=== PATIENT | male | born 1960 | race Caucasian/White ===

== ENCOUNTER 2020-12-06 20:53 | Emergency (ER) | payer MEDICAID, SELFPAY ==
[2020-12-06 21:02] VITALS: BP 116/85; PULSE 112; RESP 18; TEMP 37.4; O2SAT 96; BMI 31.4
--- NOTE | 2020-12-06 21:54 | W.ED.ABDPA2 ---
HPI - Abdominal Pain General: Chief Complaint: Abdominal Pain Stated Complaint: constantly cold, stomach pain, cp Time Seen by Provider: 12/06/20 21:02 Source: patient Mode of arrival: ambulatory Limitations: no limitations History of Present Illness: HPI narrative: 60-year-old male states of last 2 days been having epigastric abdominal pain that radiates to his chest. States the pain is been much worse after eating and then subsides. He states the pain is in his chest when he lays flat after eating. He states he has a history of reflux in the past and used to be on a PPI but does not take anymore. He denies any pain currently. Denies any worsening improving factors. Denies any vomiting or diarrhea. MD elicited complaint: abdominal pain Associated Symptoms: Denies chills, dysuria and fever(s) Review of Systems Const: Denies: fever(s), chills, body aches or change in appetite Eyes: Denies: blurry vision or eye discomfort ENMT: Denies: throat pain or dental pain Card: Reports: chest pain Resp: Denies: dyspnea GI: Reports: abdominal pain : Denies: dysuria Musc: Denies: neck pain or back pain Skin/Breast: Denies: rash Neuro: Denies: headache(s) Psych: Denies: depression Jose/Lymph: Denies: easy bruising All/Imm: Denies: urticaria Physical Exam Const: COMMON NORMALS: no acute distress, patient oriented x3 and healthy appearing HENMT: COMMON NORMALS: normocephalic and atraumatic HEAD & SCALP: normocephalic and atraumatic Eye: COMMON NORMALS: Equal, round and reactive pupils present and EOMs intact bilaterally PUPIL: Yes Equal, round and reactive pupils present Neck/C-Spine: COMMON NORMALS: full ROM and supple Chest: COMMONS NORMALS: normal inspection of the chest and normal palpation of entire chest wall Resp: COMMON NORMALS: normal respiratory effort, No retractions, No use of accessory muscles and clear to auscultation bilaterally AUSCULTATION: clear to auscultation bilaterally Cardio: COMMON NORMALS: regular rate, regular rhythm and No murmurs present (Cardio) RATE: regular rate RHYTHM: regular rhythm GI: COMMON NORMALS: Normal to inspection, nondistended, normoactive bowel sounds present, Soft to palpation, non-tender and no masses PALPATION: Yes Soft to palpation Extremity: COMMON NORMALS: normal to inspection and full ROM Neuro: COMMON NORMALS: patient oriented x3, moves all extremities and no focal motor deficits Psych: COMMON NORMALS: mental status grossly normal, Normal thought process present and cooperative THOUGHT PROCESS: Normal thought process present Skin: COMMON NORMALS: no rashes or lesions noted and no wounds GENERAL SKIN EXAM: no rashes or lesions noted Course Vital Signs: Vital signs: Vital Signs Temperature 98.5 F 12/06/20 23:59 Pulse Rate 112 H 12/06/20 21:02 Respiratory Rate 18 12/07/20 00:04 Blood Pressure 116/85 12/06/20 21:02 Pulse Oximetry 96 12/06/20 21:02 MDM - Abdominal Pain MDM Narrative: Medical decision making narrative: Ace presents with epigastric pain is likely gastritis. His initial repeat troponin and blood work here are all normal. He has no tenderness over his gallbladder no signs of acute surgical abdomen. He has no signs of cardiac cause for his pain. We will place him on Protonix and he is stable for discharge. Lab Data: Labs: Lab Results 12/06/20 12/06/20 12/06/20 Range/Units 22:30 22:30 22:30 WBC 6.8 (4.0-10.0) 10^3/ uL RBC 5.51 H (4.1-5.3) 10^6/u L Hgb 15.9 (11.7-16.6) g/dL Hct 47.4 (42.0-52.0) % MCV 86.0 (80-94) fL MCH 28.9 (28.0-34.0) pg MCHC 33.5 (30.0-36.0) g/dL RDW 12.7 (12.1-15.1) % Plt Count 165 (130-400) 10^3/c mm MPV 11.2 H (7.4-10.4) fL Neut % (Auto) 79.8 % Lymph % (Auto) 11.0 % [place] % (Auto) 7.8 % Eos % (Auto) 0.1 % Baso % (Auto) 0.7 % Neut # (Auto) 5.45 (1.8-7.7) 10^3/u L Lymph # (Auto) 0.8 (0.8-4.8) 10^3/u L [place] # (Auto) 0.5 (0.2-0.9) 10^3/u L Eos # (Auto) 0.0 (0.0-0.8) 10^3/u L Baso # (Auto) 0.1 (0.0-0.1) 10^3/u L Nucleated RBC % (a uto) 0 % Nucleated RBCs # 0.0 /100WBC Sodium 137 (136-145) mmol/L Potassium 3.5 (3.5-5.1) mmol/L Chloride 101 (98-107) mmol/L Carbon Dioxide 23 (22-29) mmol/L Anion Gap 16.5 (5-19) BUN 12 (6-20) mg/dL Creatinine 0.7 (0.7-1.2) mg/dL GFR Calculation 115.8 (90-130) mL/min Glucose 138 H (65-115) mg/dL Calculated Osmolal ity 286 (285-295) mOsm/k g Calcium 9.0 (8.5-10.5) mg/dL Total Bilirubin 0.7 (0.15-1.2) mg/dL AST 33 (0-40) U/L ALT 51 H (0-41) U/L Alkaline Phosphata se 73 (40-130) IU/L Troponin T Baselin e 9 (0-15) ng/L Troponin T 120 Min [place] (0-15) ng/L Total Protein 7.3 (6.6-8.7) g/dL Albumin 4.4 (3.5-5.2) g/dL Globulin 2.9 (1.3-4.6) g/dL Lipase 43 (13-60) U/L 12/07/20 Range/Units 00:23 WBC (4.0-10.0) 10^3/ uL RBC (4.1-5.3) 10^6/u L Hgb (11.7-16.6) g/dL Hct (42.0-52.0) % MCV (80-94) fL MCH (28.0-34.0) pg MCHC (30.0-36.0) g/dL RDW (12.1-15.1) % Plt Count (130-400) 10^3/c mm MPV (7.4-10.4) fL Neut % (Auto) % Lymph % (Auto) % [place] % (Auto) % Eos % (Auto) % Baso % (Auto) % Neut # (Auto) (1.8-7.7) 10^3/u L Lymph # (Auto) (0.8-4.8) 10^3/u L [place] # (Auto) (0.2-0.9) 10^3/u L Eos # (Auto) (0.0-0.8) 10^3/u L Baso # (Auto) (0.0-0.1) 10^3/u L Nucleated RBC % (a uto) % Nucleated RBCs # /100WBC Sodium (136-145) mmol/L Potassium (3.5-5.1) mmol/L Chloride (98-107) mmol/L Carbon Dioxide (22-29) mmol/L Anion Gap (5-19) BUN (6-20) mg/dL Creatinine (0.7-1.2) mg/dL GFR Calculation (90-130) mL/min Glucose (65-115) mg/dL Calculated Osmolal ity (285-295) mOsm/k g Calcium (8.5-10.5) mg/dL Total Bilirubin (0.15-1.2) mg/dL AST (0-40) U/L ALT (0-41) U/L Alkaline Phosphata se (40-130) IU/L Troponin T Baselin e (0-15) ng/L Troponin T 120 Min [place] 7.77 (0-15) ng/L Total Protein (6.6-8.7) g/dL Albumin (3.5-5.2) g/dL Globulin (1.3-4.6) g/dL Lipase (13-60) U/L Imaging Data ^: CXR: Attestation: I personally reviewed and interpreted this imaging study as follows: My impression: no acute abnormality EKG Data ^: EKG 1: Attestation: I personally reviewed and interpreted this EKG as follows: EKG interpretation date: 12/06/20 EKG interpretation time: 21:11 Interpretation: sinus tach hr [address] or t wave abnormalitie qrs 97 qtc 380 EKG 2: Attestation: I personally reviewed and interpreted this EKG as follows: EKG interpretation date: 12/06/20 EKG interpretation time: 23:19 Interpretation: nsr hr [address] or t wave abnormalities qrs 95 qtc 378 Discharge Plan Discharge Patient Disposition: Home Clinical Impression: Abdominal pain Qualifiers: Abdominal location: generalized Qualified Code(s): R10.84 - Generalized abdominal pain Condition: Stable Prescriptions: New Protonix 40 mg tablet,delayed release (DR/EC) 40 mg PO DAILY Qty: 60 RF: 0 Discharge Orders: Discharge ED (Routine); Ordered 12/07/20 Ordered By: Nolvia Vivas Referrals: Ford García MD [Primary Care Provider] - 1-3 days Discharge Diet: Advance as tolerated Discharge Activity: Resume usual activity Patient Instructions: Abdominal Pain (ED) Coding Level of Care Code ED Civil Engineer'S Aide for Chg Fwd Exam Comprehensive
--- NOTE | 2020-12-06 22:34 | XR_ITS ---
WS: [id number] XR chest 1V portable [id number] REASON FOR EXAM: cp FINDINGS: The chest is unchanged compared to 11/16/2016. Mild tortuosity of the thoracic aorta. Normal heart size. Calcified granulomatous changes in both hemithoraces. No active pulmonary parenchymal or pleural disease. No significant abnormality of the bony thorax. XR/XR chest 1V portable [id number] IMPRESSION: No acute chest abnormality
[2020-12-06 22:39] LABS: Basophils # 0.1 10^3/uL (0.0-0.1); Basophils % 0.7 %; Eosinophils % 0.1 %; Hematocrit 47.4 % (42.0-52.0); Hemoglobin 15.9 g/dL (11.7-16.6); Lymphocytes # 0.8 10^3/uL (0.8-4.8); Mean Corpuscular HGB Conc 33.5 g/dL (30.0-36.0); Mean Corpuscular Hemoglobin 28.9 pg (28.0-34.0); Mean Platelet Volume 11.2 fL (7.4-10.4); Monocytes # 0.5 10^3/uL (0.2-0.9); Monocytes % 7.8 %; Neutrophils # 5.45 10^3/uL (1.8-7.7); Neutrophils % 79.8 %; Nucleated Red Blood Cells % 0 %; Platelet Count 165 10^3/cmm (130-400); Red Blood Count 5.51 10^6/uL (4.1-5.3); Red Cell Distribution Width 12.7 % (12.1-15.1); White Blood Count 6.8 10^3/uL (4.0-10.0)
[2020-12-06 22:57] LABS: Alanine Aminotransferase 51 U/L (0-41); Albumin Level 4.4 g/dL (3.5-5.2); Alkaline Phosphatase 73 IU/L (40-130); Anion Gap 16.5 (5-19); Aspartate Amino Transferase 33 U/L (0-40); Blood Urea Nitrogen 12 mg/dL (6-20); Carbon Dioxide 23 mmol/L (22-29); Chloride 101 mmol/L (98-107); Globulin 2.9 g/dL (1.3-4.6); Glomerular Filtration Rate 115.8 mL/min (90-130); Glucose 138 mg/dL (65-115); Lipase 43 U/L (13-60); Osmolality Calculated 286 mOsm/kg (285-295); Potassium 3.5 mmol/L (3.5-5.1); Sodium 137 mmol/L (136-145); Total Bilirubin 0.7 mg/dL (0.15-1.2); Total Protein 7.3 g/dL (6.6-8.7)
[2020-12-06 23:00] LABS: Troponin(5th) Baseline 9 ng/L (0-15)
--- NOTE | 2020-12-06 23:03 | ECG_ITS ---
[facility] Test Date: 2020-12-06 Pat Name: Ace Barney Department: Room: Gender: Male Manager Law: : 1960 Requested By: Nolvia Vivas Order Number: [id number] Daniel MD: Aziza Vicente M.D. Measurements Intervals [place] Rate: 96 P: 32 [place]: 155 QRS: -20 QRSD: 95 T: 58 QT: 324 QTc: 411 Interpretive Statements SINUS RHYTHM VOLTAGE CRITERIA FOR LVH [MEETS CRITERIA IN ONE OF: R(aVL), S(V1), R(V5), R(V5/V6)+S(V1)] NONSPECIFIC T-WAVE ABNORMALITY Compared to ECG 01/15/2016 13:19:03 T-wave abnormality now present Electronically Signed On 12-07-2020 23:24:09 CDT by Aziza Vicente M.D. [email or web address]/[id number]
[2020-12-06 23:59] VITALS: TEMP 36.9
[2020-12-07] MEDS: ondansetron 2 mg/ML SDV 2 mL 4 MG IVP (00:02)
[2020-12-07 00:04] VITALS: RESP 18
[2020-12-07] MEDS: morphine 4 mg/mL SDV 1 mL IVP (00:04)
[2020-12-07] MEDS: sodium chloride 0.9% 1,000 ML 999 ML IV (00:05)
[2020-12-07 00:43] LABS: Troponin 5 2HR 7.77 ng/L (0-15)
[2020-12-07 01:02] VITALS: BP 148/90; PULSE 96; RESP 18; O2SAT 97
[2020-12-07 01:03] LABS: Troponin 5 2HR Delta -1.23 ABS# (0-10)
== END 2020-12-07 01:04 | disposition home or self-care (01) ==
PROVIDERS: Emergency Provider Emergency Medicine; PCP Family Medicine
DX: R10.84 Generalized abdominal pain (principal)
CPT/HCPCS: 36415; 71045; 80053; 83690; 84484; 85025; 93005; 96361; 96374; 96375; 99284; J2270; J2405; J7030

== ENCOUNTER 2020-12-09 15:16 | Inpatient (IN) | payer MEDICAID, SELFPAY ==
[2020-12-09] VITALS (12 sets, daily range): BP systolic 76–148; BP diastolic 50–112; PULSE 108–120; RESP 21–37; TEMP 37.6–38; O2SAT 92–96; BMI 26.4
--- NOTE | 2020-12-09 16:10 | XRR_ITS ---
PROCEDURE INFORMATION: Exam: XR Chest Exam date and time: 12/09/2020 4:15 PM Age: 60 years old Clinical indication: Fever; Additional info: Tachycardia/fever TECHNIQUE: Imaging protocol: XR of the chest Views: 1 view. Total images: 1 COMPARISON: CR XR chest 1V portable [id number] 12/06/2020 10:33 PM FINDINGS: Lungs: Small volume bibasilar subsegmental alveolar airspace disease which could reflect atelectasis and/or pneumonitis/pneumonia. Diminished inspiratory effort. Pleural spaces: Unremarkable. No pleural effusion. No pneumothorax. Heart/Mediastinum: Cardiac size upper limits of normal. Bones/joints: Unremarkable. Other findings: Obesity. XR/XR chest 1V portable [id number] IMPRESSION: Small volume bibasilar subsegmental alveolar airspace disease which could reflect atelectasis and/or pneumonitis/pneumonia.
--- NOTE | 2020-12-09 16:11 | PC.NURSE ---
Blood and first blood culture drawn and in lab
--- NOTE | 2020-12-09 16:16 | ECG_ITS ---
[facility] Test Date: 2020-12-09 Pat Name: Ace Barney Department: Room: Gender: Male Chairman & Ceo: : 1960 Requested By: Fam Camarillo Order Number: [id number] Daniel MD: Miriam Ramsey M.D. Measurements Intervals [place] Rate: 109 P: 13 [place]: 128 QRS: -17 QRSD: 100 T: 81 QT: 311 QTc: 420 Interpretive Statements SINUS TACHYCARDIA INCOMPLETE RIGHT BUNDLE BRANCH BLOCK [90+ ms QRS DURATION, TERMINAL R IN V1/V2, 40+ ms S IN I/aVL/V4/V5/V6] LEFT VENTRICULAR HYPERTROPHY AND ST-T CHANGE [VOLTAGE CRITERIA PLUS ST/T ABNORMALITY] Compared to ECG 12/06/2020 23:19:17 Incomplete right bundle-branch block now present ST (T wave) deviation now present Sinus rhythm no longer present T-wave abnormality no longer present Electronically Signed On 12-09-2020 20:12:51 CDT by Miriam Ramsey M.D. [email or web address]/store/OM/[id number]
--- NOTE | 2020-12-09 16:30 | PC.NURSE ---
second blood culture drawn and in lab
[2020-12-09 16:34] LABS: Basophils % 0.4 %; Hematocrit 41.8 % (42.0-52.0); Hemoglobin 14.4 g/dL (11.7-16.6); Lymphocytes # 0.5 10^3/uL (0.8-4.8); Lymphocytes % 9.1 %; Mean Corpuscular HGB Conc 34.4 g/dL (30.0-36.0); Mean Corpuscular Hemoglobin 28.5 pg (28.0-34.0); Mean Corpuscular Volume 82.8 fL (80-94); Mean Platelet Volume 12.7 fL (7.4-10.4); Monocytes # 0.4 10^3/uL (0.2-0.9); Monocytes % 8.3 %; Neutrophils # 4.02 10^3/uL (1.8-7.7); Neutrophils % 81.8 %; Nucleated Red Blood Cells % 0 %; Platelet Count 97 10^3/cmm (130-400); Red Blood Count 5.05 10^6/uL (4.1-5.3); Red Cell Distribution Width 13.2 % (12.1-15.1); White Blood Count 4.9 10^3/uL (4.0-10.0)
[2020-12-09] MEDS: acetaminophen 325 mg Tablet 1000 MG PO (16:34)
--- NOTE | 2020-12-09 16:34 | W.ED.COVID ---
HPI - COVID General: Chief Complaint: COVID symptoms Stated Complaint: SOB,FEVER,SORE THROAT,COUGH Time Seen by Provider: 12/09/20 16:02 Triage information: Has fever, cough or shortness of breath. No known COVID + exposure last 14 days History of Present Illness: HPI Narrative: The patient is a 60-year-old male who complains of a couple days of sore throat, dry mouth, fever, chills, weakness, and diarrhea. He was seen in the ER 2 days ago for similar symptoms and was given Protonix and discharge. He says the pills made him feel better for 1 day but today his symptoms returned and he feels worse. Temperature 100.4, pulse 120. MD complaint: has COVID symptoms COVID 19 common symptoms: positive fever(s), chills, cough, dyspnea, fatigue, body aches, headache(s), throat pain and diarrhea COVID 19 other sytmptoms: negative chest pain COVID Results: SARS-CoV-2 Antigen (Rapid) Negative (Negative) 12/09/20 16:11 12/09/20 Nasal/Oral Coronavirus 2019 PCR Pending 12/09/20 17:59 12/09/20 Review of Systems General: Reports: 10 or more systems reviewed and unremarkable except in HPI and below Const: Reports: fever(s), chills, body aches and fatigue Eyes: Denies: change in vision, blurry vision or eye redness ENMT: Reports: throat pain Card: Denies: chest pain, palpitations, irregular heart rhythm, edema, dyspnea on exertion or orthopnea Resp: Reports: dyspnea GI: Reports: diarrhea : Denies: flank pain, urinary frequency or urinary urgency Musc: Denies: neck pain, back pain, extremity pain, joint pain, joint redness, limited range of motion or muscle weakness Skin/Breast: Denies: rash, pruritus, erythema, skin pain or skin tenderness Neuro: Reports: headache(s) Psych: Denies: anxiety or depression Endo: Denies: polyuria All/Imm: Denies: urticaria, throat swelling or tongue swelling Physical Exam Narrative: EXAM NARRATIVE: He is febrile, pale, and in sinus tachycardia. Const: COMMON NORMALS: patient oriented x3 and alert GENERAL APPEARANCE: well kempt ORIENTATION/CONSCIOUSNESS: Yes oriented to person, Yes oriented to place and Yes oriented to time HENMT: COMMON NORMALS: normocephalic, external ears normal and Normal external nose present HEAD & SCALP: normal to inspection and normocephalic NOSE: Normal external nose present EXTERNAL EAR: Yes external ears normal MOUTH: Normal oral and palatal mucosa present THROAT: posterior oropharynx normal Eye: COMMON NORMALS: Equal, round and reactive pupils present and EOMs intact bilaterally GENERAL EYE: appearance normal, both eyes and all related structures PUPIL: Yes Equal, round and reactive pupils present Neck/C-Spine: COMMON NORMALS: full ROM, no lymphadenopathy, no meningeal signs and no JVD GENERAL: Yes normal visual inspection Lymph: LYMPHATIC: no lymphadenopathy noted Chest: COMMONS NORMALS: normal inspection of the chest and normal palpation of entire chest wall Resp: COMMON NORMALS: normal respiratory effort, No retractions, No use of accessory muscles, clear to auscultation bilaterally and percussion normal EFFORT & INSPECTION: Yes able to speak in complete sentences AUSCULTATION: clear to auscultation bilaterally PERCUSSION: percussion normal Cardio: COMMON NORMALS: no JVD, regular rhythm, S1 normal heart sound present, S2 normal heart sound present and Peripheral pulses 2+ throughout RATE: tachycardic (110-120 sinus tachycardia) RHYTHM: regular rhythm HEART SOUNDS: S1 normal heart sound present and S2 normal heart sound present PERIPHERAL PULSES: Peripheral pulses 2+ throughout GI: COMMON NORMALS: Normal to inspection, nondistended, normoactive bowel sounds present, Soft to palpation, non-tender and no masses INSPECTION: Yes normal to inspection PALPATION: Yes Soft to palpation : COMMON NORMALS: Yes no CVA tenderness BLADDER/KIDNEY EXAM: Yes no CVA tenderness Back/Pelvis: COMMON NORMALS: no CVA tenderness, thoracic and lumbar spine normal to inspection, no thoracic nor lumbar tenderness and thoraco-lumbar ROM normal Extremity: COMMON NORMALS: normal to inspection, full ROM, capillary refill normal, no joint enlargement and no pedal edema GENERAL: Yes normal exam except as noted Neuro: COMMON NORMALS: patient oriented x3, CN's II-XII intact bilaterally, moves all extremities, no focal motor deficits, no sensory deficits noted and gait normal SENSORIUM/ORIENTATION: Yes alert, Yes oriented to person, Yes oriented to place and Yes oriented to time MENINGEAL SIGNS: Yes no meningeal signs Psych: COMMON NORMALS: mental status grossly normal, Normal thought process present, cooperative, normal affect and speech normal APPEARANCE: Yes well kempt ATTITUDE: Yes calm SPEECH: Yes normal speech THOUGHT PROCESS: Normal thought process present Skin: COMMON NORMALS: no rashes or lesions noted GENERAL SKIN EXAM: no rashes or lesions noted Course Vital Signs: Vital signs: Vital Signs Temperature 99.7 F H 12/09/20 20:31 Pulse Rate 120 H 12/09/20 21:00 Respiratory Rate 32 H 12/09/20 20:55 Blood Pressure 132/72 12/09/20 20:31 Pulse Oximetry 96 12/09/20 20:31 MDM - COVID MDM Narrative: Medical decision making narrative: This patient came in in sinus tachycardia with flulike symptoms. Creatinine came back at 7.8 and BUN 48 this is a significant change even from 3 days ago where he had a normal labs after being seen here. Also sodium 126. This is likely from sepsis and acute dehydration. He was started on IV fluid boluses x2 L and started on an antibiotic IV. Abdominal CT shows no acute pathologies. Discussed with Dr. Dubois who accepts for admission to the ICU. Lab Data: Labs: Lab Results 12/09/20 12/09/20 12/09/20 Range/Units 16:11 16:11 16:11 WBC 4.9 (4.0-10.0) 10^3/ uL RBC 5.05 (4.1-5.3) 10^6/u L Hgb 14.4 (11.7-16.6) g/dL Hct 41.8 L (42.0-52.0) % MCV 82.8 (80-94) fL MCH 28.5 (28.0-34.0) pg MCHC 34.4 (30.0-36.0) g/dL RDW 13.2 (12.1-15.1) % Plt Count 97 L (130-400) 10^3/c mm MPV 12.7 H (7.4-10.4) fL Neut % (Auto) 81.8 % Lymph % (Auto) 9.1 % [place] % (Auto) 8.3 % Eos % (Auto) 0.0 % Baso % (Auto) 0.4 % Neut # (Auto) 4.02 (1.8-7.7) 10^3/u L Lymph # (Auto) 0.5 L (0.8-4.8) 10^3/u L [place] # (Auto) 0.4 (0.2-0.9) 10^3/u L Eos # (Auto) 0.0 (0.0-0.8) 10^3/u L Baso # (Auto) 0.0 (0.0-0.1) 10^3/u L Nucleated RBC % (a uto) 0 % Nucleated RBCs # 0.0 /100WBC Sodium 126 L (136-145) mmol/L Potassium 3.4 L (3.5-5.1) mmol/L Chloride 88 L (98-107) mmol/L Carbon Dioxide 17 L (22-29) mmol/L Anion Gap 24.4 H (5-19) BUN 48 H (6-20) mg/dL Creatinine 7.8 H* (0.7-1.2) mg/dL GFR Calculation 7.2 L (90-130) mL/min Glucose 246 H (65-115) mg/dL Calculated Osmolal ity 283 L (285-295) mOsm/k g Lactate 2.0 (0.5-2.2) mmol/L Calcium 8.1 L (8.5-10.5) mg/dL Total Bilirubin 1.7 H (0.15-1.2) mg/dL AST 292 H (0-40) U/L ALT 188 H (0-41) U/L Alkaline Phosphata se 71 (40-130) IU/L Troponin T Baselin e (0-15) ng/L Troponin T 120 Min [place] (0-15) ng/L Delta Troponin T (0-10) ABS# NT-Pro-B Natriuret Pep (0-125) pg/mL Total Protein 7.0 (6.6-8.7) g/dL Albumin 3.4 L (3.5-5.2) g/dL Globulin 3.6 (1.3-4.6) g/dL Influenza Type A A g (Negative) Influenza Type B A g (Negative) SARS-CoV-2 Ag (Rap id) (Negative) Group A Strep Rapi d (Negative) 12/09/20 12/09/20 12/09/20 Range/Units 16:11 16:11 16:11 WBC (4.0-10.0) 10^3/ uL RBC (4.1-5.3) 10^6/u L Hgb (11.7-16.6) g/dL Hct (42.0-52.0) % MCV (80-94) fL MCH (28.0-34.0) pg MCHC (30.0-36.0) g/dL RDW (12.1-15.1) % Plt Count (130-400) 10^3/c mm MPV (7.4-10.4) fL Neut % (Auto) % Lymph % (Auto) % [place] % (Auto) % Eos % (Auto) % Baso % (Auto) % Neut # (Auto) (1.8-7.7) 10^3/u L Lymph # (Auto) (0.8-4.8) 10^3/u L [place] # (Auto) (0.2-0.9) 10^3/u L Eos # (Auto) (0.0-0.8) 10^3/u L Baso # (Auto) (0.0-0.1) 10^3/u L Nucleated RBC % (a uto) % Nucleated RBCs # /100WBC Sodium (136-145) mmol/L Potassium (3.5-5.1) mmol/L Chloride (98-107) mmol/L Carbon Dioxide (22-29) mmol/L Anion Gap (5-19) BUN (6-20) mg/dL Creatinine (0.7-1.2) mg/dL GFR Calculation (90-130) mL/min Glucose (65-115) mg/dL Calculated Osmolal ity (285-295) mOsm/k g Lactate (0.5-2.2) mmol/L Calcium (8.5-10.5) mg/dL Total Bilirubin (0.15-1.2) mg/dL AST (0-40) U/L ALT (0-41) U/L Alkaline Phosphata se (40-130) IU/L Troponin T Baselin e 40 H (0-15) ng/L Troponin T 120 Min [place] (0-15) ng/L Delta Troponin T (0-10) ABS# NT-Pro-B Natriuret Pep 364 H (0-125) pg/mL Total Protein (6.6-8.7) g/dL Albumin (3.5-5.2) g/dL Globulin (1.3-4.6) g/dL Influenza Type A A g (Negative) Influenza Type B A g (Negative) SARS-CoV-2 Ag (Rap id) Negative (Negative) Group A Strep Rapi d (Negative) 12/09/20 12/09/20 12/09/20 Range/Units 16:30 16:30 18:30 WBC (4.0-10.0) 10^3/ uL RBC (4.1-5.3) 10^6/u L Hgb (11.7-16.6) g/dL Hct (42.0-52.0) % MCV (80-94) fL MCH (28.0-34.0) pg MCHC (30.0-36.0) g/dL RDW (12.1-15.1) % Plt Count (130-400) 10^3/c mm MPV (7.4-10.4) fL Neut % (Auto) % Lymph % (Auto) % [place] % (Auto) % Eos % (Auto) % Baso % (Auto) % Neut # (Auto) (1.8-7.7) 10^3/u L Lymph # (Auto) (0.8-4.8) 10^3/u L [place] # (Auto) (0.2-0.9) 10^3/u L Eos # (Auto) (0.0-0.8) 10^3/u L Baso # (Auto) (0.0-0.1) 10^3/u L Nucleated RBC % (a uto) % Nucleated RBCs # /100WBC Sodium (136-145) mmol/L Potassium (3.5-5.1) mmol/L Chloride (98-107) mmol/L Carbon Dioxide (22-29) mmol/L Anion Gap (5-19) BUN (6-20) mg/dL Creatinine (0.7-1.2) mg/dL GFR Calculation (90-130) mL/min Glucose (65-115) mg/dL Calculated Osmolal ity (285-295) mOsm/k g Lactate (0.5-2.2) mmol/L Calcium (8.5-10.5) mg/dL Total Bilirubin (0.15-1.2) mg/dL AST (0-40) U/L ALT (0-41) U/L Alkaline Phosphata se (40-130) IU/L Troponin T Baselin e (0-15) ng/L Troponin T 120 Min [place] 40.16 H (0-15) ng/L Delta Troponin T 0.16 (0-10) ABS# NT-Pro-B Natriuret Pep (0-125) pg/mL Total Protein (6.6-8.7) g/dL Albumin (3.5-5.2) g/dL Globulin (1.3-4.6) g/dL Influenza Type A A g Negative (Negative) Influenza Type B A g Negative (Negative) SARS-CoV-2 Ag (Rap id) (Negative) Group A Strep Rapi d Negative (Negative) COVID Results: SARS-CoV-2 Antigen (Rapid) Negative (Negative) 12/09/20 16:11 12/09/20 Nasal/Oral Coronavirus 2019 PCR Pending 12/09/20 17:59 12/09/20 Critical Care Time Critical Care Time: Critical Care Time: Yes Total Critical Care Time: 60 Attestation: Sepsis management and new onset acute renal failure as well as admission to the ICU. 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
[2020-12-09] MEDS: cefTRIAXone 1,000 MG in sodium chloride 0.9% (plus) 50 ML 100 MG IV (16:35)
[2020-12-09] MEDS: sodium chloride 0.9% 1,000 ML 999 ML IV ×2 (16:35→22:55)
[2020-12-09 16:53] LABS: SARS Covid-2 Antigen Negative (Negative)
[2020-12-09 17:03] LABS: Troponin(5th) Baseline 40 ng/L (0-15)
[2020-12-09 17:06] LABS: Rapid Strep A Test Negative (Negative)
[2020-12-09 17:19] LABS: Influenza A by IFA Negative (Negative); Influenza B by IFA Negative (Negative)
[2020-12-09 17:36] LABS: Alanine Aminotransferase 188 U/L (0-41); Albumin Level 3.4 g/dL (3.5-5.2); Alkaline Phosphatase 71 IU/L (40-130); Anion Gap 24.4 (5-19); Aspartate Amino Transferase 292 U/L (0-40); Blood Urea Nitrogen 48 mg/dL (6-20); Calcium 8.1 mg/dL (8.5-10.5); Carbon Dioxide 17 mmol/L (22-29); Chloride 88 mmol/L (98-107); Globulin 3.6 g/dL (1.3-4.6); Glomerular Filtration Rate 7.2 mL/min (90-130); Glucose 246 mg/dL (65-115); Osmolality Calculated 283 mOsm/kg (285-295); Potassium 3.4 mmol/L (3.5-5.1); Sodium 126 mmol/L (136-145); Total Bilirubin 1.7 mg/dL (0.15-1.2)
--- NOTE | 2020-12-09 17:49 | CTR_ITS ---
PROCEDURE INFORMATION: Exam: CT Abdomen And Pelvis Without Contrast Exam date and time: 12/09/2020 8:07 PM Age: 60 years old Clinical indication: Patient HX: C/O abd cramping, diarrhea w trell; Additional info: Abd pain, cramping, creat 7.8 new renal failure. Covid SX TECHNIQUE: Imaging protocol: Computed tomography of the abdomen and pelvis without contrast. Total images: 261 Radiation optimization: All CT scans at this facility use at least one of these dose optimization techniques: automated exposure control; mA and/or kV adjustment per patient size (includes targeted exams where dose is matched to clinical indication); or iterative reconstruction. COMPARISON: No relevant prior studies available. RADIATION DOSE METRICS: Total DLP (mGy-cm): 1875.21 FINDINGS: Lungs: Limited assessment of the lung bases fails to reveal evidence for active cardiopulmonary process. Calcified granulomas of antecedent disease. Liver: Advanced diffuse fatty infiltration of the liver with hepatomegaly. Gallbladder and bile ducts: Partial hepatization of the gallbladder. No visible formed cholelithiasis. Pancreas: Pancreas unremarkable. No visible pancreatic ductal ectasia. Spleen: Mild splenomegaly. Adrenal glands: Adrenal glands unremarkable. Kidneys and ureters: No hydronephrosis or perinephric fluid bilaterally. No visible nephrolithiasis or ureterolithiasis. Perinephric stranding which is a nonspecific finding. Stomach and bowel: Assessment of the hollow viscus fails to reveal evidence of active or acute pathology. Nonobstructed bowel pattern. No visible acute diverticulitis. No visible adynamic or reactive ileus. Appendix: The appendix is visualized and appears noninflamed. Intraperitoneal space: No visible pneumoperitoneum or intraperitoneal ascites. Vasculature: The abdominal aorta is nonaneurysmal. Minimal arterial sclerotic disease. Lymph nodes: No current visible evidence of active mesenteric or retroperitoneal lymphadenopathy. Urinary bladder: Khan catheter within the decompressed urinary bladder. Reproductive: Prostate hypertrophy. Bones/joints: No visible active or acute osseous pathology. Soft tissues: Bilateral small inguinal hernias containing fat only. Other findings: Obesity. CT/CT abdomen pelvis wo con [id number] IMPRESSION: Currently no visible evidence of acute abdominal or pelvic pathologic process. Radiation Dose CTDIVOL = (mGy): DLP = 1875.21 (mGy-cm)
[2020-12-09 17:51] LABS: NT Pro B Type Natriuretic Pept 364 pg/mL (0-125)
[2020-12-09 19:14] LABS: Troponin 5 2HR 40.16 ng/L (0-15); Troponin 5 2HR Delta 0.16 ABS# (0-10)
--- NOTE | 2020-12-09 22:16 | ECG_ITS ---
[facility] Test Date: 2020-12-09 Pat Name: Ace Barney Department: Room: ICU08 Gender: Male Vaccinator: : 1960 Requested By: Fam Camarillo Order Number: [id number] Daniel MD: Miriam Ramsey M.D. Measurements Intervals [place] Rate: 108 P: 42 [place]: 128 QRS: -12 QRSD: 109 T: 39 QT: 334 QTc: 449 Interpretive Statements SINUS TACHYCARDIA MODERATE VOLTAGE CRITERIA FOR LVH, CONSIDER NORMAL VARIANT [MEETS CRITERIA IN ONE OF: R(aVL), S(V1), R(V5), R(V5/V6)+S(V1)] NONSPECIFIC ST & T-WAVE ABNORMALITY Compared to ECG 12/09/2020 16:43:00 T-wave abnormality now present Incomplete right bundle-branch block no longer present ST (T wave) deviation no longer present Electronically Signed On 12-10-2020 13:02:49 CDT by Miriam Ramsey M.D. [id number] [email or web address]
[2020-12-09 22:28] LABS: Add Urine Culture? No; Add Urine Microscopic? YES; Bacteria Urine 2+ /hpf; Bilirubin Urine Neg (Negative); Blood Urine 3+ (Negative); Glucose Urine UA 4+ (Normal); Ketones Urine Negative (Negative); Leukocyte Esterase Urine Negative (Negative); Nitrate Urine Negative (Negative); Protein Urine 3+ (Negative); RBC Urine >100 /hpf (0-2); Specific Gravity, Urine 1.015 (1.005-1.030); Squamous Epithelial Cell Urine 15-25 /hpf (0-5); Urine Appearance SL Hazy (CLEAR); Urine Color Dark Yellow (Yellow); Urobilinogen Urine Norm (Negative); WBC Urine 0-4 /hpf (0-5); pH Urine 5 (5-7)
[2020-12-09 23:16] LABS: Troponin 5 6HR 44.25 ng/L (0-15); Troponin 5 6HR Delta 4.25 ng/L (0-12)
--- NOTE | 2020-12-09 23:19 | P.HP_ITS ---
Providers/Chief Complaint Admitting Physician: Brittni Dubois MD Primary Care Provider: Ford García MD Chief Complaint: SOB,FEVER,SORE THROAT,COUGH History of Present Illness Ace Barney is a 60 year old male who presents to the emergency room with chief complaint of fever, cough and shortness of breath. He had been in the emergency room a few days prior to admission and complained of general abdominal pain, chest pain. Cardiac enzymes were negative. He was put on a PPI and felt stable for discharge home. Laboratory studies at that point in time were okay. He is currently quite ill and it is difficult to get specific information from him. Sounds like he has had some general malaise, upper respiratory symptoms and sore throat along with some diarrhea. He is unable to quantify how much diarrhea. Reports no urine output the last couple of days or at least that he cannot remember when he last made urine. Does not report any blood in his urine. Does not know anyone he has been around that has been sick. Denies any ingestions. He does not use any drugs or alcohol. He takes his medications as prescribed. Work-up in the emergency room revealed multiple abnormal labs when compared to the ones from just a few days ago were really unrevealing. Other th an the stomach medication which he said helped him for a day or so he denies any other new medications. He was tachycardic but not hypotensive in the emergency room. He did receive a couple of liters of fluid due to the acute renal failure. Lactic acid was actually normal. Rapid Covid antigen was negative but Covid PCR was sent. Troponin delta was unremarkable. EKG showed tachycardia without acute ST segment changes. Urine was not able to be collected to date. Not too long after arrival to the ICU, despite receiving more than 2 L of fluids and continued IV fluids, patient started to have drop in blood pressures. Additional fluids were administered. Decision was made for central line placement which is documented elsewhere given the critical nature. He was started on pressors, placed in Trendelenburg. ABG remarkably showed that he was compensating well. He had been quite tachypneic and I was concerned that we would need to intubate him but his respirations have improved. He has extremely dry on examination. We still have very little urine output. UA was able to be done and looks suspicious for urine infection. He has received some Rocephin. Blood cultures were collected. Review of Systems General: Reports: ROS unobtainable due to medical condition and ROS yokasta btainable due to mental status Medications/Allergies Home Medications Medication Instructions Recorded Confirmed Last Taken Type aspirin 81 mg PO DAILY@0830 12/09/20 12/09/20 12/09/20 History empagliflozin [Jardiance] 25 mg PO DAILY@0812/09/20 12/09/20 12/09/20 History gabapentin 600 mg PO TID@0830,12/09/20 12/09/20 12/09/20 History glipizide 5 mg PO DAILY@82912/09/20 12/09/20 12/09/20 History insulin detemir U-100 [Levemir 80 unit SUBCUT BID@829,202912/09/20 12/09/20 12/09/20 History FlexTouch U-100 Insuln] lisinopril 5 mg PO DAILY@82912/09/20 12/09/20 12/09/20 History metformin 500 mg PO DAILY@82912/09/20 12/09/20 12/09/20 History pantoprazole [Protonix] 40 mg PO DAILY@82912/09/20 12/09/20 12/09/20 History pioglitazone 15 mg PO DAILY@82912/09/20 12/09/20 12/09/20 History rosuvastatin 40 mg PO DAILY@82912/09/20 12/09/20 12/09/20 History sitagliptin [Januvia] 100 mg PO DAILY@82912/09/20 12/09/20 12/09/20 History zolpidem 10 mg PO BEDTIME@202912/09/20 12/09/20 12/09/20 History Allergies Allergy/AdvReac Type Severity Reaction Status Date / Time ibuprofen Allergy Unknown Verified 12/09/20 17:14 PFSH Acute PFSH: Medical History (Updated 12/10/20 @ 03:32 by Brittni Dubois MD) Diabetes mellitus, type II Hyperlipidemia Hypertension Mild cognitive impairment Grade school education Surgical History (Updated 12/10/20 @ 01:46 by Brittin Dubois MD) History of cardiac catheterization (~2013) Procedure Summary 1-LM is normal 2-LAD is normal 3-LCx is normal 4-RCA is normal 5-Normal LVEDP Family History (Updated 12/10/20 @ 01:48 by Brittni Dubois MD) Other Diabetes Social History (Updated 12/10/20 @ 01:49 by Brittni Dubois MD) Smoking and tobacco status: never smoked Alcohol intake: never Substance/Drug Use: never Education level details: Grade school education, was in special education per old records Vitals/I&O/Wt Last Vital Signs Temp 99.7 F H 12/09/20 20:31 Pulse 110 H 12/09/20 22:00 Resp 37 H 12/09/20 22:00 BP 83/53 12/09/20 22:00 Pulse Ox 94 12/09/20 22:00 12/09/20 12/09/20 12/10/20 14:59 22:59 06:59 Intake Total 1050 / 1050 Balance 1050 / 1050 Weight last 48 hrs Weight 86.183 kg Physical Exam Const: OTHER: Awake, will answer simple questions but also repeatedly states that his mouth is dry. Very ill-appearing. HENMT: OTHER: Normocephalic, a traumatic, profoundly dry oropharynx Eye: OTHER: Injected sclera, pupils are equally reactive bilaterally, no nystagmus is noted, anicteric Neck/C-Spine: OTHER: Supple Lymph: OTHER: Lymphadenopathy noted in the right groin Resp: OTHER: Tachypneic, mouth breathing, shallow respirations no wheezes. No rales or rhonchi noted. Mild retractions. Cardio: OTHER: Tachycardic, regular rhythm, distant heart sounds, weak peripheral pulses, no JVD GI: OTHER: Abdomen soft, rotund, nontender with positive bowel sounds though they are decreased : OTHER: Uncircumcised phallus with the foreskin being dry and a bit cracked. Khan catheter is in place. Extremity: OTHER: No pitting edema, no mottling although feet and hands are cool, capillary refill around 3 seconds, shoulders, hands and wrists, knees and ankles do not appear grossly edematous or erythematous Neuro: OTHER: Handgrip equal, moves all extremities, speech is clear, face is symmetric Skin: OTHER: Skin is very dry, hands are dirty. No large bruises. A few ecchymoses at sites of prior lab draws. No petechiae noted. Urinary Catheter Management^: Khan: Cath Placed During This Visit: yes Urinary Catheter Date of Insertion: 12/09/20 Urinary Catheter Time of Insertion: 20:26 Data : 12/09/20 16:11 12/09/20 16:11 Other Labs: Laboratory Results WBC 4.9 10^3/uL (4.0-10.0) 12/09/20 16:11 RBC 5.05 10^6/uL (4.1-5.3) 12/09/20 16:11 Hgb 14.4 g/dL (11.7-16.6) 12/09/20 16:11 Hct 41.8 % (42.0-52.0) L 12/09/20 16:11 MCV 82.8 fL (80-94) 12/09/20 16:11 MCH 28.5 pg (28.0-34.0) 12/09/20 16:11 MCHC 34.4 g/dL (30.0-36.0) 12/09/20 16:11 RDW 13.2 % (12.1-15.1) 12/09/20 16:11 Plt Count 97 10^3/cmm (130-400) L 12/09/20 16:11 MPV 12.7 fL (7.4-10.4) H 12/09/20 16:11 Neut % (Auto) 81.8 % 12/09/20 16:11 Lymph % (Auto) 9.1 % 12/09/20 16:11 [place] % (Auto) 8.3 % 12/09/20 16:11 Eos % (Auto) 0.0 % 12/09/20 16:11 Baso % (Auto) 0.4 % 12/09/20 16:11 Neut # (Auto) 4.02 10^3/uL (1.8-7.7) 12/09/20 16:11 Lymph # (Auto) 0.5 10^3/uL (0.8-4.8) L 12/09/20 16:11 [place] # (Auto) 0.4 10^3/uL (0.2-0.9) 12/09/20 16:11 Eos # (Auto) 0.0 10^3/uL (0.0-0.8) 12/09/20 16:11 Baso # (Auto) 0.0 10^3/uL (0.0-0.1) 12/09/20 16:11 Nucleated RBC % (auto) 0 % 12/09/20 16:11 Nucleated RBCs # 0.0 /100WBC 12/09/20 16:11 Sodium 126 mmol/L (136-145) L 12/09/20 16:11 Potassium 3.4 mmol/L (3.5-5.1) L 12/09/20 16:11 Chloride 88 mmol/L (98-107) L 12/09/20 16:11 Carbon Dioxide 17 mmol/L (22-29) L 12/09/20 16:11 Anion Gap 24.4 (5-19) H 12/09/20 16:11 BUN 48 mg/dL (6-20) H 12/09/20 16:11 Creatinine 7.8 mg/dL (0.7-1.2) H* 12/09/20 16:11 GFR Calculation 7.2 mL/min (90-130) L 12/09/20 16:11 Glucose 246 mg/dL (65-115) H 12/09/20 16:11 Calculated Osmolality 283 mOsm/kg (285-295) L 12/09/20 16:11 Lactate 2.0 mmol/L (0.5-2.2) 12/09/20 16:11 Calcium 8.1 mg/dL (8.5-10.5) L 12/09/20 16:11 Total Bilirubin 1.7 mg/dL (0.15-1.2) H 12/09/20 16:11 AST 292 U/L (0-40) H 12/09/20 16:11 ALT 188 U/L (0-41) H 12/09/20 16:11 Alkaline Phosphatase 71 IU/L (40-130) 12/09/20 16:11 Troponin T Baseline 40 ng/L (0-15) H 12/09/20 16:11 Troponin T 120 Minute 40.16 ng/L (0-15) H 12/09/20 18:30 Delta Troponin T 0.16 ABS# (0-10) 12/09/20 18:30 Troponin T Hi Sens 6Hr 44.25 ng/L (0-15) H 12/09/20 22:12 Troponin T Hi Sens 6Hr Delta 4.25 ng/L (0-12) 12/09/20 22:12 NT-Pro-B Natriuret Pep 364 pg/mL (0-125) H 12/09/20 16:11 Total Protein 7.0 g/dL (6.6-8.7) 12/09/20 16:11 Albumin 3.4 g/dL (3.5-5.2) L 12/09/20 16:11 Globulin 3.6 g/dL (1.3-4.6) 12/09/20 16:11 Urine Color Dark yellow (Yellow) 12/09/20 20:22 Urine Appearance Sl hazy (CLEAR) 12/09/20 20:22 Urine pH 5 (5-7) 12/09/20 20:22 Ur Specific [place] 1.015 (1.005-1.030) 12/09/20 20:22 Urine Protein 3+ (Negative) H 12/09/20 20:22 Urine Glucose (UA) 4+ (Normal) H 12/09/20 20:22 Urine Ketones Negative (Negative) 12/09/20 20:22 Urine Blood 3+ (Negative) H 12/09/20 20:22 Urine Nitrate Negative (Negative) 12/09/20 20: Urine Bilirubin Neg (Negative) 12/09/20 20:22 Urine Urobilinogen Norm mg/dL (Negative) 12/09/20 20:22 Ur Leukocyte Esterase Negative (Negative) 12/09/20 20:22 Urine RBC >100 /hpf (0-2) H 12/09/20 20:22 Urine WBC 0-4 /hpf (0-5) H 12/09/20 20:22 Ur Squamous Epith Cells 15-25 /hpf (0-5) H 12/09/20 20:22 Amorphous Sediment Not Reportable 12/09/20 20:22 Urine Bacteria 2+ /hpf (NONE) H 12/09/20 20:22 Influenza Type A Ag Negative (Negative) 12/09/20 16:30 Influenza Type B Ag Negative (Negative) 12/09/20 16:30 SARS-CoV-2 Ag (Rapid) Negative (Negative) 12/09/20 16:11 Group A Strep Rapid Negative (Negative) 12/09/20 16:30 Impressions Chest X-Ray 12/09/20 16:10 IMPRESSION: Small volume bibasilar subsegmental alveolar airspace disease which could reflect atelectasis and/or pneumonitis/pneumonia. Abdomen/Pelvis CT 12/09/20 17:49 IMPRESSION: Currently no visible evidence of acute abdominal or pelvic pathologic process. Radiation Dose CTDIVOL = (mGy): DLP = 1875.21 (mGy-cm) Micro: Microbiology 12/09/20 16:11 Blood Culture - Preliminary Blood SPECIMEN COLLECTED 12/09/20 16:30 Blood Culture - Preliminary Blood SPECIMEN COLLECTED Other data: Laboratory Tests 12/06/20 12/06/20 12/06/20 22:30 22:30 22:30 WBC 6.8 Hgb 15.9 Hct 47.4 Plt Count 165 Sodium 137 Potassium 3.5 Chloride 101 Carbon Dioxide 23 Anion Gap 16.5 BUN 12 Creatinine 0.7 GFR Calculation 115.8 Glucose 138 H Calculated Osmolality 286 Calcium 9.0 Total Bilirubin 0.7 AST 33 ALT 51 H Alkaline Phosphatase 73 Troponin T Baseline 9 Albumin 4.4 A&P Assessment and plan (1) Septic shock: Unclear foci of infection currently though chest x-ray with some haziness in the bases making pneumonia possibility, urine abnormal. White count is currently normal as is lactic acid however patient has tachycardia, tachypnea, acute renal failure, thrombocytopenia, elevated liver enzymes and an anion gap acidosis. It is not out of the realm of possibility that the shock is for another reason. Nevertheless, patient is critically ill presently. He did not feel well a couple of days ago but at that point in time all of his labs were normal. Something acute has definitively happened in the interim. Differential includes embolic/thrombotic phenomenon, toxic ingestion, acute inflammat ory/autoimmune process, infections whether they be bacterial or viral, among others. Status: Acute (2) Acute renal failure: Status: Acute Qualifiers: Acute renal failure type: with acute tubular necrosis Qualified Code(s): N17.0 - Acute kidney failure with tubular necrosis (3) High anion gap metabolic acidosis: Status: Acute (4) Elevated liver enzymes: Status: Acute (5) Thrombocytopenia: Status: Acute (6) Diabetes mellitus, type II: Status: Acute Qualifiers: Diabetes mellitus fci insulin use: with fci use Diabetes mellitus complication status: with neurologic complications Diabetes mellitus complication detail: with unspecified neuropathy Qualified Code(s): E11.40 - Type 2 diabetes mellitus with diabetic neuropathy, unspecified; Z79.4 - snf (current) use of insulin Additional A&P Information Abnormal urinalysis although with significant number of epithelial cells Chronically with hyperlipidemia, hypertension, had negative cath in 2014 Mild cognitive impairment with grade school education Patient is critically ill presently. He did not feel well a couple of days ago but at that point in time all of his labs were normal. Something acute has definitively happened in the interim. Differential includes embolic/thrombotic phenomenon, toxic ingestion, acute inflammatory/autoimmune process, infections whether they be bacterial or viral, among others. Inpatient admission ICU care IV fluids, has already received at the time of this dictation approximately 4 L saline bolus Monitor electrolytes need to replace keeping in mind oliguria presently Continue Levophed weaning as able Hold nephrotoxic medications, renally dose others Nephrology consultation this evening, I have spoken with Dr. Newman Khan catheter due to acute renal failure and critical need for monitoring Continue Rocephin, was started for possibility of urinary tract infection in the emergency room, add vancomycin x1 dose Covid PCR has been sent Check ferritin, fibrinogen and D-dimer Blood cultures are pending Isolation precautions Check procalcitonin, CRP Check coagulation studies including LDH, reticulocyte count, haptoglobin, peripheral smear Monitor for signs of bleeding ABG Check salicylate and Tylenol levels, urine drug screen Urine eosinophils and electrolytes Check CK level Serial cardiac enzymes have already been checked but patient reported some chest pain during central line placement. Repeat stat EKG did not show any ST segment changes. Review of records shows that he has complained of pain in the chest previously. Had a negative cath in 2014 though does have risk factors. Limited echocardiogram in the morning to evaluate ejection fraction right ventricular pressures Gallbladder ultrasound Check hepatitis panel Check lipase Sliding scale insulin for diabetes currently SCDs for DVT prophylaxis, currently no pharmacological DVT prophylaxis secondary to thrombocytopenia combined with the very potential possibility that he may very soon need dialysis catheter placement for dialysis Monitor closely for need to provide respiratory support up to and including the possibility of intubation or BiPAP Supportive care otherwise Basic plans were reviewed with patient. Reviewed with nursing staff as well as discussed with nephrology. Patient's primary concerns this evening are getting something for his mouth. Full code Attestations Medical Necessity Statement*: Anticipated stay greater than 2 midnights in a critically ill patient requiring ICU monitoring, aggressive hydration, and other care as noted above. He is at high risk of progressive clinical decline up to and including the possibility of Critical Care Time: The high probability of a clinically significant, sudden or life threatening deterioration of the patient's renal, pulmonary, vascular system(s) required my full and direct attention, intervention and personal management. The critical care time is as shown. This time is in addition to time spent performing any reported procedures but includes the following: [x] Data and vital sign review and interpretation [x] Patient assessment, examination and intervention [x] Documentation [x] Medication orders and management Time noted below does not include procedure documented elsewhere Critical Care Time (min): 120 Coding Level of Care Code Acute Senior Developer for [facility] Fwd Diagnoses Septic shock A41.9; R65.21 Acute renal failure N17.0 Acute renal failure type: with acute tubular necrosis High anion gap metabolic acidosis E87.2 Elevated liver enzymes R74.8 Thrombocytopenia D69.6 Diabetes mellitus, type II E11.40; Z79.4 Diabetes mellitus fci insulin use: with fci use Diabetes mellitus complication status: with neurologic complications Diabetes mellitus complication detail: with unspecified neuropathy
[2020-12-10] VITALS (73 sets, daily range): BP systolic 82–136; BP diastolic 52–89; PULSE 73–119; RESP 14–44; TEMP 36.6–36.7; O2SAT 85–98; BMI 38.0
[2020-12-10] MEDS: sodium chloride 0.9% 1,000 ML 999 ML IV (00:03)
[2020-12-10 00:31] LABS: ABG PCO2 26.6 mmHg (35-45); ABG PH Result 7.37 (7.35-7.45); Alveolar-Arterial Oxygen Gradi 5.5 mmHg (5-10); Arterial Blood Gas Hematocrit 39.5 % (42-52); Base Excess ABG -8.2 mmol/L (-2.0-2.0); Blood Gas Operator Identificat JB; Blood Gas Sample Type Arterial; Carboxyhemoglobin 0.7 %THgb (0.4-20.1); HCO3 ABG 15.5 mmol/L (22-26); HGB O2 Sat 93.4 % (95-100); Methemoglobin 0.6 % (0.4-1.5); Oxygen Device NC; Oxygen Saturation ABG 94.7; PO2 ABG 73.9 mmHg (80.0-100.0); Potassium Level - ABG 3.1 mmol/L (3.5-5.0); Total Hemoglobin 12.9 g/dL (14-18)
[2020-12-10 00:43] LABS: Amphetamines Screen Urine Negative (Negative); Barbiturates Screen Urine Negative (Negative); Benzodiazepines Screen Urine Negative (Negative); Cocaine Screen Urine Negative (Negative); Opiate Screen Urine Negative (Negative); PCP Screen Urine Negative (Negative); THC Screen Urine Negative (Negative)
[2020-12-10] MEDS: sodium chloride 0.9% 1,000 ML 150 ML IV (00:58)
[2020-12-10 01:05] LABS: Lactate Dehydrogenase 577 U/L (135-225); Uric Acid 8.4 mg/dL (3.4-7.0)
[2020-12-10 01:07] LABS: Acetaminophen < 5.0 ug/mL (10-30); Alcohol Level < 10 mg/dL (0-10); Salicylate < 0.3 mg/dL (3-10)
[2020-12-10 01:08] LABS: Creatine Phosphokinase 647 U/L (39-308)
[2020-12-10 01:11] LABS: Creatinine Urine, Random 136 mg/dL (39-259); Urine Random Sodium 33 mmol/L
--- NOTE | 2020-12-10 01:12 | PM.ACPR ---
Acute Procedures Central Line Placement^: Left Femoral: Time out performed: Yes Patient placed on monitor/pulse ox: Yes MD prep: mask, gown and gloves Central line prep: Povidone-Iodine 1% and Chlorhexidine scrub Local anesthesia used: lidocaine 1% Amount of anesthesia used (ml): 3 Ultrasound used for placement: Yes Central line lumen inserted: triple Post procedure: sutured in place, good blood return, all ports aspirated, flushed, capped and sterile dressing applied Patient tolerated procedure: well Additional comments: Despite receiving fluids, patient had continued drop in blood pressure. We were also having significant difficulty obtaining any blood for further blood draws. Decision made to proceed with central line placement to allow adequate administration of medications and monitoring via blood draws. Consent was obtained from patient's sister over the phone as he himself was really not in a clinical condition that I felt he could adequately consent. He himself did consent as well. Right groin was initially prepped but attempts to access were unsuccessful. Using ultrasound the vein on the right side is almost completely below the artery. Additionally there is some lymphadenopathy in the right groin. Decision was made to proceed to left groin. With ultrasound guidance vein was identified. Area was prepped and draped in sterile fashion as noted above. Using Seldinger technique, along with the ultrasound vein was entered on first attempt without any complications. Patient tolerated the procedure well. He had approximately 5 mL of blood loss. All ports flushed well and line will be used. I was assisted by Cesar Wright, ICU nurse. Katie Amaya, ICU nurse also helped.
[2020-12-10 01:13] LABS: INR 1.06 (0.8-1.2)
[2020-12-10 01:15] LABS: Reticulocyte % 1 % (42.0-52.0)
[2020-12-10 01:16] LABS: Hepatitis A Antibody IgM Non-Reactive (Nonreactive); Hepatitis B Core IgM Non-Reactive (Nonreactive)
[2020-12-10 01:58] LABS: Hepatitis B Surface Antigen Non-Reactive (Nonreactive); Hepatitis C Virus Antibody Non-Reactive (Nonreactive)
[2020-12-10 02:01] LABS: Eosinophil Urine No Eosinophils Seen; Urine Eosinophil Count 0 (0-0)
--- NOTE | 2020-12-10 02:18 | P.CONIM_ITS ---
Providers/Reason For Consult Consulting Physican/Specialty*: kwabena flood md/ telenephrology Reason for Consult*: MAGNUS, inc AGMA Attending Physician: Brittni Dubois MD Primary Care Provider: Ford García MD History of Present Illness History of Present Illness Ace Barney is a 60 year old male admitted last night w/ chief complaint of fever, cough, shortness of breath, RUQ pain, diarrhea, weakness, leg pains, and no uop in 36 hrs. He denies any ingestions. He does not use any drugs or alcohol. He is a DM, uncntrolled. He was admitted in septic shock, MAGNUS, inc AGMA, new thrombocytopenia, hyponatremia, hypokalemia, inc lft's, mild inc LDH, ck 647, elevated trop, proteinuria, glucosuria, hematuria, bacturia, and sq epi in urine, low ur na. Pt was treated w/ abx and ivf. requires pressers and renal was called to consult. Review of Systems General: Reports: 10 or more systems reviewed and unremarkable except in HPI and below Narrative: weak, fevers, burry vision, no kaba, mild sob, no cough, + abd pain, dec uop, leg pains and weakness. Meds/Allergies Home Medications and Allergies Home Medications Medication Instructions Recorded Confirmed Last Taken Type aspirin 81 mg PO DAILY@82912/09/20 12/09/20 12/09/20 History empagliflozin [Jardiance] 25 mg PO DAILY@82912/09/20 12/09/20 12/09/20 History gabapentin 600 mg PO TID@0830,123,202912/09/20 12/09/20 12/09/20 History glipizide 5 mg PO DAILY@82912/09/20 12/09/20 12/09/20 History insulin detemir U-100 [Levemir 80 unit SUBCUT BID@12/09/20 12/09/20 12/09/20 History FlexTouch U-100 Insuln] lisinopril 5 mg PO DAILY@82912/09/20 12/09/20 12/09/20 History metformin 500 mg PO DAILY@82912/09/20 12/09/20 12/09/20 History pantoprazole [Protonix] 40 mg PO DAILY@82912/09/20 12/09/20 12/09/20 History pioglitazone 15 mg PO DAILY@82912/09/20 12/09/20 12/09/20 History rosuvastatin 40 mg PO DAILY@82912/09/20 12/09/20 12/09/20 History sitagliptin [Januvia] 100 mg PO DAILY@82912/09/20 12/09/20 12/09/20 History zolpidem 10 mg PO BEDTIME@202912/09/20 12/09/20 12/09/20 History Allergies Allergy/AdvReac Type Severity Reaction Status Date / Time ibuprofen Allergy Unknown Verified 12/09/20 17:14 Current Medications Current Medications Generic Name Dose Route Start Last Admin Trade Name Freq PRN Reason Stop Dose Admin Sodium Chloride 1,000 mls @ 150 mls/hr 12/09/20 23:30 12/10/20 00:58 Sodium Chloride 0.9% IV 150 mls/hr .Q6H40M DEBORAH Administration Norepinephrine Bitartrate 4 mg 254 mls @ 0 mls/hr 12/09/20 23:45 12/10/20 01:24 / Dextrose IV 15 mcg/min .Q0M DEBORAH 57.2 mls/hr Titration Protocol Per Protocol PFSH Acute PFSH: Medical History (Updated 12/10/20 @ 02:34 by Brittni Dubois MD) Diabetes mellitus, type II Hyperlipidemia Hypertension Mild cognitive impairment Grade school education Surgical History (Updated 12/10/20 @ 01:46 by Brittni Dubois MD) History of cardiac catheterization (~2013) Procedure Summary 1-LM is normal 2-LAD is normal 3-LCx is normal 4-RCA is normal 5-Normal LVEDP Family History (Updated 12/10/20 @ 01:48 by Brittni Dubois MD) Other Diabetes Social History (Updated 12/10/20 @ 01:49 by Brittni Dubois MD) Smoking and tobacco status: never smoked Alcohol intake: never Substance/Drug Use: never Education level details: Grade school education, was in special education per old records Vitals/I&O/Wt Last Vital Signs Temp 99.7 F H 12/09/20 20:31 Pulse 113 H 12/10/20 00:30 Resp 26 H 12/10/20 00:30 BP 95/64 12/10/20 00:30 Pulse Ox 93 12/10/20 00:30 12/09/20 12/09/20 12/10/20 14:59 22:59 06:59 Intake Total 1050 / 1050 2025.483 / 3076.483 Balance 1050 / 1050 2025.483 / 3076.483 Weight last 48 hrs Weight 86.183 kg Physical Exam Narrative: EXAM NARRATIVE: obese, uncomfortable in bed BP low, tachycardic heent: nc/at, eomi, anicteric neck supple lungs clear heart tachy abd RUQ tender ext no edema neuro- a,a, o x 3 pulses + b/l Urinary Catheter Management^: Khan: Cath Placed During This Visit: yes Urinary Catheter Date of Insertion: 12/09/20 Urinary Catheter Time of Insertion: 20:26 Data Micro: Micro: Microbiology 12/09/20 16:11 Blood Culture - Pr eliminary Blood SPECIMEN COLLE KEN 12/09/20 16:30 Blood Culture - Pr eliminary Blood SPECIMEN [facility] KEN A&P Additional A&P Information 60 yr old man htn, dm, here w/ septic shock 1. septic shock- cindy spectrum abx. will check RUQ US -add vancomycin 1 gm 2. MAGNUS -likely ATN -though quick rise -ck 647- not rhabdo -ldh elevated- likely from liver. doubt TTP. low retic count. repeat ldh, retoc count, haptoglobin in am -no hydronephrosis on imaging -u/a- likely a uti- however will send serologies 3. inc AGMA -normal lactate -MAGNUS contribuiting -send ethylene glycol level- unlikely -check osms -neg salicylates 4. hyponatremia - low ur na of 33- check cortisol and tsh 5. thrombocytopenia- likely from sepsis. monitor 6. inc lft's likely shock- check RUQ sono pt will likely need dialysis soon- discussed w/ pt, RN, and Dr Dubois time spent 60 minutes Consult Attestations Medical Necessity Statement: septic shick, multi-organ failure, metabolic acidosis Time Spent in Patient Care: Greater than 35 minutes (>than 50% of time spent in counselling and/or direct pt care on unit) . Coding Level of Care Code Acute Planned Giving Officer for [employer]
[2020-12-10 02:32] LABS: Glucose Point of Care 262 mg/dL (70-110)
--- NOTE | 2020-12-10 02:35 | US_ITS ---
WS: [id number] RIGHT UPPER QUADRANT ULTRASOUND HISTORY: inc lfts, ruq pain. eval for cholecystitis ACUTE HEPATITIS COMPARISON: None available. Liver: 21.9 cm in length. Normal size liver. No bile duct dilatation or mass. Gallbladder: Normally distended. Mild gallbladder wall thickening and a small amount of adjacent free fluid. Gallbladder wall measures just over 3 mm. No stones or bile duct dilatation. CBD: 0.6 cm Pancreas: Head and tail are poorly visualized. The body is normal. Right kidney: 15.0 cm in length. Normal size and echogenicity. No hydronephrosis or mass. Aorta and IVC: Unremarkable abdominal aorta and IVC. No ascites. US/US abdomen limited [id number] IMPRESSION: 1. Markedly enlarged liver changes of hepatic steatosis. 2. No cholelithiasis. 3. Gallbladder wall thickening is diffuse with a small amount of adjacent flui d. Probably on the basis of hepatocellular dysfunction.
--- NOTE | 2020-12-10 02:49 | USCV_ITS ---
Ace Barney Age: 60 Gender: M : 1960 Exam Date: 12/10/2020 06:39 Ordering Phys: Brittni Dubois MD Technologist: Exam Location: [facility] – [place], [place] Indication: SPESIS, HYPOTENSION, LOOKING FOR EF AND RVP BP: 109 / 73 HR: 98 Rhythm: Sinus Technical Quality: Adequate MEASUREMENTS (Male / Female) Normal Values 2D ECHO LV Diastolic Diameter PLAX 6.1 cm 4.2 - 5.9 / 3.9 - 5.3 cm LV Systolic Diameter PLAX 4.8 cm IVS Diastolic Thickness 1.1 cm 0.6 - 1.0 / 0.6 - 0.9 cm IVS Systolic Thickness 0.9 cm LVPW Diastolic Thickness 0.8 cm 0.6 - 1.0 / 0.6 - 0.9 cm LVPW Systolic Thickness 1.1 cm LVOT Diameter 2.0 cm LV Ejection Fraction 2D Teich 42.6 % LV Ejection Fraction MOD 2C 54.5 % LV Ejection Fraction 2C AL 54.8 % LA Diameter 3.6 cm LA Width 3.5 cm LA Height 4.8 cm RA Width 4.0 cm RA Height 4.0 cm Aorta at Sinotubular Diameter 3.6 cm M-MODE LV Diastolic Diameter MM 6.9 cm 4.2 - 5.9 / 3.9 - 5.3 cm LV Systolic Diameter MM 5.5 cm LV Ejection Fraction MM Teich 40.9 % IVS Diastolic Thickness MM 0.8 cm 0.6 - 1.0 / 0.6 - 0.9 cm IVS Systolic Thickness MM 1.6 cm LVPW Diastolic Thickness MM 1.1 cm 0.6 - 1.0 / 0.6 - 0.9 cm LVPW Systolic Thickness MM 1.6 cm RV Diastolic Diameter MM 1.2 cm DOPPLER AV Peak Velocity 150.0 cm/s LVOT Peak Velocity 105.0 cm/s AV Area Cont Eq vti 2.8 cm squared AV Area Cont Eq pk 2.2 cm squared MV Area PHT 5.0 cm squared Mitral E to A Ratio 1.3 MV E' Velocity 50.5 cm/s Mitral E to MV E' Ratio 9.2 Mitral E to LV E' Lateral Ratio 8.8 Mitral E to LV E' Septal Ratio 9.8 TR Peak Velocity 241.0 cm/s TR Peak Gradient 23.2 mmHg TV Peak E Velocity 141.0 cm/s Right Atrial Pressure 3.0 mmHg Pulmonary Artery Systolic Pressu 26.2 mmHg PV Peak Velocity 113.0 cm/s FINDINGS Left Ventricle Normal left ventricular size and systolic function, EF 58 %. No regional wall motion abnormalities. Right Ventricle The right ventricle is normal in size and function. Right Atrium The right atrium is normal in size. Left Atrium The left atrium is normal in size. Mitral Valve No gross abnormalities noted Aortic Valve No gross abnormalities noted Tricuspid Valve No gross abnormalities noted Pulmonic Valve Structurally normal pulmonic valve without significant stenosis. There is no pulmonic regurgitation. Pericardium Normal pericardium without effusion. Aorta Normal ascending aorta dimension. CONCLUSIONS Normal left ventricular size and systolic function, EF 58 %. No regional wall motion abnormalities. No significant stenotic or regurgitant lesions. There is no pericardial effusion. There are no intracardiac masses. Patient was found to be tachycardic during the study Technically difficult study because of the poor ultrasonic window. Dr Aziza Vicente MD FACC (Electronically Signed) Final Date: 10 December 2020 18:11 S
[2020-12-10 02:50] LABS: HIV 1 & 2 Antibody Non-Reactive (Non-Reactiv); HIV 1 & 2 Antigen Non-Reactive (Non-Reactiv)
[2020-12-10 03:10] LABS: Hepatitis B Surface AB 3.5 (0-8.5)
--- NOTE | 2020-12-10 04:00 | XR_ITS ---
WS: [id number] PORTABLE CHEST HISTORY: hypoxemia, shock, arf COMPARISON: 12/09/2020 Lung volumes are slightly decreased. There are mild patchy opacifications throughout both lungs. No i mprovement or progression. No focal consolidations. No pleural effusion or pneumothorax. Cardiac size: Normal. Mediastinum/Aorta: Mild atherosclerosis aorta. No osseous abnormality seen. XR/XR chest 1V portable [id number] IMPRESSION: Mild diffuse patchy opacifications probably due to pneumonitis or atelectasis. No improvement.
[2020-12-10 05:32] LABS: Basophils # 0.1 10^3/uL (0.0-0.1); Basophils % 0.5 %; Eosinophils # 0.1 10^3/uL (0.0-0.8); Eosinophils % 0.6 %; Hematocrit 38.9 % (42.0-52.0); Hemoglobin 12.2 g/dL (11.7-16.6); Lymphocytes # 0.5 10^3/uL (0.8-4.8); Lymphocytes % 4.5 %; Mean Corpuscular HGB Conc 31.4 g/dL (30.0-36.0); Mean Corpuscular Hemoglobin 28.8 pg (28.0-34.0); Mean Corpuscular Volume 91.7 fL (80-94); Mean Platelet Volume 13.1 fL (7.4-10.4); Monocytes # 0.7 10^3/uL (0.2-0.9); Monocytes % 6.6 %; Neutrophils # 9.53 10^3/uL (1.8-7.7); Nucleated Red Blood Cells % 0 %; Platelet Count 62 10^3/cmm (130-400); Red Blood Count 4.24 10^6/uL (4.1-5.3); Red Cell Distribution Width 13.7 % (12.1-15.1); Reticulocyte % 1 % (42.0-52.0)
[2020-12-10 05:32] LABS: ABG PCO2 27.8 mmHg (35-45); ABG PH Result 7.23 (7.35-7.45); Alveolar-Arterial Oxygen Gradi 4.6 mmHg (5-10); Arterial Blood Gas Hematocrit 39.7 % (42-52); Base Excess ABG -14.6 mmol/L (-2.0-2.0); Blood Gas Operator Identificat JB; Blood Gas Sample Site Brachial, right; Blood Gas Sample Type Arterial; Carboxyhemoglobin 0.9 %THgb (0.4-20.1); HCO3 ABG 11.5 mmol/L (22-26); HGB O2 Sat 92.3 % (95-100); Methemoglobin 1.2 % (0.4-1.5); Oxygen Device ROOM AIR; Oxygen Saturation ABG 94.3; PO2 ABG 78.6 mmHg (80.0-100.0); Potassium Level - ABG 3.6 mmol/L (3.5-5.0); Total Hemoglobin 12.9 g/dL (14-18)
[2020-12-10 05:34] LABS: LAB Peripheral Smear Sent for Review
[2020-12-10] MEDS: vancomycin 1,250 MG/250 ML PIGGYBACK 250 MG IV (05:48)
[2020-12-10] MEDS: piperacillin-tazobactam 3.375 GM in sodium chloride 0.9% (plus) 50 ML IV (05:48)
[2020-12-10] MEDS: morphine 4 mg/mL SDV 1 mL 2 MG IVP (05:48)
[2020-12-10 06:04] LABS: Lactic Sepsis W/Reflex 1.3 mmol/L (0.5-2.2)
[2020-12-10 06:12] LABS: 25 Hydroxy Vitamin D 7 ng/mL (30-100); NT Pro B Type Natriuretic Pept 421 pg/mL (0-125); Procalcitonin 29.71 ng/mL (0-0.5); Thyroid Stimulating Hormone 1.15 uIU/mL (0.27-4.20)
[2020-12-10 06:18] LABS: Cortisol Random 38.42 ug/dL (2.47-19.5)
[2020-12-10 06:24] LABS: Alanine Aminotransferase 146 U/L (0-41); Albumin Level 2.7 g/dL (3.5-5.2); Alkaline Phosphatase 62 IU/L (40-130); Blood Urea Nitrogen 53 mg/dL (6-20); C Reactive Protein 283.4 mg/L (0.0-4.9); Calcium 6.9 mg/dL (8.5-10.5); Carbon Dioxide 11 mmol/L (22-29); Chloride 93 mmol/L (98-107); Glucose 247 mg/dL (65-115); Lipase 163 U/L (13-60); Magnesium 1.7 mg/dL (1.7-2.3); Osmolality Calculated 293 mOsm/kg (285-295); Sodium 130 mmol/L (136-145); Total Bilirubin 2.8 mg/dL (0.15-1.2); Total Protein 5.7 g/dL (6.6-8.7)
[2020-12-10 06:32] LABS: Anion Gap 29.7 (5-19); Creatine Phosphokinase 544 U/L (39-308); Potassium 3.7 mmol/L (3.5-5.1)
[2020-12-10 06:33] LABS: Aspartate Amino Transferase 220 U/L (0-40); Lactate Dehydrogenase 666 U/L (135-225)
[2020-12-10 06:51] LABS: Complement C3 122 mg/dL (90-180)
[2020-12-10 06:56] LABS: Ferritin 1911 ng/mL (30-400)
[2020-12-10 07:25] LABS: Fibrinogen 573 mg/dL (174-498)
[2020-12-10 07:35] LABS: D Dimer 8.68 ug/mIFEU (0-0.59)
--- NOTE | 2020-12-10 08:04 | XR_ITS ---
WS: [id number] Exam: XR chest 1V portable [id number] Date/Time of Exam: 12/10/2020 8:08 AM Reason For Exam: check Dialysis port placement. Comparison with the previous exam performed on the same day at 0539 hours. Previously noted mild infiltrates show significant improvement. The lungs are fully expanded. Cardiom ediastinal structures unremarkable for technique. A right IJ double lumen catheter is in place and ap pears to extend into the right atrium. XR/XR chest 1V portable [id number] IMPRESSION: 1. Previously noted infiltrates and/or vascular congestion almost completely re solved. 2. Right-sided IJ central line appearing to end in the right atrium. No pneumot horax.
[2020-12-10] MEDS: ergocalciferol (vitamin D2) 50,000 Unit Capsule 50000 UNIT PO (08:33)
[2020-12-10 08:56] LABS: Hepatitis B Surface AB 3.5 (0-8.5); Hepatitis B Surface Antigen Non-Reactive (Nonreactive); Hepatitis C Virus Antibody Non-Reactive (Nonreactive)
[2020-12-10 09:03] LABS: Glucose Point of Care 248 mg/dL (70-110)
[2020-12-10 09:57] LABS: Ketone (Acetest) Serum Positive (Negative)
--- NOTE | 2020-12-10 10:03 | PC.CHAP ---
Pastoral Care Encounter/Spiritual Assessment Type of Contact [] Declined lead c developer visit [] Patient/Family/Request visit [] Outpatient visit [] Follow-up visit [] Physician referral [] Code/Alert [x] Routine visit [] Staff referral [] Actively dying [] Patient sleeping [] Family support [] [] Out of room [] Palliative care [] [] Receiving care in room [] Pre-surgical visit [] Trauma [] Long length of stay [x] ICU visit [x] Other: locked to machines.. working with issues of blood Relational/Emotional Strength [] Patient feels connected with others/family/visitors/staff [] Distress [] Loneliness/isolation [] Abandonment Spirituality of Patient [] Person of Sintia [] Attends Denominational of their Sintia [] Believes in Prayer [] Reads Bible or Samaritan materials [] There are Spiritual issues to be addressed Blood Tester Fowl Interventions [x] Prayer [] Active listening [] Non-anxious presence [] Spiritual/emotional support [] Crisis/trauma care [] Spiritual counseling [] Bereavement support [] Provided bereavement packet [] Provided Bible/devotional materials [] Provided toy/stuffed animal, coloring book to patient or family member [] Provided Communion [] Anointing/Holland [] Salvation [x] Completed spiritual assessment [] Other: Impact on Illness or Injury [] Angry [] Fearful [] Anxious [] Often cries [] Exhaustion [] Unable to work [] Unable to attend confucianist [] Unable to walk/stand [] Unable to read [] Unable to drive [] Unable to eat/drink [] Unable to sleep [] Unable to be with family [] Patient intubated [] Other: Summary Time spent with patient
[2020-12-10 10:04] LABS: Procalcitonin 42.78 ng/mL (0-0.5)
[2020-12-10 10:15] LABS: C Reactive Protein 327.2 mg/L (0.0-4.9)
[2020-12-10 10:25] LABS: Erythrocyte Sedimentation Rate 58 mm/hr (0-10)
--- NOTE | 2020-12-10 11:28 | US_ITS ---
WS: [id number] RENAL ULTRASOUND HISTORY: b/l pyelonephritis COMPARISON: None available. TECHNIQUE: 2-D and color Doppler imaging of the kidney submitted. Right kidney: 13.7 cm x 8.4 cm x 7.0 cm. Normal echogenicity with no hydronephrosis or mass. Left kidney: 14.2 cm x 7.9 cm x 8.0 cm. Normal echogenicity with no hydronephrosis or mass. Aorta: Not visualized. Urinary Bladder: Normal distention. US/US renal BI* [id number] IMPRESSION: No renal obstruction or mass.
[2020-12-10 12:18] LABS: Glucose Point of Care 166 mg/dL (70-110)
[2020-12-10 12:34] LABS: Basophils % 0.4 %; Eosinophils # 0.3 10^3/uL (0.0-0.8); Eosinophils % 2.8 %; Hematocrit 35.6 % (42.0-52.0); Hemoglobin 12.1 g/dL (11.7-16.6); Lymphocytes # 0.5 10^3/uL (0.8-4.8); Lymphocytes % 5.8 %; Mean Corpuscular Hemoglobin 28.6 pg (28.0-34.0); Mean Corpuscular Volume 84.2 fL (80-94); Mean Platelet Volume 13.1 fL (7.4-10.4); Monocytes # 1.2 10^3/uL (0.2-0.9); Monocytes % 13.1 %; Neutrophils # 7.08 10^3/uL (1.8-7.7); Nucleated Red Blood Cells % 0 %; Platelet Count 66 10^3/cmm (130-400); Red Blood Count 4.23 10^6/uL (4.1-5.3); Red Cell Distribution Width 13.6 % (12.1-15.1); White Blood Count 9.2 10^3/uL (4.0-10.0)
--- NOTE | 2020-12-10 12:53 | PM.CONSULT ---
Providers/Reason For Consult Consulting Physican/Specialty*: Pulmonary critical care medicine Reason for Consult*: Septic shock with multiorgan dysfunction Attending Physician: Mau Fernandes MD Primary Care Provider: Ford García MD History of Present Illness History of Present Illness Ace Barney is a 60 year old male who presented to the hospital yesterday with fever, cough and shortness of breath. The patient was seen in the emergency room couple of days ago with abdominal pain and was started on pantoprazole and discharged home. Upon admission to the hospital the patient was hypotensive and required Levophed after he did not respond to 2 L of IV fluids. I was asked to see the patient with a diagnosis of septic shock secondary to bilateral pyelonephritis, acute renal failure requiring dialysis, metabolic acidosis, questionable diabetic ketoacidosis, elevations of liver enzymes and thrombocytopenia. The patient was seen and examined in the ICU after he received his dialysis. The patient was awake alert and able to answer questions. He denied any significant pain. The patient stated that he was hungry. Radiologic data: Chest x-ray on admission revealed possible atelectasis at bilateral lung bases. Chest x-ray today looks the same way. There is no evidence of fluid overload or definitive pneumonia. 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 There is no abnormalities in the lower lung zones that was included in the abdomen pelvis CT scan. Laboratory data: The patient has significant thrombocytopenia which has progressed compared to 2 days ago when he was in the emergency department. Hyponatremia and anion gap metabolic acidosis. Significantly elevated inflammatory markers such as haptoglobin, LDH, ferritin and CRP. The lipase level is also elevated. The pro Jan is elevated at 42.7 Blood culture has been negative so far. Sputum Gram stain is likely contaminated specimen. Review of Systems Narrative: Unable to obtain because of the overall clinical status. Meds/Allergies Home Medications and Allergies Home Medications Medication Instructions Recorded Confirmed Last Taken Type aspirin 81 mg PO DAILY@0830 12/09/20 12/09/20 12/09/20 History empagliflozin [Jardiance] 25 mg PO DAILY@0830 12/09/20 12/09/20 12/09/20 History gabapentin 600 mg PO TID@0830,1230,202912/09/20 12/09/20 12/09/20 History glipizide 5 mg PO DAILY@0821/21 03/21/21 03/21/21 History insulin detemir U-100 [Levemir 80 unit SUBCUT BID@12/09/20 12/09/20 12/09/20 History FlexTouch U-100 Insuln] lisinopril 5 mg PO DAILY@82912/09/20 12/09/20 12/09/20 History metformin 500 mg PO DAILY@82912/09/20 12/09/20 12/09/20 History pantoprazole [Protonix] 40 mg PO DAILY@82912/09/20 12/09/20 12/09/20 History pioglitazone 15 mg PO DAILY@82912/09/20 12/09/20 12/09/20 History rosuvastatin 40 mg PO DAILY@82912/09/20 12/09/20 12/09/20 History sitagliptin [Januvia] 100 mg PO DAILY@82912/09/20 12/09/20 12/09/20 History zolpidem 10 mg PO BEDTIME@202912/09/20 12/09/20 12/09/20 History Allergies Allergy/AdvReac Type Severity Reaction Status Date / Time ibuprofen Allergy Unknown Verified 12/09/20 17:14 Current Medications Current Medications Generic Name Dose Route Start Last Admin Trade Name Freq PRN Reason Stop Dose Admin Ergocalciferol 50,000 unit 12/10/20 07:30 12/10/20 08:33 Ergocalciferol (Vitamin D2) 50,000 Unit Capsule PO 50,000 unit Q7D DEBORAH Administration Norepinephrine Bitartrate 4 mg 254 mls @ 0 mls/hr 12/09/20 23:45 12/10/20 12:28 / Dextrose IV Infused .Q0M DEBORAH Titration Protocol Per Protocol Sodium Bicarbonate 50 meq/ 1,000 mls @ 125 mls/hr 12/10/20 02:45 12/10/20 11:19 Sodium Chloride IV 125 mls/hr .Q8H DEBORAH Administration Imipenem/Cilastatin Sodium 250 100 mls @ 200 mls/hr 12/10/20 12:30 12/10/20 12:27 mg/ Sodium Chloride IV 200 mls/hr Q12H DEBORAH Administration Protocol Insulin Aspart 0 unit 12/10/20 08:00 12/10/20 08:53 Insulin Aspart 100 Unit/1 Ml SUBCUT 8 unit TIDWM DEBORAH Administration Protocol Morphine Sulfate 2 mg 12/10/20 05:40 12/10/20 05:48 Morphine 4 Mg/Ml Sdv 1 Ml IVP 2 mg Q4H PRN Administration SEVERE PAIN PFSH Acute PFSH: Medical History Diabetes mellitus, type II Hyperlipidemia Hypertension Mild cognitive impairment Grade school education Surgical History History of cardiac catheterization (~2013) Procedure Summary 1-LM is normal 2-LAD is normal 3-LCx is normal 4-RCA is normal 5-Normal LVEDP Family History Other Diabetes Social History Smoking and tobacco status: never smoked Alcohol intake: never Substance/Drug Use: never Education level details: Grade school education, was in special education 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 Neck: No JVD Respiratory: Auscultation: Fine crackles at bilateral lung bases, no wheezing or rhonchi Cardiovascular: Regular rate and rhythm, S1-S2 present, no murmur, no peripheral edema. Abdomen: Soft, nontender, distended from obesity, positive bowel sound, no tenderness in the costovertebral angle Musculoskeletal: No obvious joint deformity Skin: No rash, no evidence of erythema nodosum or multiforme. Neuro: Patient is able to answer questions, moving all extremities Urinary Catheter Management^: Khan: Cath Placed During This Visit: yes Reason for Continuing Indwelling Catheter: Accurate Measurement of Urinary Output in Critically Ill Patients Urinary Catheter Date of Insertion: 12/09/20 Urinary Catheter Time of Insertion: 20:26 Data Micro: Micro: Microbiology 12/09/20 16:40 Gram Stain - Final Sputum - Expector ated Sputum 12/09/20 16:11 Blood Culture - Pr eliminary Blood SPECIMEN [facility] [place] KEN 12/09/20 16:30 Blood Culture - Pr eliminary Blood SPECIMEN [facility] A&P Assessment and plan (1) Septic shock: The patient is most likely suffering from septic shock in the setting of pyelonephritis. The patient is currently on a minimal vasopressor support. I believe will be able to titrate this off fairly quickly. If necessary, the patient can be given midodrine. The patient is broadly covered with antibiotics. Status: Acute (2) High anion gap metabolic acidosis: High anion gap metabolic acidosis likely secondary to acute kidney injury. Acute tubular necrosis. The etiology of this is probably multifactorial. There is also concerns whether the patient has diabetic ketoacidosis. The patient has mildly elevated blood sugar and ketones in the urine. Status: Acute (3) Acute renal failure: The patient suffered from acute tubular necrosis and currently on dialysis. The patient has oliguric renal failure. This is likely in the setting of hypotension, volume depletion as well as sepsis. Hopefully his urine output will get better in the next few days. Will be careful about his overall volume status. As too much volume may easily put him in pulmonary edema. Nephrology team is following the patient. Status: Acute Qualifiers: Acute renal failure type: with acute tubular necrosis Qualified Code(s): N17.0 - Acute kidney failure with tubular necrosis (4) Thrombocytopenia: Thrombocytopenia, kidney injury does raise concern for thrombotic microangiopathy. However, the patient does not have any evidence of schistocytes, he does not have anemia or elevated reticulocyte count. In addition, the haptoglobin level is actually elevated. I am hoping once the sepsis gets better all of this is can get better. Status: Acute (5) Elevated liver enzymes: Likely secondary to sepsis as well. Status: Acute Coding Level of Care Code Acute Conservator Artifacts for [facility] Diagnoses Septic shock A41.9; R65.21 High anion gap metabolic acidosis E87.2 Acute renal failure N17.0 Acute renal failure type: with acute tubular necrosis Thrombocytopenia D69.6 Elevated liver enzymes R74.8
[2020-12-10 13:04] LABS: Fibrinogen 700 mg/dL (174-498); INR 1.14 (0.8-1.2)
[2020-12-10 13:05] LABS: Partial Thromboplastin Time 65.6 SECONDS (23.9-36.7)
[2020-12-10 13:13] LABS: Anion Gap 29.5 (5-19); Blood Urea Nitrogen 48 mg/dL (6-20); Carbon Dioxide 14 mmol/L (22-29); Chloride 90 mmol/L (98-107); Glomerular Filtration Rate 7.3 mL/min (90-130); Glucose 239 mg/dL (65-115); Osmolality Calculated 290 mOsm/kg (285-295); Potassium 3.5 mmol/L (3.5-5.1); Sodium 130 mmol/L (136-145); Triglycerides 184 mg/dL (0-150)
[2020-12-10 13:15] LABS: D Dimer 10.48 ug/mIFEU (0-0.59)
[2020-12-10 13:27] LABS: Slide Review Slide Review Perform
[2020-12-10 13:41] LABS: Ferritin 2001 ng/mL (30-400)
[2020-12-10] MEDS: insulin regular-human 250 UNIT in sodium chloride 0.9% 250 ML IV (14:00)
[2020-12-10] MEDS: dextrose 5%-sod chloride 0.9% 1,000 ML 50 ML IV (14:01)
[2020-12-10] MEDS: vancomycin 1,000 MG in sodium chloride 0.9% 250 ML 250 MG IV (14:25)
[2020-12-10 15:04] LABS: Coronavirus Test Green County Not Detected
--- NOTE | 2020-12-10 15:22 | PM.PN ---
Subjective Subjective: Interval history: This morning patient was examined, after his dialysis catheter placement at bedside by Dr. Ramos At times it is difficult to understand patient, he has some degree of intellectual disability, however he does tell me that he is here in the hospital because he just did not feel well, he felt weak in his knees, he felt short of breath, and he felt lightheaded, -He denies any headache, no blurry vision, no neck pain, no nausea, no vomiting -He denies any belly pain, no diarrhea, no constipation -He does tell me that he has a history of kidney stones in the remote past, has some back pain, no dysuria, no hematuria, denies passing a kidney stone -Does complain of shortness of breath, no cough, he is not very clear if he had a fever or not, no known exposure to COVID-19 -Review of his previous records show that he did have a history of drug overdose in the past, he absolutely declines any drug overdose at this point, denies any ethylene glycol or methanol poisoning, denies any accidental ingestion -His only complaint right now is that he just has joint pains, and feels unwell, feels a bit nauseous -Denies any falls, no new recent injuries Vitals/I&O/Wt Last Vital Signs Temp 98.0 F 12/10/20 07:45 Pulse 81 12/10/20 11:45 Resp 33 H 12/10/20 11:45 BP 131/89 12/10/20 11:45 Pulse Ox 96 12/10/20 11:45 12/10/20 12/10/20 12/10/20 06:59 14:59 22:59 Intake Total 2504.000 / 3554.000 1372.75 / 1372.75 3.4 / 1376.15 Balance 2504.000 / 3554.000 1372.75 / 1372.75 3.4 / 1376.15 Weight last 48 hrs Weight 123.831 kg Weight 86.183 kg Physical Exam Const: GENERAL APPEARANCE: cooperative and ill appearing ORIENTATION/CONSCIOUSNESS: Yes awake, Yes oriented to person, Yes oriented to place and Yes oriented to time HENMT: COMMON NORMALS: normocephalic HEAD & SCALP: normocephalic Eye: COMMON NORMALS: Equal, round and reactive pupils present and EOMs intact bilaterally PUPIL: Yes Equal, round and reactive pupils present Neck/C-Spine: COMMON NORMALS: no JVD Chest: COMMONS NORMALS: normal inspection of the chest OTHER: Right dialysis chest catheter in place Resp: COMMON NORMALS: normal respiratory effort, No retractions and No use of accessory muscles AUSCULTATION: wheezes Cardio: COMMON NORMALS: no JVD, regular rate, regular rhythm, S1 normal heart sound present and S2 normal heart sound present RATE: regular rate RHYTHM: regular rhythm HEART SOUNDS: S1 normal heart sound present and S2 normal heart sound present GI: COMMON NORMALS: Normal to inspection, nondistended, normoactive bowel sounds present, Soft to palpation, non-tender and No hepatosplenomegaly present PALPATION: Yes Soft to palpation and Yes No hepatosplenomegaly present Extremity: COMMON NORMALS: capillary refill normal, no clubbing, cyanosis or edema and no pedal edema Neuro: SENSORIUM/ORIENTATION: Yes oriented to person, Yes oriented to place and Yes oriented to time Skin: COMMON NORMALS: no rashes or lesions noted GENERAL SKIN EXAM: no rashes or lesions noted Urinary Catheter Management^: Khan: Cath Placed During This Visit: yes Reason for Continuing Indwelling Catheter: Accurate Measurement of Urinary Output in Critically Ill Patients Urinary Catheter Date of Insertion: 12/09/20 Urinary Catheter Time of Insertion: 20:26 Sepsis: Is patient septic: Yes Focused sepsis exam performed: Yes Date exam was performed: 12/10/20 Time exam was performed: 08:00 Data : 12/10/20 11:35 12/10/20 11:35 Micro: Microbiology 12/09/20 16:40 Gram Stain - Final Sputum - Expectorated Sputum 12/09/20 16:11 Blood Culture - Preliminary Blood SPECIMEN COLLECTED 12/09/20 16:30 Blood Culture - Preliminary Blood SPECIMEN COLLECTED A&P Assessment and plan (1) Septic shock: -Septic shock secondary to bilateral pyelonephritis, left greater than right, with multiorgan failure -Review of CT scan with in-house radiology department, Dr. Carpenter, shows significant perinephric stranding on the left indicated of pyelonephritis on the left, and perinephric stranding on the right indicated of pyelonephritis on the right, no significant evidence of obstructive uropathy, no renal pelvis dilatation -Renal ultrasound does not show any evidence of obstructive uropathy or renal pelvis dilatation -Chest x-ray did show bibasilar subsegmental alveolar airspace disease which could represent pneumonia, is on 2 L -White blood cell count 9.2, platelet count 66, reticulocyte percent 1% D-dimer is elevated, FDP positive, pH 7.23, creatinine 7.7, lactic acid 1.3, 6-hour troponin 44.2 5, pro-Jan 42.78 Plan: -Requires ICU admission -Right dialysis catheter in place, received dialysis this afternoon, plan on dialysis tomorrow with fluid removal as he is 5 L positive -Respiratory cullen on 2 L, no crackles on exam no shortness of breath complaints, but there is a risk of respiratory failure given how positive he is -BNP 421, echo pending -Femoral line in place, currently on Levophed of 10 -Broad-spectrum antibiotics vancomycin, Primaxin -Sputum cultures, blood cultures, urine cultures -No significant urine output, monitor for now monitor hemodynamics -CT and renal ultrasound did not show any obstructive uropathy, will hold off on discussing with urology for now based on clinical progress -Currently n.p.o. -DVT prophylaxis on hold SCDs, given thrombocytopenia -Full code Status: Acute (2) High anion gap metabolic acidosis: Component of renal failure, diabetic ketoacidosis Status: Acute (3) Acute renal failure: Secondary to pyelonephritis -Denies any ethylene glycol or methanol poisoning -No significant obstructive uropathy seen on renal ultrasound or CT -We will review urine studies -Patient did have traumatic Khan catheter placement, could have some component of large prostate postobstructive uropathy Status: Acute Qualifiers: Acute renal failure type: with acute tubular necrosis Qualified Code(s): N17.0 - Acute kidney failure with tubular necrosis (4) Thrombocytopenia: Secondary to sepsis, hemolytic labs within normal limits Status: Acute (5) Elevated liver enzymes: Secondary to sepsis Status: Acute (6) Pyelonephritis: Status: Acute (7) Transaminitis: Secondary to sepsis Status: Acute (8) Diabetic ketoacidosis: -After dialysis anion gap remains greater than 29, ketones positive, blood sugars are reasonable -DKA protocol, however we have to be mindful of hypoglycemia given normal blood sugars -For now we will start patient on a insulin drip, with D5 normal saline at 50 cc -Monitor closely for fluid overload -Monitor blood sugars closely, BMPs every 4 hours, monitor anion gap to see if it improves -Potassium supplementation as required Status: Acute (9) DIC (disseminated intravascular coagulation): Secondary to sepsis Status: Acute (10) Pneumonia: Status: Acute (11) Bone marrow suppression: Status: Acute (12) Multiorgan failure: Status: Acute (13) NSTEMI (non-ST elevated myocardial infarction): -Troponin 44.2 5, delta within normal limits -EKG shows sinus tachycardia, nonspecific ST-T wave changes, no chest pain complaints -Likely type II NSTEMI, from supply demand ischemia from septic shock Status: Acute Attestations Medical Necessity Statement*: Patient requires hospitalization, inpatient, greater than 2 midnights for septic shock secondary to bilateral pyelonephritis, pneumonia, acute renal failure, multiorgan failure, DKA Coding Level of Care Code 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 [facility] Diagnoses Septic shock A41.9; R65.21 High anion gap metabolic acidosis E87.2 Acute renal failure N17.0 Acute renal failure type: with acute tubular necrosis Thrombocytopenia D69.6 Elevated liver enzymes R74.8 Pyelonephritis N12 Transaminitis R74.01 Diabetic ketoacidosis E11.10 DIC (disseminated intravascular coagulation) D65 Pneumonia J18.9 Bone marrow suppression D75.89 Multiorgan failure NSTEMI (non-ST elevated myocardial infarction) I21.4 Sepsis Event Note Evaluation Current stage of sepsis: severe sepsis Possible source: genitourinary Focused Exam Vital Signs Temp Pulse Resp BP Pulse Ox 12/10/20 15:15 84 19 H 108/74 95 12/10/20 15:00 79 24 H 108/74 96 12/10/20 14:45 78 14 110/74 97 12/10/20 14:30 79 24 H 107/73 95 12/10/20 14:15 82 22 H 103/72 95 12/10/20 14:00 85 28 H 109/73 95 12/10/20 13:45 82 26 H 105/70 95 12/10/20 13:30 84 26 H 114/76 95 12/10/20 13:15 84 28 H 134/79 95 12/10/20 13:00 85 28 H 115/78 94 12/10/20 12:45 86 20 H 126/87 96 12/10/20 12:30 80 28 H 130/73 95 12/10/20 12:15 85 21 H 135/85 95 12/10/20 12:00 81 28 H 131/89 96 12/10/20 11:45 81 33 H 131/89 96 12/10/20 11:30 73 21 H 134/84 97 12/10/20 11:15 78 22 H 121/84 96 12/10/20 11:00 75 24 H 132/82 96 12/10/20 10:45 75 25 H 130/85 95 12/10/20 10:30 80 28 H 118/81 94 12/10/20 10:15 77 23 H 128/82 94 12/10/20 10:00 76 21 H 136/79 94 12/10/20 09:45 83 34 H 119/82 93 12/10/20 09:30 81 20 H 121/89 93 12/10/20 09:15 82 21 H 121/82 94 12/10/20 09:00 84 19 H 124/78 93 12/10/20 08:45 86 27 H 124/78 93 12/10/20 08:30 85 24 H 114/69 94 12/10/20 08:15 96 32 H 109/75 94 12/10/20 08:00 90 32 H 110/74 96 12/10/20 07:45 98.0 F 89 23 H 121/72 93 12/10/20 07:30 89 28 H 126/74 93 12/10/20 07:15 93 18 112/75 94 12/10/20 07:00 91 26 H 116/70 92 12/10/20 06:45 97 24 H 116/70 93 12/10/20 06:34 94 12/10/20 06:30 98 27 H 132/77 93 12/10/20 06:15 98 26 H 132/77 89 L 12/10/20 06:00 98 25 H 112/72 90 12/10/20 05:30 100 26 H 116/67 92 12/10/20 05:00 104 H 25 H 111/69 91 12/10/20 04:30 110 H 27 H 107/70 90 12/10/20 04:00 113 H 35 H 113/65 89 L 12/10/20 03:30 110 H 30 H 108/62 90 Respiratory exam: Absent accessory muscle use and patient mechanically ventilated Cardiovascular exam: Present RRR, S1 and S2 Capillary refill: < 3 Seconds Peripheral pulse strength: 2+ Slightly Diminished Peripheral pulse location: Pedal Skin exam: pale Date exam was performed: 12/10/20 Time exam was performed: : Bedside Monitoring Bedside ultrasound performed: Yes Fluid responsiveness: Not Fluid Responsive Date bedside monitoring was performed: 12/10/20 Time bedside monitoring was performed: : Problem List (1) Septic shock: Status: Acute (2) High anion gap metabolic acidosis: Status: Acute (3) Acute renal failure: Status: Acute (4) Thrombocytopenia: Status: Acute (5) Elevated liver enzymes: Status: Acute (6) Pyelonephritis: Status: Acute (7) Transaminitis: Status: Acute (8) Diabetic ketoacidosis: Status: Acute (9) DIC (disseminated intravascular coagulation): Status: Acute (10) Pneumonia: Status: Acute (11) Bone marrow suppression: Status: Acute (12) Multiorgan failure: Status: Acute (13) NSTEMI (non-ST elevated myocardial infarction): Status: Acute
[2020-12-10 16:42] LABS: Anion Gap 18.3 (5-19); Blood Urea Nitrogen 42 mg/dL (6-20); Carbon Dioxide 21 mmol/L (22-29); Chloride 98 mmol/L (98-107); Glomerular Filtration Rate 7.2 mL/min (90-130); Glucose 119 mg/dL (65-115); Osmolality Calculated 290 mOsm/kg (285-295); Potassium 3.3 mmol/L (3.5-5.1); Sodium 134 mmol/L (136-145)
[2020-12-10] MEDS: FUROsemide 10 mg/mL SDV 4mL 40 MG IVP (16:51)
[2020-12-10] MEDS: potassium chloride premix 100 ML 25 MEQ IV (17:09)
[2020-12-10] MEDS: sodium bicarbonate 8.4% 1 mEq/mL 50mL Syr 50 MEQ IVP (17:10)
[2020-12-10 17:18] LABS: Glucose Point of Care 126 mg/dL (70-110)
[2020-12-10 17:18] LABS: Glucose Point of Care 140 mg/dL (70-110)
[2020-12-10 17:18] LABS: Glucose Point of Care 161 mg/dL (70-110)
[2020-12-10 17:18] LABS: Glucose Point of Care 72 mg/dL (70-110)
[2020-12-10 18:15] LABS: Glucose Point of Care 127 mg/dL (70-110)
--- NOTE | 2020-12-10 18:20 | P.CONIM_ITS ---
Providers/Reason For Consult Consulting Physican/Specialty*: Dr. Dubois Reason for Consult*: Sepsis, acute renal failure Attending Physician: Mau Fernandes MD Primary Care Provider: Ford García MD History of Present Illness History of Present Illness Ace Barney is a 60 year old male who presented to the ER with fever, cough and shortness of breath and had previously been seen in the ER with abdominal pain. Patient states that he did not have any urinary output for the last couple of days and has been having some loose stools. During work-up he was noted to be in acute renal failure with septic shock and was resuscitated with IV fluids and pressors. I was consulted for placement of a dialysis catheter Review of Systems General: Reports: ROS unobtainable due to medical condition Meds/Allergies Home Medications and Allergies Home Medications Medication Instructions Recorded Confirmed Last Taken Type aspirin 81 mg PO DAILY@30 12/09/20 12/09/20 12/09/20 History empagliflozin [Jardiance] 25 mg PO DAILY@82912/09/20 12/09/20 12/09/20 History gabapentin 600 mg PO TID@0830,12/09/20 12/09/20 12/09/20 History glipizide 5 mg PO DAILY@82912/09/20 12/09/20 12/09/20 History insulin detemir U-100 [Levemir 80 unit SUBCUT BID@12/09/20 12/09/20 12/09/20 History FlexTouch U-100 Insuln] lisinopril 5 mg PO DAILY@82912/09/20 12/09/20 12/09/20 History metformin 500 mg PO DAILY@82912/09/20 12/09/20 12/09/20 History pantoprazole [Protonix] 40 mg PO DAILY@82912/09/20 12/09/20 12/09/20 History pioglitazone 15 mg PO DAILY@82912/09/20 12/09/20 12/09/20 History rosuvastatin 40 mg PO DAILY@30 12/09/20 12/09/20 12/09/20 History sitagliptin [Januvia] 100 mg PO DAILY@82912/09/20 12/09/20 12/09/20 History zolpidem 10 mg PO BEDTIME@2030 12/09/20 12/09/20 12/09/20 History Allergies Allergy/AdvReac Type Severity Reaction Status Date / Time ibuprofen Allergy Unknown Verified 12/09/20 17:14 Current Medications Current Medications Generic Name Dose Route Start Last Admin Trade Name Freq PRN Reason Stop Dose Admin Ergocalciferol 50,000 unit 12/10/20 07:30 12/10/20 08:33 Ergocalciferol (Vitamin D2) 50,000 Unit Capsule PO 50,000 unit Q7D DEBORAH Administration Norepinephrine Bitartrate 4 mg 254 mls @ 0 mls/hr 12/09/20 23:45 12/10/20 12:28 / Dextrose IV Infused .Q0M DEBORAH Titration Protocol Per Protocol Vancomycin HCl 1,000 mg/ 250 mls @ 250 mls/hr 12/10/20 14:00 12/10/20 16:00 Sodium Chloride IV Infused Q48H DEBORAH Infusion Protocol Imipenem/Cilastatin Sodium 250 100 mls @ 200 mls/hr 12/10/20 12:30 12/10/20 13:00 mg/ Sodium Chloride IV Infused Q12H DEBORAH Infusion Protocol Insulin Human Regular 250 unit 252.5 mls @ 0 mls/hr 12/10/20 11:45 12/10/20 15:08 / Sodium Chloride IV 2.38 unit/hr .Q0M DEBORAH 2.4 mls/hr Titration Protocol Per Protocol Dextrose/Sodium Chloride 1,000 mls @ 50 mls/hr 12/10/20 13:45 12/10/20 14:01 Dextrose 5%-Sod Chloride 0.9% IV 50 mls/hr .Q20H DEBORAH Administration Potassium Chloride 100 mls @ 25 mls/hr 12/10/20 16:58 12/10/20 17:09 K-Bob IV 12/10/20 20:57 25 mls/hr ONCE ONE Administration Insulin Aspart 0 unit 12/10/20 08:00 12/10/20 13:39 Insulin Aspart 100 Unit/1 Ml SUBCUT Not Given TIDWM DEBORAH Protocol Morphine Sulfate 2 mg 12/10/20 05:40 12/10/20 05:48 Morphine 4 Mg/Ml Sdv 1 Ml IVP 2 mg Q4H PRN Administration SEVERE PAIN PFSH Acute PFSH: Medical History Diabetes mellitus, type II Hyperlipidemia Hypertension Mild cognitive impairment Grade school education Surgical History History of cardiac catheterization (~2013) Procedure Summary 1-LM is normal 2-LAD is normal 3-LCx is normal 4-RCA is normal 5-Normal LVEDP Family History Other Diabetes Social History Smoking and tobacco status: never smoked Alcohol intake: never Substance/Drug Use: never Education level details: Grade school education, was in special education per old records Vitals/I&O/Wt Last Vital Signs Temp 97.9 F 12/10/20 16:00 Pulse 82 12/10/20 18:00 Resp 28 H 12/10/20 18:00 BP 110/74 12/10/20 18:00 Pulse Ox 94 12/10/20 18:00 12/10/20 12/10/20 12/10/20 06:59 14:59 22:59 Intake Total 2504.000 / 3554.000 1482.75 / 1786.15 303.4 / 1786.15 Output Total 125 / 125 Balance 2504.000 / 3554.000 1482.75 / 1661.15 178.4 / 1661.15 Weight last 48 hrs Weight 273 lb Weight 190 lb Physical Exam Narrative: EXAM NARRATIVE: HEENT: Normocephalic Eye: Sclera /conjunctiva normal Cardiovascular: Normal S1 and S2 heart sounds Abdomen: Soft to palpation Neurological: Oriented to place person and time Skin: Intact, no lesions appreciated on gross exam Urinary Catheter Management^: Khan: Cath Placed During This Visit: yes Reason for Continuing Indwelling Catheter: Accurate Measurement of Urinary Output in Critically Ill Patients Urinary Catheter Date of Insertion: 12/09/20 Urinary Catheter Time of Insertion: 20:26 Data Micro: Micro: Microbiology 12/09/20 16:11 Blood Culture - Pr eliminary Blood NEGATIVE TO AMADOU E 12/09/20 16:30 Blood Culture - Pr eliminary Blood NEGATIVE TO AMADOU E 12/09/20 16:40 Gram Stain - Final Sputum - Expector ated Sputum A&P Assessment and plan (1) Acute renal failure: 60-year-old male with acute renal failure secondary to septic shock. 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
--- NOTE | 2020-12-10 18:25 | PM.ACPR ---
Procedure/Consent Time out: Time Out Performed: Yes Consent: Consent for Procedure: Consent obtained from patient Procedure Narrative: Preop diagnosis: Acute renal failure Postop diagnosis: Same Procedure: Placement of temporary hemodialysis catheter right internal jugular vein Ultrasound guidance and interpretation for placement of hemodialysis catheter Surgeon: Dr. Ramos Anesthesia: Local anesthesia Description of the procedure: The patient's right neck and chest was prepped and draped in a sterile manner. An ultrasound of the right internal jugular vein revealed patent veins with no evidence of thrombus. 5 mL of 1% lidocaine was infiltrated at the site of planned entry, an introducer needle was used to access the right internal jugular vein under ultrasound guidance. Guidewire was passed through the introducer needle and the introducer needle was removed. Serial dilators were passed over the guidewire after the skin incision was extended using 11 blade and temporary nontunneled catheter was passed over the guidewire and the guidewire was removed. The catheter was sutured to the skin using 2-0 Ethilon suture. Sterile dressings were applied. Postop procedure chest x-ray showed no evidence of pneumothorax and good positioning of the catheter. Acute Procedures Epistaxis Control: Time out performed: Yes
--- NOTE | 2020-12-10 19:07 | PC.NURSE ---
Patient arrived from ED last night, around [address] Ramos placed a dialysis line, confirmed placement with x ray, then patient received dialysis which was only filtering no fluid removal today, creatnine came down to 7.8 which is still critical but improved and reported to Dr Fernandes at 1700, Patient received calcium gluconate and sodium bicarb. Patient is doing a lot better off of levo by 10 am and awake and alert and oriented. Patient is also being treated for DKA so was on an insulin drip but blood glucose was too low, still doing hourly blood sugars to monitor incase they get high until his next BMP. If blood glucose goes up above 140 then restart insulin drip, if anon gap is still around 17 or 18 then patient is not in DKA but renal failure related to his polynephritis. I also gave 40mg of lasix at [address] Fernandes and a 40KCL one time for his potassium of 3.3. Patient really wanting a diet, if Anion gap closes or if patient is not determined to be in DKA then he can have a diet.
[2020-12-10 19:48] LABS: Glucose Point of Care 139 mg/dL (70-110)
--- NOTE | 2020-12-10 19:57 | PC.NURSE ---
Insulin Infusion was off and disconnected from Pt when assuming care at 1900. MAR updated.
[2020-12-10 20:47] LABS: Anion Gap 20.5 (5-19); Blood Urea Nitrogen 48 mg/dL (6-20); Calcium 6.9 mg/dL (8.5-10.5); Carbon Dioxide 20 mmol/L (22-29); Chloride 97 mmol/L (98-107); Glomerular Filtration Rate 6.5 mL/min (90-130); Glucose 128 mg/dL (65-115); Osmolality Calculated 292 mOsm/kg (285-295); Potassium 3.5 mmol/L (3.5-5.1); Sodium 134 mmol/L (136-145)
[2020-12-10 23:34] LABS: Glucose Point of Care 142 mg/dL (70-110)
[2020-12-11] VITALS (56 sets, daily range): BP systolic 112–144; BP diastolic 44–100; PULSE 70–99; RESP 14–48; TEMP 36.4–37.3; O2SAT 89–100
[2020-12-11 00:41] LABS: Anion Gap 19.3 (5-19); Blood Urea Nitrogen 53 mg/dL (6-20); Calcium 6.8 mg/dL (8.5-10.5); Carbon Dioxide 21 mmol/L (22-29); Chloride 96 mmol/L (98-107); Glomerular Filtration Rate 6.2 mL/min (90-130); Glucose 154 mg/dL (65-115); Osmolality Calculated 293 mOsm/kg (285-295); Potassium 3.3 mmol/L (3.5-5.1); Sodium 133 mmol/L (136-145)
[2020-12-11 04:21] LABS: Basophils % 0.7 %; Eosinophils % 0.5 %; Hematocrit 34.6 % (42.0-52.0); Hemoglobin 11.8 g/dL (11.7-16.6); Lymphocytes # 0.6 10^3/uL (0.8-4.8); Lymphocytes % 10.8 %; Mean Corpuscular HGB Conc 34.1 g/dL (30.0-36.0); Mean Corpuscular Hemoglobin 28.6 pg (28.0-34.0); Mean Platelet Volume 13.1 fL (7.4-10.4); Monocytes # 0.7 10^3/uL (0.2-0.9); Monocytes % 11.5 %; Neutrophils # 4.42 10^3/uL (1.8-7.7); Neutrophils % 75.8 %; Nucleated Red Blood Cells % 0 %; Platelet Count 60 10^3/cmm (130-400); Red Blood Count 4.12 10^6/uL (4.1-5.3); Red Cell Distribution Width 13.5 % (12.1-15.1); White Blood Count 5.8 10^3/uL (4.0-10.0)
[2020-12-11 04:25] LABS: C Reactive Protein 296.2 mg/L (0.0-4.9)
[2020-12-11 04:26] LABS: Lactate (Lactic Acid level) 1.5 mmol/L (0.5-2.2)
[2020-12-11 04:36] LABS: NT Pro B Type Natriuretic Pept 2687 pg/mL (0-125); Procalcitonin 38.58 ng/mL (0-0.5)
[2020-12-11 04:41] LABS: Slide Review Slide Review Perform
[2020-12-11 04:58] LABS: Alanine Aminotransferase 126 U/L (0-41); Albumin Level 2.5 g/dL (3.5-5.2); Alkaline Phosphatase 64 IU/L (40-130); Anion Gap 22.4 (5-19); Aspartate Amino Transferase 187 U/L (0-40); Blood Urea Nitrogen 58 mg/dL (6-20); Calcium 7.1 mg/dL (8.5-10.5); Carbon Dioxide 19 mmol/L (22-29); Chloride 96 mmol/L (98-107); Chol HDL Ratio 6.36 mg/dL (1.0-5.00); Cholesterol 70 mg/dL (0-200); Globulin 3.1 g/dL (1.3-4.6); Glomerular Filtration Rate 6.2 mL/min (90-130); Glucose 163 mg/dL (65-115); HDL Cholesterol 11 mg/dL (60-100); LDL Cholesterol Calculated 9 mg/dL (50-129); LDL HDL Ratio 0.82 RATIO (0.00-3.22); Magnesium 1.9 mg/dL (1.7-2.3); Osmolality Calculated 298 mOsm/kg (285-295); Phosphorus 4.5 mg/dL (2.5-4.5); Potassium 3.4 mmol/L (3.5-5.1); Sodium 134 mmol/L (136-145); Total Bilirubin 1.1 mg/dL (0.15-1.2); Total Protein 5.6 g/dL (6.6-8.7); Triglycerides 251 mg/dL (0-150)
[2020-12-11 04:59] LABS: ABG PCO2 32.7 mmHg (35-45); ABG PH Result 7.39 (7.35-7.45); Arterial Blood Gas Hematocrit 37.8 % (42-52); Base Excess ABG -4.6 mmol/L (-2.0-2.0); Blood Gas Allen Test Pos; Blood Gas Sample Site Radial, right; Blood Gas Sample Type Arterial; HCO3 ABG 19.6 mmol/L (22-26); Oxygen Device ROOM AIR; PO2 ABG 65.3 mmHg (80.0-100.0)
[2020-12-11 05:06] LABS: Creatine Phosphokinase 743 U/L (39-308)
[2020-12-11 05:14] LABS: Ferritin 2525 ng/mL (30-400)
[2020-12-11 05:22] LABS: INR 1.11 (0.8-1.2)
[2020-12-11 05:23] LABS: Partial Thromboplastin Time 38.3 SECONDS (23.9-36.7)
--- NOTE | 2020-12-11 05:54 | PC.NURSE ---
Dr PETERSEN notified for Critical Lab Values. turned off D5 infusion and talking to nephrology about how to proceed for likely rhabdo vs atn. Will continue to monitor.
[2020-12-11 06:03] LABS: Estmated Average Glucose 183
--- NOTE | 2020-12-11 07:00 | XR_ITS ---
WS: [id number] Exam: XR chest 1V portable [id number] Date/Time of Exam: 12/11/2020 7:00 AM Reason For Exam: sob Comparison 12/10/2020. The lungs are fully inflated. No acute infiltrates or pleural effusions. Heart size is top limits nor mal. Right-sided IJ double lumen catheter in place ending in the right atrium. Regional bony structur es are intact. The mediastinum is not widened considering technique. XR/XR chest 1V portable [id number] IMPRESSION: 1. No acute cardiopulmonary finding and no significant change.
--- NOTE | 2020-12-11 08:21 | P.PN_ITS ---
Subjective Subjective: Interval history: hungry, feels better. no sob. off pressers. no n/v/+ diarrhea Medications: Reviewed: Yes Medication Review Details: Current Medications Dextrose (Dextrose 50% Syringe 50 Ml) 25 ml IVP ONCE PRN; Protocol PRN Reason: hypoglycemia protocol Dextrose (Dextrose 50% Syringe 50 Ml) 50 ml IVP PRN PRN; Protocol PRN Reason: hypoglycemia protocol Ergocalciferol (Ergocalciferol (Vitamin D2) 50,000 Unit Capsule) 50,000 unit PO Q7D DEBORAH Last Admin: 12/10/20 08:33 Dose: 50,000 unit Documented by: Glucagon (Glucagon 1 Mg/Ml Inj 1 Ml) 1 mg IM ONCE PRN; Protocol PRN Reason: Adult Acute Hypoglycemia Prot Norepinephrine Bitartrate 4 mg (/ Dextrose) 254 mls @ 0 mls/hr IV .Q0M DEBORAH; Protocol Last Titration: 12/10/20 12:28 Dose: Infused Documented by: Albumin Human (Albumin) 12.5 gm in 50 mls @ 60 mls/hr IV PRN PRN PRN Reason: Hypotension and/or symptomatic Vancomycin HCl 1,000 mg/ (Sodium Chloride) 250 mls @ 250 mls/hr IV Q48H DEBORAH; Protocol Last Infusion: 12/10/20 16:00 Dose: Infused Documented by: Imipenem/Cilastatin Sodium 250 (mg/ Sodium Chloride) 100 mls @ 200 mls/hr IV Q12H DEBORAH; Protocol Last Infusion: 12/11/20 01:22 Dose: Infused Documented by: Dextrose (D5w) 500 mls @ 100 mls/hr IV ONCE PRN; Protocol PRN Reason: Adult Acute Hypoglycemia Prot Insulin Human Regular 250 unit (/ Sodium Chloride) 252.5 mls @ 0 mls/hr IV .Q0M DEBORAH; Protocol Last Titration: 12/10/20 19:00 Dose: 0 unit/hr, 0 mls/hr Documented by: Insulin Aspart (Insulin Aspart 100 Unit/1 Ml) 0 unit SUBCUT BEDTIME DEBORAH; Protocol Last Admin: 12/10/20 21:02 Dose: Not Given Documented by: Insulin Aspart (Insulin Aspart 100 Unit/1 Ml) 0 unit SUBCUT TIDWM DEBORAH; Protocol Last Admin: 12/10/20 19:18 Dose: Not Given Documented by: Ondansetron HCl (Ondansetron 2 Mg/Ml Sdv 2 Ml) 4 mg IVP Q12H PRN PRN Reason: NAUSEA AND VOMITING Vitals/I&O/Wt Last Vital Signs Temp 98.1 F 12/10/20 20:00 Pulse 81 12/11/20 06:00 Resp 21 H 12/11/20 06:00 BP 132/59 12/11/20 06:00 Pulse Ox 92 12/11/20 06:00 12/10/20 12/11/20 12/11/20 22:59 06:59 14:59 Intake Total 2412.68 / 3895.43 927.5 / 4822.93 Output Total 125 / 125 225 / 350 Balance 2287.68 / 3770.43 702.5 / 4472.93 Weight last 48 hrs Weight 123.831 kg Weight 86.183 kg Physical Exam Narrative: EXAM NARRATIVE: obese, NARD in bed VSS heent: nc/at, eomi, anicteric neck supple, rt IJ dialysis catheter lungs clear heart reg, no rub abd- non tender ext no edema neuro- a,a, o x 3 pulses + b/l Urinary Catheter Management^: Khan: Cath Placed During This Visit: yes Reason for Continuing Indwelling Catheter: Accurate Measurement of Urinary Output in Critically Ill Patients Urinary Catheter Date of Insertion: 12/09/20 Urinary Catheter Time of Insertion: 20:26 Data : 12/11/20 03:40 12/11/20 03:40 Micro: Microbiology 12/09/20 16:30 Group A Streptococcus Rapid Screen - Preliminary Throat 12/09/20 16:11 Blood Culture - Preliminary Blood NEGATIVE TO DATE 12/09/20 16:30 Blood Culture - Preliminary Blood NEGATIVE TO DATE 12/09/20 16:40 Gram Stain - Final Sputum - Expectorated Sputum A&P Additional A&P Information 60 yr old man htn, dm, here w/ septic shock 1. septic shock- improving w/ abx -add vancomycin 1 gm 2. MAGNUS -likely ATN - s/p first HD yesterday - hold dialysis today -cr rising, will monitor -ck 647- not rhabdo -ldh elevated- likely from liver. doubt TTP. low retic count. repeat ldh, retoc count, haptoglobin in am -no hydronephrosis on imaging -u/a- likely a uti- however, serologies are pending -normal phos 3. inc AGMA -from sepsis and MAGNUS- improved w/ HD -neg salicylates -pH now 7.39/33/65 4. hyponatremia - low ur na of 33- check cortisol and tsh 5. thrombocytopenia- likely from sepsis. monitor plts- down to 60 6. inc lft's likely shock- slowly improving check RUQ sono 7. replace k gently 8. dm control- hgb a1c of 8 9. anemia- ferrtin over 1999- not iron def 10. elevated bnp- dose lasix 11. start a renal ADA diet 12. normal cxr 13. 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
[2020-12-11 08:46] LABS: Glucose Point of Care 142 mg/dL (70-110)
[2020-12-11 10:17] LABS: Anti-streptolysin O <50 IU/mL (<200)
--- NOTE | 2020-12-11 10:40 | PC.CHAP ---
Pastoral Care Encounter/Spiritual Assessment Type of Contact [] Declined machine sole leveler visit [] Patient/Family/Request visit [] Outpatient visit [] Follow-up visit [] Physician referral [] Code/Alert [x] Routine visit [] Staff referral [] Actively dying [x] Patient sleeping [] Family support [] [] Out of room [] Palliative care [] [] Receiving care in room [] Pre-surgical visit [] Trauma [] Long length of stay [x] ICU visit [] Other: Relational/Emotional Strength [] Patient feels connected with others/family/visitors/staff [] Distress [] Loneliness/isolation [] Abandonment Spirituality of Patient [] Person of Sintia [] Attends Samaritan of their Sintia [] Believes in Prayer [] Reads Bible or Christianity materials [] There are Spiritual issues to be addressed Marine Propulsion Technician Interventions [x] Prayer [] Active listening [] Non-anxious presence [] Spiritual/emotional support [] Crisis/trauma care [] Spiritual counseling [] Bereavement support [] Provided bereavement packet [] Provided Bible/devotional materials [] Provided toy/stuffed animal, coloring book to patient or family member [] Provided Communion [] Anointing/[place] [] Salvation [x] Completed spiritual assessment [] Other: Impact on Illness or Injury [] Angry [] Fearful [] Anxious [] Often cries [] Exhaustion [] Unable to work [] Unable to attend baptism [] Unable to walk/stand [] Unable to read [] Unable to drive [] Unable to eat/drink [] Unable to sleep [] Unable to be with family [] Patient intubated [] Other: Summary Time spent with patient
[2020-12-11 11:22] LABS: EBV IGM TEST <36.00 U/mL
[2020-12-11 12:47] LABS: Alanine Aminotransferase 122 U/L (0-41); Albumin Level 2.6 g/dL (3.5-5.2); Alkaline Phosphatase 73 IU/L (40-130); Anion Gap 19.5 (5-19); Aspartate Amino Transferase 177 U/L (0-40); Blood Urea Nitrogen 66 mg/dL (6-20); Calcium 6.9 mg/dL (8.5-10.5); Carbon Dioxide 19 mmol/L (22-29); Chloride 98 mmol/L (98-107); Globulin 3.1 g/dL (1.3-4.6); Glomerular Filtration Rate 5.6 mL/min (90-130); Glucose 173 mg/dL (65-115); Osmolality Calculated 299 mOsm/kg (285-295); Potassium 3.5 mmol/L (3.5-5.1); Sodium 133 mmol/L (136-145); Total Bilirubin 0.8 mg/dL (0.15-1.2); Total Protein 5.7 g/dL (6.6-8.7)
[2020-12-11 12:49] LABS: Glucose Point of Care 166 mg/dL (70-110)
[2020-12-11 13:28] LABS: Cytomegalovirus Antibody (IGM) <30.00 AU/mL
[2020-12-11 13:58] LABS: Anti-Nuclear Antibody Screen NEGATIVE (NEGATIVE)
[2020-12-11] MEDS: ondansetron 2 mg/ML SDV 2 mL 4 MG IVP ×2 (14:00→20:56)
--- NOTE | 2020-12-11 14:37 | PM.PN ---
Subjective Subjective: Interval history: This morning patient was examined, he sitting up in bed, is alert, awake, answers all questions appropriate, follows all commands, he tells me that the day before he came to the hospital, he could not urinate that entire day, he felt weak, fatigued, tired, so when he came to the emergency room they had a difficult time placing his Khan catheter, and it hurt it took multiple attempts, he tells me that normally he wakes up sometimes 15-20 times a night to urinate, he remains off pressors for the last 48 hours, remains afebrile, normotensive, he received dialysis yesterday, no plans on dialysis today, his urine output 350 cc, did not really respond to Lasix therapy yesterday, he was briefly placed on insulin drip yesterday given his elevated anion gap of 29, which came down to 18 after the drip was started, it subsequently had to be held due to low blood sugars, currently patient is quite hungry would like to try to eat something Medications: Medication Review Details: Current Medications Dextrose (Dextrose 50% Syringe 50 Ml) 25 ml IVP ONCE PRN; Protocol PRN Reason: hypoglycemia protocol Dextrose (Dextrose 50% Syringe 50 Ml) 50 ml IVP PRN PRN; Protocol PRN Reason: hypoglycemia protocol Ergocalciferol (Ergocalciferol (Vitamin D2) 50,000 Unit Capsule) 50,000 unit PO Q7D [facility] Last Admin: 12/10/20 08:33 Dose: 50,000 unit Documented by: Glucagon (Glucagon 1 Mg/Ml Inj 1 Ml) 1 mg IM ONCE PRN; Protocol PRN Reason: Adult Acute Hypoglycemia Prot Norepinephrine Bitartrate 4 mg (/ Dextrose) 254 mls @ 0 mls/hr IV .Q0M DEBORAH; Protocol Last Titration: 12/10/20 12:28 Dose: Infused Documented by: Albumin Human (Albumin) 12.5 gm in 50 mls @ 60 mls/hr IV PRN PRN PRN Reason: Hypotension and/or symptomatic Vancomycin HCl 1,000 mg/ (Sodium Chloride) 250 mls @ 250 mls/hr IV Q48H DEBORAH; Protocol Last Infusion: 12/10/20 16:00 Dose: Infused Documented by: Imipenem/Cilastatin Sodium 250 (mg/ Sodium Chloride) 100 mls @ 200 mls/hr IV Q12H DEBORAH; Protocol Last Infusion: 12/11/20 01:22 Dose: Infused Documented by: Dextrose (D5w) 500 mls @ 100 mls/hr IV ONCE PRN; Protocol PRN Reason: Adult Acute Hypoglycemia Prot Insulin Human Regular 250 unit (/ Sodium Chloride) 252.5 mls @ 0 mls/hr IV .Q0M [facility]; Protocol Last Titration: 12/10/20 19:00 Dose: 0 unit/hr, 0 mls/hr Documented by: Insulin Aspart (Insulin Aspart 100 Unit/1 Ml) 0 unit SUBCUT BEDTIME [facility]; Protocol Last Admin: 12/10/20 21:02 Dose: Not Given Documented by: Insulin Aspart (Insulin Aspart 100 Unit/1 Ml) 0 unit SUBCUT TIDWM [facility]; Protocol Last Admin: 12/10/20 19:18 Dose: Not Given Documented by: Ondansetron HCl (Ondansetron 2 Mg/Ml Sdv 2 Ml) 4 mg IVP Q12H PRN PRN Reason: NAUSEA AND VOMITING Vitals/I&O/Wt Last Vital Signs Temp 97.6 F 12/11/20 12:00 Pulse 87 12/11/20 13:15 Resp 36 H 12/11/20 13:15 BP 123/79 12/11/20 13:15 Pulse Ox 94 12/11/20 13:15 12/10/20 12/11/20 12/11/20 22:59 06:59 14:59 Intake Total 2412.68 / 3895.43 927.5 / 4822.93 600 / 600 Output Total 125 / 125 225 / 350 Balance 2287.68 / 3770.43 702.5 / 4472.93 600 / 600 Weight last 48 hrs Weight 123.831 kg Weight 86.183 kg Physical Exam Const: COMMON NORMALS: no acute distress and patient oriented x3 GENERAL APPEARANCE: cooperative and ill appearing ORIENTATION/CONSCIOUSNESS: Yes awake, Yes oriented to person, Yes oriented to place and Yes oriented to time HENMT: COMMON NORMALS: normocephalic HEAD & SCALP: normocephalic Eye: COMMON NORMALS: Equal, round and reactive pupils present and EOMs intact bilaterally PUPIL: Yes Equal, round and reactive pupils present Neck/C-Spine: COMMON NORMALS: no JVD Chest: COMMONS NORMALS: normal inspection of the chest OTHER: Right dialysis catheter in place Resp: COMMON NORMALS: normal respiratory effort, No retractions, No use of accessory muscles and clear to auscultation bilaterally AUSCULTATION: clear to auscultation bilaterally Cardio: COMMON NORMALS: no JVD, regular rate, regular rhythm, S1 normal heart sound present and S2 normal heart sound present RATE: regular rate RHYTHM: regular rhythm HEART SOUNDS: S1 normal heart sound present and S2 normal heart sound present GI: COMMON NORMALS: Normal to inspection, nondistended, normoactive bowel sounds present, Soft to palpation, non-tender, No hepatosplenomegaly present, no masses and no bruits PALPATION: Yes Soft to palpation and Yes No hepatosplenomegaly present : OTHER: Femoral line in place Extremity: COMMON NORMALS: capillary refill normal, no clubbing, cyanosis or edema, no calf tenderness and no pedal edema Neuro: COMMON NORMALS: patient oriented x3 SENSORIUM/ORIENTATION: Yes oriented to person, Yes oriented to place and Yes oriented to time Psych: COMMON NORMALS: mental status grossly normal Skin: COMMON NORMALS: no rashes or lesions noted GENERAL SKIN EXAM: no rashes or lesions noted Urinary Catheter Management^: Khan: Cath Placed During This Visit: yes Reason for Continuing Indwelling Catheter: Accurate Measurement of Urinary Output in Critically Ill Patients Urinary Catheter Date of Insertion: 12/09/20 Urinary Catheter Time of Insertion: 20:26 Data : 12/11/20 03:40 12/11/20 12:13 Micro: Microbiology 12/09/20 16:40 Gram Stain - Final Sputum - Expectorated Sputum Sputum Culture - Preliminary 12/09/20 16:30 Group A Streptococcus Rapid Screen - Preliminary Throat 12/09/20 16:11 Blood Culture - Preliminary Blood NEGATIVE TO DATE 12/09/20 16:30 Blood Culture - Preliminary Blood NEGATIVE TO DATE A&P Assessment and plan (1) Septic shock: -Septic shock secondary to bilateral pyelonephritis, left greater than right, with multiorgan failure -Review of CT scan with in-house radiology department, Dr. Carpenter, shows significant perinephric stranding on the left indicated of pyelonephritis on the left, and perinephric stranding on the right indicated of pyelonephritis on the right, no significant evidence of obstructive uropathy, no renal pelvis dilatation -Renal ultrasound does not show any evidence of obstructive uropathy or renal pelvis dilatation -I suspect the patient has severe BPH, as an inciting factor, but could have developed underlying prostatitis, no CT evidence of prostatic abscess -Chest x-ray did show bibasilar subsegmental alveolar airspace disease which could represent pneumonia, is on room air -White blood cell count 5.8, platelet count 60, reticulocyte percent 1% D-dimer is elevated, FDP positive, pH 7.39, creatinine 9.6, lactic acid 1.3, 6-hour troponin 44.2 5, pro-Jan 30.58, CRP 296, BNP 2687 Plan: -Requires ICU admission -Right dialysis catheter in place, received dialysis yesterday, no plans on dialysis for now, urine output 350 c -Respiratory cullen on room air , no crackles on exam no shortness of breath complaints, BNP is 2687, he is 5 L positive, echo shows EF of 50%, no regional wall motion abnormalities -Femoral line in place, off pressors for the last 24 hours -Broad-spectrum antibiotics vancomycin, Primaxin -Sputum cultures, blood cultures, urine cultures -350 cc urine output, monitor for now monitor hemodynamics -CT and renal ultrasound did not show any obstructive uropathy, will hold off on discussing with urology for now based on clinical progress -Transition to clear liquid diet advance as tolerated -DVT prophylaxis SCDs, heparin on hold given thrombocytopenia -Full code Status: Acute (2) High anion gap metabolic acidosis: Improving, component of renal failure, diabetic ketoacidosis Status: Acute (3) Acute renal failure: Secondary to pyelonephritis -Denies any ethylene glycol or methanol poisoning -No significant obstructive uropathy seen on renal ultrasound or CT -We will review urine studies -Patient did have traumatic Khan catheter placement, could have some component of large prostate postobstructive uropathy Status: Acute Qualifiers: Acute renal failure type: with acute tubular necrosis Qualified Code(s): N17.0 - Acute kidney failure with tubular necrosis (4) Thrombocytopenia: Secondary to sepsis, hemolytic labs within normal limits Status: Acute (5) Elevated liver enzymes: Secondary to sepsis Status: Acute (6) Pyelonephritis: Status: Acute (7) Transaminitis: Secondary to sepsis Status: Acute (8) Diabetic ketoacidosis: -Resolving, clear good diet, subcu insulin -After dialysis anion gap remains greater than 29, which improved to 18 with a few hours on insulin drip, issues with hypoglycemia ketones positive, blood sugars are reasonable Status: Acute (9) DIC (disseminated intravascular coagulation): Secondary to sepsis Status: Acute (10) Pneumonia: Status: Acute (11) Bone marrow suppression: Status: Acute (12) Multiorgan failure: Status: Acute (13) NSTEMI (non-ST elevated myocardial infarction): -Troponin 44.2 5, delta within normal limits -EKG shows sinus tachycardia, nonspecific ST-T wave changes, no chest pain complaints -Likely type II NSTEMI, from supply demand ischemia from septic shock Status: Acute Additional A&P Information Chronically with hyperlipidemia, hypertension, had negative cath in 2014 Mild cognitive impairment with grade school education SCDs for DVT prophylaxis, currently no pharmacological DVT prophylaxis secondary to thrombocytopenia combined with the very potential possibility that he may very soon need dialysis catheter placement for dialysis Monitor closely for need to provide respiratory support up to and including the possibility of intubation or BiPAP Supportive care otherwise Basic plans were reviewed with patient. Reviewed with nursing staff as well as discussed with nephrology. Patient's primary concerns this evening are getting something for his mouth. Full code Attestations Medical Necessity Statement*: Patient requires hospitalization, inpatient, ICU, for septic shock acute renal failure secondary to bilateral pyelonephritis Time Spent in Patient Care: Greater than 35 minutes (>than 50% of time spent in counselling and/or direct pt care on unit). Coding Level of Care Code Acute Mobile Lounge Driver for g Fwd Diagnoses Septic shock A41.9; R65.21 High anion gap metabolic acidosis E87.2 Acute renal failure N17.0 Acute renal failure type: with acute tubular necrosis Thrombocytopenia D69.6 Elevated liver enzymes R74.8 Pyelonephritis N12 Transaminitis R74.01 Diabetic ketoacidosis E11.10 DIC (disseminated intravascular coagulation) D65 Pneumonia J18.9 Bone marrow suppression D75.89 Multiorgan failure NSTEMI (non-ST elevated myocardial infarction) I21.4
--- NOTE | 2020-12-11 14:40 | P.PN_ITS ---
Subjective Subjective: Interval history: The patient was seen and examined. Doing well today but tachypneic. Alert awake and able to answer questions. Off of pressors. Blood pressure is stable. Normal white count. Thrombocytopenia stable. Had diarrhea earlier today and stool was sent for C. difficile. The patient received a session of dialysis yesterday. Medications: Reviewed: Yes Vitals/I&O/Wt Last Vital Signs Temp 97.6 F 12/11/20 12:00 Pulse 87 12/11/20 13:15 Resp 36 H 12/11/20 13:15 BP 123/79 12/11/20 13:15 Pulse Ox 94 12/11/20 13:15 12/10/20 12/11/20 12/11/20 22:59 06:59 14:59 Intake Total 2412.68 / 3895.43 927.5 / 4822.93 600 / 600 Output Total 125 / 125 225 / 350 Balance 2287.68 / 3770.43 702.5 / 4472.93 600 / 600 Weight last 48 hrs Weight 273 lb Weight 190 lb Physical Exam Narrative: EXAM NARRATIVE: General: Patient is awake alert and oriented, in no distress. Neck: No JVD Respiratory: Auscultation: No crackles at the lung bases today, no wheezing or rhonchi Cardiovascular: Regular rate and rhythm, S1-S2 present, no murmur, no peripheral edema. Abdomen: Soft, nontender, distended from obesity, positive bowel sound, no tenderness in the costovertebral angle Musculoskeletal: No obvious joint deformity Skin: No rash Neuro: Patient is able to answer questions, moving all extremities Urinary Catheter Management^: Khan: Cath Placed During This Visit: yes Reason for Continuing Indwelling Catheter: Accurate Measurement of Urinary Output in Critically Ill Patients Urinary Catheter Date of Insertion: 12/09/20 Urinary Catheter Time of Insertion: 20:26 Data : 12/11/20 03:40 12/11/20 12:13 Micro: Microbiology 12/09/20 16:40 Gram Stain - Final Sputum - Expectorated Sputum Sputum Culture - Preliminary 12/09/20 16:30 Group A Streptococcus Rapid Screen - Preliminary Throat 12/09/20 16:11 Blood Culture - Preliminary Blood NEGATIVE TO DATE 12/09/20 16:30 Blood Culture - Preliminary Blood NEGATIVE TO DATE Attestation for Other Data: I personally reviewed and interpreted the following: Other data: I have reviewed the patient's laboratory, microbiologic and radiologic data. Blood culture is negative. Throat culture is positive for group A streptococcus. A&P Assessment and plan (1) Septic shock: The septic shock has resolved. The patient is not on vasopressors anymore. He is broadly covered with imipenem and vancomycin. The likely source of the septic shock is pyelonephritis. At this point, I would recommend de-escalating on antibiotics. There is no evidence of MRSA infection. Status: Acute (2) High anion gap metabolic acidosis: This is likely secondary to acute tubular necrosis. The patient is likely to receive dialysis again today. Status: Acute (3) Acute renal failure: The patient suffered from acute tubular necrosis and currently on jennifer lysis. The patient has oliguric renal failure. This is likely in the setting of hypotension, volume depletion as well as sepsis. He had about 350 cc of urine output in the past 24 hours. Hoping this will improve eventually. Status: Acute Qualifiers: Acute renal failure type: with acute tubular necrosis Qualified Code(s): N17.0 - Acute kidney failure with tubular necrosis (4) Thrombocytopenia: Stable. Status: Acute (5) Elevated liver enzymes: Coming down nicely. Status: Acute Attestations Medical Necessity Statement*: Defer to the primary team Coding Level of Care Code Acute Binder And Box Builder for Johnny Simmons Diagnoses Septic shock A41.9; R65.21 High anion gap metabolic acidosis E87.2 Acute renal failure N17.0 Acute renal failure type: with acute tubular necrosis Thrombocytopenia D69.6 Elevated liver enzymes R74.8
[2020-12-11 15:34] LABS: Osmolality Serum 300 mOsm/kg (278-305)
[2020-12-11 15:34] LABS: Osmolality Urine 285 mOsm/kg (50-1200)
[2020-12-11 15:34] LABS: Anti-Double Strand DNA AB 1 IU/mL; SS A Ro Sjogrens Antibody <1.0 NEG AI (<1.0 NEG); SS-B/LA IGG <1.0 NEG AI (<1.0 NEG)
[2020-12-11 17:10] LABS: Glucose Point of Care 127 mg/dL (70-110)
[2020-12-11] MEDS: vancomycin 1,000 MG in sodium chloride 0.9% 250 ML 250 MG IV (17:59)
--- NOTE | 2020-12-11 18:29 | PC.NURSE ---
Patient creat steadily increasing so called Dr Chang and let him know patient was having more SOB and his respiratory rate was increasing throughout the day, he decided to go ahead and do dialysis, patient tolerated dialysis okay, dialysis catheter was having some pull issues so Dr Richard zafar came by and retracted Dialysis line by 4cm, sutured it in. Dialysis removed 1500 ml off patient and he tolerated it fine. Patient had a better appetite today and was able to eat some solids, his stools improved throughout the day and his Cdiff was negative. I removed his femoral line today per Dr Suárez to minimize infection risk. Patient will be able to get up and sit in a chair and work with Pt now. patients vitals have all been stable no fevers throughout the day.
[2020-12-11 20:47] LABS: Glucose Point of Care 197 mg/dL (70-110)
[2020-12-12] VITALS (43 sets, daily range): BP systolic 110–156; BP diastolic 65–99; PULSE 68–94; RESP 11–38; TEMP 36.6–36.9; O2SAT 85–97
[2020-12-12] MEDS: HYDROmorphone 1 mg/mL INJ 1 mL 0.4 MG IVP ×2 (03:24→22:23)
[2020-12-12 03:57] LABS: Basophils % 0.5 %; Eosinophils % 0.3 %; Hematocrit 32.4 % (42.0-52.0); Hemoglobin 11.1 g/dL (11.7-16.6); Lymphocytes # 0.9 10^3/uL (0.8-4.8); Lymphocytes % 12.8 %; Mean Corpuscular HGB Conc 34.3 g/dL (30.0-36.0); Mean Corpuscular Hemoglobin 28.4 pg (28.0-34.0); Mean Corpuscular Volume 82.9 fL (80-94); Mean Platelet Volume 12.6 fL (7.4-10.4); Monocytes # 0.7 10^3/uL (0.2-0.9); Monocytes % 10.2 %; Neutrophils # 5.03 10^3/uL (1.8-7.7); Neutrophils % 75.6 %; Nucleated Red Blood Cells % 0 %; Platelet Count 80 10^3/cmm (130-400); Red Blood Count 3.91 10^6/uL (4.1-5.3); Red Cell Distribution Width 13.6 % (12.1-15.1); White Blood Count 6.7 10^3/uL (4.0-10.0)
[2020-12-12 04:07] LABS: C Reactive Protein 197.8 mg/L (0.0-4.9)
[2020-12-12 04:08] LABS: Lactate (Lactic Acid level) 1.1 mmol/L (0.5-2.2)
[2020-12-12 04:30] LABS: Alanine Aminotransferase 108 U/L (0-41); Albumin Level 2.6 g/dL (3.5-5.2); Alkaline Phosphatase 85 IU/L (40-130); Anion Gap 18.5 (5-19); Aspartate Amino Transferase 147 U/L (0-40); Blood Urea Nitrogen 54 mg/dL (6-20); Calcium 7.5 mg/dL (8.5-10.5); Carbon Dioxide 22 mmol/L (22-29); Chloride 101 mmol/L (98-107); Globulin 3.1 g/dL (1.3-4.6); Glomerular Filtration Rate 7.4 mL/min (90-130); Glucose 177 mg/dL (65-115); Magnesium 2.1 mg/dL (1.7-2.3); Osmolality Calculated 305 mOsm/kg (285-295); Phosphorus 4.9 mg/dL (2.5-4.5); Potassium 3.5 mmol/L (3.5-5.1); Sodium 138 mmol/L (136-145); Total Bilirubin 0.6 mg/dL (0.15-1.2); Total Protein 5.7 g/dL (6.6-8.7)
[2020-12-12 04:44] LABS: Creatine Phosphokinase 398 U/L (39-308)
--- NOTE | 2020-12-12 07:42 | P.PN_ITS ---
Subjective Subjective: Interval history: more awake, feels better. less sob. Medications: Reviewed: Yes Medication Review Details: Current Medications Dextrose (Dextrose 50% Syringe 50 Ml) 25 ml IVP ONCE PRN; Protocol PRN Reason: hypoglycemia protocol Dextrose (Dextrose 50% Syringe 50 Ml) 50 ml IVP PRN PRN; Protocol PRN Reason: hypoglycemia protocol Ergocalciferol (Ergocalciferol (Vitamin D2) 50,000 Unit Capsule) 50,000 unit PO Q7D DEBORAH Last Admin: 12/10/20 08:33 Dose: 50,000 unit Documented by: Glucagon (Glucagon 1 Mg/Ml Inj 1 Ml) 1 mg IM ONCE PRN; Protocol PRN Reason: Adult Acute Hypoglycemia Prot Hydromorphone HCl (Hydromorphone 1 Mg/Ml Inj 1 Ml) 0.4 mg IVP Q8H PRN PRN Reason: PAIN Last Admin: 12/12/20 03:24 Dose: 0.4 mg Documented by: Norepinephrine Bitartrate 4 mg (/ Dextrose) 254 mls @ 0 mls/hr IV .Q0M DEBORAH; Protocol Last Titration: 12/10/20 12:28 Dose: Infused Documented by: Imipenem/Cilastatin Sodium 250 (mg/ Sodium Chloride) 100 mls @ 200 mls/hr IV Q12H DEBORAH; Protocol Last Infusion: 12/12/20 00:52 Dose: Infused Documented by: Dextrose (D5w) 500 mls @ 100 mls/hr IV ONCE PRN; Protocol PRN Reason: Adult Acute Hypoglycemia Prot Insulin Human Regular 250 unit (/ Sodium Chloride) 252.5 mls @ 0 mls/hr IV .Q0M DEBORAH; Protocol Last Titration: 12/10/20 19:00 Dose: 0 unit/hr, 0 mls/hr Documented by: Albumin Human (Albumin) 12.5 gm in 50 mls @ 60 mls/hr IV PRN PRN PRN Reason: Hypotension and/or symptomatic Insulin Aspart (Insulin Aspart 100 Unit/1 Ml) 0 unit SUBCUT BEDTIME [facility]BORAH; Protocol Last Admin: 12/11/20 20:55 Dose: 2 unit Documented by: Insulin Aspart (Insulin Aspart 100 Unit/1 Ml) 0 unit SUBCUT TIDWM [facility]BORAH; Protocol Last Admin: 12/11/20 17:15 Dose: Not Given Documented by: Ondansetron HCl (Ondansetron 2 Mg/Ml Sdv 2 Ml) 4 mg IVP Q12H PRN PRN Reason: NAUSEA AND VOMITING Last Admin: 12/11/20 14:00 Dose: 4 mg Documented by: Vitals/I&O/Wt Last Vital Signs Temp 97.9 F 12/12/20 06:00 Pulse 85 12/12/20 06:30 Resp 22 H 12/12/20 06:30 BP 110/79 12/12/20 06:30 Pulse Ox 92 12/12/20 06:30 12/11/20 12/12/20 12/12/20 22:59 06:59 14:59 Intake Total 100 / 800 340 / 1140 Output Total 125 / 125 100 / 225 Balance - 240 / 915 Weight last 48 hrs Weight 123.649 kg Physical Exam Narrative: EXAM NARRATIVE: obese, NARD in bed. however gets dyspneic w/ minimal activity VSS, not using ixygen heent: nc/at, eomi, anicteric neck supple, rt IJ dialysis catheter lungs crackles b/l heart reg, no rub abd- non tender ext no edema neuro- a,a, o x 3 pulses + b/l Urinary Catheter Management^: Khan: Cath Placed During This Visit: yes Reason for Continuing Indwelling Catheter: Accurate Measurement of Urinary Output in Critically Ill Patients Urinary Catheter Date of Insertion: 12/09/20 Urinary Catheter Time of Insertion: 20:26 Data : 12/12/20 03:25 12/12/20 03:25 Micro: Microbiology 12/11/20 09:00 C.difficile Toxin B Gene (PCR) - Final Stool Routine Collection 12/09/20 16:40 Gram Stain - Final Sputum - Expectorated Sputum Sputum Culture - Preliminary 12/09/20 16:30 Group A Streptococcus Rapid Screen - Preliminary Throat A&P Additional A&P Information 60 yr old man htn, dm, here w/ septic shock 1. septic shock- monitor vanco levels 2. MAGNUS -likely ATN - s/p HD x 2 - sttempt to hold dialysis today -give lasix -ck improving- not rhabdo -ldh elevated- likely from liver. doubt TTP. low retic count. repeat ldh, -no hydronephrosis on imaging -u/a- likely a uti- however, serologies are pending -normal phos 3. inc AGMA -from sepsis and MAGNUS- improved w/ HD -neg salicylates -improved 4. thrombocytopenia- likely from sepsis. monitor plts- improved to 80 5. inc lft's likely shock- slowly improving check RUQ sono 6. dm control- hgb a1c of 8 7. anemia- ferrtin over 1999- not iron def 8. elevated bnp- dose lasix 9. relatively normal echo, ef 58% - discussed w/ pt, RN time spent 30 minutes. exam by RN- telehealth visit Attestations Medical Necessity Statement*: improving septic shock, magnus, resp distress Time Spent in Patient Care: 16 - 35 minutes Coding Level of Care Code Acute Relief Driller for Johnny Simmons
[2020-12-12 08:02] LABS: Glucose Point of Care 151 mg/dL (70-110)
[2020-12-12] MEDS: FUROsemide 10 mg/mL SDV 10mL 60 MG IVP ×3 (08:33→21:09)
--- NOTE | 2020-12-12 09:29 | PC.CHAP ---
Pastoral Care Encounter/Spiritual Assessment Type of Contact [] Declined hadoop developer visit [] Patient/Family/Request visit [] Outpatient visit [] Follow-up visit [] Physician referral [] Code/Alert [x] Routine visit [] Staff referral [] Actively dying [] Patient sleeping [] Family support [] [] Out of room [] Palliative care [] [] Receiving care in room [] Pre-surgical visit [] Trauma [] Long length of stay [x] ICU visit [] Other: Relational/Emotional Strength [] Patient feels connected with others/family/visitors/staff [] Distress [] Loneliness/isolation [] Abandonment Spirituality of Patient [] Person of [place] [] Attends Orthodox of their [place] [] Believes in Prayer [] Reads Bible or Alevism materials [] There are Spiritual issues to be addressed Golf Starter And Ranger Interventions [x] Prayer [x] Active listening [x] Non-anxious presence [x] Spiritual/emotional support [] Crisis/trauma care [] Spiritual counseling [] Bereavement support [] Provided bereavement packet [] Provided Bible/devotional materials [] Provided toy/stuffed animal, coloring book to patient or family member [] Provided Communion [] Anointing/[place] [] Salvation [x] Completed spiritual assessment [] Other: Impact on Illness or Injury [] Angry [] Fearful [] Anxious [] Often cries [] Exhaustion [] Unable to work [] Unable to attend buddhism [] Unable to walk/stand [] Unable to read [] Unable to drive [] Unable to eat/drink [] Unable to sleep [] Unable to be with family [] Patient intubated [] Other: Summary patient improving.. still not coherent.. no communicating well Time spent with patient 10 min
--- NOTE | 2020-12-12 11:02 | PM.PN ---
Subjective Subjective: Interval history: Patient was examined this morning, he sitting up in bed, he complains of a poor appetite, but slightly improving, he tells me that he had a large bowel movement this morning, he was able to get up to the side of the bed with physical therapy yesterday, he is feeling better, no fevers, no chills, no cough Medications: Medication Review Details: Current Medications Dextrose (Dextrose 50% Syringe 50 Ml) 25 ml IVP ONCE PRN; Protocol PRN Reason: hypoglycemia protocol Dextrose (Dextrose 50% Syringe 50 Ml) 50 ml IVP PRN PRN; Protocol PRN Reason: hypoglycemia protocol Ergocalciferol (Ergocalciferol (Vitamin D2) 50,000 Unit Capsule) 50,000 unit PO Q7D DEBORAH Last Admin: 12/10/20 08:33 Dose: 50,000 unit Documented by: Glucagon (Glucagon 1 Mg/Ml Inj 1 Ml) 1 mg IM ONCE PRN; Protocol PRN Reason: Adult Acute Hypoglycemia Prot Hydromorphone HCl (Hydromorphone 1 Mg/Ml Inj 1 Ml) 0.4 mg IVP Q8H PRN PRN Reason: PAIN Last Admin: 12/12/20 03:24 Dose: 0.4 mg Documented by: Norepinephrine Bitartrate 4 mg (/ Dextrose) 254 mls @ 0 mls/hr IV .Q0M DEBORAH; Protocol Last Titration: 12/10/20 12:28 Dose: Infused Documented by: Imipenem/Cilastatin Sodium 250 (mg/ Sodium Chloride) 100 mls @ 200 mls/hr IV Q12H DEBORAH; Protocol Last Infusion: 12/12/20 00:52 Dose: Infused Documented by: Dextrose (D5w) 500 mls @ 100 mls/hr IV ONCE PRN; Protocol PRN Reason: Adult Acute Hypoglycemia Prot Insulin Human Regular 250 unit (/ Sodium Chloride) 252.5 mls @ 0 mls/hr IV .Q0M DEBORAH; Protocol Last Titration: 12/10/20 19:00 Dose: 0 unit/hr, 0 mls/hr Documented by: Albumin Human (Albumin) 12.5 gm in 50 mls @ 60 mls/hr IV PRN PRN PRN Reason: Hypotension and/or symptomatic Insulin Aspart (Insulin Aspart 100 Unit/1 Ml) 0 unit SUBCUT BEDTIME DEBORAH; Protocol Last Admin: 12/11/20 20:55 Dose: 2 unit Documented by: Insulin Aspart (Insulin Aspart 100 Unit/1 Ml) 0 unit SUBCUT TIDWM [facility]; Protocol Last Admin: 12/11/20 17:15 Dose: Not Given Documented by: Ondansetron HCl (Ondansetron 2 Mg/Ml Sdv 2 Ml) 4 mg IVP Q12H PRN PRN Reason: NAUSEA AND VOMITING Last Admin: 12/11/20 14:00 Dose: 4 mg Documented by: Vitals/I&O/Wt Last Vital Signs Temp 97.8 F 12/12/20 08:00 Pulse 78 12/12/20 10:33 Resp 24 H 12/12/20 10:00 BP 128/85 12/12/20 10:00 Pulse Ox 95 12/12/20 10:33 12/11/20 12/12/20 12/12/20 22:59 06:59 14:59 Intake Total 100 / 800 340 / 1140 240 / 240 Output Total 125 / 125 100 / 225 100 / 100 Balance -25 / 675 240 / 915 140 / 140 Weight last 48 hrs Weight 123.649 kg Physical Exam Const: COMMON NORMALS: no acute distress and patient oriented x3 GENERAL APPEARANCE: cooperative and ill appearing ORIENTATION/CONSCIOUSNESS: Yes awake, Yes oriented to person, Yes oriented to place and Yes oriented to time HENMT: COMMON NORMALS: normocephalic HEAD & SCALP: normocephalic Eye: COMMON NORMALS: Equal, round and reactive pupils present and EOMs intact bilaterally PUPIL: Yes Equal, round and reactive pupils present Neck/C-Spine: COMMON NORMALS: no JVD Chest: COMMONS NORMALS: normal inspection of the chest OTHER: Right temporary dialysis catheter in place Resp: COMMON NORMALS: normal respiratory effort, No retractions, No use of accessory muscles and clear to auscultation bilaterally AUSCULTATION: clear to auscultation bilaterally Cardio: COMMON NORMALS: no JVD, regular rate, regular rhythm, S1 normal heart sound present and S2 normal heart sound present RATE: regular rate RHYTHM: regular rhythm HEART SOUNDS: S1 normal heart sound present and S2 normal heart sound present GI: COMMON NORMALS: Normal to inspection, nondistended, normoactive bowel sounds present, Soft to palpation, non-tender, No hepatosplenomegaly present, no masses and no bruits PALPATION: Yes Soft to palpation and Yes No hepatosplenomegaly present : OTHER: Femoral line in place Extremity: COMMON NORMALS: capillary refill normal, no clubbing, cyanosis or edema, no calf tenderness and no pedal edema Neuro: COMMON NORMALS: patient oriented x3 SENSORIUM/ORIENTATION: Yes oriented to person, Yes oriented to place and Yes oriented to time Psych: COMMON NORMALS: mental status grossly normal Skin: COMMON NORMALS: no rashes or lesions noted GENERAL SKIN EXAM: no rashes or lesions noted Urinary Catheter Management^: Khan: Cath Placed During This Visit: yes Reason for Continuing Indwelling Catheter: Accurate Measurement of Urinary Output in Critically Ill Patients Urinary Catheter Date of Insertion: 12/09/20 Urinary Catheter Time of Insertion: 20:26 Data : 12/12/20 03:25 12/12/20 03:25 Micro: Microbiology 12/11/20 09:00 C.difficile Toxin B Gene (PCR) - Final Stool Routine Collection 12/09/20 16:40 Gram Stain - Final Sputum - Expectorated Sputum Sputum Culture - Preliminary 12/09/20 16:30 Group A Streptococcus Rapid Screen - Preliminary Throat A&P Assessment and plan (1) Septic shock: -Septic shock secondary to bilateral pyelonephritis, left greater than right, with multiorgan failure -Review of CT scan with in-house radiology department, Dr. Carpenter, shows significant perinephric stranding on the left indicated of pyelonephritis on the left, and perinephric stranding on the right indicated of pyelonephritis on the right, no significant evidence of obstructive uropathy, no renal pelvis dilatation -Renal ultrasound does not show any evidence of obstructive uropathy or renal pelvis dilatation -I suspect the patient has severe BPH, as an inciting factor, but could have developed underlying prostatitis, no CT evidence of prostatic abscess -Chest x-ray did show bibasilar subsegmental alveolar airspace disease which could represent pneumonia, is on room air -Septic shock has resolved, off pressors, patient clinically improving, urine output remains lackluster Plan -We will moved patient to [facility] -Right dialysis catheter in place, received on Thursday, no plans on dialysis for now, urine output 100cc, will receive Lasix 60 mg IV twice daily -Respiratory cullen on room air , no crackles on exam no shortness of breath complaints, BNP is 2687, he is 9 L positive, echo shows EF of 50%, no regional wall motion abnormalities -Femoral line in place removed -Broad-spectrum antibiotics de-escalate to Primaxin -Sputum cultures, blood cultures, urine cultures so far negative -100 cc urine output, monitor for now monitor hemodynamics -CT and renal ultrasound did not show any obstructive uropathy, will hold off on discussing with urology for now based on clinical progress -Renal diet -Khan catheter in place, will likely keep Khan catheter in place on discharge follow-up with urology likely has enlarged prostate related to chronic urinary retention -DVT prophylaxis SCDs, heparin on hold given thrombocytopenia -Full code Plan for today, move out of ICU, do a trial of Lasix, PT OT Status: Acute (2) High anion gap metabolic acidosis: Resolved, component of renal failure, diabetic ketoacidosis Status: Acute (3) Acute renal failure: Secondary to pyelonephritis -Denies any ethylene glycol or methanol poisoning -No significant obstructive uropathy seen on renal ultrasound or CT -We will review urine studies -Patient did have traumatic Khan catheter placement, could have some component of large prostate postobstructive uropathy Status: Acute Qualifiers: Acute renal failure type: with acute tubular necrosis Qualified Code(s): N17.0 - Acute kidney failure with tubular necrosis (4) Thrombocytopenia: Secondary to sepsis, hemolytic labs within normal limits Status: Acute (5) Elevated liver enzymes: Secondary to sepsis Status: Acute (6) Pyelonephritis: Status: Acute (7) Transaminitis: Secondary to sepsis Status: Acute (8) Diabetic ketoacidosis: -Resolving, renal diet, subcu insulin -After dialysis anion gap remains greater than 29, which improved to 18 with a few hours on insulin drip, issues with hypoglycemia ketones positive, blood sugars are reasonable Status: Acute (9) DIC (disseminated intravascular coagulation): Secondary to sepsis Status: Acute (10) Pneumonia: Status: Acute (11) Bone marrow suppression: Status: Acute (12) Multiorgan failure: Status: Acute (13) NSTEMI (non-ST elevated myocardial infarction): -Troponin 44.2 5, delta within normal limits -EKG shows sinus tachycardia, nonspecific ST-T wave changes, no chest pain complaints -Likely type II NSTEMI, from supply demand ischemia from septic shock Status: Acute Additional A&P Information Chronically with hyperlipidemia, hypertension, had negative cath in 2014 Mild cognitive impairment with grade school education SCDs for DVT prophylaxis, currently no pharmacological DVT prophylaxis secondary to thrombocytopenia combined with the very potential possibility that he may very soon need dialysis catheter placement for dialysis Monitor closely for need to provide respiratory support up to and including the possibility of intubation or BiPAP Supportive care otherwise Basic plans were reviewed with patient. Reviewed with nursing staff as well as discussed with nephrology. Patient's primary concerns this evening are getting something for his mouth. Full code Attestations Medical Necessity Statement*: Patient requires hospitalization, for sepsis secondary to pyelonephritis, with acute renal failure multiorgan failure, clinically improving, Time Spent in Patient Care: Greater than 35 minutes (>than 50% of time spent in counselling and/or direct pt care on unit). 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
[2020-12-12 12:07] LABS: Glucose Point of Care 257 mg/dL (70-110)
[2020-12-12 12:11] LABS: NT Pro B Type Natriuretic Pept 1905 pg/mL (0-125)
[2020-12-12 13:21] LABS: Lactate Dehydrogenase 559 U/L (135-225)
[2020-12-12] MEDS: heparin, porcine 1,000 unit/mL INJ 10 mL HE (16:30)
[2020-12-12 17:27] LABS: Glucose Point of Care 121 mg/dL (70-110)
--- NOTE | 2020-12-12 18:32 | PC.NURSE ---
Patient arrived from ICU at this time. Patient was admitted to the ICU on 12/09/20 for Septic Shock. Patient has a Right IJ used for Dialysis. 1850 was pulled off patient today with a goal of 1999. Patient was unable to get all of his blood back because he started clotting. Patient is C-Diff negative. Patient gets up to the bedside commode and is on a 1500 ml fluid restriction. Patient does have a Khan catheter for accurate I&O. Patient is having minimal output. Patient was started on Lasix to help with that. Patient is a full code. Patient is on room air when he is fully awake but when he gets sleepy he drops to around 88% and 2 liters is used at night to sleep.
--- NOTE | 2020-12-12 18:46 | PC.NURSE ---
No Telemetry boxes are available to place patient on telemetry at this time.
--- NOTE | 2020-12-12 19:14 | PC.NURSE ---
Report to Lisa SCHAEFFER at this time.
[2020-12-12 20:36] LABS: Glucose Point of Care 192 mg/dL (70-110)
[2020-12-13] VITALS (9 sets, daily range): BP systolic 115–158; BP diastolic 63–91; PULSE 4–80; RESP 17–20; TEMP 35.9–36.8; O2SAT 92–95
--- NOTE | 2020-12-13 05:42 | PM.PN ---
Subjective Subjective: Interval history: no new complaints. Has been out of bed. Has garrett Medications: Reviewed: Yes Vitals/I&O/Wt Last Vital Signs Temp 97.6 F 12/13/20 04:00 Pulse 74 12/13/20 04:00 Resp 18 12/13/20 04:00 BP 156/83 12/13/20 04:00 Pulse Ox 92 12/13/20 04:00 12/12/20 12/12/20 12/13/20 14:59 22:59 06:59 Intake Total 580 / 580 490 / 1070 100 / 1170 Output Total 300 / 300 50 / 350 200 / 550 Balance 280 / 280 440 / 720 -100 / 620 Weight last 48 hrs Weight 123.649 kg Physical Exam Const: COMMON NORMALS: no acute distress GENERAL APPEARANCE: cooperative Eye: COMMON NORMALS: no scleral icterus Neck/C-Spine: OTHER: right IJ temporary dialysis catheter Extremity: GENERAL: No edema Urinary Catheter Management^: Garrett: Cath Placed During This Visit: yes Reason for Continuing Indwelling Catheter: Acute Urinary Retention or Obstruction Urinary Catheter Date of Insertion: 12/09/20 Urinary Catheter Time of Insertion: 20:26 Data : 12/13/20 05:41 12/13/20 05:41 Other Labs: complements normal, JUAN M neg calcium 7.4, Phos 4.4, Mg 2.2, albumin 2.7, vanco 19.8, LFT improving, CK 137 ANCA pending Micro: Microbiology 12/09/20 16:40 Gram Stain - Final Sputum - Expectorated Sputum Sputum Culture - Final 12/09/20 16:30 Group A Streptococcus Rapid Screen - Final Throat US: Radiologist's impression: Right kidney: 13.7 cm x 8.4 cm x 7.0 cm. Normal echogenicity with no hydronephrosis or mass. Left kidney: 14.2 cm x 7.9 cm x 8.0 cm. Normal echogenicity with no hydronephrosis or mass. CT Abd/Pel: Radiologist's impression: Adrenal glands: Adrenal glands unremarkable. Kidneys and ureters: No hydronephrosis or perinephric fluid bilaterally. No visible nephrolithiasis or ureterolithiasis. Perinephric stranding which is a nonspecific finding. A&P Additional A&P Information Impression: 1. Acute kidney injury, was oligoanuric, requiring HD x 3 consecutive days 2. Sepsis, organism not identified, on broad spectrum antibiotics Recommendation:No indication for dialysis today. Will reassess tomorrow. Attestations Medical Necessity Statement*: see above Time Spent in Patient Care: 16 - 35 minutes Coding Level of Care Code Acute Blow Down Helper for Johnny Simmons
[2020-12-13 05:50] LABS: Basophils # 0.1 10^3/uL (0.0-0.1); Basophils % 0.9 %; Eosinophils # 0.1 10^3/uL (0.0-0.8); Eosinophils % 1.5 %; Hematocrit 33.8 % (42.0-52.0); Hemoglobin 11.4 g/dL (11.7-16.6); Lymphocytes # 0.9 10^3/uL (0.8-4.8); Lymphocytes % 14.7 %; Mean Corpuscular HGB Conc 33.7 g/dL (30.0-36.0); Mean Corpuscular Hemoglobin 28.5 pg (28.0-34.0); Mean Corpuscular Volume 84.5 fL (80-94); Monocytes # 0.6 10^3/uL (0.2-0.9); Monocytes % 10.1 %; Neutrophils # 4.22 10^3/uL (1.8-7.7); Neutrophils % 71.8 %; Nucleated Red Blood Cells % 0 %; Platelet Count 107 10^3/cmm (130-400); Red Cell Distribution Width 13.6 % (12.1-15.1); White Blood Count 5.9 10^3/uL (4.0-10.0)
[2020-12-13 06:06] LABS: Lactate (Lactic Acid level) 0.8 mmol/L (0.5-2.2)
[2020-12-13 06:17] LABS: NT Pro B Type Natriuretic Pept 888 pg/mL (0-125); Procalcitonin 6.07 ng/mL (0-0.5)
[2020-12-13 06:25] LABS: Vancomycin Random 19.8 ug/mL (20.0-40.0)
[2020-12-13 06:28] LABS: Alanine Aminotransferase 92 U/L (0-41); Albumin Level 2.7 g/dL (3.5-5.2); Alkaline Phosphatase 88 IU/L (40-130); Anion Gap 17.6 (5-19); Aspartate Amino Transferase 108 U/L (0-40); Blood Urea Nitrogen 50 mg/dL (6-20); Calcium 7.4 mg/dL (8.5-10.5); Carbon Dioxide 23 mmol/L (22-29); Chloride 102 mmol/L (98-107); Creatine Phosphokinase 137 U/L (39-308); Globulin 3.1 g/dL (1.3-4.6); Glucose 150 mg/dL (65-115); Lactate Dehydrogenase 467 U/L (135-225); Magnesium 2.2 mg/dL (1.7-2.3); Osmolality Calculated 304 mOsm/kg (285-295); Phosphorus 4.4 mg/dL (2.5-4.5); Potassium 3.6 mmol/L (3.5-5.1); Sodium 139 mmol/L (136-145); Total Bilirubin 0.5 mg/dL (0.15-1.2); Total Protein 5.8 g/dL (6.6-8.7)
[2020-12-13 06:43] LABS: Glucose Point of Care 132 mg/dL (70-110)
[2020-12-13 06:51] LABS: C Reactive Protein 109.6 mg/L (0.0-4.9)
[2020-12-13] MEDS: aspirin 81 mg EC Tablet PO (08:29)
[2020-12-13] MEDS: atorvastatin 40 mg Tablet 80 MG PO (08:29)
[2020-12-13] MEDS: FUROsemide 10 mg/mL SDV 10mL 60 MG IVP ×2 (08:29→20:22)
[2020-12-13] MEDS: heparin 5,000 unit/mL INJ 1 mL 5000 UNIT SUBCUT ×2 (10:40→21:20)
[2020-12-13 11:16] LABS: Glucose Point of Care 238 mg/dL (70-110)
--- NOTE | 2020-12-13 13:37 | P.PN_ITS ---
Subjective Subjective: Interval history: Patient was examined this morning, he tells me that he is up and walking, has some generalized abdominal discomfort, but overall he feels he is doing better, no fevers overnight, no cough, no shortness of breath, not requiring any oxygen Vitals/I&O/Wt Last Vital Signs Temp 96.6 F L 12/13/20 10:43 Pulse 61 12/13/20 10:43 Resp 17 12/13/20 10:43 BP 115/63 12/13/20 10:43 Pulse Ox 94 12/13/20 10:43 12/12/20 12/13/20 12/13/20 22:59 06:59 14:59 Intake Total 490 / 1070 100 / 1170 480 / 480 Output Total 50 / 350 200 / 550 Balance 440 / 720 -100 / 620 480 / 480 Weight last 48 hrs Weight 123.377 kg Weight 123.649 kg Physical Exam Const: COMMON NORMALS: no acute distress and patient oriented x3 HENMT: COMMON NORMALS: normocephalic HEAD & SCALP: normocephalic Neck/C-Spine: COMMON NORMALS: no JVD Resp: COMMON NORMALS: normal respiratory effort, No retractions, No use of accessory muscles and clear to auscultation bilaterally AUSCULTATION: clear to auscultation bilaterally Cardio: COMMON NORMALS: no JVD, regular rate, regular rhythm, S1 normal heart sound present and S2 normal heart sound present RATE: regular rate RHYTHM: regular rhythm HEART SOUNDS: S1 normal heart sound present and S2 normal heart sound present GI: COMMON NORMALS: Normal to inspection, nondistended, normoactive bowel sounds present, Soft to palpation, non-tender, No hepatosplenomegaly present, no masses and no bruits PALPATION: Yes Soft to palpation and Yes No hepatosplenomegaly present Extremity: COMMON NORMALS: capillary refill normal, no clubbing, cyanosis or edema, no calf tenderness and no pedal edema Neuro: COMMON NORMALS: patient oriented x3 Psych: COMMON NORMALS: mental status grossly normal Urinary Catheter Management^: Khan: Cath Placed During This Visit: yes Reason for Continuing Indwelling Catheter: Acute Urinary Retention or Obstruction Urinary Catheter Date of Insertion: 12/09/20 Urinary Catheter Time of Insertion: 20:26 Data : 12/13/20 05:41 03/25/21 05:41 Micro: Microbiology 12/09/20 16:40 Gram Stain - Final Sputum - Expectorated Sputum Sputum Culture - Final 12/09/20 16:30 Group A Streptococcus Rapid Screen - Final Throat A&P Assessment and plan (1) Septic shock: -Resolved -Septic shock secondary to bilateral pyelonephritis, left greater than right, with multiorgan failure -Review of CT scan with in-house radiology department, Dr. Carpenter, shows significant perinephric stranding on the left indicated of pyelonephritis on the left, and perinephric stranding on the right indicated of pyelonephritis on the right, no significant evidence of obstructive uropathy, no renal pelvis dilatation -Renal ultrasound does not show any evidence of obstructive uropathy or renal pelvis dilatation -I suspect the patient has severe BPH, as an inciting factor, but could have developed underlying prostatitis, no CT evidence of prostatic abscess -Chest x-ray did show bibasilar subsegmental alveolar airspace disease which could represent pneumonia, is on room air -Septic shock has resolved, off pressors, patient clinically improving, urine output 550 cc Plan -Currently on general medical floors -Right dialysis catheter in place, received on Thursday, no plans on dialysis for now, urine output 550cc, will receive Lasix 60 mg IV twice daily -Respiratory cullen on room air , no crackles on exam no shortness of breath complaints, he is 9 L positive, echo shows EF of 50%, no regional wall motion abnormalities -Femoral line in place removed -Broad-spectrum antibiotics de-escalate to Primaxin -Sputum cultures, blood cultures, urine cultures so far negative - 550 cc urine output, monitor for now monitor hemodynamics -CT and renal ultrasound did not show any obstructive uropathy, will hold off on discussing with urology for now based on clinical progress -Renal diet -Khan catheter in place, will likely keep Khan catheter in place on discharge follow-up with urology likely has enlarged prostate related to chronic urinary retention -DVT prophylaxis SCDs, heparin -Full code Plan for today, continue antibiotics, do trial of Lasix, PT OT, hopefully can be discharged in the next 24 to 48 hours Status: Acute (2) High anion gap metabolic acidosis: Resolved, component of renal failure, diabetic ketoacidosis Status: Acute (3) Acute renal failure: Secondary to pyelonephritis -Denies any ethylene glycol or methanol poisoning -No significant obstructive uropathy seen on renal ultrasound or CT -We will review urine studies -Patient did have traumatic Khan catheter placement, could have some component of large prostate postobstructive uropathy Status: Acute Qualifiers: Acute renal failure type: with acute tubular necrosis Qualified Code(s): N17.0 - Acute kidney failure with tubular necrosis (4) Thrombocytopenia: Secondary to sepsis, hemolytic labs within normal limits Status: Acute (5) Elevated liver enzymes: Secondary to sepsis Status: Acute (6) Pyelonephritis: Status: Acute (7) Transaminitis: Secondary to sepsis Status: Acute (8) Diabetic ketoacidosis: -Resolved, renal diet, subcu insulin -After dialysis anion gap remains greater than 29, which improved to 18 with a few hours on insulin drip, issues with hypoglycemia ketones positive, blood sugars are reasonable Status: Acute (9) DIC (disseminated intravascular coagulation): Secondary to sepsis Status: Acute (10) Pneumonia: Status: Acute (11) Bone marrow suppression: Status: Acute (12) Multiorgan failure: Resolved Status: Acute (13) NSTEMI (non-ST elevated myocardial infarction): -Troponin 44.2 5, delta within normal limits -EKG shows sinus tachycardia, nonspecific ST-T wave changes, no chest pain complaints -Likely type II NSTEMI, from supply demand ischemia from septic shock Status: Acute Additional A&P Information Chronically with hyperlipidemia, hypertension, had negative cath in 2013 Mild cognitive impairment with grade school education SCDs for DVT prophylaxis, currently no pharmacological DVT prophylaxis secondary to thrombocytopenia combined with the very potential possibility that he may very soon need dialysis catheter placement for dialysis Monitor closely for need to provide respiratory support up to and including the possibility of intubation or BiPAP Supportive care otherwise Basic plans were reviewed with patient. Reviewed with nursing staff as well as discussed with nephrology. Patient's primary concerns this evening are getting something for his mouth. 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
[2020-12-13 15:53] LABS: CMV DNA By PCR <200 IU/mL; CMV DNA, QN PCR <2.30 Log IU/mL; SOURCE NOT GIVEN
[2020-12-13 16:04] LABS: Glucose Point of Care 155 mg/dL (70-110)
[2020-12-13] MEDS: ondansetron 2 mg/ML SDV 2 mL 4 MG IVP (18:22)
--- NOTE | 2020-12-13 19:24 | PC.NURSE ---
Report to Karol SCHAEFFER at this time
[2020-12-13 20:09] LABS: Glucose Point of Care 183 mg/dL (70-110)
[2020-12-14 03:37] VITALS: BP 153/85; PULSE 55; RESP 24; TEMP 36.3; O2SAT 93
[2020-12-14 06:14] LABS: Basophils % 0.5 %; Eosinophils # 0.2 10^3/uL (0.0-0.8); Eosinophils % 2.8 %; Hematocrit 33.9 % (42.0-52.0); Hemoglobin 11.4 g/dL (11.7-16.6); Lymphocytes # 1.1 10^3/uL (0.8-4.8); Lymphocytes % 17.2 %; Mean Corpuscular HGB Conc 33.6 g/dL (30.0-36.0); Mean Corpuscular Hemoglobin 28.4 pg (28.0-34.0); Mean Corpuscular Volume 84.5 fL (80-94); Mean Platelet Volume 12.1 fL (7.4-10.4); Monocytes # 0.6 10^3/uL (0.2-0.9); Monocytes % 8.6 %; Neutrophils # 4.54 10^3/uL (1.8-7.7); Neutrophils % 69.7 %; Nucleated Red Blood Cells % 0 %; Platelet Count 165 10^3/cmm (130-400); Red Blood Count 4.01 10^6/uL (4.1-5.3); Red Cell Distribution Width 13.6 % (12.1-15.1); White Blood Count 6.5 10^3/uL (4.0-10.0)
[2020-12-14 06:30] LABS: Alanine Aminotransferase 71 U/L (0-41); Albumin Level 2.6 g/dL (3.5-5.2); Alkaline Phosphatase 97 IU/L (40-130); Anion Gap 19.6 (5-19); Aspartate Amino Transferase 65 U/L (0-40); Blood Urea Nitrogen 68 mg/dL (6-20); Calcium 7.6 mg/dL (8.5-10.5); Carbon Dioxide 21 mmol/L (22-29); Chloride 99 mmol/L (98-107); Globulin 3.1 g/dL (1.3-4.6); Glomerular Filtration Rate 5.9 mL/min (90-130); Glucose 148 mg/dL (65-115); Magnesium 2.5 mg/dL (1.7-2.3); Osmolality Calculated 305 mOsm/kg (285-295); Phosphorus 5.1 mg/dL (2.5-4.5); Potassium 3.6 mmol/L (3.5-5.1); Sodium 136 mmol/L (136-145); Total Bilirubin 0.5 mg/dL (0.15-1.2); Total Protein 5.7 g/dL (6.6-8.7)
[2020-12-14 07:04] LABS: NT Pro B Type Natriuretic Pept 1009 pg/mL (0-125)
[2020-12-14 07:25] LABS: Glucose Point of Care 171 mg/dL (70-110)
[2020-12-14 07:37] VITALS: BP 152/81; PULSE 61; RESP 20; TEMP 36.4; O2SAT 95
--- NOTE | 2020-12-14 08:17 | P.PN_ITS ---
Subjective Subjective: Interval history: no complaints Medications: Reviewed: Yes Vitals/I&O/Wt Last Vital Signs Temp 97.6 F 12/14/20 07:37 Pulse 61 12/14/20 07:37 Resp 20 H 12/14/20 07:37 BP 152/81 12/14/20 07:37 Pulse Ox 95 12/14/20 07:37 12/13/20 12/14/20 12/14/20 22:59 06:59 14:59 Intake Total 120 / 700 100 / 800 Output Total 0 / 200 200 / 400 Balance 120 / 500 -100 / 400 Weight last 48 hrs Weight 122.016 kg Weight 123.377 kg Physical Exam Const: COMMON NORMALS: no acute distress GENERAL APPEARANCE: cooperative Neck/C-Spine: OTHER: right IJ temporary HD catheter Extremity: GENERAL: Yes edema (trace) Urinary Catheter Management^: Khan: Cath Placed During This Visit: yes Reason for Continuing Indwelling Catheter: Acute Urinary Retention or Obstruction Urinary Catheter Date of Insertion: 12/09/20 Urinary Catheter Time of Insertion: 20:26 Data : 12/14/20 05:19 12/14/20 05:19 A&P Additional A&P Information Impression: 1. Acute kidney injury, presumed secondary to septic shock. RPGN workup unremarkable to date. Was oligoanuric, required HD x 3 consecutive days. Urine output not improved with IV lasix, serum Creatinine higher 2. Sepsis, organism not identified, on broad spectrum antibiotics, CT findings suggestive of pyelonephritis Recommendation:Dialysis today. Catheter flow poor during HD. Consult surgery for tunneled HD catheter placement. Consider renal biopsy if no improvement Thursday. Resend urinalysis. Attestations Medical Necessity Statement*: see above Coding Level of Care Code Acute Temporary Staff Accountant for Johnny Simmons
[2020-12-14] MEDS: aspirin 81 mg EC Tablet PO (08:55)
[2020-12-14] MEDS: heparin 5,000 unit/mL INJ 1 mL 5000 UNIT SUBCUT ×2 (08:55→21:21)
[2020-12-14] MEDS: atorvastatin 40 mg Tablet 80 MG PO (08:56)
[2020-12-14] MEDS: FUROsemide 10 mg/mL SDV 10mL 60 MG IVP (10:36)
[2020-12-14 10:52] LABS: Glucose Point of Care 172 mg/dL (70-110)
--- NOTE | 2020-12-14 14:21 | P.PN_ITS ---
Subjective Subjective: Interval history: This morning patient was examined in the dialysis suite, he tells me he is doing okay, eating and drinking okay, having regular bowel movements, no fevers, no chills, no nausea, no vomiting, he denies any history of kidney problems in the past, he does have type 2 diabetes, he is on insulin therapy, his last hemoglobin A1c was 8, his urine output has only been 400 cc, and his creatinine remains elevated, overall he is doing well, no shortness of breath, no chest pain Vitals/I&O/Wt Last Vital Signs Temp 97.6 F 12/14/20 07:37 Pulse 61 12/14/20 07:37 Resp 20 H 12/14/20 07:37 BP 152/81 12/14/20 07:37 Pulse Ox 95 12/14/20 07:37 12/13/20 12/14/20 12/14/20 22:59 06:59 14:59 Intake Total 120 / 700 100 / 800 240 / 240 Output Total 0 / 200 200 / 400 Balance 120 / 500 -100 / 400 240 / 240 Weight last 48 hrs Weight 122.016 kg Weight 123.377 kg Physical Exam Const: COMMON NORMALS: no acute distress and patient oriented x3 HENMT: COMMON NORMALS: normocephalic HEAD & SCALP: normocephalic Neck/C-Spine: COMMON NORMALS: no JVD Chest: OTHER: Right chest dialysis catheter in place Resp: COMMON NORMALS: normal respiratory effort, No retractions, No use of accessory muscles and clear to auscultation bilaterally AUSCULTATION: clear to auscultation bilaterally Cardio: COMMON NORMALS: no JVD, regular rate, regular rhythm, S1 normal heart sound present and S2 normal heart sound present RATE: regular rate RHYTHM: regular rhythm HEART SOUNDS: S1 normal heart sound present and S2 normal heart sound present GI: COMMON NORMALS: Normal to inspection, nondistended, normoactive bowel sounds present, Soft to palpation, non-tender, No hepatosplenomegaly present, no masses and no bruits PALPATION: Yes Soft to palpation and Yes No hepatosplenomegaly present Extremity: COMMON NORMALS: capillary refill normal, no clubbing, cyanosis or edema, no calf tenderness and no pedal edema Neuro: COMMON NORMALS: patient oriented x3 Psych: COMMON NORMALS: mental status grossly normal Urinary Catheter Management^: Khan: Cath Placed During This Visit: yes Reason for Continuing Indwelling Catheter: Acute Urinary Retention or Obstruction Urinary Catheter Date of Insertion: 12/09/20 Urinary Catheter Time of Insertion: 20: Data : 12/14/20 05:19 12/14/20 05:19 A&P Assessment and plan (1) Septic shock: -Resolved -Septic shock secondary to bilateral pyelonephritis, left greater than right, with multiorgan failure -Review of CT scan with in-house radiology department, Dr. Carpenter, shows significant perinephric stranding on the left indicated of pyelonephritis on the left, and perinephric stranding on the right indicated of pyelonephritis on the right, no significant evidence of obstructive uropathy, no renal pelvis dilatation -Renal ultrasound does not show any evidence of obstructive uropathy or renal pelvis dilatation -I suspect the patient has severe BPH, as an inciting factor, but could have developed underlying prostatitis, no CT evidence of prostatic abscess -Chest x-ray did show bibasilar subsegmental alveolar airspace disease which could represent pneumonia, is on room air -Septic shock has resolved, off pressors, patient clinically improving, urine output 550 cc Plan -Currently on general medical floors -Right dialysis catheter in place, received on Thursday, no plans on dialysis for now, urine output 400cc, this evening Lasix 60 mg IV twice daily -Respiratory cullen on room air , no crackles on exam no shortness of breath complaints, he is 10 L positive, echo shows EF of 50%, no regional wall motion abnormalities -We will have dialysis today, 2 L off -Femoral line in place removed -Broad-spectrum antibiotics de-escalate to Primaxin -Sputum cultures, blood cultures, urine cultures so far negative - 400 cc urine output, monitor for now monitor hemodynamics -CT and renal ultrasound did not show any obstructive uropathy, will hold off on discussing with urology for now based on clinical progress -Renal diet -Khan catheter in place, will likely keep Khan catheter in place on discharge follow-up with urology likely has enlarged prostate related to chronic urinary retention -DVT prophylaxis SCDs, heparin -Full code Plan for today, continue antibiotics, do trial of Lasix, will have dialysis, 2 L of, PT OT Status: Acute (2) High anion gap metabolic acidosis: Resolved, component of renal failure, diabetic ketoacidosis Status: Acute (3) Acute renal failure: Secondary to pyelonephritis, possible secondary renal etiology? -However creatinine remains 9.2, urine output lackluster at 400 cc, septic shock has resolved, acidosis has resolved, secondary work-up has been relatively unremarkable, JUAN M pending -Does have a history of type 2 diabetes mellitus, A1c is 8, his GFR in the past has been as low as 70 -Denies any ethylene glycol or methanol poisoning -No significant obstructive uropathy seen on renal ultrasound or CT -Urine studies lackluster, urine eosinophils negative, will repeat -Patient did have traumatic Khan catheter placement, could have some component of large prostate postobstructive uropathy -Hopefully if his kidney function continues to improve, urine output improves, he can be discharged -But if urine output remains lackluster, creatinine is elevated, he might need chronic dialysis -There might be a secondary etiology, and patient would benefit from a kidney biopsy, however cannot be done during episodes of acute pyelonephritis, can consider transfer at a later time or that it can be performed as outpatient Status: Acute Qualifiers: Acute renal failure type: with acute tubular necrosis Qualified Code(s): N17.0 - Acute kidney failure with tubular necrosis (4) Thrombocytopenia: Resolved, secondary to sepsis, hemolytic labs within normal limits Status: Acute (5) Elevated liver enzymes: Secondary to sepsis, persistent minimal transaminitis likely secondary to fatty infiltration of the liver with hepatomegaly Status: Acute (6) Pyelonephritis: Treated with antibiotics Status: Acute (7) Transaminitis: As above Status: Acute (8) Diabetic ketoacidosis: -Resolved, renal diet, subcu insulin -After dialysis anion gap remains greater than 29, which improved to 18 with a few hours on insulin drip, issues with hypoglycemia ketones positive, blood sugars are reasonable Status: Acute (9) DIC (disseminated intravascular coagulation): Resolved secondary to sepsis Status: Acute (10) Pneumonia: On antibiotic therapy Status: Acute (11) Bone marrow suppression: Resolved, Status: Acute (12) Multiorgan failure: Persistent renal failure and transaminitis Status: Acute (13) NSTEMI (non-ST elevated myocardial infarction): -Troponin 44.2 5, delta within normal limits -EKG shows sinus tachycardia, nonspecific ST-T wave changes, no chest pain complaints -Likely type II NSTEMI, from supply demand ischemia from septic shock Status: Acute Additional A&P Information Chronically with hyperlipidemia, hypertension, had negative cath in 2014 Mild cognitive impairment with grade school education Full code Attestations Medical Necessity Statement*: Requires hospitalization for acute renal failure, resolved septic shock, treated with antibiotics for pyelonephritis, pneumonia, Coding Level of Care Code 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
[2020-12-14 15:48] VITALS: BP 170/94; PULSE 52; RESP 16; TEMP 36.6; O2SAT 95
[2020-12-14 16:23] LABS: Bilirubin Urine Neg (Negative); Blood Urine 3+ (Negative); Glucose Urine UA 1+ (Normal); Ketones Urine Negative (Negative); Leukocyte Esterase Urine Negative (Negative); Nitrate Urine Negative (Negative); Protein Urine 2+ (Negative); Specific Gravity, Urine 1.005 (1.005-1.030); Urine Appearance SL Hazy (CLEAR); Urine Color Yellow (Yellow); Urobilinogen Urine Norm (Negative); pH Urine 7 (5-7)
[2020-12-14 16:24] LABS: RBC Urine 25-40 /hpf (0-2); WBC Urine 0-4 /hpf (0-5)
[2020-12-14 16:25] LABS: Add Urine Culture? Yes; Bacteria Urine 2+ /hpf; Squamous Epithelial Cell Urine 0-4 /hpf (0-5)
[2020-12-14 17:20] LABS: Glucose Point of Care 146 mg/dL (70-110)
--- NOTE | 2020-12-14 18:38 | PC.NURSE ---
when patient was taken by bed to dialysis there was visible urine in the garrett drainage bag, patient was returned to room by dialysis nurse, this nurse did not receive report upon his return, but when entering the room this nurse noted no urine to be in the garrett bag. no urine was charted during his time off the med surg unit though.
[2020-12-14 19:25] VITALS: BP 156/85; PULSE 60; RESP 19; TEMP 36.6; O2SAT 96
[2020-12-14 20:34] LABS: Glucose Point of Care 185 mg/dL (70-110)
[2020-12-14 22:00] VITALS: PULSE 56
[2020-12-15] VITALS (14 sets, daily range): BP systolic 160–183; BP diastolic 78–89; PULSE 51–68; RESP 17–20; TEMP 36.4–36.8; O2SAT 93–96; BMI 38.2
[2020-12-15] MEDS: ondansetron 2 mg/ML SDV 2 mL 4 MG IVP ×3 (00:29→23:28)
[2020-12-15 06:25] LABS: Glucose Point of Care 138 mg/dL (70-110)
[2020-12-15 06:41] LABS: Basophils % 0.5 %; Eosinophils # 0.3 10^3/uL (0.0-0.8); Eosinophils % 3.3 %; Hematocrit 35.5 % (42.0-52.0); Hemoglobin 11.6 g/dL (11.7-16.6); Lymphocytes # 1.2 10^3/uL (0.8-4.8); Lymphocytes % 16.3 %; Mean Corpuscular HGB Conc 32.7 g/dL (30.0-36.0); Mean Corpuscular Hemoglobin 27.9 pg (28.0-34.0); Mean Corpuscular Volume 85.3 fL (80-94); Mean Platelet Volume 11.4 fL (7.4-10.4); Monocytes # 0.9 10^3/uL (0.2-0.9); Monocytes % 11.4 %; Neutrophils # 5.04 10^3/uL (1.8-7.7); Neutrophils % 66.1 %; Nucleated Red Blood Cells % 0 %; Platelet Count 230 10^3/cmm (130-400); Red Blood Count 4.16 10^6/uL (4.1-5.3); Red Cell Distribution Width 13.3 % (12.1-15.1); White Blood Count 7.6 10^3/uL (4.0-10.0)
[2020-12-15 07:19] LABS: Alanine Aminotransferase 57 U/L (0-41); Albumin Level 2.8 g/dL (3.5-5.2); Alkaline Phosphatase 90 IU/L (40-130); Anion Gap 17.8 (5-19); Aspartate Amino Transferase 62 U/L (0-40); Blood Urea Nitrogen 51 mg/dL (6-20); Calcium 7.6 mg/dL (8.5-10.5); Carbon Dioxide 24 mmol/L (22-29); Chloride 101 mmol/L (98-107); Glomerular Filtration Rate 7.9 mL/min (90-130); Glucose 153 mg/dL (65-115); Magnesium 2.3 mg/dL (1.7-2.3); Osmolality Calculated 305 mOsm/kg (285-295); Phosphorus 5.6 mg/dL (2.5-4.5); Potassium 3.8 mmol/L (3.5-5.1); Sodium 139 mmol/L (136-145); Total Bilirubin 0.5 mg/dL (0.15-1.2); Total Protein 5.8 g/dL (6.6-8.7)
[2020-12-15 07:36] LABS: NT Pro B Type Natriuretic Pept 540 pg/mL (0-125)
[2020-12-15] MEDS: aspirin 81 mg EC Tablet PO (08:38)
[2020-12-15] MEDS: FUROsemide 40 mg Tablet 80 MG PO (08:38)
[2020-12-15] MEDS: heparin 5,000 unit/mL INJ 1 mL 5000 UNIT SUBCUT ×2 (08:39→20:51)
[2020-12-15] MEDS: atorvastatin 40 mg Tablet 80 MG PO (08:39)
--- NOTE | 2020-12-15 08:53 | USR_ITS ---
PROCEDURE INFORMATION: Exam: US Abdomen Complete Exam date and time: 12/15/2020 1:30 PM Age: 60 years old Clinical indication: Bloating and hematuria. TECHNIQUE: Imaging protocol: Real-time ultrasound of the abdomen with image documentation. COMPARISON: US renal BI* [id number] 12/10/2020 12:44 PM FINDINGS: The liver is enlarged measuring 20.1 cm. The hepatic parenchyma is echogenic. There is foci of fatty sparing adjacent to the gallbladder fossa. The visualized IVC is grossly normal in caliber. No biliary ductal dilatation. The common bile duct measures 0.3 cm. No cholelithiasis. No gallbladder wall thickening or pericholecystic fluid. The right kidney measures 15.5 cm. No suspicious mass or hydronephrosis. The left kidney measures 15.3 cm. No suspicious mass or hydronephrosis. The pancreas and aorta are obscured by overlying bowel gas. The spleen is unremarkable. US/US abdomen complete* [id number] IMPRESSION: Hepatomegaly with diffuse hepatic steatosis.
--- NOTE | 2020-12-15 09:34 | PM.PN ---
Subjective Subjective: Interval history: This morning patient was examined, he tells me he is doing well, has some abdominal discomfort after eating, no flank pain, his urine output remains lackluster at 100 cc, he is getting up and moving around, no calf pain, no calf swelling, no fevers, no chills Medications: Medication Review Details: Current Medications Dextrose (Dextrose 50% Syringe 50 Ml) 25 ml IVP ONCE PRN; Protocol PRN Reason: hypoglycemia protocol Dextrose (Dextrose 50% Syringe 50 Ml) 50 ml IVP PRN PRN; Protocol PRN Reason: hypoglycemia protocol Ergocalciferol (Ergocalciferol (Vitamin D2) 50,000 Unit Capsule) 50,000 unit PO Q7D DEBORAH Last Admin: 12/10/20 08:33 Dose: 50,000 unit Documented by: Glucagon (Glucagon 1 Mg/Ml Inj 1 Ml) 1 mg IM ONCE PRN; Protocol PRN Reason: Adult Acute Hypoglycemia Prot Hydromorphone HCl (Hydromorphone 1 Mg/Ml Inj 1 Ml) 0.4 mg IVP Q8H PRN PRN Reason: PAIN Last Admin: 12/12/20 03:24 Dose: 0.4 mg Documented by: Norepinephrine Bitartrate 4 mg (/ Dextrose) 254 mls @ 0 mls/hr IV .Q0M DEBORAH; Protocol Last Titration: 12/10/20 12:28 Dose: Infused Documented by: Imipenem/Cilastatin Sodium 250 (mg/ Sodium Chloride) 100 mls @ 200 mls/hr IV Q12H DEBORAH; Protocol Last Infusion: 12/12/20 00:52 Dose: Infused Documented by: Dextrose (D5w) 500 mls @ 100 mls/hr IV ONCE PRN; Protocol PRN Reason: Adult Acute Hypoglycemia Prot Insulin Human Regular 250 unit (/ Sodium Chloride) 252.5 mls @ 0 mls/hr IV .Q0M DEBORAH; Protocol Last Titration: 12/10/20 19:00 Dose: 0 unit/hr, 0 mls/hr Documented by: Albumin Human (Albumin) 12.5 gm in 50 mls @ 60 mls/hr IV PRN PRN PRN Reason: Hypotension and/or symptomatic Insulin Aspart (Insulin Aspart 100 Unit/1 Ml) 0 unit SUBCUT BEDTIME DEBORAH; Protocol Last Admin: 12/11/20 20:55 Dose: 2 unit Documented by: Insulin Aspart (Insulin Aspart 100 Unit/1 Ml) 0 unit SUBCUT TIDWM DEBORAH; Protocol Last Admin: 12/11/20 17:15 Dose: Not Given Documented by: Ondansetron HCl (Ondansetron 2 Mg/Ml Sdv 2 Ml) 4 mg IVP Q12H PRN PRN Reason: NAUSEA AND VOMITING Last Admin: 12/11/20 14:00 Dose: 4 mg Documented by: Vitals/I&O/Wt Last Vital Signs Temp 98.2 F 12/15/20 07:17 Pulse 51 L 12/15/20 07:17 Resp 20 H 12/15/20 07:17 BP 174/84 12/15/20 07:17 Pulse Ox 95 12/15/20 07:17 12/14/20 12/15/20 12/15/20 22:59 06:59 14:59 Intake Total 340 / 700 100 / 800 340 / 340 Output Total 150 / 150 25 / 175 Balance 190 / 550 75 / 625 340 / 340 Weight last 48 hrs Weight 124.194 kg Weight 124.194 kg Weight 122.016 kg Physical Exam Const: COMMON NORMALS: no acute distress and patient oriented x3 GENERAL APPEARANCE: cooperative and ill appearing ORIENTATION/CONSCIOUSNESS: Yes awake, Yes oriented to person, Yes oriented to place and Yes oriented to time HENMT: COMMON NORMALS: normocephalic HEAD & SCALP: normocephalic Eye: COMMON NORMALS: Equal, round and reactive pupils present and EOMs intact bilaterally PUPIL: Yes Equal, round and reactive pupils present Neck/C-Spine: COMMON NORMALS: no JVD Chest: COMMONS NORMALS: normal inspection of the chest OTHER: Right temporary dialysis catheter in place Resp: COMMON NORMALS: normal respiratory effort, No retractions, No use of accessory muscles and clear to auscultation bilaterally AUSCULTATION: clear to auscultation bilaterally Cardio: COMMON NORMALS: no JVD, regular rate, regular rhythm, S1 normal heart sound present and S2 normal heart sound present RATE: regular rate RHYTHM: regular rhythm HEART SOUNDS: S1 normal heart sound present and S2 normal heart sound present GI: COMMON NORMALS: Normal to inspection, nondistended, normoactive bowel sounds present, Soft to palpation, non-tender, No hepatosplenomegaly present, no masses and no bruits PALPATION: Yes Soft to palpation and Yes No hepatosplenomegaly present : OTHER: Femoral line in place Extremity: COMMON NORMALS: capillary refill normal, no clubbing, cyanosis or edema, no calf tenderness and no pedal edema Neuro: COMMON NORMALS: patient oriented x3 SENSORIUM/ORIENTATION: Yes oriented to person, Yes oriented to place and Yes oriented to time Psych: COMMON NORMALS: mental status grossly normal Skin: COMMON NORMALS: no rashes or lesions noted GENERAL SKIN EXAM: no rashes or lesions noted Urinary Catheter Management^: Khan: Cath Placed During This Visit: yes Reason for Continuing Indwelling Catheter: Other Urinary Catheter Date of Insertion: 12/09/20 Urinary Catheter Time of Insertion: 20:26 Data : 12/15/20 05:45 12/15/20 05:45 Micro: Microbiology 12/09/20 16:11 Blood Culture - Final Blood NO GROWTH AFTER 5 DAYS 12/09/20 16:30 Blood Culture - Final Blood NO GROWTH AFTER 5 DAYS A&P Assessment and plan (1) Septic shock: -Resolved -Septic shock secondary to bilateral pyelonephritis, left greater than right, with multiorgan failure -Review of CT scan with in-house radiology department, Dr. Carpenter, shows significant perinephric stranding on the left indicated of pyelonephritis on the left, and perinephric stranding on the right indicated of pyelonephritis on the right, no significant evidence of obstructive uropathy, no renal pelvis dilatation -Renal ultrasound does not show any evidence of obstructive uropathy or renal pelvis dilatation -I suspect the patient has severe BPH, as an inciting factor, but could have developed underlying prostatitis, no CT evidence of prostatic abscess -Chest x-ray did show bibasilar subsegmental alveolar airspace disease which could represent pneumonia, is on room air -Septic shock has resolved, off pressors, patient clinically improving, urine output 550 cc Plan -Currently on general medical floors -Right dialysis catheter in place, received on Thursday, no plans on dialysis for now, urine output 100 cc, switch to 80 mg p.o. Lasix -Respiratory cullen on room air , no crackles on exam no shortness of breath complaints, he is 8 L positive, echo shows EF of 50%, no regional wall motion abnormalities -Dialysis yesterday 2 L off, might have dialysis again today -Femoral line in place removed -Broad-spectrum antibiotics deescalated to Rocephin -Sputum cultures, blood cultures, urine cultures so far negative - 100 cc urine output, monitor for now monitor hemodynamics -CT and renal ultrasound did not show any obstructive uropathy, will hold off on discussing with urology for now based on clinical progress -However continues to have blood in his urine, will do a renal ultrasound, complaints of abdominal pain with abdominal ultrasound -The other thought is patient could have a component of dress syndrome, will consider doing a trial of steroids to see if that improves his kidney function -Renal diet -Hkan catheter in place, will likely keep Khan catheter in place on discharge follow-up with urology likely has enlarged prostate related to chronic urinary retention -DVT prophylaxis SCDs, heparin -Full code Plan for today, de-escalate antibiotics to Rocephin, renal ultrasound, abdominal ultrasound, better blood pressure control Status: Acute (2) High anion gap metabolic acidosis: Resolved, component of renal failure, diabetic ketoacidosis Status: Acute (3) Acute renal failure: Secondary to pyelonephritis, possible secondary renal etiology? -However creatinine remains 7, urine output lackluster at 100 cc, septic shock has resolved, acidosis has resolved, secondary work-up has been relatively unremarkable, JUAN M pending -Does have a history of type 2 diabetes mellitus, A1c is 8, his GFR in the past has been as low as 70 -Denies any ethylene glycol or methanol poisoning -No significant obstructive uropathy seen on renal ultrasound or CT -Urine studies lackluster, urine eosinophils negative, repeat UA shows blood, repeat renal ultrasound, might require CT urography at some point -Patient did have traumatic Khan catheter placement, could have some component of large prostate postobstructive uropathy -Hopefully if his kidney function continues to improve, urine output improves, he can be discharged -But if urine output remains lackluster, creatinine is elevated, he might need chronic dialysis -There might be a secondary etiology, and patient would benefit from a kidney biopsy, however cannot be done during episodes of acute pyelonephritis, can consider transfer at a later time or that it can be performed as outpatient Status: Acute Qualifiers: Acute renal failure type: with acute tubular necrosis Qualified Code(s): N17.0 - Acute kidney failure with tubular necrosis (4) Thrombocytopenia: Resolved, secondary to sepsis, hemolytic labs within normal limits Status: Acute (5) Elevated liver enzymes: Secondary to sepsis, persistent minimal transaminitis likely secondary to fatty infiltration of the liver with hepatomegaly Status: Acute (6) Pyelonephritis: Treated with antibiotics Status: Acute (7) Transaminitis: As above Status: Acute (8) Diabetic ketoacidosis: -Resolved, renal diet, subcu insulin -After dialysis anion gap remains greater than 29, which improved to 18 with a few hours on insulin drip, issues with hypoglycemia ketones positive, blood sugars are reasonable Status: Acute (9) DIC (disseminated intravascular coagulation): Resolved secondary to sepsis Status: Acute (10) Pneumonia: On antibiotic therapy Status: Acute (11) Bone marrow suppression: Resolved, Status: Acute (12) Multiorgan failure: Persistent renal failure and transaminitis Status: Acute (13) NSTEMI (non-ST elevated myocardial infarction): -Troponin 44.2 5, delta within normal limits -EKG shows sinus tachycardia, nonspecific ST-T wave changes, no chest pain complaints -Likely type II NSTEMI, from supply demand ischemia from septic shock Status: Acute (14) Hypertension: -Start Norvasc 10 mg daily -Better blood pressure control throughout the day Status: Acute Additional A&P Information Chronically with hyperlipidemia, hypertension, had negative cath in 2014 Mild cognitive impairment with grade school education Full code Attestations Medical Necessity Statement*: Requires hospitalization for acute renal failure secondary to pyelonephritis, continues to have acute renal failure, fluid overload Coding Level of Care Code Acute Machine 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
[2020-12-15 11:03] LABS: Glucose Point of Care 265 mg/dL (70-110)
[2020-12-15] MEDS: amlodipine 10 mg Tablet PO (11:27)
[2020-12-15] MEDS: cefTRIAXone 1,000 MG in sodium chloride 0.9% (plus) 50 ML 100 MG IV (11:27)
[2020-12-15 16:58] LABS: Glucose Point of Care 203 mg/dL (70-110)
[2020-12-15] MEDS: cloNIDine 0.1 mg Tablet PO (17:54)
--- NOTE | 2020-12-15 18:11 | PM.PN ---
Subjective Subjective: Interval history: I am seeing him in follow up for his renal failure. Got dialysis yesterday. No shortness of breath or chest pain Medications: Reviewed: Yes Vitals/I&O/Wt Last Vital Signs Temp 98.2 F 12/15/20 15:40 Pulse 55 L 12/15/20 15:40 Resp 20 H 12/15/20 15:40 BP 171/86 12/15/20 15:40 Pulse Ox 96 12/15/20 15:26 12/15/20 12/15/20 12/15/20 06:59 14:59 22:59 Intake Total 100 / 800 390 / 390 Output Total 25 / 175 Balance 75 / 625 390 / 390 Weight last 48 hrs Weight 124.194 kg Weight 124.194 kg Weight 122.016 kg Physical Exam Const: COMMON NORMALS: no acute distress, patient oriented x3 and alert GENERAL APPEARANCE: cooperative ORIENTATION/CONSCIOUSNESS: Yes awake Resp: AUSCULTATION: rhonchi Cardio: COMMON NORMALS: S1 normal heart sound present and S2 normal heart sound present HEART SOUNDS: S1 normal heart sound present and S2 normal heart sound present GI: AUSCULTATION: Yes normoactive bowel sounds Extremity: GENERAL: Yes edema Neuro: COMMON NORMALS: patient oriented x3 SENSORIUM/ORIENTATION: Yes alert Skin: COMMON NORMALS: no rashes or lesions noted GENERAL SKIN EXAM: no rashes or lesions noted Urinary Catheter Management^: Khan: Cath Placed During This Visit: yes Reason for Continuing Indwelling Catheter: Other Urinary Catheter Date of Insertion: 12/09/20 Urinary Catheter Time of Insertion: 20:26 Data : 12/15/20 05:45 12/15/20 05:45 Micro: Microbiology 12/13/20 16:45 Urine Culture - Preliminary Urine Catheterized 12/09/20 16:11 Blood Culture - Final Blood NO GROWTH AFTER 5 DAYS 12/09/20 16:30 Blood Culture - Final Blood NO GROWTH AFTER 5 DAYS A&P Assessment and plan (1) Acute renal failure: Got dialysis yesterday, no acute indication for dialysis today, will monitor urine output closely Consider kidney biopsy on mon or tue if no improvement Status: Acute Qualifiers: Acute renal failure type: with acute tubular necrosis Qualified Code(s): N17.0 - Acute kidney failure with tubular necrosis (2) Pyelonephritis: Continue antibiotic Status: Acute (3) Hypertension: Monitor BP closely & adjust meds as needed Status: Acute (4) Anemia: follow hb Status: Acute Attestations Medical Necessity Statement*: MAGNUS Coding Level of Care Code 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
--- NOTE | 2020-12-15 19:55 | PC.NURSE ---
Assess Resting in bed, watching TV. Khan drains without difficulty. HD catheter to R neck without redness.
[2020-12-15 20:20] LABS: Glucose Point of Care 217 mg/dL (70-110)
[2020-12-16] VITALS (8 sets, daily range): BP systolic 148–176; BP diastolic 74–91; PULSE 56–67; RESP 17–21; TEMP 36.2–37; O2SAT 94–96
--- NOTE | 2020-12-16 05:30 | PC.NURSE ---
Awake, watching TV. Lab here for blood draw. Khan remains intact. PIID without redness. HD catheter intact without pain or redness.
[2020-12-16 06:42] LABS: Glucose Point of Care 171 mg/dL (70-110)
[2020-12-16 06:48] LABS: Basophils # 0.1 10^3/uL (0.0-0.1); Basophils % 0.9 %; Eosinophils # 0.3 10^3/uL (0.0-0.8); Eosinophils % 3.7 %; Hematocrit 34.9 % (42.0-52.0); Hemoglobin 11.7 g/dL (11.7-16.6); Lymphocytes # 1.5 10^3/uL (0.8-4.8); Lymphocytes % 17.4 %; Mean Corpuscular HGB Conc 33.5 g/dL (30.0-36.0); Mean Corpuscular Hemoglobin 28.3 pg (28.0-34.0); Mean Corpuscular Volume 84.3 fL (80-94); Mean Platelet Volume 11.2 fL (7.4-10.4); Monocytes % 11.4 %; Neutrophils # 5.57 10^3/uL (1.8-7.7); Neutrophils % 64.2 %; Nucleated Red Blood Cells % 0 %; Platelet Count 272 10^3/cmm (130-400); Red Blood Count 4.14 10^6/uL (4.1-5.3); Red Cell Distribution Width 13.2 % (12.1-15.1); White Blood Count 8.7 10^3/uL (4.0-10.0)
[2020-12-16 07:19] LABS: Alanine Aminotransferase 49 U/L (0-41); Albumin Level 2.9 g/dL (3.5-5.2); Alkaline Phosphatase 93 IU/L (40-130); Anion Gap 19.8 (5-19); Aspartate Amino Transferase 50 U/L (0-40); Blood Urea Nitrogen 71 mg/dL (6-20); Calcium 7.6 mg/dL (8.5-10.5); Carbon Dioxide 22 mmol/L (22-29); Chloride 100 mmol/L (98-107); Glomerular Filtration Rate 6.1 mL/min (90-130); Glucose 158 mg/dL (65-115); Magnesium 2.5 mg/dL (1.7-2.3); NT Pro B Type Natriuretic Pept 602 pg/mL (0-125); Osmolality Calculated 310 mOsm/kg (285-295); Potassium 3.8 mmol/L (3.5-5.1); Sodium 138 mmol/L (136-145); Total Bilirubin 0.4 mg/dL (0.15-1.2); Total Protein 5.9 g/dL (6.6-8.7)
[2020-12-16] MEDS: heparin 5,000 unit/mL INJ 1 mL 5000 UNIT SUBCUT ×2 (08:47→21:14)
[2020-12-16] MEDS: atorvastatin 40 mg Tablet 80 MG PO (08:47)
[2020-12-16] MEDS: cloNIDine 0.1 mg Tablet PO ×2 (08:47→17:57)
[2020-12-16] MEDS: amlodipine 10 mg Tablet PO (08:47)
[2020-12-16] MEDS: aspirin 81 mg EC Tablet PO (08:47)
[2020-12-16] MEDS: FUROsemide 40 mg Tablet 80 MG PO (08:48)
[2020-12-16] MEDS: hyDRALAzine 25 mg Tablet PO ×3 (10:08→21:15)
--- NOTE | 2020-12-16 11:45 | P.PN_ITS ---
Subjective Subjective: Interval history: Patient was examined this morning, he tells me he is doing well, he has no particular complaints, no fevers, chills, no flank pain, no abdominal pain Medications: Medication Review Details: Current Medications Dextrose (Dextrose 50% Syringe 50 Ml) 25 ml IVP ONCE PRN; Protocol PRN Reason: hypoglycemia protocol Dextrose (Dextrose 50% Syringe 50 Ml) 50 ml IVP PRN PRN; Protocol PRN Reason: hypoglycemia protocol Ergocalciferol (Ergocalciferol (Vitamin D2) 50,000 Unit Capsule) 50,000 unit PO Q7D DEBORAH Last Admin: 12/10/20 08:33 Dose: 50,000 unit Documented by: Glucagon (Glucagon 1 Mg/Ml Inj 1 Ml) 1 mg IM ONCE PRN; Protocol PRN Reason: Adult Acute Hypoglycemia Prot Hydromorphone HCl (Hydromorphone 1 Mg/Ml Inj 1 Ml) 0.4 mg IVP Q8H PRN PRN Reason: PAIN Last Admin: 12/12/20 03:24 Dose: 0.4 mg Documented by: Norepinephrine Bitartrate 4 mg (/ Dextrose) 254 mls @ 0 mls/hr IV .Q0M DEBORAH; Protocol Last Titration: 12/10/20 12:28 Dose: Infused Documented by: Imipenem/Cilastatin Sodium 250 (mg/ Sodium Chloride) 100 mls @ 200 mls/hr IV Q12H DEBORAH; Protocol Last Infusion: 12/12/20 00:52 Dose: Infused Documented by: Dextrose (D5w) 500 mls @ 100 mls/hr IV ONCE PRN; Protocol PRN Reason: Adult Acute Hypoglycemia Prot Insulin Human Regular 250 unit (/ Sodium Chloride) 252.5 mls @ 0 mls/hr IV .Q0M DEBORAH; Protocol Last Titration: 12/10/20 19:00 Dose: 0 unit/hr, 0 mls/hr Documented by: Albumin Human (Albumin) 12.5 gm in 50 mls @ 60 mls/hr IV PRN PRN PRN Reason: Hypotension and/or symptomatic Insulin Aspart (Insulin Aspart 100 Unit/1 Ml) 0 unit SUBCUT BEDTIME DEBORAH; Protocol Last Admin: 12/11/20 20:55 Dose: 2 unit Documented by: Insulin Aspart (Insulin Aspart 100 Unit/1 Ml) 0 unit SUBCUT TIDWM DEBORAH; Protocol Last Admin: 12/11/20 17:15 Dose: Not Given Documented by: Ondansetron HCl (Ondansetron 2 Mg/Ml Sdv 2 Ml) 4 mg IVP Q12H PRN PRN Reason: NAUSEA AND VOMITING Last Admin: 12/11/20 14:00 Dose: 4 mg Documented by: Vitals/I&O/Wt Last Vital Signs Temp 98.6 F 12/16/20 11:26 Pulse 62 12/16/20 11:26 Resp 18 12/16/20 11:26 BP 175/82 12/16/20 11:26 Pulse Ox 95 12/16/20 11:26 12/15/20 12/16/20 12/16/20 22:59 06:59 14:59 Intake Total 480 / 870 Output Total 250 / 250 Balance 480 / 870 -250 / 620 Weight last 48 hrs Weight 124.103 kg Weight 124.194 kg Weight 124.194 kg Physical Exam Const: COMMON NORMALS: no acute distress and patient oriented x3 HENMT: COMMON NORMALS: normocephalic HEAD & SCALP: normocephalic Neck/C-Spine: COMMON NORMALS: no JVD Chest: OTHER: Right chest dialysis catheter in place Resp: COMMON NORMALS: normal respiratory effort, No retractions, No use of accessory muscles and clear to auscultation bilaterally AUSCULTATION: clear to auscultation bilaterally Cardio: COMMON NORMALS: no JVD, regular rate, regular rhythm, S1 normal heart sound present and S2 normal heart sound present RATE: regular rate RHYTHM: regular rhythm HEART SOUNDS: S1 normal heart sound present and S2 normal hea rt sound present GI: COMMON NORMALS: Normal to inspection, nondistended, normoactive bowel sounds present, Soft to palpation, non-tender, No hepatosplenomegaly present, no masses and no bruits PALPATION: Yes Soft to palpation and Yes No hepatosplenomegaly present Extremity: COMMON NORMALS: capillary refill normal, no clubbing, cyanosis or edema, no calf tenderness and no pedal edema Neuro: COMMON NORMALS: patient oriented x3 Psych: COMMON NORMALS: mental status grossly normal Urinary Catheter Management^: Khan: Cath Placed During This Visit: yes Reason for Continuing Indwelling Catheter: Acute Urinary Retention or Obst ruction Urinary Catheter Date of Insertion: 12/09/20 Urinary Catheter Time of Insertion: 20:26 Data : 12/16/20 05:25 12/16/20 05:25 Micro: Microbiology 12/14/20 15:45 Urine Culture - Preliminary Urine,Clean Catch 12/13/20 16:45 Urine Culture - Final Urine Catheterized A&P Assessment and plan (1) Septic shock: -Resolved -Septic shock secondary to bilateral pyelonephritis, left greater than right, with multiorgan failure -Review of CT scan with in-house radiology department, Dr. Carpenter, shows significant perinephric stranding on the left indicated of pyelonephritis on the left, and perinephric stranding on the right indicated of pyelonephritis on the right, no significant evidence of obstructive uropathy, no renal pelvis dilatation -Renal ultrasound does not show any evidence of obstructive uropathy or renal pelvis dilatation -I suspect the patient has severe BPH, as an inciting factor, but could have developed underlying prostatitis, no CT evidence of prostatic abscess -Chest x-ray did show bibasilar subsegmental alveolar airspace disease which could represent pneumonia, is on room air -Septic shock has resolved, off pressors, patient clinically improving, urine output 250cc Plan -Currently on general medical floors -Right dialysis catheter in place, no plans on dialysis for now, urine output 250 cc, on 80 mg p.o. Lasix, -Respiratory cullen on room air , no crackles on exam no shortness of breath complaints, he is 8 L positive, echo shows EF of 50%, no regional wall motion abnormalities -Femoral line in place removed -Broad-spectrum antibiotics deescalated to Rocephin -Sputum cultures, blood cultures, urine cultures so far negative - 2500 cc urine output, monitor for now monitor hemodynamics -CT and renal ultrasound did not show any obstructive uropathy, will hold off on discussing with urology for now based on clinical progress -However continues to have blood in his urine, renal ultrasound unremarkable -Renal diet -Khan catheter in place, will likely keep Khan catheter in place on discharge follow-up with urology likely has enlarged prostate related to chronic urinary retention -If patient's creatinine remains elevated by Thursday or Thursday, and urine output remains lackluster, will discuss with nephrology about putting a tunneled dialys is catheter, for outpatient dialysis, and referral for kidney biopsy in [place] -Serologies test so far unremarkable -DVT prophylaxis SCDs, heparin -Full code Plan for today, de-escalate antibiotics, better blood pressure controlled, monitor urine output Status: Acute (2) High anion gap metabolic acidosis: Resolved, component of renal failure, diabetic ketoacidosis Status: Acute (3) Acute renal failure: Secondary to pyelonephritis, possible secondary renal etiology? -However creatinine remains 7, urine output lackluster at 100 cc, septic shock has resolved, acidosis has resolved, secondary work-up has been relatively unremarkable, JUAN M pending -Does have a history of type 2 diabetes mellitus, A1c is 8, his GFR in the past has been as low as 70 -Denies any ethylene glycol or methanol poisoning -No significant obstructive uropathy seen on renal ultrasound or CT -Urine studies lackluster, urine eosinophils negative, repeat UA shows blood, repeat renal ultrasound, might require CT urography at some point -Patient did have traumatic Khan catheter placement, could have some component of large prostate postobstructive uropathy -Hopefully if his kidney function continues to improve, urine output improves, he can be discharged -But if urine output remains lackluster, creatinine is elevated, he might need chronic dialysis -There might be a secondary etiology, and patient would benefit from a kidney biopsy, however cannot be done during episodes of acute pyelonephritis, can consider transfer at a later time or that it can be performed as outpatient Status: Acute Qualifiers: Acute renal failure type: with acute tubular necrosis Qualified Code(s): N17.0 - Acute kidney failure with tubular necrosis (4) Thrombocytopenia: Resolved, secondary to sepsis, hemolytic labs within normal limits Status: Acute (5) Elevated liver enzymes: Secondary to sepsis, persistent minimal transaminitis likely secondary to fatty infiltration of the liver with hepatomegaly Status: Acute (6) Pyelonephritis: Treated with antibiotics Status: Acute (7) Transaminitis: As above Status: Acute (8) Diabetic ketoacidosis: -Resolved, renal diet, subcu insulin -After dialysis anion gap remains greater than 29, which improved to 18 with a few hours on insulin drip, issues with hypoglycemia ketones positive, blood sugars are reasonable Status: Acute (9) DIC (disseminated intravascular coagulation): Resolved secondary to sepsis Status: Acute (10) Pneumonia: On antibiotic therapy Status: Acute (11) Bone marrow suppression: Resolved, Status: Acute (12) Multiorgan failure: Persistent renal failure and transaminitis Status: Acute (13) NSTEMI (non-ST elevated myocardial infarction): -Troponin 44.2 5, delta within normal limits -EKG shows sinus tachycardia, nonspecific ST-T wave changes, no chest pain complaints -Likely type II NSTEMI, from supply demand ischemia from septic shock Status: Acute (14) Hypertension: -Start Norvasc 10 mg daily -Clonidine 0.1 twice daily -Hydralazine 25 3 times daily Status: Acute Additional A&P Information Chronically with hyperlipidemia, hypertension, had negative cath in 2013 Mild cognitive impairment with grade school education Full code Attestations Medical Necessity Statement*: Patient requires hospitalization for septic shock secondary pyelonephritis resolved, continued acute renal failure Coding Level of Care Code Acute Full Decator Operator for [facility] Fwd Diagnoses Septic shock A41.9; R65.21 High anion gap metabolic acidosis E87.2 Acute renal failure N17.0 Acute renal failure type: with acute tubular necrosis Thrombocytopenia D69.6 Elevated liver enzymes R74.8 Pyelonephritis N12 Transaminitis R74.01 Diabetic ketoacidosis E11.10 DIC (disseminated intravascular coagulation) D65 Pneumonia J18.9 Bone marrow suppression D75.89 Multiorgan failure NSTEMI (non-ST elevated myocardial infarction) I21.4 Hypertension I10
[2020-12-16] MEDS: cefTRIAXone 1,000 MG in sodium chloride 0.9% (plus) 50 ML 100 MG IV (12:07)
--- NOTE | 2020-12-16 16:04 | P.PN_ITS ---
Subjective Subjective: Interval history: I am seeing him in follow up for his renal failure. No new issues overnight. No chest pain or shortness of breath Medications: Reviewed: Yes Vitals/I&O/Wt Last Vital Signs Temp 98.0 F 12/16/20 15:49 Pulse 67 12/16/20 15:49 Resp 18 12/16/20 15:49 BP 160/90 12/16/20 15:49 Pulse Ox 96 12/16/20 15:49 12/16/20 12/16/20 12/16/20 06:59 14:59 22:59 Intake Total 170 / 170 Output Total 250 / 250 650 / 650 Balance -250 / 620 -480 / -480 Weight last 48 hrs Weight 124.103 kg Weight 124.194 kg Weight 124.194 kg Physical Exam Const: COMMON NORMALS: no acute distress, patient oriented x3 and alert G ENERAL APPEARANCE: cooperative and comfortable ORIENTATION/CONSCIOUSNESS: Yes awake Resp: AUSCULTATION: crackles Cardio: COMMON NORMALS: S1 normal heart sound present and S2 normal heart sound present HEART SOUNDS: S1 normal heart sound present and S2 normal heart sound present GI: AUSCULTATION: Yes normoactive bowel sounds Extremity: GENERAL: Yes edema Neuro: COMMON NORMALS: patient oriented x3 SENSORIUM/ORIENTATION: Yes alert Skin: COMMON NORMALS: no rashes or lesions noted GENERAL SKIN EXAM: no rashes or lesions noted Urinary Catheter Management^: Khan: Cath Placed During This Visit: yes Reason for Continuing Indwelling Catheter: Acute Urinary Retention or Obstructi on Urinary Catheter Date of Insertion: 12/09/20 Urinary Catheter Time of Insertion: 20:26 Data : 12/16/20 05:25 12/16/20 05:25 Micro: Microbiology 12/14/20 15:45 Urine Culture - Preliminary Urine,Clean Catch 12/13/20 16:45 Urine Culture - Final Urine Catheterized A&P Assessment and plan (1) Acute renal failure: No significant improvement in kidney function. Will plan dialysis tommorrow. Also needs kidney biopsy as w/u till now is negative Status: Acute Qualifiers: Acute renal failure type: with acute tubular necrosis Qualified Code(s): N17.0 - Acute kidney failure with tubular necrosis (2) Hypertension: BP under control Status: Acute (3) Pyelonephritis: Responding well to antibiotic Status: Acute (4) Anemia: Follow hb Status: Acute Attestations Medical Necessity Statement*: MAGNUS Coding Level of Care Code Acute Supervisor [employer] for [facility] Fwd Diagnoses Acute renal failure N17.0 Acute renal failure type: with acute tubular necrosis Hypertension I10 Pyelonephritis N12 Anemia D64.9
[2020-12-16 17:29] LABS: Glucose Point of Care 230 mg/dL (70-110)
[2020-12-16 20:38] LABS: Glucose Point of Care 224 mg/dL (70-110)
[2020-12-17] VITALS (8 sets, daily range): BP systolic 153–160; BP diastolic 70–83; PULSE 65–86; RESP 17–19; TEMP 36.4–36.8; O2SAT 93–98
[2020-12-17] MEDS: ondansetron 2 mg/ML SDV 2 mL 4 MG IVP ×2 (03:02→14:32)
[2020-12-17 05:02] LABS: Basophils # 0.1 10^3/uL (0.0-0.1); Basophils % 0.7 %; Eosinophils # 0.3 10^3/uL (0.0-0.8); Eosinophils % 3.8 %; Hematocrit 35.9 % (42.0-52.0); Lymphocytes # 1.4 10^3/uL (0.8-4.8); Lymphocytes % 17.3 %; Mean Corpuscular HGB Conc 33.4 g/dL (30.0-36.0); Mean Corpuscular Hemoglobin 28.4 pg (28.0-34.0); Mean Corpuscular Volume 85.1 fL (80-94); Mean Platelet Volume 10.6 fL (7.4-10.4); Monocytes % 11.4 %; Neutrophils # 5.19 10^3/uL (1.8-7.7); Neutrophils % 62.2 %; Nucleated Red Blood Cells % 0 %; Platelet Count 303 10^3/cmm (130-400); Red Blood Count 4.22 10^6/uL (4.1-5.3); Red Cell Distribution Width 13.2 % (12.1-15.1); White Blood Count 8.3 10^3/uL (4.0-10.0)
[2020-12-17 05:37] LABS: Alanine Aminotransferase 32 U/L (0-41); Albumin Level 2.8 g/dL (3.5-5.2); Alkaline Phosphatase 91 IU/L (40-130); Anion Gap 22.7 (5-19); Aspartate Amino Transferase 31 U/L (0-40); Calcium 7.9 mg/dL (8.5-10.5); Carbon Dioxide 21 mmol/L (22-29); Chloride 98 mmol/L (98-107); Globulin 3.1 g/dL (1.3-4.6); Glomerular Filtration Rate 4.8 mL/min (90-130); Glucose 156 mg/dL (65-115); Magnesium 2.6 mg/dL (1.7-2.3); Osmolality Calculated 315 mOsm/kg (285-295); Potassium 3.7 mmol/L (3.5-5.1); Sodium 138 mmol/L (136-145); Total Bilirubin 0.4 mg/dL (0.15-1.2); Total Protein 5.9 g/dL (6.6-8.7)
[2020-12-17 05:42] LABS: Blood Urea Nitrogen 85 mg/dL (6-20); Phosphorus 8.2 mg/dL (2.5-4.5)
[2020-12-17 06:39] LABS: Glucose Point of Care 137 mg/dL (70-110)
[2020-12-17] MEDS: aspirin 81 mg EC Tablet PO (07:56)
[2020-12-17] MEDS: amlodipine 10 mg Tablet PO (07:56)
[2020-12-17] MEDS: atorvastatin 40 mg Tablet 80 MG PO (07:56)
[2020-12-17] MEDS: FUROsemide 40 mg Tablet 80 MG PO (07:56)
[2020-12-17] MEDS: hyDRALAzine 25 mg Tablet PO ×3 (07:56→21:56)
[2020-12-17] MEDS: cloNIDine 0.1 mg Tablet PO ×2 (07:56→17:24)
[2020-12-17] MEDS: ergocalciferol (vitamin D2) 50,000 Unit Capsule 50000 UNIT PO (07:56)
[2020-12-17] MEDS: heparin 5,000 unit/mL INJ 1 mL 5000 UNIT SUBCUT (07:57)
--- NOTE | 2020-12-17 10:10 | P.PN_ITS ---
Subjective Subjective: Interval history: Feels ok, weak, but no other acute issues at this time. No overt uremic symptoms. No fevers or chills. No edema and no other hypervolemic symptoms Vitals/I&O/Wt Last Vital Signs Temp 97.6 F 12/17/20 07:33 Pulse 86 12/17/20 07:33 Resp 19 H 12/17/20 07:33 BP 153/70 12/17/20 07:56 Pulse Ox 98 12/17/20 07:33 12/16/20 12/17/20 12/17/20 22:59 06:59 14:59 Intake Total 300 / 470 240 / 240 Output Total 475 / 1125 Balance 300 / -180 -475 / -655 240 / 240 Weight last 48 hrs Weight 124.466 kg Weight 124.103 kg Physical Exam Narrative: EXAM NARRATIVE: Constitutional: Awake, comfortable HEENT: Wet mucosa, no jvp, non icteric Lungs: Bilaterally clear without discernible wheeze, rales in all lung zones CVS: S1 S2, no murmurs Abdo: Soft, BS ok Ext 4: Minimal edema, peripheral perfusion with no cyanosis Neurological: Grossly non-focal Urinary Catheter Management^: Khan: Cath Placed During This Visit: yes Reason for Continuing Indwelling Catheter: Accurate Measurement of Urinary Output in Critically Ill Patients Urinary Catheter Date of Insertion: 12/09/20 Urinary Catheter Time of Insertion: 20:26 Data : 12/17/20 04:20 12/17/20 04:20 Micro: Microbiology 12/14/20 15:45 Urine Culture - Final Urine,Clean Catch 12/13/20 16:45 Urine Culture - Final Urine Catheterized A&P Additional A&P Information 1. Acute kidney injury Picture is consistent with both infection and ischemic ATN, unfortunately it appears to have a protracted course and is now recovering. Renal biopsy is a consideration. He did receive aspirin this morning and I have held this. Given the exposure to aspirin, the limited availability of kidney biopsy in this hospital, it is reasonable to organize outpatient care for him where a kidney biopsy could be organized if he fails to recover. Dialysis is planned for today, however, will need a tunneled dialysis catheter as his current line does not work well. Considering this, it is reasonable to wait until tomorrow to do dialysis on him when this line is placed. Continue to monitor for renal recovery. Strict ins and outs. Dose medications for GFR less than 15 on dialysis. 2. Chemistry Well-balanced except hyperphosphatemia; he needs a renal diet, will also start him on PhosLo. 3. Pyelonephritis, on Rocephin. Culture data negative. 4. Disposition. Okay for tunneled catheter and outpatient dialysis. Silvano gN MD Nephrology [phone] Patient seen and examined via telemedicine, with the assistance of the bedside RN > 25 min spent in evaluation and mgmt of patient Attestations Medical Necessity Statement*: Eval for renal failure Coding Level of Care Code Acute Telephone Operator Chief for [employer]
[2020-12-17 10:54] LABS: Glucose Point of Care 231 mg/dL (70-110)
[2020-12-17] MEDS: calcium acetate 667 mg Capsule 1334 MG PO ×2 (11:44→17:24)
[2020-12-17] MEDS: cefTRIAXone 1,000 MG in sodium chloride 0.9% (plus) 50 ML 100 MG IV (13:34)
--- NOTE | 2020-12-17 14:14 | P.PN_ITS ---
Subjective Subjective: Interval history: Reports he is doing all right. Denies chest pain or pressure. Denies shortness of breath. Denies other discomfort. Has not had dialysis yet, states it will likely be delayed until tomorrow after he can get his catheter replaced tomorrow. Vitals/I&O/Wt Last Vital Signs Temp 98.1 F 12/17/20 11:27 Pulse 71 12/17/20 11:27 Resp 18 12/17/20 11:27 BP 160/83 12/17/20 11:27 Pulse Ox 95 12/17/20 11:27 12/16/20 12/17/20 12/17/20 22:59 06:59 14:59 Intake Total 300 / 470 240 / 240 Output Total 475 / 1125 Balance 300 / -180 -475 / -655 240 / 240 Weight last 48 hrs Weight 124.466 kg Weight 124.103 kg Physical Exam Const: COMMON NORMALS: no acute distress, patient oriented x3 and alert GENERAL APPEARANCE: cooperative and comfortable ORIENTATION/CONSCIOUSNESS: Yes awake OTHER: Sitting up in bed, watching TV. HENMT: COMMON NORMALS: oropharynx normal Neck/C-Spine: COMMON NORMALS: no JVD OTHER: R IJ temporary dialysis c atheter Resp: COMMON NORMALS: normal respiratory effort and clear to auscultation bilaterally AUSCULTATION: clear to auscultation bilaterally Cardio: COMMON NORMALS: no JVD, regular rhythm, S1 normal heart sound present, S2 normal heart sound present and No murmurs present (Cardio) RHYTHM: regular rhythm HEART SOUNDS: S1 normal heart sound present and S2 normal heart sound present GI: COMMON NORMALS: Normal to inspection, nondistended, normoactive bowel sounds present, Soft to palpation and non-tender PALPATION: Yes Soft to palpation Extremity: COMMON NORMALS: no joint enlargement and no pedal edema Neuro: COMMON NORMALS: patient oriented x3 and moves all extremities SENSORIUM/ORIENTATION: Yes alert Skin: COMMON NORMALS: no rashes or lesions noted GENERAL SKIN EXAM: no rashes or lesions noted Urinary Catheter Management^: Khan: Cath Placed During This Visit: yes Reason for Continuing Indwelling Catheter: Accurate Measurement of Urinary Output in Critically Ill Patients Urinary Catheter Date of Insertion: 12/09/20 Urinary Catheter Time of Insertion: 20:26 Data : 12/17/20 04:20 12/17/20 04:20 Micro: Microbiology 12/14/20 15:45 Urine Culture - Final Urine,Clean Catch A&P Assessment and plan (1) Acute renal failure: Discussed with patient, nephrology. Unfortunately renal function not improving. He will need hemodialysis for longer duration while renal function recovering. Nephrology recommends outpatient follow-up with nephrology service prior to determination of need for renal biopsy. High suspicion for ATN related to sepsis. At this time we are requesting placement of tunneled dialysis catheter. Discussed with long term care social worker will need to set up outpatient hemodialysis. Keep Khan in place due to obstructive uropathy. Follow-up with urology. Status: Acute Qualifiers: Acute renal failure type: with acute tubular necrosis Qualified Code(s): N17.0 - Acute kidney failure with tubular necrosis (2) Pyelonephritis: Continue Rocephin at this time while in the hospital. Unfortunately urine culture unrevealing. We will transition to oral antibiotic on discharge. Status: Acute (3) Septic shock: Resolved. -Septic shock secondary to bilateral pyelonephritis, left greater than right, with multiorgan failure Status: Acute (4) High anion gap metabolic acidosis: Resolved, component of renal failure, diabetic ketoacidosis Status: Acute (5) Thrombocytopenia: Resolved, secondary to sepsis, hemolytic labs within normal limits Status: Acute (6) Elevated liver enzymes: Secondary to sepsis, persistent minimal transaminitis likely secondary to fatty infiltration of the liver with hepatomegaly Status: Acute (7) Transaminitis: As above Status: Acute (8) Diabetic ketoacidosis: -Resolved, renal diet, subcu insulin Status: Acute (9) DIC (disseminated intravascular coagulation): Resolved secondary to sepsis Status: Acute (10) Pneumonia: On antibiotic therapy Status: Acute (11) Bone marrow suppression: Resolved, Status: Acute (12) Multiorgan failure: Persistent renal failure and transaminitis Status: Acute (13) NSTEMI (non-ST elevated myocardial infarction): -Troponin 44.2 5, delta within normal limits -EKG shows sinus tachycardia, nonspecific ST-T wave changes, no chest pain complaints -Likely type II NSTEMI, from supply demand ischemia from septic shock Status: Acute (14) Hypertension: Better. Continue: -Norvasc 10 mg daily -Clonidine 0.1 twice daily -Hydralazine 25 3 times daily Status: Acute Additional A&P Information Chronically with hyperlipidemia, hypertension, had negative cath in 2014 Mild cognitive impairment with grade school education Full code Attestations Medical Necessity Statement*: Continue admission for assessment of management of acute renal failure requiring additional hemodialysis, requiring placement of tunneled catheter and arrangements for outpatient hemodialysis due to persistent renal failure after resolving sepsis, pyelonephritis, urinary outflow obstruction and additional comorbidities as above. Coding Level of Care Code Acute Fire Apparatus Sprinkler Inspector for [facility] Fwd Diagnoses Acute renal failure N17.0 Acute renal failure type: with acute tubular necrosis Pyelonephritis N12 Septic shock A41.9; R65.21 High anion gap metabolic acidosis E87.2 Thrombocytopenia D69.6 Elevated liver enzymes R74.8 Transaminitis R74.01 Diabetic ketoacidosis E11.10 DIC (disseminated intravascular coagulation) D65 Pneumonia J18.9 Bone marrow suppression D75.89 Multiorgan failure NSTEMI (non-ST elevated myocardial infarction) I21.4 Hypertension I10
[2020-12-17 16:44] LABS: Glucose Point of Care 203 mg/dL (70-110)
[2020-12-17 21:34] LABS: Glucose Point of Care 239 mg/dL (70-110)
[2020-12-17 22:03] LABS: ANCA Interp Negative (Negative)
[2020-12-18] VITALS (14 sets, daily range): BP systolic 137–171; BP diastolic 77–91; PULSE 67–81; RESP 16–19; TEMP 36.2–37.1; O2SAT 90–95
[2020-12-18 06:16] LABS: Basophils # 0.1 10^3/uL (0.0-0.1); Basophils % 0.6 %; Eosinophils # 0.2 10^3/uL (0.0-0.8); Eosinophils % 2.6 %; Hematocrit 34.5 % (42.0-52.0); Hemoglobin 11.6 g/dL (11.7-16.6); Lymphocytes # 1.4 10^3/uL (0.8-4.8); Lymphocytes % 16.3 %; Mean Corpuscular HGB Conc 33.6 g/dL (30.0-36.0); Mean Corpuscular Hemoglobin 28.6 pg (28.0-34.0); Mean Platelet Volume 10.5 fL (7.4-10.4); Monocytes # 0.9 10^3/uL (0.2-0.9); Monocytes % 10.2 %; Neutrophils # 5.74 10^3/uL (1.8-7.7); Neutrophils % 66.6 %; Nucleated Red Blood Cells % 0 %; Platelet Count 342 10^3/cmm (130-400); Red Blood Count 4.06 10^6/uL (4.1-5.3); Red Cell Distribution Width 13.3 % (12.1-15.1); White Blood Count 8.6 10^3/uL (4.0-10.0)
[2020-12-18 06:31] LABS: Glucose Point of Care 145 mg/dL (70-110)
[2020-12-18 06:40] LABS: Alanine Aminotransferase 21 U/L (0-41); Albumin Level 2.9 g/dL (3.5-5.2); Alkaline Phosphatase 93 IU/L (40-130); Anion Gap 25.4 (5-19); Aspartate Amino Transferase 23 U/L (0-40); Calcium 7.9 mg/dL (8.5-10.5); Carbon Dioxide 18 mmol/L (22-29); Chloride 96 mmol/L (98-107); Globulin 3.3 g/dL (1.3-4.6); Glomerular Filtration Rate 4.2 mL/min (90-130); Glucose 151 mg/dL (65-115); Magnesium 2.8 mg/dL (1.7-2.3); Osmolality Calculated 313 mOsm/kg (285-295); Potassium 4.4 mmol/L (3.5-5.1); Sodium 135 mmol/L (136-145); Total Bilirubin 0.4 mg/dL (0.15-1.2); Total Protein 6.2 g/dL (6.6-8.7)
[2020-12-18 07:15] LABS: Blood Urea Nitrogen 96 mg/dL (6-20); Phosphorus 9.6 mg/dL (2.5-4.5)
[2020-12-18] MEDS: FUROsemide 40 mg Tablet 80 MG PO (09:03)
[2020-12-18] MEDS: hyDRALAzine 25 mg Tablet PO ×2 (09:03→20:01)
[2020-12-18] MEDS: atorvastatin 40 mg Tablet 80 MG PO (09:03)
[2020-12-18] MEDS: amlodipine 10 mg Tablet PO (09:03)
[2020-12-18] MEDS: calcium acetate 667 mg Capsule 1334 MG PO ×2 (09:03→18:01)
[2020-12-18] MEDS: cloNIDine 0.1 mg Tablet PO ×2 (09:04→18:02)
--- NOTE | 2020-12-18 11:17 | SC_ITS ---
WS: [id number] C-ARM RADIOGRAPHS CHEST; 2 IMAGES HISTORY: hemodialysis catheter COMPARISON: None available. Intraoperative imaging during dialysis catheter placement. SC/C-arm FL for CVA [id number] IMPRESSION: Intraoperative imaging for hemodialysis catheter placement.
[2020-12-18 11:29] LABS: Glucose Point of Care 155 mg/dL (70-110)
[2020-12-18] MEDS: sodium chloride 0.9% 1,000 ML 30 ML IV (12:00)
--- NOTE | 2020-12-18 12:00 | P.ANESASSM_ITS ---
Pre-Anesthetic Assessment Pre-Anesthetic Assessment: Height/Weight: Height 1.8 m Weight 126.734 kg Temp Pulse Resp BP Pulse Ox 97.8 F 72 18 164/84 95 12/18/20 11:38 12/18/20 11:38 12/18/20 11:38 12/18/20 11:38 12/18/20 11:38 Preop Diagnosis: Chronic renal failure Proposed Procedure: Operation Date: 12/18/20 12:00 Proposed Procedures p Dialysis Catheter Insertion(Not Applicable) - Sterling Ramos MD Familial anesthetic complications: none Was Beta Ignacio taken within 24 hours: N/A Was Clonidine taken within 24 hours: N/A Last intake: Intake Last Liquid Date 12/18/20 Last Liquid Time 00:00 Last Solid Date 12/17/20 Last Solid Time 17:30 Social: Social History: No alcohol and No tobacco Exam: Pre-Anes Outpt Exam: alert, oriented x 3, clear to auscultation bilaterally and regular rate & rhythm Airway: Cervical ROM: WNL MP: 4 Dentition: False CV/HEM: CV/HEM: Anemia and HTN Comments: NSTEMI Metabolic: Metabolic: DM and Hyperlipidemia Comments: dka w/ septic shock Anesthetic Plan: ASA status: 4 Anesthesia: MAC Risk of > 500 ml blood lo ss (7ml/kg in children): No Meds/Allergies Current Medications: Current Medications Generic Name Dose Route Start Last Admin Trade Name Freq PRN Reason Stop Dose Admin Amlodipine Besylat e 10 mg 12/15/20 09:35 12/18/20 09:03 Amlodipine 10 Mg Tablet PO 10 mg DAILY DEBORAH Administration Atorvastatin Calci um 80 mg 12/13/20 08:30 12/18/20 09:03 Atorvastatin 40 Mg Tablet PO 80 mg DAILY@0830 DEBORAH Administration Calcium Acetate 1,334 mg 12/17/20 12:00 12/18/20 09:03 Calcium Acetate 667 Mg Capsule PO 1,334 mg TIDWM DEBORAH Administration Clonidine HCl 0.1 mg 12/15/20 18:00 12/18/20 09:04 Clonidine 0.1 Mg Tablet PO 0.1 mg BID DEBORAH Administration Ergocalciferol 50,000 unit 12/10/20 07:30 12/17/20 07:56 Ergocalciferol ( Vitamin D2) 50,000 Unit Capsule PO 50,000 unit Q7D DEBORAH Administration Furosemide 80 mg 12/15/20 08:00 12/18/20 09:03 Furosemide 40 Mg Tablet PO 80 mg DAILY@0800 [facility] Administration Heparin Sodium (Be ef Lung) 5,000 unit 12/13/20 09:00 12/17/20 07:57 Heparin 5,000 Un it/Ml Inj 1 Ml SUBCUT 5,000 unit Q12H DEBORAH Administration Hydralazine HCl 25 mg 12/16/20 09:10 12/18/20 09:03 Hydralazine 25 M g Tablet PO 25 mg TID DEBORAH Administration Ceftriaxone Sodium 1,000 mg/ 50 mls @ 100 mls/ hr 12/15/20 13:00 12/17/20 14:04 Sodium Chloride IV Infused Q24H [facility] Infusion Protocol Insulin Aspart 0 unit 12/10/20 21:00 12/17/20 21:56 Insulin Aspart 1 00 Unit/1 Ml SUBCUT 3 unit BEDTIME DEBORAH Administration Protocol Insulin Aspart 0 unit 12/10/20 08:00 12/18/20 09:03 Insulin Aspart 1 00 Unit/1 Ml SUBCUT 2 unit TIDWM [facility] Administration Protocol Ondansetron HCl 4 mg 12/10/20 02:25 12/17/20 14:32 Ondansetron 2 Mg /Ml Sdv 2 Ml IVP 4 mg Q12H PRN Administration NAUSEA AND VOMITI NG Additional Medication Information: Current Medications Dextrose (Dextrose 50% Syringe 50 Ml) 25 ml IVP ONCE PRN; Protocol PRN Reason: hypoglycemia protocol Dextrose (Dextrose 50% Syringe 50 Ml) 50 ml IVP PRN PRN; Protocol PRN Reason: hypoglycemia protocol Ergocalciferol (Ergocalciferol (Vitamin D2) 50,000 Unit Capsule) 50,000 unit PO Q7D [facility] Last Admin: 12/10/20 08:33 Dose: 50,000 unit Documented by: Glucagon (Glucagon 1 Mg/Ml Inj 1 Ml) 1 mg IM ONCE PRN; Protocol PRN Reason: Adult Acute Hypoglycemia Prot Hydromorphone HCl (Hydromorphone 1 Mg/Ml Inj 1 Ml) 0.4 mg IVP Q8H PRN PRN Reason: PAIN Last Admin: 12/12/20 03:24 Dose: 0.4 mg Documented by: Norepinephrine Bitartrate 4 mg (/ Dextrose) 254 mls @ 0 mls/hr IV .Q0M [facility]; Protocol Last Titration: 12/10/20 12:28 Dose: Infused Documented by: Imipenem/Cilastatin Sodium 250 (mg/ Sodium Chloride) 100 mls @ 200 mls/hr IV Q12H DEBORAH; Protocol Last Infusion: 12/12/20 00:52 Dose: Infused Documented by: Dextrose (D5w) 500 mls @ 100 mls/hr IV ONCE PRN; Protocol PRN Reason: Adult Acute Hypoglycemia Prot Insulin Human Regular 250 unit (/ Sodium Chloride) 252.5 mls @ 0 mls/hr IV .Q0M DEBORAH; Protocol Last Titration: 12/10/20 19:00 Dose: 0 unit/hr, 0 mls/hr Documented by: Albumin Human (Albumin) 12.5 gm in 50 mls @ 60 mls/hr IV PRN PRN PRN Reason: Hypotension and/or symptomatic Insulin Aspart (Insulin Aspart 100 Unit/1 Ml) 0 unit SUBCUT BEDTIME DEBORAH; Protocol Last Admin: 12/11/20 20:55 Dose: 2 unit Documented by: Insulin Aspart (Insulin Aspart 100 Unit/1 Ml) 0 unit SUBCUT TIDWM DEBORAH; Protocol Last Admin: 12/11/20 17:15 Dose: Not Given Documented by: Ondansetron HCl (Ondansetron 2 Mg/Ml Sdv 2 Ml) 4 mg IVP Q12H PRN PRN Reason: NAUSEA AND VOMITING Last Admin: 12/11/20 14:00 Dose: 4 mg Documented by: PFSH Anesthesia PFS: Medical History (Updated 12/15/20 @ 18:14 by Edis Jerome) Diabetes mellitus, type II Hyperlipidemia Hypertension Mild cognitive impairment Grade school education Surgical History (Updated 12/10/20 @ 18:28 by Sterling Ramos MD) History of cardiac catheterization (~2013) Procedure Summary 1-LM is normal 2-LAD is normal 3-LCx is normal 4-RCA is normal 5-Normal LVEDP S/P dialysis catheter insertion (12/10/20) Right IJ Family History Other Diabetes Social History Smoking and tobacco status: never smoked Alcohol intake: never Substance/Drug Use: never Education level details: Grade school education, was in special education per old records Data Anesthesia CBC & Chem 7: 12/18/20 05:36 12/18/20 05:36 Other Labs: Laboratory Results - last 48 hr 12/10/20 12/16/20 12/16/20 03:52 16:57 20:30 WBC RBC Hgb Hct MCV MCH MCHC RDW Plt Count MPV Neut % (Auto) Lymph % (Auto) Victoria % (Auto) Eos % (Auto) Baso % (Auto) Neut # (Auto) Lymph # (Auto) Victoria # (Auto) Eos # (Auto) Baso # (Auto) Nucleated RBC % (auto) Nucleated RBCs # Sodium Potassium Chloride Carbon Dioxide Anion Gap BUN Creatinine GFR Calculation Glucose POC Glucose 230 H 224 H Calculated Osmolality Calcium Phosphorus Magnesium Total Bilirubin AST ALT Alkaline Phosphatase Total Protein Albumin Globulin Ref Test Comments Negative 12/17/20 12/17/20 12/17/20 04:20 04:20 06:36 WBC 8.3 RBC 4.22 Hgb 12.0 Hct 35.9 L MCV 85.1 MCH 28.4 MCHC 33.4 RDW 13.2 Plt Count 303 MPV 10.6 H Neut % (Auto) 62.2 Lymph % (Auto) 17.3 Victoria % (Auto) 11.4 Eos % (Auto) 3.8 Baso % (Auto) 0.7 Neut # (Auto) 5.19 Lymph # (Auto) 1.4 Victoria # (Auto) 1.0 H Eos # (Auto) 0.3 Baso # (Auto) 0.1 Nucleated RBC % (auto) 0 Nucleated RBCs # 0.0 Sodium 138 Potassium 3.7 Chloride 98 Carbon Dioxide 21 L Anion Gap 22.7 H BUN 85 H* Creatinine 11.0 H* GFR Calculation 4.8 L Glucose 156 H POC Glucose 137 H Calculated Osmolality 315 H Calcium 7.9 L Phosphorus 8.2 H* D Magnesium 2.6 H Total Bilirubin 0.4 AST 31 ALT 32 Alkaline Phosphatase 91 Total Protein 5.9 L Albumin 2.8 L Globulin 3.1 Ref Test Comments 12/17/20 12/17/20 12/17/20 10:41 16:25 21:23 WBC RBC Hgb Hct MCV MCH MCHC RDW Plt Count MPV Neut % (Auto) Lymph % (Auto) Victoria % (Auto) Eos % (Auto) Baso % (Auto) Neut # (Auto) Lymph # (Auto) Victoria # (Auto) Eos # (Auto) Baso # (Auto) Nucleated RBC % (auto) Nucleated RBCs # Sodium Potassium Chloride Carbon Dioxide Anion Gap BUN Creatinine GFR Calculation Glucose POC Glucose 231 H 203 H 239 H Calculated Osmolality Calcium Phosphorus Magnesium Total Bilirubin AST ALT Alkaline Phosphatase Total Protein Albumin Globulin Ref Test Comments 12/18/20 12/18/20 12/18/20 05:36 05:36 06:19 WBC 8.6 RBC 4.06 L Hgb 11.6 L Hct 34.5 L MCV 85.0 MCH 28.6 MCHC 33.6 RDW 13.3 Plt Count 342 MPV 10.5 H Neut % (Auto) 66.6 Lymph % (Auto) 16.3 Victoria % (Auto) 10.2 Eos % (Auto) 2.6 Baso % (Auto) 0.6 Neut # (Auto) 5.74 Lymph # (Auto) 1.4 Victoria # (Auto) 0.9 Eos # (Auto) 0.2 Baso # (Auto) 0.1 Nucleated RBC % (auto) 0 Nucleated RBCs # 0.0 Sodium 135 L Potassium 4.4 Chloride 96 L Carbon Dioxide 18 L Anion Gap 25.4 H BUN 96 H* Creatinine 12.4 H* GFR Calculation 4.2 L Glucose 151 H POC Glucose 145 H Calculated Osmolality 313 H Calcium 7.9 L Phosphorus 9.6 H* Magnesium 2.8 H Total Bilirubin 0.4 AST 23 ALT 21 Alkaline Phosphatase 93 Total Protein 6.2 L Albumin 2.9 L Globulin 3.3 Ref Test Comments 12/18/20 11:02 WBC RBC Hgb Hct MCV MCH MCHC RDW Plt Count MPV Neut % (Auto) Lymph % (Auto) Victoria % (Auto) Eos % (Auto) Baso % (Auto) Neut # (Auto) Lymph # (Auto) Victoria # (Auto) Eos # (Auto) Baso # (Auto) Nucleated RBC % (auto) Nucleated RBCs # Sodium Potassium Chloride Carbon Dioxide Anion Gap BUN Creatinine GFR Calculation Glucose POC Glucose 155 H Calculated Osmolality Calcium Phosphorus Magnesium Total Bilirubin AST ALT Alkaline Phosphatase Total Protein Albumin Globulin Ref Test Comments Micro: Microbiology 12/14/20 15:45 Urine Culture - Final Urine,Clean Catch Cardiac Studies: No Data to Display
--- NOTE | 2020-12-18 12:27 | P.PN_ITS ---
Subjective Subjective: Interval history: Patient had difficulty with dialysis catheter not functioning well. He is going to need dialysis for a while and therefore the catheter needs to be changed to a tunneled catheter. Vitals/I&O/Wt Last Vital Signs Temp 97.8 F 12/18/20 11:38 Pulse 72 12/18/20 11:38 Resp 18 12/18/20 11:38 BP 164/84 12/18/20 11:38 Pulse Ox 95 12/18/20 11:38 12/17/20 12/18/20 12/18/20 22:59 06:59 14:59 Intake Total 360 / 770 240 / 240 Output Total 700 / 700 Balance 360 / 70 -700 / 70 240 / 240 Weight last 48 hrs Weight 279 lb 6.4 oz Weight 274 lb 6.4 oz Physical Exam Narrative: EXAM NARRATIVE: Right neck: IJ catheter dialysis in place Urinary Catheter Management^: Khan: Cath Placed During This Visit: yes Reason for Continuing Indwelling Catheter: Accurate Measurement of Urinary Output in Critically Ill Patients Urinary Catheter Date of Insertion: 12/09/20 Urinary Catheter Time of Insertion: 20:26 Data : 12/18/20 05:36 12/18/20 05:36 Micro: Microbiology 12/14/20 15:45 Urine Culture - Final Urine,Clean Catch A&P Assessment and plan (1) S/P dialysis catheter insertion: Plan for exchange to tunneled right IJ hemodialysis catheter under MAC Procedure, risks, benefits and alternatives have been discussed with the patient who wishes to proceed with surgery. 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
[2020-12-18] MEDS: heparin, porcine 1,000 unit/mL INJ 10 mL 10000 UNIT HE (13:21)
[2020-12-18] MEDS: lidocaine 1% INJ 20 mL 10 ML INJECTION (13:55)
--- NOTE | 2020-12-18 14:56 | PM.PN ---
Subjective Subjective: Interval history: Mr. Barney is seen and examined during his dialysis therapy. Dialysis so far going well. The dialysis line is working well, just replaced for a tunneled catheter. He still has a Khan catheter. Urine output noted to be reasonable. No uremic symptoms. No extremity edema, shortness of breath or other hypervolemic symptoms. Medications: Reviewed: Yes Medication Review Details: Current Medications Dextrose (Dextrose 50% Syringe 50 Ml) 25 ml IVP ONCE PRN; Protocol PRN Reason: hypoglycemia protocol Dextrose (Dextrose 50% Syringe 50 Ml) 50 ml IVP PRN PRN; Protocol PRN Reason: hypoglycemia protocol Ergocalciferol (Ergocalciferol (Vitamin D2) 50,000 Unit Capsule) 50,000 unit PO Q7D DEBORAH Last Admin: 12/10/20 08:33 Dose: 50,000 unit Documented by: Glucagon (Glucagon 1 Mg/Ml Inj 1 Ml) 1 mg IM ONCE PRN; Protocol PRN Reason: Adult Acute Hypoglycemia Prot Hydromorphone HCl (Hydromorphone 1 Mg/Ml Inj 1 Ml) 0.4 mg IVP Q8H PRN PRN Reason: PAIN Last Admin: 12/12/20 03:24 Dose: 0.4 mg Documented by: Norepinephrine Bitartrate 4 mg (/ Dextrose) 254 mls @ 0 mls/hr IV .Q0M DEBORAH; Protocol Last Titration: 12/10/20 12:28 Dose: Infused Documented by: Imipenem/Cilastatin Sodium 250 (mg/ Sodium Chloride) 100 mls @ 200 mls/hr IV Q12H DEBORAH; Protocol Last Infusion: 12/12/20 00:52 Dose: Infused Documented by: Dextrose (D5w) 500 mls @ 100 mls/hr IV ONCE PRN; Protocol PRN Reason: Adult Acute Hypoglycemia Prot Insulin Human Regular 250 unit (/ Sodium Chloride) 252.5 mls @ 0 mls/hr IV .Q0M DEBORAH; Protocol Last Titration: 12/10/20 19:00 Dose: 0 unit/hr, 0 mls/hr Documented by: Albumin Human (Albumin) 12.5 gm in 50 mls @ 60 mls/hr IV PRN PRN PRN Reason: Hypotension and/or symptomatic Insulin Aspart (Insulin Aspart 100 Unit/1 Ml) 0 unit SUBCUT BEDTIME DEBORAH; Protocol Last Admin: 12/11/20 20:55 Dose: 2 unit Documented by: Insulin Aspart (Insulin Aspart 100 Unit/1 Ml) 0 unit SUBCUT TIDWM DEBORAH; Protocol Last Admin: 12/11/20 17:15 Dose: Not Given Documented by: Ondansetron HCl (Ondansetron 2 Mg/Ml Sdv 2 Ml) 4 mg IVP Q12H PRN PRN Reason: NAUSEA AND VOMITING Last Admin: 12/11/20 14:00 Dose: 4 mg Documented by: Vitals/I&O/Wt Last Vital Signs Temp 97.6 F 12/18/20 14:10 Pulse 80 12/18/20 14:10 Resp 16 12/18/20 14:10 BP 171/91 12/18/20 14:10 Pulse Ox 93 12/18/20 14:10 12/17/20 12/18/20 12/18/20 22:59 06:59 14:59 Intake Total 360 / 770 240 / 240 Output Total 700 / 700 / 30 Balance 360 / 770 -700 / 70 210 / 210 Weight last 48 hrs Weight 126.734 kg Weight 124.466 kg Physical Exam Narrative: EXAM NARRATIVE: Constitutional: Awake, comfortable HEENT: Wet mucosa, no jvp, non icteric Lungs: Bilaterally clear without discernible wheeze, rales in all lung zones CVS: S1 S2, no murmurs Abdo: Soft, BS ok Ext 4: Minimal edema, peripheral perfusion with no cyanosis Neurological: Grossly non-focal Urinary Catheter Management^: Khan: Cath Placed During This Visit: yes Reason for Continuing Indwelling Catheter: Accurate Measurement of Urinary Output in Critically Ill Patients Urinary Catheter Date of Insertion: 12/09/20 Urinary Catheter Time of Insertion: 20:26 Data : 12/18/20 05:36 12/18/20 05:36 A&P Additional A&P Information 1. Acute kidney injury Picture is consistent with both infection and ischemic ATN, unfortunately it appears to have a protracted course and is now recovering. Renal biopsy is a consideration. He did receive aspirin 12/17 I have held this. Given the exposure to aspirin, the limited availability of kidney biopsy in this hospital, it is reasonable to organize outpatient care for him where a kidney biopsy could be organized if he fails to recover. Dialysis on going today and will schedule for tomorrow to continue MWF schedule Khan to be removed Strict ins and outs. Dose medications for GFR less than 15 on dialysis. 2. Chemistry Well-balanced except hyperphosphatemia; he needs a renal diet, PhosLo started Acidosis due to MAGNUS; will come down with effective dialysis 3. Pyelonephritis, on Rocephin. Culture data negative. 4. Disposition. Okay for discharge for outpatient dialysis when dialysis chair is arranged Silvano Ng MD Nephrology [phone] Patient seen and examined via telemedicine, with the assistance of the bedside RN > 25 min spent in evaluation and mgmt of patient Attestations Medical Necessity Statement*: eval for renal failure Coding Level of Care Code Acute Swine Genetics Researcher for [facility]
--- NOTE | 2020-12-18 15:43 | SCC_ITS ---
Procedure Done: 1. Exchange to tunneled 23 cm AshSplit hemodialysis catheter in the right internal jugular vein 2. Fluoroscopic guidance and interpretation for placement of catheter 94.4 seconds of fluoroscopic guidance, for a cumulative dose of 22.92 mGy, was provided to Dr. Ramos by the radiology department. C-arm images of the chest were saved for the patient's permanent record. [facility]
--- NOTE | 2020-12-18 16:18 | PM.OP ---
Operative Report Date of procedure: December 18, 2020 Pre-op Diagnosis: Chronic renal failure Post-op diagnosis: same Procedure Done: 1. Exchange to tunneled 23 cm AshSplit hemodialysis catheter in the right internal jugular vein 2. Fluoroscopic guidance and interpretation for placement of catheter Specimens removed/disposition: None Surgeon: Sterling Ramos Anesthesia: MAC Condition: stable Disposition: PACU Procedure: The patient was taken to the operating room and placed under MAC after IV antibiotic had been administered. The chest and neck were prepped and draped in a sterile manner bilaterally. The existing right internal jugular vein Mahurkar catheter was wrapped in gauze soaked with Betadine. Under fluoroscopy the location for the dialysis catheter was marked. Using 11 blade a skin incision was extended at the vein access site as well as the previously marked location on the right chest wall. The dialysis catheter was attached to the tunneler and passed subcutaneously, exiting at the venous access site. A guidewire was passed under fluoroscopy through the existing nontunneled dialysis catheter which was removed. Serial dilators were passed over the guidewire under fluoroscopy. Finally the dilator peel-away sheath was passed over the guidewire and the inner dilator and guidewire was removed and the dialysis catheter was introduced into the right internal jugular vein as the peel-away sheath was removed. The tip of the catheter was noted to be in the right atrium. Both ports of the catheter chuck blood and flushed easily. The catheter was sutured to the skin using 2-0 Prolene and the venous access site was closed with 4-0 Monocryl and Dermabond. A total of 5 mL of 1:10,000 heparin was injected into the 2 ports under dialysis catheter. Surgicel was placed at the catheter exit site and pressure dressings were applied. Fluoroscopic guidance and interpretation for passage of guidewire and dilator and placement of catheter in the right atrium.
--- NOTE | 2020-12-18 19:04 | ANE.PACU2 ---
Inpatient post-anesthesia follow up: Airway intact: Yes Vital signs: Temperature 97.6 F Pulse Rate [Monito r] 120 Pulse Rate 80 Respiratory Rate 16 Blood Pressure [Le ft Arm] 122/76 Blood Pressure 159/90 Pulse Oximetry 94 Oxygen Delivery Me thod [ Room Air Current Rate & Del emerald] Oxygen Delivery Me thod Room Air Oxygen Flow Rate [ Current Rate 2 & Delivery] Oxygen Flow Rate 2 Fraction of Inspir ed Oxygen Hydration adequate: Yes Nausea and vomiting: No Pain level: 2 Mental status: Baseline
[2020-12-18 20:14] LABS: Glucose Point of Care 262 mg/dL (70-110)
--- NOTE | 2020-12-18 21:42 | PC.NURSE ---
Pt left with sister to home around 2114
--- NOTE | 2020-12-18 21:47 | PM.DCS ---
Discharge Providers Date of Admission: 12/09/20 19:28 Date of Discharge: December 18, 2020 Attending Provider at Admission: Brittni Dubois MD Attending Provider at Discharge: Cole Aldana Primary Care Provider: Ford García MD Diagnoses at Discharge Discharge Diagnosis (1) S/P dialysis catheter insertion: Status: Acute Permanent problem details: Right IJ (2) Pyelonephritis: Status: Acute (3) Acute renal failure: Status: Acute Qualifiers: Acute renal failure type: with acute tubular necrosis Qualified Code(s): N17.0 - Acute kidney failure with tubular necrosis (4) Thrombocytopenia: Status: Acute (5) Elevated liver enzymes: Status: Acute (6) High anion gap metabolic acidosis: Status: Acute (7) Septic shock: Status: Acute (8) Transaminitis: Status: Acute (9) Diabetic ketoacidosis: Status: Acute (10) DIC (disseminated intravascular coagulation): Status: Acute (11) Pneumonia: Status: Acute (12) Bone marrow suppression: Status: Acute (13) Multiorgan failure: Status: Acute (14) NSTEMI (non-ST elevated myocardial infarction): Status: Acute (15) Anemia: Status: Acute (16) Hypertension: Status: Acute (17) Hyperlipidemia: Status: Acute (18) Diabetes mellitus, type II: Status: Acute Qualifiers: Diabetes mellitus intermediate designer insulin use: with intermediate designer use Diabetes mellitus complication status: with neurologic complications Diabetes mellitus complication detail: with unspecified neuropathy Qualified Code(s): E11.40 - Type 2 diabetes mellitus with diabetic neuropathy, unspecified; Z79.4 - residential (current) use of insulin Reason for Visit Reason for Visit: SOB,FEVER,SORE THROAT,COUGH Hospital Course Hospital Course [place] 60-year-old gentleman with mild cognitive impairment, DM 2, HTN, HLD was admitted on 12/09 and treated in the hospital for sepsis with septic shock, with complicated urinary tract infection, pyelonephritis, treated in the intensive care unit initially fluid resuscitation, IV antibiotics, pressor support, with left femoral vein central line, initially also with question of possible diabetic ketoacidosis, and with noted multiple organ injury, with renal failure requiring acute dialysis via right IJ temporary catheter, hepatocellular dysfunction with elevation of liver enzymes, thrombocytopenia. Stabilized. Weaned off pressors. Continue to require hemodialysis. Liver parameters gradually improved. Thrombocytopenia resolved. Concern for possible DIC resolved. Suspected bone marrow suppression resolved. With noted also elevation of troponin, however, without chest pain, with nonspecific EKG findings, thought to be secondary to type II NSTEMI/demand ischemia. Urine studies unfortunately unrevealing as to the causative organism. Khan catheter was maintained in place due to concern for urinary retention, with noted BPH. Khan maintained at discharge. Flomax initiated. She is asked to follow-up with urology in office. Unfortunately renal function did not return. Consideration was given to possible kidney biopsy, although per discussion with nephrology with high concern for ATN secondary to sepsis/septic shock, as discussed with him and his sister possibilities he may not require biopsy after all. This may depend on reassessment with nephrology in office. However, he does require continued hemodialysis at this time. His temporary catheter was replaced with tunnel catheter by surgery today, he underwent uneventful hemodialysis and is set up for outpatient hemodialysis and nephrology follow-up. On discharge as discussed with his sister and number of medications are changed. His oral hypoglycemics are distant discontinued. He is continued on only Levemir 10 units twice daily, with instructions to continue monitoring blood glucose. Would avoid Jardiance, Januvia due to risk of urinary infection. Others due to risk of hypoglycemia. Metformin with renal failure. Home health care is requested for him with nursing to reassess his condition, monitoring of diabetes, medications after changes. Please follow-up in addition to renal function also liver function. Please follow-up incidentally noted fatty liver disease. Follow-up blood counts. Reassess diabetes therapy. Physical Exam Const: COMMON NORMALS: no acute distress, patient oriented x3 and alert GENERAL APPEARANCE: cooperative and comfortable ORIENTATION/CONSCIOUSNESS: Yes awake OTHER: He is awake, alert, undergoing hemodialysis. Denies any complaints. Doing well. HENMT: COMMON NORMALS: oropharynx normal Neck/C-Spine: COMMON NORMALS: no JVD OTHER: R tunneled dialysis catheter Resp: COMMON NORMALS: normal respiratory effort and clear to auscultation bilaterally AUSCULTATION: clear to auscultation bilaterally Cardio: COMMON NORMALS: no JVD, regular rhythm, S1 normal heart sound present, S2 normal heart sound present and No murmurs present (Cardio) RHYTHM: regular rhythm HEART SOUNDS: S1 normal heart sound present and S2 normal heart sound present GI: COMMON NORMALS: Normal to inspection, nondistended, normoactive bowel sounds present, Soft to palpation and non-tender PALPATION: Yes Soft to palpation Extremity: COMMON NORMALS: no joint enlargement and no pedal edema Neuro: COMMON NORMALS: patient oriented x3 and moves all extremities SENSORIUM/ORIENTATION: Yes alert Skin: COMMON NORMALS: no rashes or lesions noted GENERAL SKIN EXAM: no rashes or lesions noted Urinary Catheter Management^: Khan: Cath Placed During This Visit: yes Reason for Continuing Indwelling Catheter: Other Urinary Catheter Date of Insertion: 12/09/20 Urinary Catheter Time of Insertion: 20:26 Discharge Data Data Completed and Pending: Completed Studies During Hospitalization Category Date Time Status CT abdomen pelvis wo con [id number] Stat Cat Scan 12/09/20 17:49 Completed CXRP [XR chest 1V portable [id number]] R outine Exams 12/10/20 08:04 Completed XR chest 1V ascencion ble [id number] AM LABS Exams 12/10/20 04:00 Completed XR chest 1V ascencion ble [id number] Routine Exams 12/11/20 07:00 Completed XR chest 1V ascencion ble [id number] Urgent Exams 12/09/20 16:10 Completed CV echo complete* [id number] Routine Ultrasound 12/10/20 02:49 Completed US abdomen comple te* [id number] Routine Ultrasound 12/15/20 08:53 Completed US abdomen limite d [id number] Urgent Ultrasound 12/10/20 02:35 Completed US renal BI* [id number] 0 Stat Ultrasound 12/10/20 11:28 Completed Pending at discharge Category Date Time Status JUAN M Screen w/ Ref francine Routine Lab 12/10/20 03:52 Results Complete Blood Co unt w/Auto AM LABS Lab 12/19/20 04:00 Ordered Comprehensive Met abolic Panel AM LA BS Lab 12/19/20 04:00 Ordered Magnesium AM LABS Lab 12/19/20 04:00 Ordered Osmolality Serum Urgent Lab 12/09/20 23:30 Received Phosphorus AM LAB S Lab 12/19/20 04:00 Ordered SS A Ro Sjogrens Antibody Routine Lab 12/10/20 03:52 Results SS-B/LA Antibody IGG Routine Lab 12/10/20 03:52 Results Labs from last 24 hours 12/18/20 12/18/20 12/18/20 20:00 11:02 06:19 WBC RBC Hgb Hct MCV MCH MCHC RDW Plt Count MPV Neut % (Auto) Lymph % (Auto) [place] % (Auto) Eos % (Auto) Baso % (Auto) Neut # (Auto) Lymph # (Auto) [place] # (Auto) Eos # (Auto) Baso # (Auto) Nucleated RBC % (a uto) Nucleated RBCs # Sodium Potassium Chloride Carbon Dioxide Anion Gap BUN Creatinine GFR Calculation Glucose POC Glucose 262 H 155 H 145 H Calculated Osmolal ity Calcium Phosphorus Magnesium Total Bilirubin AST ALT Alkaline Phosphata se Total Protein Albumin Globulin Ref Test Comments 12/18/20 12/18/20 12/10/20 05:36 05:36 03:52 WBC 8.6 RBC 4.06 L Hgb 11.6 L Hct 34.5 L MCV 85.0 MCH 28.6 MCHC 33.6 RDW 13.3 Plt Count 342 MPV 10.5 H Neut % (Auto) 66.6 Lymph % (Auto) 16.3 [place] % (Auto) 10.2 Eos % (Auto) 2.6 Baso % (Auto) 0.6 Neut # (Auto) 5.74 Lymph # (Auto) 1.4 [place] # (Auto) 0.9 Eos # (Auto) 0.2 Baso # (Auto) 0.1 Nucleated RBC % (a uto) 0 Nucleated RBCs # 0.0 Sodium 135 L Potassium 4.4 Chloride 96 L Carbon Dioxide 18 L Anion Gap 25.4 H BUN 96 H* Creatinine 12.4 H* GFR Calculation 4.2 L Glucose 151 H POC Glucose Calculated Osmolal ity 313 H Calcium 7.9 L Phosphorus 9.6 H* Magnesium 2.8 H Total Bilirubin 0.4 AST 23 ALT 21 Alkaline Phosphata se 93 Total Protein 6.2 L Albumin 2.9 L Globulin 3.3 Ref Test Comments Negative Vitals: Last Vital Signs Temp 98.7 F 12/18/20 19:00 Pulse 68 12/18/20 19:00 Resp 16 12/18/20 19:00 BP 137/83 12/18/20 19:00 Pulse Ox 91 12/18/20 19:00 Discharge Plan Discharge Patient Disposition: Home Health Service Condition: Stable Prescriptions: New clonidine HCl 0.1 mg Tablet 0.1 mg PO BID Qty: 60 RF: 0 hydralazine 25 mg Tablet 25 mg PO TID Qty: 90 RF: 0 amlodipine 10 mg Tablet 10 mg PO DAILY Qty: 30 RF: 0 Vitamin D2 1,250 mcg (50,000 unit) Capsule 50,000 unit PO Q7D Qty: 4 RF: 0 Calphron 667 mg Tablet 1,334 mg PO TIDWM Qty: 180 RF: 0 tamsulosin 0.4 mg capsule 0.4 mg PO .Nightly Qty: 30 RF: 0 Continued zolpidem 10 mg tablet 10 mg PO BEDTIME@2029 RF: 0 rosuvastatin 40 mg tablet 40 mg PO DAILY@829 RF: 0 Protonix 40 mg tablet,delayed release (DR/EC) 40 mg PO DAILY@829 RF: 0 Changed Levemir FlexTouch U-100 Insuln 100 unit/mL (3 mL) insulin pen 10 unit SUBCUT BID@829,2029 Qty: 0 RF: 0 Held aspirin 81 mg tablet,delayed release (DR/EC) 81 mg PO DAILY@829 RF: 0 Hold Instructions: Resume on 01/01/21. Discontinued pioglitazone 15 mg tablet 15 mg PO DAILY@829 RF: 0 gabapentin 600 mg tablet 600 mg PO TID@829,1229,2029 RF: 0 glipizide 5 mg tablet extended release 24hr 5 mg PO DAILY@829 RF: 0 lisinopril 5 mg tablet 5 mg PO DAILY@829 RF: 0 metformin 500 mg tablet extended release 24 hr 500 mg PO DAILY@829 RF: 0 Januvia 100 mg tablet 100 mg PO DAILY@829 RF: 0 Jardiance 25 mg tablet 25 mg PO DAILY@30 RF: 0 Discharge Orders: Discharge Order (Routine); Ordered 12/18/20 Ordered By: Cole Aldana Referrals: [facility] [Outside] Chava Salinas MD [Referring] - 1 week (MAGNUS, consideration of biopsy) Bernardo Lantigua MD [Physician] - 1 week (urinary retention, complicated uti) Ford García MD [Primary Care Provider] - 4-7 days Discharge Diet: As Directed Discharge Activity: Increase activity as tolerated and As per PT/OT instructions Patient Instructions: Clonidine (By mouth), Hydralazine (By mouth), Amlodipine (By mouth), Tamsulosin (By mouth), Calcium Acetate (By mouth), Hemodialysis (GEN) Activity Restrictions/Additional Instructions: Please maintain renal dialysis diet. Please follow-up with hemodialysis clinic. Please follow-up with kidney doctor. Please discuss with kidney doctor regarding whether biopsy of the kidney is still necessary. And if determined necessary, please discuss referral for biopsy. If you experience any high fever, abdominal pain, bleeding, any issues with nails catheter, or any other concerning symptoms, please seek medical attention without delay. Please discuss with your primary care doctor regarding continued treatment of diabetes. Please note that your diabetes oral medications including Jardiance, Januvia were discontinued as they may contribute to risk of urinary infections. Glipizide is discontinued to reduce risk of low blood glucose. Please continue insulin, at this time dose is reduced to 10 units twice a day. Please monitor blood glucose. Avoid low glucose readings. If your glucose level is less than 80, please skip insulin dose. If your glucose is lower than 70, please take sugary snacks if able to, and recheck your glucose in 15-20 minutes, and if still low, please call 911. Please keep urinary catheter in place until he can be seen by the urologist in office as there is concerned that urinary retention contributed to your kidney injury as well. Please discuss prostate enlargement. Please discuss on follow-up with your primary care doctor regarding complicated kidney infection, kidney injury, urinary retention. Please follow-up with your primary care doctor with regards to fatty liver infiltration incidentally seen on ultrasound. Discharge Attestations Time Spent in Discharge Care*: greater than 30 min Quality Metrics Clinical Quality Measures During this hospital stay, did patient experience: None Coding Level of Care Code Acute Chg [facility] note Diagnoses S/P dialysis catheter insertion Z95.828; Z99.2 Pyelonephritis N12 Acute renal failure N17.0 Acute renal failure type: with acute tubular necrosis Thrombocytopenia D69.6 Elevated liver enzymes R74.8 High anion gap metabolic acidosis E87.2 Septic shock A41.9; R65.21 Transaminitis R74.01 Diabetic ketoacidosis E11.10 DIC (disseminated intravascular coagulation) D65 Pneumonia J18.9 Bone marrow suppression D75.89 Multiorgan failure NSTEMI (non-ST elevated myocardial infarction) I21.4 Anemia D64.9 Hypertension I10 Hyperlipidemia E78.5 Diabetes mellitus, type II E11.40; Z79.4 Diabetes mellitus longterm insulin use: with longterm use Diabetes mellitus complication status: with neurologic complications Diabetes mellitus complication detail: with unspecified neuropathy
== END 2020-12-18 21:15 | disposition home or self-care (01) | DRG 871 ==
LOC: ER 16:02 → ICU 19:55 → MEDSURG 12-12 18:17
PROVIDERS: Family Medicine; Internal Medicine; Internal Medicine Nephrology; Surgery; Admitting Provider Hospitalist; Emergency Provider Family Medicine; PCP Family Medicine; Visit Provider Internal Medicine
PROC: 0JH63XZ Insertion of Tunneled Vascular Access Device into Chest Subcutaneous Tissue and Fascia, Percutaneous Approach (ICD-10-PCS; principal; 2020-12-18 12:00)
DX: A41.9 Sepsis, unspecified organism (principal); E11.10 Type 2 diabetes mellitus with ketoacidosis without coma; R65.21 Severe sepsis with septic shock; N17.0 Acute kidney failure with tubular necrosis; D65 Disseminated intravascular coagulation [defibrination syndrome]; J18.9 Pneumonia, unspecified organism; I21.A1 Myocardial infarction type 2; E87.2 Acidosis; E87.1 Hypo-osmolality and hyponatremia; N10 Acute pyelonephritis; N39.0 Urinary tract infection, site not specified; E78.5 Hyperlipidemia, unspecified; I10 Essential (primary) hypertension; G31.84 Mild cognitive impairment of uncertain or unknown etiology; I95.9 Hypotension, unspecified; E87.6 Hypokalemia; R31.9 Hematuria, unspecified; Z87.442 Personal history of urinary calculi; K76.0 Fatty (change of) liver, not elsewhere classified; K76.9 Liver disease, unspecified; D64.9 Anemia, unspecified; R19.7 Diarrhea, unspecified; N40.1 Benign prostatic hyperplasia with lower urinary tract symptoms; R33.8 Other retention of urine
CPT/HCPCS: 36415; 36416; 36592; 36600; 51702; 71045; 74176; 76700; 76705; 76770; 77001; 80048; 80051; 80053; 80061; 80074; 80202; 80306; 80307; 80500; 81001; 82009; 82306; 82330; 82533; 82550; 82575; 82728; 82803; 82805; 82962; 83010; 83036; 83516; 83605; 83615; 83690; 83735; 83880; 83930; 83935; 84100; 84145; 84300; 84443; 84478; 84484; 84550; 85025; 85045; 85362; 85378; 85384; 85610; 85651; 85730; 85999; 86038; 86060; 86140; 86160; 86225; 86235; 86664; 86665; 86706; 86803; 86850; 86900; 87040; 87070; 87081; 87086; 87205; 87340; 87426; 87493; 87496; 87635; 87804; 87806; 87880; 90935; 93005; 93306; 94664; 96365; 96372; 99285; C1750; C1751; J0610; J0696; J0743; J1170; J1644; J1815; J1940; J2250; J2270; J2405; J2543; J2704; J3010; J3370; J3480; J3490; J7030; J7050; Q3014

== ENCOUNTER 2021-01-14 08:52 | Outpatient (CLI) | payer MEDICAID, SELFPAY ==
[2021-01-14 09:28] LABS: Albumin Level 4.2 g/dL (3.5-5.2); Anion Gap 16.2 (5-19); Blood Urea Nitrogen 18 mg/dL (6-20); Calcium 9.3 mg/dL (8.5-10.5); Carbon Dioxide 28 mmol/L (22-29); Chloride 97 mmol/L (98-107); Glomerular Filtration Rate 36.6 mL/min (90-130); Glucose 185 mg/dL (65-115); Phosphorus 3.3 mg/dL (2.5-4.5); Potassium 3.2 mmol/L (3.5-5.1); Sodium 138 mmol/L (136-145)
== END 2021-01-14 08:53 | disposition home or self-care (01) ==
PROVIDERS: PCP Family Medicine; Visit Provider Internal Medicine Nephrology
DX: N17.0 Acute kidney failure with tubular necrosis (principal)
CPT/HCPCS: 80069

== ENCOUNTER → 2021-01-17 09:18 | Outpatient (BNVA) | payer MEDICAID, SELFPAY | PROVIDERS: PCP Family Medicine; Visit Provider Urology | DX: R39.9 Unspecified symptoms and signs involving the genitourinary system (principal); N30.80 Other cystitis without hematuria; R33.9 Retention of urine, unspecified | CPT/HCPCS: 81003 ==

== ENCOUNTER 2021-01-24 07:42 | Outpatient (CLI) | payer MEDICAID, SELFPAY ==
--- NOTE | 2021-01-24 | XR_ITS ---
WS: [id number] Chest 2 views, 01/24/2021 Clinical Data: COUGH Comparison: Portable chest, 12/11/2020. Findings: No nodules, masses or effusions are seen. The heart is normal. The pulmonary vascularity is not increased. No pneumonia or pneumothorax is seen. XR/XR chest 2V* [id number] Impression: Negative chest.
--- NOTE | 2021-01-24 | XR_ITS ---
WS: [id number] Chest 2 views, 01/24/2021 Clinical Data: COUGH Comparison: Portable chest, 12/11/2020. Findings: No nodules, masses or effusions are seen. The heart is normal. The pulmonary vascularity is not increased. No pneumonia or pneumothorax is seen.
== END 2021-01-24 07:43 | disposition home or self-care (01) ==
PROVIDERS: PCP Family Medicine; Visit Provider Family Medicine
DX: R05 Cough (principal)
CPT/HCPCS: 71046

== ENCOUNTER 2021-01-28 18:47 | Emergency (ER) | payer MEDICAID, SELFPAY ==
[2021-01-28 18:59] VITALS: BP 128/85; PULSE 108; RESP 16; TEMP 36.6; O2SAT 96; BMI 33.5
--- NOTE | 2021-01-28 19:02 | XRR_ITS ---
PROCEDURE INFORMATION: Exam: XR Chest Exam date and time: 01/28/2021 7:03 PM Age: 60 years old Clinical indication: Chest pain; Additional info: Cp TECHNIQUE: Imaging protocol: XR of the chest. Views: 1 view. COMPARISON: CR XR chest 2V* [id number] 01/24/2021 2:59 PM FINDINGS: The lungs are clear of infiltrate. There are no pleural effusions or pneumothorax. The heart size and pulmonary vascularity are normal. XR/XR chest 1V portable [id number] IMPRESSION: No active disease.
--- NOTE | 2021-01-28 19:03 | ECG_ITS ---
[facility] Test Date: 2021-01-28 Pat Name: Ace Barney Department: Room: Gender: Male Assistant Controller: : 1960 Requested By: Nolvia Vivas Order Number: [id number] Daniel MD: Miriam Ramsey M.D. Measurements Intervals [place] Rate: 94 P: 49 ND: 152 QRS: 5 QRSD: 93 T: 64 QT: 346 QTc: 433 Interpretive Statements SINUS RHYTHM MINIMAL VOLTAGE CRITERIA FOR LVH, CONSIDER NORMAL VARIANT [MEETS CRITERIA IN ONE OF: R(aVL), S(V1), R(V5), R(V5/V6)+S(V1)] NONSPECIFIC T-WAVE ABNORMALITY Compared to ECG 12/09/2020 23:25:19 Sinus tachycardia no longer present T-wave abnormality still present Electronically Signed On 01-29-2021 9:21:17 CDT by Miriam Ramsey M.D. [id number]
[2021-01-28 20:05] VITALS: BP 146/92; PULSE 97; RESP 25; O2SAT 97
[2021-01-28 20:18] LABS: Basophils # 0.1 10^3/uL (0.0-0.1); Basophils % 0.9 %; Eosinophils # 0.2 10^3/uL (0.0-0.8); Eosinophils % 2.1 %; Hematocrit 28.8 % (42.0-52.0); Hemoglobin 9.9 g/dL (11.7-16.6); Lymphocytes # 2.2 10^3/uL (0.8-4.8); Lymphocytes % 19.8 %; Mean Corpuscular HGB Conc 34.4 g/dL (30.0-36.0); Mean Corpuscular Hemoglobin 28.9 pg (28.0-34.0); Mean Corpuscular Volume 84.2 fL (80-94); Mean Platelet Volume 11.5 fL (7.4-10.4); Monocytes # 0.7 10^3/uL (0.2-0.9); Monocytes % 6.7 %; Neutrophils # 7.56 10^3/uL (1.8-7.7); Neutrophils % 68.2 %; Nucleated Red Blood Cells % 0 %; Platelet Count 262 10^3/cmm (130-400); Red Blood Count 3.42 10^6/uL (4.1-5.3); Red Cell Distribution Width 13.2 % (12.1-15.1); White Blood Count 11.1 10^3/uL (4.0-10.0)
[2021-01-28 20:32] LABS: D Dimer 0.49 ug/mIFEU (0-0.59)
[2021-01-28 20:34] LABS: Alanine Aminotransferase 26 U/L (0-41); Albumin Level 4.3 g/dL (3.5-5.2); Alkaline Phosphatase 93 IU/L (40-130); Anion Gap 15.4 (5-19); Aspartate Amino Transferase 16 U/L (0-40); Blood Urea Nitrogen 16 mg/dL (6-20); Calcium 8.7 mg/dL (8.5-10.5); Carbon Dioxide 27 mmol/L (22-29); Chloride 95 mmol/L (98-107); Globulin 3.3 g/dL (1.3-4.6); Glomerular Filtration Rate 44.6 mL/min (90-130); Glucose 272 mg/dL (65-115); Osmolality Calculated 289 mOsm/kg (285-295); Potassium 3.4 mmol/L (3.5-5.1); Sodium 134 mmol/L (136-145); Total Bilirubin 0.5 mg/dL (0.15-1.2); Total Protein 7.6 g/dL (6.6-8.7)
[2021-01-28 20:37] LABS: Troponin(5th) Baseline 13 ng/L (0-15)
--- NOTE | 2021-01-28 21:03 | ECG_ITS ---
[facility] Test Date: 2021-01-28 Pat Name: Ace Barney Department: Room: Gender: Male Rn Interventional: : 1960 Requested By: Nolvia Vivas Order Number: [id number] Daniel MD: Miriam Ramsey M.D. Measurements Intervals [place] Rate: 94 P: 51 VA: 159 QRS: 5 QRSD: 97 T: 64 QT: 350 QTc: 438 Interpretive Statements SINUS RHYTHM NONSPECIFIC T-WAVE ABNORMALITY Compared to ECG 01/28/2021 20:16:14 No significant changes Electronically Signed On 01-29-2021 9:50:27 CDT by Miriam Ramsey M.D. [id number]
[2021-01-28 21:47] VITALS: BP 143/95; PULSE 98; RESP 21; O2SAT 98
[2021-01-28 22:28] LABS: Troponin 5 2HR 13.02 ng/L (0-15); Troponin 5 2HR Delta 0.02 ABS# (0-10)
--- NOTE | 2021-01-28 23:17 | ED_ITS ---
HPI - Chest Pain General: Chief Complaint: Chest Pain Stated Complaint: CP Time Seen by Provider: 01/28/21 19:57 Source: patient Mode of arrival: ambulatory Limitations: no limitations History of Present Illness: Associated symptoms: Deny abdominal pain, diaphoresis, dyspnea, fever(s), nausea, palpitations, syncope or vomiting Review of Systems Const: Denies: fever(s) or diaphoresis Eyes: Denies: change in vision, blurry vision, blind spots, photophobia, eye discomfort, eye discharge, eye redness, floaters or seeing flashes ENMT: Denies: throat pain, uvular edema, enlarged tonsils, odynophagia, hoarseness, mouth pain, swelling of lips/tongue, oral sores, bleeding gums, dental pain, dry mouth, ear or mastoid pain, ear discharge, change in hearing, tinnitus, disequilibrium, nasal discharge, nasal congestion, post nasal drip or sinus pain Card: Reports: chest pain; Denies: palpitations or syncope Resp: Denies: dyspnea GI: Denies: abdominal pain, nausea or vomiting : Denies: flank pain, dysuria, urinary frequency, urinary urgency, urinary hesitancy or hematuria Musc: Denies: neck pain, back pain, extremity pain, extremity swelling, joint pain, joint swelling, joint redness, joint warmth or deformity Skin/Breast: Denies: rash, pruritus, erythema, sores, new lesions, changes in skin color or dry skin Neuro: Denies: headache(s), numbness in extremities, weakness in extremities, sensory changes, lack of coordination, difficulty walking, frequent falls, dizziness, vertigo, confusion, behavioral changes, Slurred speech present, diff iculty communicating thoughts or seizure-like activity Psych: Denies: anxiety, depression, suicidal ideation or homicidal ideation Endo: Denies: polyuria, polydipsia, tired all the time, cold intolerance, excessive sweating, flushing, hot flashes or heat intolerance Jose/Lymph: Denies: easy bruising, easy bleeding, petechiae, purpura, enlarged lymph nodes or tender lymph nodes All/Imm: Denies: urticaria, throat swelling, tongue swelling, facial swelling, acute wheezing or itchy eyes PFSH ED PFSH: Medical History Diabetes mellitus, type II Hyperlipidemia Hypertension Lower urinary tract symptoms (LUTS) Mild cognitive impairment Grade school education Urinary retention Surgical History History of cardiac catheterization (~2013) Procedure Summary 1-LM is normal 2-LAD is normal 3-LCx is normal 4-RCA is normal 5-Normal LVEDP S/P dialysis catheter insertion (12/10/20) Right IJ removed 01/15/21 Family History Mother , AT AGE 59 OVARIAN CANCER CAD (coronary artery disease) Cancer Diabetes Father Diabetes Other Hypertension Social History Smoking and tobacco status: light tobacco smoker smokeless tobacco Smokeless tobacco user: chewing tobacco Alcohol intake: never Marital status: Single Education level details: Grade school education, was in special education per old records Current occupational status: disabled History of recent travel: No Physical Exam Const: COMMON NORMALS: no acute distress, patient oriented x3, healthy appearing, alert and well nourished GENERAL APPEARANCE: cooperative, comfortable, well kempt and well developed; not ill appearing ORIENTATION/CONSCIOUSNESS: Yes awake, Yes oriented to person, Yes oriented to place and Yes oriented to time HENMT: COMMON NORMALS: normocephalic, atraumatic, hearing grossly normal bilaterally, external ears normal, EAC's normal, TM's normal bilaterally, Normal external nose present, Normal nasal mucous membranes and turbinates present and moist oral mucous membranes HEAD & SCALP: normal to inspection, normocephalic and atraumatic FACE & SINUS: normal facial exam, sinuses nontender and face symmetric NOSE: Normal external nose present, Normal nares present, Normal nasal mucous membranes and turbinates present, No nasal discharge present and Abnormal external nose present EXTERNAL EAR: Yes external ears normal and Yes mastoids normal EXTERNAL AUDITORY CANAL: EAC's normal TYMPANIC MEMBRANE: TM's normal bilaterally MOUTH: Normal oral and palatal mucosa present, lip normal, tongue normal and Normal salivary glands and ducts present THROAT: no uvular edema Eye: COMMON NORMALS: Equal, round and reactive pupils present, EOMs intact bilaterally, conjunctivae normal, no scleral icterus and no papilledema GENERAL EYE: appearance normal, both eyes and all related structures EYELID: eyelids normal CONJUNCTIVA: Yes conjunctivae normal SCLERA: sclerae normal CORNEA: Yes corneas normal PUPIL: Yes Equal, round and reactive pupils present DIRECT OPHTHALMOSCOPY: Yes no papilledema Neck/C-Spine: COMMON NORMALS: full ROM, no lymphadenopathy, supple, no meningeal signs, no JVD and Thyroid normal GENERAL: Yes normal visual inspection and Yes trachea midline THYROID: Thyroid normal CERVICAL SPINE: Yes cervical ROM normal Lymph: LYMPHATIC: no lymphadenopathy noted and no lymphedema noted Chest: COMMONS NORMALS: normal inspection of the chest and normal palpation of entire chest wall Resp: COMMON NORMALS: normal respiratory effort, No retractions, No use of accessory muscles and clear to auscultation bilaterally EFFORT & INSPECTION: Yes able to speak in complete sentences and Yes symmetric chest movement AUSCULTATION: clear to auscultation bilaterally Cardio: COMMON NORMALS: no JVD, regular rate and regular rhythm RATE: regular rate RHYTHM: regular rhythm GI: COMMON NORMALS: Normal to inspection, nondistended, normoactive bowel sounds present, Soft to palpation, non-tender, No hepatosplenomegaly present, no masses and no bruits INSPECTION: Yes normal to inspection AUSCULTATION: Yes normoactive bowel sounds PALPATION: Yes Soft to palpation and Yes No hepatosplenomegaly present PERCUSSION: normal to percussion RECTAL EXAM: Yes deferred : COMMON NORMALS: Yes no CVA tenderness BLADDER/KIDNEY EXAM: Yes no CVA tenderness Back/Pelvis: COMMON NORMALS: no CVA tenderness, thoracic and lumbar spine normal to inspection, no thoracic nor lumbar tenderness, thoraco-lumbar ROM normal and straight leg raise negative bilaterally THORACIC SPINE/UPPER BACK: Yes normal to inspection LUMBAR SPINE/LOWER BACK: Yes normal to inspection Extremity: COMMON NORMALS: normal to inspection, full ROM and capillary refill normal GENERAL: Yes normal exam except as noted Neuro: COMMON NORMALS: patient oriented x3, CN's II-XII intact bilaterally, moves all extremities, no focal motor deficits, no sensory deficits noted, deep tendon reflexes 2+ bilaterally and gait normal SENSORIUM/ORIENTATION: Yes alert, Yes oriented to person, Yes oriented to place and Yes oriented to time MENINGEAL SIGNS: Yes no meningeal signs CRANIAL NERVES: Yes CN normal except as noted SPEECH: speech normal GAIT: Yes Normal gait present SENSORY EXAM: Yes extremities MOTOR EXAM: 5/5 motor strength present throughout Psych: COMMON NORMALS: mental status grossly normal, Normal thought process present, cooperative, normal affect, speech normal, activity/motor behavior normal, denies hallucinations, denies homicidal ideation and denies suicidal ideation APPEARANCE: Yes grossly normal and Yes well kempt ATTITUDE: Yes calm ACTIVITY/MOTOR BEHAVIOR: Yes appropriate eye contact SPEECH: Yes normal speech THOUGHT PROCESS: Normal thought process present THOUGHT CONTENT: Yes Normal thought content present ATTENTION/CONCENTRATION: Yes attention grossly intact MEMORY/COGNITION: Yes memory grossly intact INSIGHT: Good insight present (Psych) JUDGEMENT: Good judgement present (Psych) Skin: COMMON NORMALS: no rashes or lesions noted, no wounds, turgor normal, no jaundice, no petechiae and no mottling GENERAL SKIN EXAM: no rashes or lesions noted and turgor normal Course Vital Signs: Vital signs: Vital Signs Temperature 97.9 F 01/28/21 18:59 Pulse Rate 98 01/28/21 21:47 Respiratory Rate 21 H 01/28/21 21:47 Blood Pressure 143/95 01/28/21 21:47 Pulse Oximetry 98 01/28/21 21:47 MDM - Chest Pain MDM Narrative: Medical decision making narrative: Pt is well appearing non toxic and in no acute distress. Pt states he was told to come here with any chest pain. Pt had an episode of chest pain with rest about 3 hours before coing to ER. Pt arrives to ER with chest pain resolved. Pt states he stopped dialysis about 3 weeks ago. pt denies any fever or SOB. Pts labs do not reveal any concerning findings. trop and delta are normal. EKG does not reveal any st elevation or depression this making cardiac ischemia unlikely. Pts states he would like to go home and ollow up with PCP. I think this is a reasoable plan. chest xray was negative for any a cute findings. I did consider PE and ordered d dimer which was below cut off. Pts VSS. Lab Data: Labs: Lab Results 01/28/21 01/28/21 01/28/21 Range/Units 20:09 20:09 20:09 WBC 11.1 H (4.0-10.0) 10^3/ uL RBC 3.42 L (4.1-5.3) 10^6/u L Hgb 9.9 L (11.7-16.6) g/dL Hct 28.8 L (42.0-52.0) % MCV 84.2 (80-94) fL MCH 28.9 (28.0-34.0) pg MCHC 34.4 (30.0-36.0) g/dL RDW 13.2 (12.1-15.1) % Plt Count 262 (130-400) 10^3/c mm MPV 11.5 H (7.4-10.4) fL Neut % (Auto) 68.2 % Lymph % (Auto) 19.8 % Placer % (Auto) 6.7 % Eos % (Auto) 2.1 % Baso % (Auto) 0.9 % Neut # (Auto) 7.56 (1.8-7.7) 10^3/u L Lymph # (Auto) 2.2 (0.8-4.8) 10^3/u L Placer # (Auto) 0.7 (0.2-0.9) 10^3/u L Eos # (Auto) 0.2 (0.0-0.8) 10^3/u L Baso # (Auto) 0.1 (0.0-0.1) 10^3/u L Nucleated RBC % (a uto) 0 % Nucleated RBCs # 0.0 /100WBC D-Dimer (0-0.59) ug/mIFE U Sodium 134 L (136-145) mmol/L Potassium 3.4 L (3.5-5.1) mmol/L Chloride 95 L (98-107) mmol/L Carbon Dioxide 27 (22-29) mmol/L Anion Gap 15.4 (5-19) BUN 16 (6-20) mg/dL Creatinine 1.6 H (0.7-1.2) mg/dL GFR Calculation 44.6 L (90-130) mL/min Glucose 272 H (65-115) mg/dL Calculated Osmolal ity 289 (285-295) mOsm/k g Calcium 8.7 (8.5-10.5) mg/dL Total Bilirubin 0.5 (0.15-1.2) mg/dL AST 16 (0-40) U/L ALT 26 (0-41) U/L Alkaline Phosphata se 93 (40-130) IU/L Troponin T Baselin e 13 (0-15) ng/L Troponin T 120 Min point [place] (0-15) ng/L Delta Troponin T (0-10) ABS# Total Protein 7.6 (6.6-8.7) g/dL Albumin 4.3 (3.5-5.2) g/dL Globulin 3.3 (1.3-4.6) g/dL 01/28/21 01/28/21 Range/Units 20:09 22:05 WBC (4.0-10.0) 10^3/ uL RBC (4.1-5.3) 10^6/u L Hgb (11.7-16.6) g/dL Hct (42.0-52.0) % MCV (80-94) fL MCH (28.0-34.0) pg MCHC (30.0-36.0) g/dL RDW (12.1-15.1) % Plt Count (130-400) 10^3/c mm MPV (7.4-10.4) fL Neut % (Auto) % Lymph % (Auto) % Placer % (Auto) % Eos % (Auto) % Baso % (Auto) % Neut # (Auto) (1.8-7.7) 10^3/u L Lymph # (Auto) (0.8-4.8) 10^3/u L Placer # (Auto) (0.2-0.9) 10^3/u L Eos # (Auto) (0.0-0.8) 10^3/u L Baso # (Auto) (0.0-0.1) 10^3/u L Nucleated RBC % (a uto) % Nucleated RBCs # /100WBC D-Dimer 0.49 (0-0.59) ug/mIFE U Sodium (136-145) mmol/L Potassium (3.5-5.1) mmol/L Chloride (98-107) mmol/L Carbon Dioxide (22-29) mmol/L Anion Gap (5-19) BUN (6-20) mg/dL Creatinine (0.7-1.2) mg/dL GFR Calculation (90-130) mL/min Glucose (65-115) mg/dL Calculated Osmolal ity (285-295) mOsm/k g Calcium (8.5-10.5) mg/dL Total Bilirubin (0.15-1.2) mg/dL AST (0-40) U/L ALT (0-41) U/L Alkaline Phosphata se (40-130) IU/L Troponin T Baselin e (0-15) ng/L Troponin T 120 Min point [place] 13.02 (0-15) ng/L Delta Troponin T 0.02 (0-10) ABS# Total Protein (6.6-8.7) g/dL Albumin (3.5-5.2) g/dL Globulin (1.3-4.6) g/dL Discharge Plan Discharge Patient Disposition: Home Clinical Impression: Chest pain Qualifiers: Chest pain type: intercostal pain Qualified Code(s): R07.82 - Intercostal pain Condition: Stable Prescriptions: No Action famotidine 20 mg tablet 20 mg PO DAILY@0900 RF: 0 clonidine HCl 0.1 mg tablet 0.1 mg PO DAILY@0900 RF: 0 hydralazine 25 mg tablet 25 mg PO TID@,, RF: 0 tamsulosin 0.4 mg capsule 0.4 mg PO BEDTIME@2100 RF: 0 amlodipine 10 mg tablet 10 mg PO DAILY@0900 RF: 0 zolpidem 10 mg tablet 10 mg PO BEDTIME@2100 RF: 0 rosuvastatin 40 mg tablet 40 mg PO DAILY@0900 RF: 0 pantoprazole [Protonix] 40 mg tablet,delayed release (DR/EC) 40 mg PO DAILY@0900 RF: 0 Levemir FlexTouch U-100 Insuln 100 unit/mL (3 mL) insulin pen 10 unit SUBCUT BID@829,2029 Qty: 0 RF: 0 Discharge Orders: Discharge ED (Routine); Ordered 01/28/21 Ordered By: Shirley Jo Referrals: Ford García MD [Primary Care Provider] - Discharge Diet: Advance as tolerated Discharge Activity: Increase activity as tolerated Patient Instructions: Opioid Safety Activity Restrictions/Additional Instructions: Pleas continue to take meds as prescribed Please follow up with your PCP in 1-2 days Please return to ER with any return of chest pain or other concerning symptoms Coding Level of Care Code ED Manufacturers Service Representative for Johnny Simmons
[2021-01-28 23:27] VITALS: BP 147/84; O2SAT 97
== END 2021-01-28 23:28 | disposition home or self-care (01) ==
PROVIDERS: Emergency Medicine; Emergency Provider Registered Nurse; PCP Family Medicine
DX: R07.82 Intercostal pain (principal); Z79.4 Long term (current) use of insulin; E11.9 Type 2 diabetes mellitus without complications; E78.5 Hyperlipidemia, unspecified; I10 Essential (primary) hypertension; F17.220 Nicotine dependence, chewing tobacco, uncomplicated
CPT/HCPCS: 36415; 71045; 80053; 84484; 85025; 85378; 93005; 99283

== ENCOUNTER → 2021-02-28 08:01 | Outpatient (BNVA) | payer MEDICAID, SELFPAY | PROVIDERS: PCP Family Medicine; Visit Provider Nurse Practitioner Family | DX: R39.9 Unspecified symptoms and signs involving the genitourinary system (principal); R33.9 Retention of urine, unspecified; N30.80 Other cystitis without hematuria | CPT/HCPCS: 81003 ==

== ENCOUNTER 2021-07-31 07:57 | Outpatient (CLI) | payer MEDICAID, SELFPAY ==
[2021-07-31 08:24] LABS: Basophils # 0.1 10^3/uL (0.0-0.1); Basophils % 0.7 %; Eosinophils # 0.2 10^3/uL (0.0-0.8); Eosinophils % 2.6 %; Hemoglobin 12.5 g/dL (11.7-16.6); Lymphocytes # 1.6 10^3/uL (0.8-4.8); Lymphocytes % 22.9 %; Mean Corpuscular HGB Conc 33.8 g/dL (30.0-36.0); Mean Corpuscular Hemoglobin 29.2 pg (28.0-34.0); Mean Corpuscular Volume 86.4 fl (80-94); Mean Platelet Volume 10.7 fL (7.4-10.4); Monocytes # 0.5 10^3/uL (0.2-0.9); Monocytes % 7.3 %; Neutrophils # 4.54 10^3/uL (1.8-7.7); Neutrophils % 66.1 %; Nucleated Red Blood Cells % 0 %; Platelet Count 227 10^3/cmm (130-400); Red Blood Count 4.28 10^6/uL (4.1-5.3); Red Cell Distribution Width 12.6 % (12.1-15.1); White Blood Count 6.9 10^3/uL (4.0-10.0)
[2021-07-31 08:39] LABS: Anion Gap 13.7 (5-19); Blood Urea Nitrogen 14 mg/dL (6-20); Calcium 8.7 mg/dL (8.5-10.5); Carbon Dioxide 24 mmol/L (22-29); Chloride 100 mmol/L (98-107); Glomerular Filtration Rate 99.3 mL/min (90-130); Glucose 260 mg/dL (65-115); Phosphorus 2.4 mg/dL (2.5-4.5); Potassium 3.7 mmol/L (3.5-5.1); Sodium 134 mmol/L (136-145)
[2021-07-31 08:57] LABS: Calcium 8.6 mg/dL (8.5-10.5)
[2021-07-31 09:04] LABS: Parathyroid Hormone 49.2 pg/mL (15-65)
[2021-07-31 09:22] LABS: Creatinine Urine, Random 87 mg/dL (39-259); Microalbumin Random Urine 12 ug/dL (0-20)
[2021-07-31 09:24] LABS: Microalbum Creatinine Ratio Ur 138 mg/dL (0-20)
== END 2021-07-31 07:58 | disposition home or self-care (01) ==
LOC: LAB 08:02
PROVIDERS: PCP Family Medicine; Visit Provider Internal Medicine Nephrology
DX: N18.32 Chronic kidney disease, stage 3b (principal)
CPT/HCPCS: 36415; 80069; 82044; 82310; 83970; 85025

== ENCOUNTER → 2022-02-10 10:09 | Outpatient (BNVA) | payer MEDICAID, SELFPAY | PROVIDERS: PCP Family Medicine; Referring Provider Family Medicine; Visit Provider Specialist | DX: G56.21 Lesion of ulnar nerve, right upper limb (principal) | CPT/HCPCS: 95908; 95909 ==

== ENCOUNTER → 2022-03-03 12:53 | Outpatient (BNVA) | payer MEDICAID, SELFPAY | PROVIDERS: PCP Family Medicine; Visit Provider Urology | DX: N30.80 Other cystitis without hematuria (principal); R33.9 Retention of urine, unspecified; R39.9 Unspecified symptoms and signs involving the genitourinary system | CPT/HCPCS: 51741; 51798; 81003; 99213 ==

== ENCOUNTER → 2022-04-08 09:56 | Outpatient (BNVA) | payer MEDICAID, SELFPAY | PROVIDERS: PCP Family Medicine; Visit Provider Orthopaedic Surgery | DX: G56.21 Lesion of ulnar nerve, right upper limb (principal) | CPT/HCPCS: 73080; 99203 ==

== ENCOUNTER 2022-04-17 12:42 | Day surgery (SDC) | payer MEDICAID, SELFPAY ==
[2022-04-16 14:01] VITALS: BMI 37.6
[2022-04-17] VITALS (8 sets, daily range): BP systolic 128–172; BP diastolic 79–96; PULSE 82–96; RESP 14–20; TEMP 36.1–36.9; O2SAT 93–97
--- NOTE | 2022-04-17 12:23 | W.PM.OPSUD ---
Surgery/Procedure H&P Update DATE OF PROCEDURE: April 17, 2022 DATE H&P PERFORMED: 04/08/22 H&P UPDATE INFORMATION: I have reviewed H&P completed within last 30 days PREOP DIAGNOSIS: Ulnar neuropathy right upper extremity PLANNED PROCEDURE: Operation Date: 04/17/22 14:30 Proposed Procedures p Ulna Nerve Decompression 23795,G56.21(Not Applicable) - Cristhian Meyer MD
[2022-04-17 13:26] LABS: Glucose Point of Care 181 mg/dL (70-110)
[2022-04-17] MEDS: sodium chloride 0.9% 1,000 ML 30 ML IV (13:27)
--- NOTE | 2022-04-17 13:29 | ANES.PREANE2 ---
Pre-Anesthetic Assessment Height/Weight: Height 1.8 m Weight 122.47 kg Temp Pulse Resp BP Pulse Ox O2 Del Method 98.5 F 90 18 146/82 94 04/17/22 13:01 04/17/22 13:01 04/17/22 13:01 04/17/22 13:01 04/17/22 13:01 04/17/22 13:07 Preop Diagnosis: Cubital tunnel syndrome Right elbow Operation Date: 04/17/22 14:30 Proposed Procedures p Ulna Nerve Decompression 79095,G56.21(Not Applicable) - Cristhian Meyer MD Familial anesthetic complications: None Was Beta Ignacio taken within 24 hours: N/A Was Clonidine taken within 24 hours: N/A Last intake: Intake Last Liquid Date 04/16/22 Last Liquid Time 23:00 Last Solid Date 04/16/22 Last Solid Time 23:00 Social Tobacco (chews) and No alcohol Airway Mallampati: Class IV Dentition: other (no teeth) CV/HEM Coronary Artery Disease and Hypertension Hx acute renal failure Metabolic Diabetes Mellitus, Hyperlipidemia and Morbid Obesity Anesthetic Plan ASA status: 3 Anesthesia: General Risk of > 500 ml blood loss (7ml/kg in children): No Medications/Allergies Home Medications Medication Instructions Recorded Confirmed Last Taken Type rosuvastatin 40 mg tablet 40 mg PO DAILY@0900 12/09/20 04/17/22 04/16/22 History zolpidem 10 mg tablet 10 mg PO BEDTIME@2100 12/09/20 04/16/22 01/27/21 History amlodipine 10 mg tablet 10 mg PO DAILY@0900 01/28/21 04/17/22 04/17/22 History clonidine HCl 0.1 mg tablet 0.1 mg PO DAILY@0900 01/28/21 04/17/22 04/16/22 History insulin aspart U-100 100 unit/mL 5 unit SUBCUT TID 02/10/22 04/17/22 04/16/22 History (3 mL) subcutaneous pen (Novolog Flexpen U-100 Insulin aspart) pioglitazone 15 mg tablet 15 mg PO DAILY 02/10/22 04/17/22 04/16/22 History tamsulosin 0.4 mg capsule 0.4 mg PO .AT BEDTIME #30 caps 03/03/22 04/17/22 04/16/22 Rx insulin detemir U-100 100 unit/mL 82 unit SUBCUT BID@0830,2030 04/16/22 04/17/22 04/16/22 History (3 mL) subcutaneous pen (Levemir FlexTouch U-100 Insulin) hydrocodone 5 mg-acetaminophen 325 1 tab PO Q4H #20 tabs 04/17/22 Unknown Rx mg tablet Allergies Allergy/AdvReac Type Severity Reaction Status Date / Time acetaminophen [From Tylenol] Allergy COUNTER Verified 04/08/22 10:56 ACTS WITH INSULIN ibuprofen Allergy COUNTER Verified 04/08/22 10:56 ACTS WITH INSULIN MEDICATION Current Medications Generic Name Dose Route Start Last Admin Trade Name Freq PRN Reason Stop Dose Admin Sodium Chloride 1,000 mls @ 30 mls/hr 04/17/22 13:00 04/17/22 13:27 Sodium Chloride 0.9% IV 04/18/22 12:59 30 mls/hr .Q24H DEBORAH Administration PFSH Anesthesia Medical History Diabetes mellitus, type II Hyperlipidemia Hypertension Lower urinary tract symptoms (LUTS) Mild cognitive impairment Grade school education Urinary retention Surgical History History of cardiac catheterization (~2013) Procedure Summary 1-LM is normal 2-LAD is normal 3-LCx is normal 4-RCA is normal 5-Normal LVEDP S/P dialysis catheter insertion (12/10/20) Right IJ removed 01/15/21 Family History Mother , AT AGE 59 OVARIAN CANCER CAD (coronary artery disease) Cancer Diabetes Father Diabetes Other Hypertension Social History Smoking and tobacco status: current every day smoker (CHEWING TOBACCO) smokeless tobacco Smokeless tobacco user: chewing tobacco Alcohol intake: never Marital status: Single Education level details: Grade school education, was in special education per old records Current occupational status: disabled History of recent travel: No Data Anesthesia Cardiac Studies: Echocardiogram Ultrasound 12/10/20
[2022-04-17] MEDS: ceFAZolin 2,000 MG in sodium chloride 0.9% (plus) 50 ML 100 MG IV (13:32)
[2022-04-17 13:45] LABS: Basophils # 0.1 10^3/uL (0.0-0.1); Basophils % 0.6 %; Eosinophils # 0.1 10^3/uL (0.0-0.8); Eosinophils % 1.4 %; Hematocrit 42.5 % (42.0-52.0); Hemoglobin 14.3 g/dL (11.7-16.6); Lymphocytes # 2.2 10^3/uL (0.8-4.8); Lymphocytes % 23.1 %; Mean Corpuscular HGB Conc 33.6 g/dL (30.0-36.0); Mean Corpuscular Hemoglobin 28.6 pg (28.0-34.0); Mean Platelet Volume 11.8 fL (7.4-10.4); Monocytes # 0.6 10^3/uL (0.2-0.9); Monocytes % 6.6 %; Neutrophils # 6.56 10^3/uL (1.8-7.7); Nucleated Red Blood Cells % 0 %; Platelet Count 233 10^3/cmm (130-400); Red Cell Distribution Width 13.2 % (12.1-15.1); White Blood Count 9.7 10^3/uL (4.0-10.0)
[2022-04-17 14:02] LABS: Blood Urea Nitrogen 19 mg/dL (6-20); Calcium 8.9 mg/dL (8.5-10.5); Carbon Dioxide 25 mmol/L (22-29); Chloride 98 mmol/L (98-107); Glomerular Filtration Rate 86.4 mL/min (90-130); Glucose 192 mg/dL (65-115); Osmolality Calculated 287 mOsm/kg (285-295); Sodium 135 mmol/L (136-145)
[2022-04-17 14:04] LABS: Anion Gap 16.4 (5-19); Potassium 4.4 mmol/L (3.5-5.1)
--- NOTE | 2022-04-17 14:32 | P.OP_ITS ---
Operative Report Date of procedure: April 17, 2022 Pre-op diagnosis: Preop Diagnosis Cubital tunnel syndrome right elbow Post-op diagnosis: same Procedure done: Decompression ulnar nerve at the right elbow Pathology: none sent Surgeon: Cristhian Meyer Anesthesia: General Estimated blood loss (mL): 50 Tourniquet time (min): 12 Complications: None Findings: Patient had compression of his ulnar nerve in the cubital tunnel with dense scar tissue overlying the nerve from a point just proximal to the medial epicondyle to a extending down to the extensor carpi all naris fascia. He had abnormal anconeus epitrochlear areas providing additional compression across the nerve behind the medial epicondyle. No masses or space-occupying lesions were noted Condition: stable Disposition: PACU Brief History: Ace is a 61-year-old male with a 4-month history of progressive numbness and pain in the ulnar border of his right hand. Recently the patient described incoordination and difficulty with use of his hand. EMG nerve conduction kelsye dies revealed compressive neuropathy of the ulnar nerve just proximal to the medial epicondyle. Surgery was taken to alleviate pain and improve function Procedure: Patient was taken to the operating room and given a general anesthesia. He was given 2 g of Ancef and prepped and draped in supine position with his elbow exposed. A timeout was performed. A 5 cm long and curved incision was made just posterior to the medial epicondyle. Under loupe magnification dissection was carried down through this obtains fat to the fascia over the medial in termuscular septum at the elbow. The fascia was divided just posteriorly and the ulnar nerve identified. Dissection was then accomplished distally using a hemostat elevating fascia off the nerve and freeing the nerve. A anconeus epitrochlearis muscle was divided providing thickened constriction just posterior to the medial epicondyle. Dissection was carried down through to the flexor carpi ulnaris fascia which was divided. At the conclusion of the decompression the elbow was brought through range of motion and the nerve noted noted to be stable behind the medial epicondyle. The tourniquet was deflated. Hemostasis provided with electrocautery. Deep fascia was closed with 2-0 Vicryl. The skin was closed with s[]. Compressive dressing was applied. Patient was extubated taken recovery room in stable condition.
[2022-04-17] MEDS: HYDROcodone-acetaminophen 5-325 mg Tablet 1 TAB PO (15:08)
--- NOTE | 2022-04-17 15:38 | ANE.PACU2 ---
Inpatient post-anesthesia follow up: Airway intact: Yes Vital signs: Temperature 97.0 F Pulse Rate 91 Respiratory Rate 18 Blood Pressure 159/96 Pulse Oximetry 94 Oxygen Delivery Me thod Room Air Oxygen Flow Rate 6 Fraction of Inspir ed Oxygen Hydration adequate: Yes Nausea and vomiting: No Pain level: 2 Mental status: Baseline
== END 2022-04-17 15:31 | disposition home or self-care (01) ==
PROVIDERS: Anesthesiology; PCP Family Medicine; Visit Provider Orthopaedic Surgery
PROC: (CPT 64718; principal; 2022-04-17 14:10)
DX: G56.21 Lesion of ulnar nerve, right upper limb (principal); F17.220 Nicotine dependence, chewing tobacco, uncomplicated; I25.10 Atherosclerotic heart disease of native coronary artery without angina pectoris; I10 Essential (primary) hypertension; E11.9 Type 2 diabetes mellitus without complications; E78.5 Hyperlipidemia, unspecified; E66.01 Morbid (severe) obesity due to excess calories; Z68.37 Body mass index [BMI] 37.0-37.9, adult; Z79.4 Long term (current) use of insulin
CPT/HCPCS: 64718; 36416; 80048; 82962; 85025; J1100; J2405; J2704; J3010; J3490; J7030

== ENCOUNTER → 2022-04-22 10:11 | Outpatient (BNVA) | payer MEDICAID, SELFPAY | PROVIDERS: PCP Family Medicine; Visit Provider Nurse Practitioner Family | DX: Z98.890 Other specified postprocedural states (principal) | CPT/HCPCS: 99024 ==

== ENCOUNTER → 2022-05-01 10:40 | Outpatient (BNVA) | payer MEDICAID, SELFPAY | PROVIDERS: PCP Family Medicine; Visit Provider Nurse Practitioner Family | DX: G56.21 Lesion of ulnar nerve, right upper limb (principal) | CPT/HCPCS: 99024 ==

== ENCOUNTER 2023-08-09 15:12 | Observation (INO) | payer MEDICAID, SELFPAY ==
[2023-08-09] VITALS (12 sets, daily range): BP systolic 121–177; BP diastolic 75–93; PULSE 82–94; RESP 17–28; TEMP 36.8; O2SAT 92–96; BMI 41.3
--- NOTE | 2023-08-09 15:14 | XRR_ITS ---
PROCEDURE INFORMATION: Exam: XR Chest Exam date and time: 08/09/2023 3:27 PM Age: 62 years old Clinical indication: Pain; Chest pressure; Additional info: Chest pain TECHNIQUE: Imaging protocol: Radiologic exam of the chest. Views: 1 view. COMPARISON: CR (CHEST, ) 01/28/2021 7:08 PM FINDINGS: Lungs: Unremarkable. No consolidation. Pleural spaces: Unremarkable. No pleural effusion. No pneumothorax. Heart/Mediastinum: See Vasculature finding. Vasculature: Borderline cardiomegaly and uncoiling of the thoracic aorta accentuated by the AP positioning Bones/joints: Unremarkable. XR/XR chest 1V portable [id number] IMPRESSION: No acute findings.
--- NOTE | 2023-08-09 15:14 | ECG_ITS ---
[facility] Test Date: 2023-08-09 Pat Name: Ace Barney Department: Room: Gender: Male Clother In: : 1960 Requested By: Gaurang Gómez Order Number: [id number] Daniel MD: Aziza Vicente M.D. Measurements Intervals [place] Rate: 85 P: 44 PA: 140 QRS: -5 QRSD: 96 T: 78 QT: 350 QTc: 416 Interpretive Statements SINUS RHYTHM MINIMAL VOLTAGE CRITERIA FOR LVH, CONSIDER NORMAL VARIANT [MEETS CRITERIA IN ONE OF: R(aVL), S(V1), R(V5), R(V5/V6)+S(V1)] NONSPECIFIC T-WAVE ABNORMALITY Compared to ECG 01/28/2021 21:10:42 No significant changes Electronically Signed On 08-09-2023 22:08:25 CORROSION ENGINEER by Aziza Vicente M.D. [email or web address]
[2023-08-09] MEDS: ondansetron 2 mg/ML SDV 2 mL 4 MG IVP ×2 (15:46→17:40)
[2023-08-09] MEDS: aspirin 81 mg Chew Tablet 324 MG PO (15:47)
--- NOTE | 2023-08-09 15:48 | ED_ITS ---
HPI - Chest Pain General: Chief Complaint: Chest Pain Stated Complaint: CP Time Seen by Provider: 08/09/23 15:14 History of Present Illness: 62-year-old male presents emerged department with complaints of substernal chest pain that started intermittently over the previous 4 days. He states this morning when he got up his chest pain has continued. He describes it as a 8 out of 10 sharp pressure type pain. He does have associated nausea with dizziness but does not feel short of breath. He states that nothing seems to make the pain better nothing seems to make the pain worse. He states he does have a history is a type II diabetic. Associated symptoms: Reports nausea and palpitations Review of Systems General: Reports: 10 or more systems reviewed and unremarkable except in HPI and below Card: Reports: chest pain and palpitations GI: Reports: nausea PFSH ED PFSH: Medical History (Updated 08/15/23 @ 11:47 by Gaurang Gómez MD) Acute renal failure Diabetes mellitus, type II Hyperlipidemia Hypertension Lower urinary tract symptoms (LUTS) Mild cognitive impairment Grade school education Urinary retention Surgical History History of cardiac catheterization (~2013) Procedure Summary 1-LM is normal 2-LAD is normal 3-LCx is normal 4-RCA is normal 5-Normal LVEDP S/P dialysis catheter insertion (12/10/20) Right IJ removed 01/15/21 Family History Mother , AT AGE 59 OVARIAN CANCER CAD (coronary artery disease) Cancer Diabetes Father Diabetes Other Hypertension Social History Smoking and tobacco/nicotine status: current every day tobacco/nicotine user (CHEWING TOBACCO) smokeless tobacco Smokeless tobacco user: chewing tobacco Alcohol intake: never Substance/Drug Use: never Marital status: Single Education level details: Grade school education, was in special education per old records Current occupational status: disabled Physical Exam Narrative: EXAM NARRATIVE: Constitutional: the patient appears well nourished and with normal development. Vital signs reviewed as documented. HENMT: Normocephalic, atraumatic. External ears with normal appearance without drainage. Nose without drainage, normal appearance. Mucus membranes moist. Neck is supple, No jugular venous distension, trachea is midline, no appreciable carotid bruits. No lymphadenopathy. No meningeal signs. Flexion, extension and lateral rotation is without pain. Eyes: Pupils are equal, round, reactive to light and accommodation. No scleral icterus. Extra-ocular movement are intact. Thorax is symmetrical and with equal rise and fall with respirations. Resp: Lungs are clear to auscultation. No wheezes, rales, crackles or ronchi at present. Cardio: Regular rate and rhythm. Positive S1, S2. No appreciable murmurs, rubs or gallops. GI: Abdominal exam reveals normal bowel sounds to all quadrants. No organomegaly. No obvious palpable masses noted. No hepatomegally appreciated. Soft, nontender to palpation. Extremity: Extremities are non-edematous and both femoral and pedal pulses are 2+ and equal bilaterally. Moves all extremities well, sensation in all extremities. Neuro: Alert and oriented x4, person, place, time and situation. Cranial nerves II through XII are grossly intact, there is no focal neurological deficits that I can appreciate at present. Motor strength in the upper and lower extremities are equal and bilateral 5/5. Psych: Cooperative, calm, normal thought process, appropriate judgment. Skin: No lesions, rashes. No gross abnormalities noted. Back: Symmetrical, no obvious deformity, No CVA tenderness Course Vital Signs: Vital signs: Vital Signs Temperature 97.7 F 08/10/23 08:00 Pulse Rate 90 08/10/23 12:00 Respiratory Rate 20 H 08/10/23 12:00 Blood Pressure 143/72 08/10/23 12:00 Pulse Oximetry 94 08/10/23 12:00 Oxygen Delivery Me thod Room Air 08/10/23 12:00 MDM - Chest Pain Medical Decision Making Physical exam completed and documented, I will obtain a CBC, CMP cardiac enzymes as well as twelve-lead EKG and chest x-ray for evaluation. I will provide him cardiac dose aspirin 324 mg, Nitropaste for vasodilatation, as well as anticoagulation studies in preparation for possible heparin for what I suspect is most likely NSTEMI. Differential diagnosis include palpitations, NSTEMI, costochondritis, viral illness. Medical Records I reviewed the patient's medical records. Lab Data I reviewed the patient's lab results. 08/10/23 03:19 08/10/23 03:19 Radiology Impressions Chest X-Ray 08/09/23 15:14 IMPRESSION: No acute findings. Laboratory Results WBC 10.42 10^3/uL (3.29-11.43) 08/09/23 15:43 RBC 5.09 10^6/uL (3.85-5.65) 08/09/23 15:43 Hgb 14.70 g/dL (11.27-16.99) 08/09/23 15:43 Hct 44.4 % (37-53) 08/09/23 15:43 MCV 87.2 fl (82-101) 08/09/23 15:43 MCH 28.9 pg (27-33) 08/09/23 15:43 MCHC 33.1 g/dL (30-55) 08/09/23 15:43 RDW 13.0 % (12.1-15.1) 08/09/23 15:43 Plt Count 244 10^3/cmm (157-399) 08/09/23 15:43 MPV 11.1 fL (7.4-10.4) H 08/09/23 15:43 Neut % (Auto) 72.2 % 08/09/23 15:43 Lymph % (Auto) 18.7 % 08/09/23 15:43 [place] % (Auto) 6.8 % 08/09/23 15:43 Eos % (Auto) 1.1 % 08/09/23 15:43 Baso % (Auto) 0.7 % 08/09/23 15:43 Neut # (Auto) 7.53 10^3/uL (1.8-7.7) 08/09/23 15:43 Lymph # (Auto) 2.0 10^3/uL (0.8-4.8) 08/09/23 15:43 [place] # (Auto) 0.7 10^3/uL (0.2-0.9) 08/09/23 15:43 Eos # (Auto) 0.1 10^3/uL (0.0-0.8) 08/09/23 15:43 Baso # (Auto) 0.1 10^3/uL (0.0-0.1) 08/09/23 15:43 Nucleated RBC % (auto) 0 % 08/09/23 15:43 Nucleated RBCs # 0.0 /100WBC 08/09/23 15:43 PT 12.60 SECONDS (12.1-14.9) 08/09/23 15:43 INR 0.92 (0.8-1.2) 08/09/23 15:43 APTT 30.7 SECONDS (23.9-36.7) 08/09/23 15:43 Sodium 137 mmol/L (136-145) 08/09/23 15:43 Potassium 4.0 mmol/L (3.5-5.1) 08/09/23 15:43 Chloride 102 mmol/L (98-107) 08/09/23 15:43 Carbon Dioxide 25 mmol/L (22-29) 08/09/23 15:43 Anion Gap 14.0 (5-19) 08/09/23 15:43 BUN 22 mg/dL (8-23) 08/09/23 15:43 Creatinine 1.2 mg/dL (0.7-1.2) 08/09/23 15:43 GFR Calculation 61.8 mL/min (90-130) L 08/09/23 15:43 Glucose 123 mg/dL (65-115) H 08/09/23 15:43 Calculated Osmolality 289 mOsm/kg (285-295) 08/09/23 15:43 Calcium 10.2 mg/dL (8.5-10.5) 08/09/23 15:43 Iron 43 ug/dL (59-158) L 08/09/23 17:48 TIBC 332 mcg/dl 08/09/23 17:48 % Saturation 12.9 % (20-50) L 08/09/23 17:48 Unsat Iron Binding 289 ug/dL (112-347) 08/09/23 17:48 Total Bilirubin 0.5 mg/dL (0.15-1.2) 08/09/23 15:43 AST 24 U/L (0-40) 08/09/23 15:43 ALT 30 U/L (0-41) 08/09/23 15:43 Alkaline Phosphatase 99 U/L (40-130) 08/09/23 15:43 Troponin T Baseline 8 ng/L (0-15) 08/09/23 15:43 Troponin T 120 Minute 8.74 ng/L (0-15) 08/09/23 17:48 Delta Troponin T 0.74 ABS# (0-10) 08/09/23 17:48 NT-Pro-B Natriuret Pep 36 pg/mL (0-125) 08/09/23 15:43 Total Protein 7.8 g/dL (6.6-8.7) 08/09/23 15:43 Albumin 4.7 g/dL (3.5-5.2) 08/09/23 15:43 Globulin 3.1 g/dL (1.3-4.6) 08/09/23 15:43 Vitamin B12 480 pg/mL (232-1245) 08/09/23 17:48 TSH 1.22 uIU/mL (0.27-4.20) 08/09/23 17:48 All radiology interpretation(s) finalized by discharge Discharge Plan Discharge Patient Disposition: Placed in Observation Admit Provider: Phan Ryder Clinical Impression: Chest pain, Diabetes mellitus, type II Discharge Diet: Cardiac and Diabetic Discharge Activity: Resume usual activity Coding Level of Care Code ED Scan Coordinator for Johnny Simmons
[2023-08-09] MEDS: nitroglycerin 1 gm/inch oint Pkt 2 INCH TOPICAL (15:49)
[2023-08-09 15:51] LABS: Basophils # 0.1 10^3/uL (0.0-0.1); Basophils % 0.7 %; Eosinophils # 0.1 10^3/uL (0.0-0.8); Eosinophils % 1.1 %; Hematocrit 44.4 % (37-53); Lymphocytes % 18.7 %; Mean Corpuscular HGB Conc 33.1 g/dL (30-55); Mean Corpuscular Hemoglobin 28.9 pg (27-33); Mean Corpuscular Volume 87.2 fl (82-101); Mean Platelet Volume 11.1 fL (7.4-10.4); Monocytes # 0.7 10^3/uL (0.2-0.9); Monocytes % 6.8 %; Neutrophils # 7.53 10^3/uL (1.8-7.7); Neutrophils % 72.2 %; Nucleated Red Blood Cells % 0 %; Platelet Count 244 10^3/cmm (157-399); Red Blood Count 5.09 10^6/uL (3.85-5.65); White Blood Count 10.42 10^3/uL (3.29-11.43)
[2023-08-09 16:05] LABS: INR 0.92 (0.8-1.2)
[2023-08-09 16:06] LABS: Partial Thromboplastin Time 30.7 SECONDS (23.9-36.7)
[2023-08-09 16:14] LABS: Troponin(5th) Baseline 8 ng/L (0-15)
[2023-08-09 16:21] LABS: Alanine Aminotransferase 30 U/L (0-41); Albumin Level 4.7 g/dL (3.5-5.2); Alkaline Phosphatase 99 U/L (40-130); Aspartate Amino Transferase 24 U/L (0-40); Blood Urea Nitrogen 22 mg/dL (8-23); Calcium 10.2 mg/dL (8.5-10.5); Carbon Dioxide 25 mmol/L (22-29); Chloride 102 mmol/L (98-107); Globulin 3.1 g/dL (1.3-4.6); Glomerular Filtration Rate 61.8 mL/min (90-130); Glucose 123 mg/dL (65-115); NT Pro B Type Natriuretic Pept 36 pg/mL (0-125); Osmolality Calculated 289 mOsm/kg (285-295); Sodium 137 mmol/L (136-145); Total Bilirubin 0.5 mg/dL (0.15-1.2); Total Protein 7.8 g/dL (6.6-8.7)
--- NOTE | 2023-08-09 17:19 | ECG_ITS ---
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 Measurements Intervals [place] Rate: 82 P: 35 [place]: 160 QRS: -14 QRSD: 102 T: 75 QT: 363 QTc: 425 Interpretive Statements SINUS RHYTHM MODERATE VOLTAGE CRITERIA FOR LVH, CONSIDER NORMAL VARIANT [MEETS CRITERIA IN ONE OF: R(aVL), S(V1), R(V5), R(V5/V6)+S(V1)] NONSPECIFIC T-WAVE ABNORMALITY Compared to ECG 01/28/2021 21:10:42 No significant changes Electronically Signed On 08-09-2023 22:21:57 FERTILIZER MIXER by Aziza Vicente M.D. [id number]
[2023-08-09 18:14] LABS: Troponin 5 2HR 8.74 ng/L (0-15); Troponin 5 2HR Delta 0.74 ABS# (0-10)
--- NOTE | 2023-08-09 20:46 | PM.HP ---
Providers/Chief Complaint Admitting Physician: Phan Ryder MD Primary Care Provider: Ford García MD Chief Complaint: CP History of Present Illness Ace Barney is a 62 year old male with past medical history of type 2 diabetes mellitus on insulin, hypertension, hyperlipidemia, history of acute renal failure transiently on hemodialysis in 2020 presents to the ER with retrosternal chest pain ongoing since today evening. As per patient he has been having the chest pains on and off for last 1 week mostly associated with eating. Today in the afternoon he had his meal after which he started having retrosternal chest pain which did not improve with his usual medications so he presented to the ER. Pain relieved with the Nitropaste. Denies any nausea, vomiting, headache, dizziness, difficulty in breathing. Review of Systems General: Reports: 10 or more systems reviewed and unremarkable except in HPI and below Const: Denies: fever(s), chills, body aches, change in appetite, change in weight, malaise, night sweats, diaphoresis, change in sleep pattern, daytime sleepiness or snoring Eyes: Denies: change in vision, blurry vision, photophobia, eye discomfort or eye discharge ENMT: Denies: throat pain, enlarged tonsils, hoarseness, mouth pain, oral sores, dry mouth, tinnitus, nasal congestion or post nasal drip Card: Denies: chest pain, palpitations, irregular heart rhythm, edema, swelling of feet/ankles, lightheadedness, syncope, pre-syncope, dyspnea on exertion, orthopnea, leg pain with exertion or acrocyanosis Resp: Denies: dyspnea, productive cough, non-productive cough, wheezing, stridor, pain on inspiration, change in phlegm color, hemoptysis or chest congestion GI: Denies: abdominal pain, nausea, vomiting, hematemesis, coffee ground emesis, dysphagia, heartburn, diarrhea, constipation, bloating, GI cramping, change in bowel habits, pain on defecation, hematochezia or melena : Denies: flank pain, difficulty urinating, dysuria, urinary frequency, urinary urgency, urinary hesitancy, urinary dribbling, difficulty starting urination, change in urine stream, nocturia or hematuria Musc: Denies: neck pain, back pain, extremity pain, joint pain, joint swelling, joint redness, joint stiffness or limited range of motion Neuro: Denies: headache(s), numbness in extremities, weakness in extremities, sensory changes, lack of coordination, difficulty walking, frequent falls, dizziness, vertigo, confusion, Slurred speech present, difficulty communicating thoughts or seizure-like activity Psych: Denies: anxiety, depression, mood swings, panic attacks, hopelessness or irritability Endo: Denies: polyuria, polydipsia, tired all the time, cold intolerance, excessive sweating, flushing or heat intolerance Jose/Lymph: Denies: easy bruising or easy bleeding All/Imm: Denies: tongue swelling, facial swelling or acute wheezing Medications/Allergies Home Medications Medication Instructions Recorded Confirmed Last Taken Type rosuvastatin 40 mg tablet 40 mg PO DAILY@0900 12/09/20 08/09/23 08/09/23 History zolpidem 10 mg tablet 10 mg PO BEDTIME@2100 12/09/20 08/09/23 08/08/23 History amlodipine 10 mg tablet 10 mg PO DAILY@0900 01/28/21 08/09/23 08/09/23 History clonidine HCl 0.1 mg tablet 0.1 mg PO 2XD 01/28/21 08/09/23 08/09/23 History insulin aspart U-100 100 unit/mL 18 unit SUBCUT TID 02/10/22 08/09/23 08/09/23 12:00 History (3 mL) subcutaneous pen (Novolog FlexPen U-100 Insulin aspart) pioglitazone 15 mg tablet 15 mg PO DAILY 02/10/22 08/09/23 08/09/23 History insulin detemir U-100 100 unit/mL 110 unit SUBCUT BID@0830,202904/16/22 08/09/23 08/09/23 History (3 mL) subcutaneous pen (Levemir FlexTouch U-100 Insulin) tamsulosin 0.4 mg capsule 0.4 mg PO .AT BEDTIME #30 caps 03/03/23 08/09/23 08/08/23 Rx blood-glucose meter,continuous 08/09/23 08/09/23 Unknown History blood-glucose sensor (Dexcom G6 08/09/23 08/09/23 Unknown History Sensor device) losartan 100 mg tablet 100 mg PO DAILY 08/09/23 08/09/23 Unknown History Allergies Allergy/AdvReac Type Severity Reaction Status Date / Time acetaminophen [From Tylenol] Allergy COUNTER Verified 08/09/23 15:14 ACTS WITH INSULIN ibuprofen Allergy COUNTER Verified 08/09/23 15:14 ACTS WITH INSULIN MEDICATION PFSH Acute PFSH: Medical History (Updated 08/09/23 @ 22:16 by Phan Ryder MD) Acute renal failure Diabetes mellitus, type II Hyperlipidemia Hypertension Lower urinary tract symptoms (LUTS) Mild cognitive impairment Grade school education Urinary retention Surgical History History of cardiac catheterization (~2013) Procedure Summary 1-LM is normal 2-LAD is normal 3-LCx is normal 4-RCA is normal 5-Normal LVEDP S/P dialysis catheter insertion (12/10/20) Right IJ removed 01/15/21 Family History Mother , AT AGE 59 OVARIAN CANCER CAD (coronary artery disease) Cancer Diabetes Father Diabetes Other Hypertension Social History Smoking and tobacco/nicotine status: current every day tobacco/nicotine user (CHEWING TOBACCO) smokeless tobacco Smokeless tobacco user: chewing tobacco Alcohol intake: never Substance/Drug Use: never Marital status: Single Education level details: Grade school education, was in special education per old records Current occupational status: disabled Vitals/I&O/Wt Last Vital Signs Temp 98.3 F 08/09/23 15:14 Pulse 85 08/09/23 20:20 Resp 18 08/09/23 18:10 BP 121/79 08/09/23 20:20 Pulse Ox 93 08/09/23 20:20 O2 Del Method Room Air 08/09/23 20:20 Weight last 48 hrs Weight 134.263 kg Physical Exam Narrative: General: No acute distress, AO x3, Morbidly obese HEENT: PERRLA, pupils bilaterally equal and reactive Chest: Normal vesicular breath sounds, no added sounds, equal good air entry bilaterally CVS: S1-S2 regular, no murmurs, no tachycardia, no gallops, no rubs Abdomen: Soft, nontender, no organomegaly, bowel sounds present Neuro: No focal deficits, no facial deformity, AO x3, power 5/5 in all limbs Data 08/09/23 15:43 08/09/23 15:43 A&P Assessment and plan (1) Chest discomfort: Most likely in setting of gastritis versus diabetic gastroparesis given the symptoms associated with meals and retrosternal in nature. But given morbid obesity, severe type 2 diabetes mellitus, hypertension, chronic tobacco chewer cannot rule out ACS. Cycle troponins. Check A1c, lipid panel. Aspirin 81 mg daily, statins. Check echocardiogram. N.p.o. after midnight for Lexiscan stress test in a.m. For possible gastroparesis versus GERD start patient on IV Protonix 40 mg daily. Start on Reglan 5 mg before meals and at bedtime. Monitor QTc. (2) Diabetes mellitus, type II: Continue with home dose of Lantus 110 units twice daily, insulin sliding scale at moderate dose protocol. 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 Continue with home dose of amlodipine, clonidine, losartan Plan Carb consistent diet, n.p.o. after midnight Protonix for PUD prophylaxis Lovenox 40 mg subcu daily for DVT prophylaxis. Attestations Medical Necessity Statement*: Admitted under observation for further evaluation of chest discomfort as ACS is ruled out Diagnoses Chest discomfort R07.89 Diabetes mellitus, type II E11.40; Z79.4 Diabetes mellitus retirement insulin use: with retirement use Diabetes mellitus complication status: with neurologic complications Diabetes mellitus complication detail: with unspecified neuropathy Hyperlipidemia E78.5 Hypertension I10
--- NOTE | 2023-08-09 21:14 | ECG_ITS ---
[facility] Test Date: 2023-08-09 Pat Name: Ace Barney Department: Room: 102 Gender: Male Director Of Public Health: : 1960 Requested By: Gaurang Gómez Order Number: [id number] Daniel MD: Dameon Pruett M.D. Measurements Intervals [place] Rate: 80 P: 32 [place]: 167 QRS: -17 QRSD: 97 T: 78 QT: 368 QTc: 425 Interpretive Statements SINUS RHYTHM LEFT VENTRICULAR HYPERTROPHY AND ST-T CHANGE [VOLTAGE CRITERIA PLUS ST/T ABNORMALITY] Compared to ECG 08/09/2023 17:19:27 ST (T wave) deviation now present T-wave abnormality no longer present Electronically Signed On 08-10-2023 14:55:29 TESTER WASTE DISPOSAL LEAKAGE by Dameon Pruett M.D. [id number]
[2023-08-09 21:25] LABS: Glucose Point of Care 122 mg/dL (70-110)
--- NOTE | 2023-08-09 22:20 | ECG_ITS ---
[facility] Test Date: 2023-08-10 Pat Name: Ace Barney Department: Room: 102 Gender: Male Platen Press Operator: Bal Elizabeth : 1960 Requested By: Phan Ryder Order Number: [id number] Daniel MD: Aziza Vicente M.D. Interpretive Statements NAME OF STUDY: LEXISCAN SESTAMIBI STRESS TEST INDICATION: NSTEMI, PROCEDURE: At the baseline, the EKG revealed normal sinus rhythm with some nonspecific T wave changes in the high lateral leads. The baseline heart was 79 bpm with a blood pressue of 128/83 mm of Hg Lexiscan was infused over a period of 20 seconds. A total of 0.4 milligrams of Lexiscan was infused. The stress phase was continued for a total of 5 minutes. Heart rate at the end of the stress phase was 90 bpm with a blood pressure 151/78 mm of Hg. The EKG at the peak infusion revealed no significant changes. Sestamibi was injected 20 seconds after the Lexiscan infusion. Heart rate at the end of the recovery phase was 87 bpm with a blood pressure of 137/78 mm of Hg. CONCLUSION: 1. No significant EKG changes with the LexiScan infusion 2. No LexiScan induced chest pain or cardiac arrhythmia 3. Normal blood pressure and heart rate response 4. Sestamibi/sestamibi perfusion scan pending; see separate report. Electronically Signed On 08-14-2023 13:05:46 CURING ROOM SUPERVISOR by Aziza Vicente M.D. [id number]
[2023-08-09] MEDS: enoxaparin 40 mg/0.4 mL Syringe SUBCUT (22:56)
[2023-08-09] MEDS: pantoprazole 40 mg SDV IVP (22:57)
[2023-08-09] MEDS: zolpidem 5 mg Tablet 10 MG PO (22:58)
[2023-08-09] MEDS: cloNIDine 0.1 mg Tablet PO (22:58)
[2023-08-09] MEDS: metoclopramide 10 mg Tablet 5 MG PO (22:58)
[2023-08-10] VITALS (7 sets, daily range): BP systolic 132–153; BP diastolic 72–82; PULSE 77–100; RESP 19–25; TEMP 36.5–37.2; O2SAT 93–95
[2023-08-10 00:30] LABS: Add Urine Microscopic? NO; Charge for UA Resulting for Rev
[2023-08-10 00:34] LABS: Bilirubin Urine Neg (Negative); Blood Urine Neg (Negative); Glucose Urine UA Norm (Normal); Ketones Urine Negative (Negative); Leukocyte Esterase Urine Negative (Negative); Nitrate Urine Negative (Negative); Protein Urine Neg (Negative); Urine Appearance Clear (CLEAR); Urine Color Dark Yellow (Yellow); Urobilinogen Urine Neg (Negative); pH Urine 5 (5-7)
[2023-08-10 01:11] LABS: Iron 43 ug/dL (59-158); Percent Saturation 12.9 % (20-50); Thyroid Stimulating Hormone 1.22 uIU/mL (0.27-4.20); Total Iron Binding Capacity 332 mcg/dl; Unsaturated Iron Binding 289 ug/dL (112-347); Vitamin B12 480 pg/mL (232-1245)
[2023-08-10 01:39] LABS: Troponin 5 6HR 9.52 ng/L (0-15); Troponin 5 6HR Delta 1.52 ng/L (0-12)
[2023-08-10 04:21] LABS: Basophils # 0.1 10^3/uL (0.0-0.1); Basophils % 0.7 %; Eosinophils # 0.1 10^3/uL (0.0-0.8); Eosinophils % 1.3 %; Hematocrit 39.7 % (37-53); Lymphocytes # 2.6 10^3/uL (0.8-4.8); Mean Corpuscular HGB Conc 32.5 g/dL (30-55); Mean Corpuscular Hemoglobin 28.5 pg (27-33); Mean Corpuscular Volume 87.6 fl (82-101); Mean Platelet Volume 11.6 fL (7.4-10.4); Monocytes # 0.9 10^3/uL (0.2-0.9); Monocytes % 9.2 %; Neutrophils # 5.94 10^3/uL (1.8-7.7); Neutrophils % 61.5 %; Nucleated Red Blood Cells % 0 %; Platelet Count 223 10^3/cmm (157-399); Red Blood Count 4.53 10^6/uL (3.85-5.65); Red Cell Distribution Width 13.4 % (12.1-15.1); White Blood Count 9.67 10^3/uL (3.29-11.43)
[2023-08-10 04:36] LABS: Chol HDL Ratio 2.77 mg/dL (1.0-5.00); Cholesterol 119 mg/dL (0-200); HDL Cholesterol 43 mg/dL (60-100); LDL Cholesterol Calculated 51 mg/dL (50-129); LDL HDL Ratio 1.19 RATIO (0.00-3.22); Triglycerides 124 mg/dL (0-150)
[2023-08-10 04:46] LABS: Alanine Aminotransferase 24 U/L (0-41); Albumin Level 3.9 g/dL (3.5-5.2); Alkaline Phosphatase 77 U/L (40-130); Anion Gap 12.7 (5-19); Aspartate Amino Transferase 20 U/L (0-40); Blood Urea Nitrogen 25 mg/dL (8-23); Calcium 9.2 mg/dL (8.5-10.5); Carbon Dioxide 26 mmol/L (22-29); Chloride 102 mmol/L (98-107); Globulin 2.9 g/dL (1.3-4.6); Glomerular Filtration Rate 56.3 mL/min (90-130); Glucose 180 mg/dL (65-115); Osmolality Calculated 293 mOsm/kg (285-295); Potassium 3.7 mmol/L (3.5-5.1); Sodium 137 mmol/L (136-145); Total Bilirubin 0.6 mg/dL (0.15-1.2); Total Protein 6.8 g/dL (6.6-8.7)
[2023-08-10 04:56] LABS: Estmated Average Glucose 197; Hemoglobin A1C 8.5 % (4.0-6.0)
[2023-08-10 05:20] LABS: Folate Level 13.7 ng/mL (4.5-32.2)
[2023-08-10] MEDS: metoclopramide 10 mg Tablet 5 MG PO ×2 (05:58→12:16)
[2023-08-10 06:02] LABS: Glucose Point of Care 181 mg/dL (70-110)
[2023-08-10] MEDS: regadenoson 0.4 Mg/5 ml Syringe IVP (07:30)
--- NOTE | 2023-08-10 08:00 | NMCV_ITS ---
NM raquel perf SPECT r/s* [id number] Ace Barney Age: 62 Gender: M : 1960 Exam Date: 08/10/2023 06:35 Ordering Phys: Phan Ryder MD Technologist: ANTONELLA Santana Exam Location: [facility] Indications: CHEST PAIN STRESS TEST Please [facility] IMAGE PROTOCOL Rest/Stress 1 Lexiscan Day Radiopharmaceutical Dose (mCi) Administration Site Administered by Rest: Tc-99m 11.0 IV ANTONELLA Mccain Sestamibi Stress:Tc-99m 33.0 IV ANTONELLA Mccain Sestamibi Rest: 10-Aug-2023 60 Discovery 630 Stress: 10-Aug-2023 30 Discovery 630 0.4mg Lexiscan. Supine position only as patient was unable to lay prone. SPECT RESULTS Technical Quality: Excellent Raw Data Analysis: Normal Image Corrections: No attenuation or motion correction applied Summed Stress Score: 1 Summed Rest Score: 6 Summed Difference Score: 0 PERFUSION FINDINGS Small to moderate area of moderately decreased tracer uptake was noted in the mid and apical inferior mid inferolateral and apical lateral regions. No significant reversibility was noted in these regions. FUNCTIONAL RESULTS (calculated via Gated SPECT) Stress Image LV EF (%): 67 Stress EDV (mL):115 TID: 1.01 Stress ESV (mL):38 FUNCTIONAL FINDINGS: Segmental wall motion analysis revealing no gross wall motion abnormalities IMPRESSIONS 1. Myocardial perfusion imaging revealing small to moderate area of persistent decreased tracer uptake involving the inferior and inferolateral wall regions, suggesting myocardial scarring versus attrition artifact. 2. Normal LV ejection fraction 67%. 3. LV wall motion analysis revealing no gross wall motion abnormalities. 4. Normal LV volume Low probability for coronary ischemia, based on the above findings Dr Aziza Vicente MD FACC (Electronically Signed) Final Date: 10 August 2023 13:58 S
[2023-08-10] MEDS: insulin lispro 100 unit/1 mL SUBCUT ×2 (09:06→12:16)
[2023-08-10] MEDS: amlodipine 10 mg Tablet PO (09:07)
[2023-08-10] MEDS: losartan 50 mg Tablet 100 MG PO (09:08)
[2023-08-10] MEDS: aspirin 81 mg EC Tablet PO (09:08)
[2023-08-10] MEDS: cloNIDine 0.1 mg Tablet PO (09:08)
[2023-08-10] MEDS: atorvastatin 40 mg Tablet 80 MG PO (09:08)
[2023-08-10] MEDS: perflutren protein-a microsphr 0.22 mg/mL SDV 3 mL IV (10:38)
[2023-08-10 10:44] LABS: Glucose Point of Care 303 mg/dL (70-110)
[2023-08-10] MEDS: insulin glargine 100 units/1 mL 110 UNIT SUBCUT (13:40)
--- NOTE | 2023-08-10 14:10 | PM.DCS ---
Discharge Providers Date of Admission: 08/09/23 19:44 Date of Discharge: August 10, 2023 Attending Provider at Admission: Phan Ryder MD Attending Provider at Discharge: Zohreh Tom MD Primary Care Provider: Ford García MD Diagnoses at Discharge Discharge Diagnosis (1) Chest discomfort: Status: Acute (2) Diabetes mellitus, type II: Status: Acute Qualifiers: Diabetes mellitus complication detail: with unspecified neuropathy Diabetes mellitus complication status: with neurologic complications Diabetes mellitus chemist helper insulin use: with shelter use Qualified Code(s): E11.40 - Type 2 diabetes mellitus with diabetic neuropathy, unspecified; Z79.4 - senior care (current) use of insulin (3) Hyperlipidemia: Status: Acute (4) Hypertension: Status: Acute Reason for Visit Reason for Visit: CP Hospital Course Hospital Course Patient presents with chest pain that started yesterday evening.? He says the pain started after his meal.? Headache relieved with Nitropaste however he also says that he feels eating may have caused it.? Patient underwent a stress test this morning which showed low probability for ischemia.? He states he has been chest pain-free since last night.? Appears comfortable.? He will be going home today with follow-up with cardiology as outpatient.? Echo also reviewed.? Normal LVEF.? No acute wall motion abnormalities present. Physical Exam Narrative: General: No acute distress, AO x3, Morbidly obese Chest: Normal vesicular breath sounds, no added sounds, equal good air entry bilaterally CVS: S1-S2 regular, no murmurs, Abdomen: Soft, nontender, bowel sounds present Neuro: No focal deficits, no facial deformity Discharge Data Studies Completed and Pending Completed Studies During Hospitalization Category Date Time Status Sestamibi Stress Test Request Routine Exams 08/09/23 22:20 Draft XR chest 1V portable [id number] Stat Exams 08/09/23 15:14 Completed NM raquel perf SPECT r/s* [id number] Routine Nuc Med 08/10/23 08:00 Completed Pending at discharge Category Date Time Status CV. echo wo/w contrast [id number] Routine Ultrasound 08/10/23 22:20 Taken Radiology Impressions Chest X-Ray 08/09/23 15:14 IMPRESSION: No acute findings. Laboratory Results WBC 9.67 10^3/uL (3.29-11.43) 08/10/23 03:19 RBC 4.53 10^6/uL (3.85-5.65) 08/10/23 03:19 Hgb 12.90 g/dL (11.27-16.99) 08/10/23 03:19 Hct 39.7 % (37-53) 08/10/23 03:19 MCV 87.6 fl (82-101) 08/10/23 03:19 MCH 28.5 pg (27-33) 08/10/23 03:19 MCHC 32.5 g/dL (30-55) 08/10/23 03:19 RDW 13.4 % (12.1-15.1) 08/10/23 03:19 Plt Count 223 10^3/cmm (157-399) 08/10/23 03:19 MPV 11.6 fL (7.4-10.4) H 08/10/23 03:19 Neut % (Auto) 61.5 % 08/10/23 03:19 Lymph % (Auto) 27.0 % 08/10/23 03:19 [place] % (Auto) 9.2 % 08/10/23 03:19 Eos % (Auto) 1.3 % 08/10/23 03:19 Baso % (Auto) 0.7 % 08/10/23 03:19 Neut # (Auto) 5.94 10^3/uL (1.8-7.7) 08/10/23 03:19 Lymph # (Auto) 2.6 10^3/uL (0.8-4.8) 08/10/23 03:19 [place] # (Auto) 0.9 10^3/uL (0.2-0.9) 08/10/23 03:19 Eos # (Auto) 0.1 10^3/uL (0.0-0.8) 08/10/23 03:19 Baso # (Auto) 0.1 10^3/uL (0.0-0.1) 08/10/23 03:19 Nucleated RBC % (auto) 0 % 08/10/23 03:19 Nucleated RBCs # 0.0 /100WBC 08/10/23 03:19 PT 12.60 SECONDS (12.1-14.9) 08/09/23 15:43 INR 0.92 (0.8-1.2) 08/09/23 15:43 APTT 30.7 SECONDS (23.9-36.7) 08/09/23 15:43 Sodium 137 mmol/L (136-145) 08/10/23 03:19 Potassium 3.7 mmol/L (3.5-5.1) 08/10/23 03:19 Chloride 102 mmol/L (98-107) 08/10/23 03:19 Carbon Dioxide 26 mmol/L (22-29) 08/10/23 03:19 Anion Gap 12.7 (5-19) 08/10/23 03:19 BUN 25 mg/dL (8-23) H 08/10/23 03:19 Creatinine 1.3 mg/dL (0.7-1.2) H 08/10/23 03:19 GFR Calculation 56.3 mL/min (90-130) L 08/10/23 03:19 Glucose 180 mg/dL (65-115) H 08/10/23 03:19 POC Glucose 303 mg/dL (70-110) H 08/10/23 10:36 Estimat Average Glucose 197 08/10/23 03:19 Hemoglobin A1c 8.5 % (4.0-6.0) H 08/10/23 03:19 Calculated Osmolality 293 mOsm/kg (285-295) 08/10/23 03:19 Calcium 9.2 mg/dL (8.5-10.5) 08/10/23 03:19 Phosphorus 4.0 mg/dL (2.5-4.5) 08/10/23 03:19 Magnesium 2.0 mg/dL (1.7-2.3) 08/10/23 03:19 Iron 43 ug/dL (59-158) L 08/09/23 17:48 TIBC 332 mcg/dl 08/09/23 17:48 % Saturation 12.9 % (20-50) L 08/09/23 17:48 Unsat Iron Binding 289 ug/dL (112-347) 08/09/23 17:48 Total Bilirubin 0.6 mg/dL (0.15-1.2) 08/10/23 03:19 AST 20 U/L (0-40) 08/10/23 03:19 ALT 24 U/L (0-41) 08/10/23 03:19 Alkaline Phosphatase 77 U/L (40-130) 08/10/23 03:19 Troponin T Baseline 8 ng/L (0-15) 08/09/23 15:43 Troponin T 120 Minute 8.74 ng/L (0-15) 08/09/23 17:48 Delta Troponin T 0.74 ABS# (0-10) 08/09/23 17:48 Troponin T Hi Sens 6Hr 9.52 ng/L (0-15) 08/09/23 22:29 Troponin T Hi Sens 6Hr Delta 1.52 ng/L (0-12) 08/09/23 22:29 NT-Pro-B Natriuret Pep 36 pg/mL (0-125) 08/09/23 15:43 Total Protein 6.8 g/dL (6.6-8.7) 08/10/23 03:19 Albumin 3.9 g/dL (3.5-5.2) 08/10/23 03:19 Globulin 2.9 g/dL (1.3-4.6) 08/10/23 03:19 Triglycerides 124 mg/dL (0-150) 08/10/23 03:19 Cholesterol 119 mg/dL (0-200) 08/10/23 03:19 LDL Cholesterol, Calc 51 mg/dL (50-129) 08/10/23 03:19 HDL Cholesterol 43 mg/dL (60-100) L 08/10/23 03:19 LDL/HDL Ratio 1.19 RATIO (0.00-3.22) 08/10/23 03:19 Cholesterol/HDL Ratio 2.77 mg/dL (1.0-5.00) 08/10/23 03:19 Vitamin B12 480 pg/mL (232-1245) 08/09/23 17:48 Folate 13.7 ng/mL (4.5-32.2) 08/10/23 03:19 TSH 1.22 uIU/mL (0.27-4.20) 08/09/23 17:48 Urine Color Dark yellow (Yellow) 08/10/23 00:13 Urine Appearance Clear (CLEAR) 08/10/23 00:13 Urine pH 5 (5-7) 08/10/23 00:13 Ur Specific [place] 1.030 (1.005-1.030) 08/10/23 00:13 Urine Protein Neg (Negative) 08/10/23 00:13 Urine Glucose (UA) Norm (Normal) 08/10/23 00:13 Urine Ketones Negative (Negative) 08/10/23 00:13 Urine Blood Neg (Negative) 08/10/23 00:13 Urine Nitrate Negative (Negative) 08/10/23 00:13 Urine Bilirubin Neg (Negative) 08/10/23 00:13 Urine Urobilinogen Neg mg/dL (Negative) 08/10/23 00:13 Ur Leukocyte Esterase Negative (Negative) 08/10/23 00:13 Vitals Last Vital Signs Temp 97.7 F 08/10/23 08:00 Pulse 90 08/10/23 12:00 Resp 20 H 08/10/23 12:00 BP 143/72 08/10/23 12:00 Pulse Ox 94 08/10/23 12:00 O2 Del Method Room Air 08/10/23 12:00 Discharge Plan Discharge Patient Disposition: Home Condition: Stable Prescriptions: Continued pioglitazone 15 mg tablet 15 mg PO DAILY insulin aspart U-100 [Novolog FlexPen U-100 Insulin] 100 unit/mL (3 mL) insulin pen 18 unit SUBCUT TID Rx Instructions: INJECT 18 UNITS PLUS SLIDING SCALE BEFORE BREAKFAST, LUNCH, & DINNER, MAX DAILY DOSE 70 UNITS tamsulosin 0.4 mg capsule 0.4 mg PO .AT BEDTIME Qty: 30 12RF clonidine HCl 0.1 mg tablet 0.1 mg PO 2XD amlodipine 10 mg tablet 10 mg PO DAILY@0900 zolpidem 10 mg tablet 10 mg PO BEDTIME@2100 rosuvastatin 40 mg tablet 40 mg PO DAILY@0900 Levemir FlexTouch U100 Insulin 100 unit/mL (3 mL) insulin pen 110 unit SUBCUT BID@0830,2029 losartan 100 mg tablet 100 mg PO DAILY (DME) Dexcom G6 Sensor Device MISCELLANEOUS (DME) blood-glucose meter,continuous Misc MISCELLANEOUS Discharge Orders: Discharge Order (Routine); Ordered 08/10/23 Ordered By: Zohreh Tom Referrals: Ford García MD [Primary Care Provider] - 08/18/23 7:45 am Aziza Vicente MD [Physician] - 7-10 days Discharge Diet: Cardiac and Diabetic Discharge Activity: Resume usual activity Patient Instructions: Diabetic Gastroparesis (DC), GERD (Gastroesophageal Reflux Disease) (DC), Type 2 Diabetes Management for Adults (DC), Chest Pain Stoplight, Opioid Safety Discharge Attestations Time Spent in Discharge Care*: less than 30 min Quality Metrics Clinical Quality Measures [ No reported AMI, CVA or VTE this stay] Coding Level of Care Code Acute Code for Chg Fwd Diagnoses Chest discomfort R07.89 Diabetes mellitus, type II E11.40; Z79.4 Diabetes mellitus complication detail: with unspecified neuropathy Diabetes mellitus complication status: with neurologic complications Diabetes mellitus chemist helper insulin use: with chemist helper use Hyperlipidemia E78.5 Hypertension I10
--- NOTE | 2023-08-10 22:20 | USCV_ITS ---
Ace Barney Age: 62 Gender: M : 1960 Exam Date: 08/10/2023 09:40 Ordering Phys: Phna Ryder MD Technologist: [place] Exam Location: [facility] [place] Indication: chest pain BP: 153 / 82 HR: 78 Rhythm: Sinus Technical Quality: Technically difficult study MEASUREMENTS (Male / Female) Normal Values 2D ECHO LV Diastolic Diameter PLAX 5.3 cm 4.2 - 5.9 / 3.9 - 5.3 cm LV Systolic Diameter PLAX 2.8 cm IVS Diastolic Thickness 1.2 cm 0.6 - 1.0 / 0.6 - 0.9 cm IVS Systolic Thickness 1.9 cm LVPW Diastolic Thickness 1.5 cm 0.6 - 1.0 / 0.6 - 0.9 cm LVPW Systolic Thickness 1.7 cm LVOT Diameter 2.2 cm LV Ejection Fraction 2D Teich 79.1 % LV Ejection Fraction MOD 2C 72.3 % LV Ejection Fraction 2C AL 74.3 % LA Diameter 4.2 cm LA Width 11.9 cm M-MODE Aortic Annulus Diameter 2.8 cm LA Ao Ratio MM 1.4 MV E Point Septal Separation 0.5 cm DOPPLER AV Peak Velocity 165.0 cm/s LVOT Peak Velocity 113.0 cm/s AV Area Cont Eq vti 3.0 cm squared AV Area Cont Eq pk 2.6 cm squared MV Area PHT 5.0 cm squared Mitral E to A Ratio 1.1 MV E' Velocity 94.0 cm/s TR Peak Velocity 161.3 cm/s TR Peak Gradient 10.4 mmHg TV Peak E Velocity 95.0 cm/s Right Atrial Pressure 3.0 mmHg Pulmonary Artery Systolic Pressu 13.4 mmHg FINDINGS Left Ventricle Mild left ventricular hypertrophy. Normal left ventricular size, systolic function and wall thickness, with no regional wall motion abnormalities. Left ventricular ejection fraction is estimated at 74 %. Right Ventricle Normal right ventricular size and systolic function. Right Atrium Normal right atrial size. Left Atrium Normal left atrial size. Mitral Valve Thickened mitral valve. No mitral valve regurgitation. Aortic Valve Thickened aortic valve. No aortic valve stenosis. Tricuspid Valve Tricuspid valve not well visualized. Doppler study showed mild regurgitation. Pulmonic Valve Pulmonic valve not well visualized. Pericardium No pericardial effusion. Aorta Not well visualized IVC Inferior vena cava not visualized. CONCLUSIONS Technically difficult study with poor quality images. Echo contrast was used to assess LV systolic function. 1. Mild LV concentric hypertrophy with normal LVEF. 2. Thickened mitral and aortic valve without any significant functional abnormality. 3. Normal right heart and pulmonary pressures. Dameon Pruett MD (Electronically Signed) Final Date: 10 August 2023 17:18 S
== END 2023-08-10 15:58 | disposition home or self-care (01) ==
LOC: ER 15:52 → CSU 20:10
PROVIDERS: Admitting Provider Student in an Organized Health Care Education/Training Program; Emergency Provider Internal Medicine; PCP Family Medicine; Visit Provider Internal Medicine
DX: R07.89 Other chest pain (principal); E11.40 Type 2 diabetes mellitus with diabetic neuropathy, unspecified; Z79.4 Long term (current) use of insulin; E78.5 Hyperlipidemia, unspecified; I10 Essential (primary) hypertension; I08.0 Rheumatic disorders of both mitral and aortic valves; N17.9 Acute kidney failure, unspecified; Z99.2 Dependence on renal dialysis; F17.220 Nicotine dependence, chewing tobacco, uncomplicated; E66.01 Morbid (severe) obesity due to excess calories; Z68.41 Body mass index [BMI] 40.0-44.9, adult
CPT/HCPCS: 36415; 36416; 71045; 78452; 80053; 80061; 81003; 82607; 82746; 82962; 83036; 83540; 83550; 83735; 83880; 84100; 84443; 84484; 85025; 85610; 85730; 93005; 93010; 93306; 96372; 96374; 96375; 96376; 99285; A9500; C8929; C9113; G0378; J1650; J1815; J2405; J2785; J8597; Q9956

== ENCOUNTER 2023-10-19 10:46 | Emergency (ER) | payer MEDICAID, SELFPAY ==
--- NOTE | 2023-10-19 10:58 | XRR_ITS ---
PROCEDURE INFORMATION: Exam: XR Chest Exam date and time: 10/19/2023 11:14 AM Age: 63 years old Clinical indication: Pain; Angina pectoris; Additional info: Cp TECHNIQUE: Imaging protocol: Radiologic exam of the chest. Views: 1 view. COMPARISON: CR XR chest 1V portable [id number] 08/09/2023 3:27 PM FINDINGS: Lungs: Mild interstitial prominence. Pleural spaces: Unremarkable. No pleural effusion. No pneumothorax. Heart/Mediastinum: Unremarkable. No cardiomegaly. Vasculature: Mild uncoiling of the thoracic aorta. Bones/joints: Unremarkable. XR/XR chest 1V portable [id number] IMPRESSION: No acute findings.
--- NOTE | 2023-10-19 11:07 | ECG_ITS ---
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 Measurements Intervals [place] Rate: 74 P: 29 [place]: 167 QRS: -3 QRSD: 96 T: 58 QT: 368 QTc: 409 Interpretive Statements SINUS RHYTHM MODERATE VOLTAGE CRITERIA FOR LVH, CONSIDER NORMAL VARIANT [MEETS CRITERIA IN ONE OF: R(aVL), S(V1), R(V5), R(V5/V6)+S(V1)] NONSPECIFIC T-WAVE ABNORMALITY Compared to ECG 08/09/2023 22:24:29 T-wave abnormality now present ST (T wave) deviation no longer present Electronically Signed On 10-19-2023 19:29:19 CLINICAL MASSAGE THERAPIST by Aziza Vicente M.D. [id number]
[2023-10-19 11:11] VITALS: BP 141/79; PULSE 79; RESP 16; TEMP 36.6; O2SAT 97; BMI 39.7
--- NOTE | 2023-10-19 11:43 | W.ED.CHESTPA ---
HPI - Chest Pain General: Chief Complaint: Chest Pain Stated Complaint: chest pain Time Seen by Provider: 10/19/23 11:41 History of Present Illness: 63-year-old male presents emergency department with complaints of chest pain. He states he has burning type chest pain to the middle of his chest. He states he was previously seen here in the emergency department and diagnosed with acid reflux and admitted to the hospital on 08/09/2023 and also received a stress test during that time which showed low probability for ischemia. Patient was discharged on antacid and states that his primary care provider recently discontinued that medication but is unsure why. He states now that when he eats he again is getting chest discomfort and pain he states he does have associated nausea describes his chest pain as a tightness and burning sensation. Associated symptoms: Reports nausea Review of Systems General: Reports: 10 or more systems reviewed and unremarkable except in HPI and below Card: Reports: chest pain GI: Reports: nausea [facility] ED PFSH: Medical History (Updated 10/19/23 @ 14:36 by Gaurang Gómez MD) Lower urinary tract symptoms (LUTS) Urinary retention Mild cognitive impairment Grade school education Acute renal failure Hypertension Hyperlipidemia Diabetes mellitus, type II Surgical History S/P dialysis catheter insertion (12/10/20) Right IJ removed 01/15/21 History of cardiac catheterization (~2013) Procedure Summary 1-LM is normal 2-LAD is normal 3-LCx is normal 4-RCA is normal 5-Normal LVEDP Family History Mother , AT AGE 59 OVARIAN CANCER CAD (coronary artery disease) Cancer Diabetes Father Diabetes Other Hypertension Social History Smoking and tobacco/nicotine status: current every day tobacco/nicotine user (CHEWING TOBACCO) smokeless tobacco Smokeless tobacco user: chewing tobacco Alcohol intake: never Substance/Drug Use: never Marital status: Single Education level details: Grade school education, was in special education per old records Current occupational status: disabled Physical Exam Narrative: EXAM NARRATIVE: Constitutional: the patient appears well nourished and of normal development. Vital signs as documented. No acute distress at present. Alert and oriented-to person, place, time and situation. Head, eyes, ears, nose, mouth, throat: Normocephalic, atraumatic. Pupils-equal, round, reactive to light. No scleral icterus. Normal-appearing external ears. Normal appearing nasal turbinates, no drainage. No obvious oral lesions, posterior oropharynx without erythema or exudates. Neck: Supple, trachea is midline, no lymphadenopathy, no jugular venous distension, thyromegaly, or carotid bruits. Carotid upstrokes are brisk bilaterally. Lungs: clear to auscultation to all lung [place]. Symmetrical rise and fall of chest, no obvious signs of increased work of breathing at present. Cardiac: Regular rate and rhythm, positive S1, S2. No murmurs, rubs or gallops that I can appreciate Abdomen: Soft, non-tender to palpation, normal active bowel sounds to all quadrants. No palpable masses, no organomegaly and abdominal bruits. Extremities: 2+ pulses in the upper extremities that are equal bilaterally, 2+ pulses in the lower extremities that are equal bilaterally. Non-edematous. Moves all extremities well, sensation to all extremities are noted. Skin: Warm, dry, intact. Course Vital Signs: Vital signs: Vital Signs Temperature 97.8 F 10/19/23 11:11 Pulse Rate 73 10/19/23 14:17 Respiratory Rate 16 10/19/23 11:11 Blood Pressure 144/78 10/19/23 14:17 Pulse Oximetry 96 10/19/23 14:17 Oxygen Delivery Me thod Room Air 10/19/23 14:17 MDM - Chest Pain Medical Decision Making Physical exam completed and documented, I will obtain serial cardiac enzymes, serial twelve-lead EKGs, chest x-ray, CBC, CMP, urinalysis, B-type natriuretic peptide, PT/PTT/INR, and a chest x-ray. I have reviewed previous and pertinent medical records for assist in obtaining beneficial medical information to improved the care and treatment of the patient. I will provide the patient with a GI cocktail and reevaluate. Medical Records I reviewed the patient's medical records. Lab Data I reviewed the patient's lab results. 10/19/23 12:25 10/19/23 12:25 Radiology Impressions Chest X-Ray 10/19/23 10:58 IMPRESSION: No acute findings. Laboratory Results WBC 9.94 10^3/uL (3.29-11.43) 10/19/23 12: RBC 4.83 10^6/uL (3.85-5.65) 10/19/23 12:25 Hgb 14.00 g/dL (11.27-16.99) 10/19/23 12:25 Hct 41.0 % (37-53) 10/19/23 12:25 MCV 84.9 fl (82-101) 10/19/23 12:25 MCH 29.0 pg (27-33) 10/19/23 12:25 MCHC 34.1 g/dL (30-55) 10/19/23 12:25 RDW 12.9 % (12.1-15.1) 10/19/23 12:25 Plt Count 231 10^3/cmm (157-399) 10/19/23 12:25 MPV 11.2 fL (7.4-10.4) H 10/19/23 12:25 Neut % (Auto) 74.3 % 10/19/23 12:25 Lymph % (Auto) 17.5 % 10/19/23 12:25 [place] % (Auto) 6.9 % 10/19/23 12:25 Eos % (Auto) 0.2 % 10/19/23 12:25 Baso % (Auto) 0.7 % 10/19/23 12: Neut # (Auto) 7.38 10^3/uL (1.8-7.7) 10/19/23 12:25 Lymph # (Auto) 1.7 10^3/uL (0.8-4.8) 10/19/23 12:25 [place] # (Auto) 0.7 10^3/uL (0.2-0.9) 10/19/23 12:25 Eos # (Auto) 0.0 10^3/uL (0.0-0.8) 10/19/23 12:25 Baso # (Auto) 0.1 10^3/uL (0.0-0.1) 10/19/23 12:25 Nucleated RBC % (auto) 0 % 10/19/23 12:25 Nucleated RBCs # 0.0 /100WBC 10/19/23 12:25 Sodium 138 mmol/L (136-145) 10/19/23 12:25 Potassium 3.7 mmol/L (3.5-5.1) 10/19/23 12:25 Chloride 101 mmol/L (98-107) 10/19/23 12:25 Carbon Dioxide 25 mmol/L (22-29) 10/19/23 12:25 Anion Gap 15.7 (5-19) 10/19/23 12:25 BUN 17 mg/dL (8-23) 10/19/23 12:25 Creatinine 1.0 mg/dL (0.7-1.2) 10/19/23 12:25 GFR Calculation 76.0 mL/min (90-130) L 10/19/23 12:25 Glucose 80 mg/dL (65-115) 10/19/23 12:25 Calculated Osmolality 287 mOsm/kg (285-295) 10/19/23 12:25 Calcium 9.7 mg/dL (8.5-10.5) 10/19/23 12:25 Total Bilirubin 0.6 mg/dL (0.15-1.2) 10/19/23 12:25 AST 21 U/L (0-40) 10/19/23 12:25 ALT 25 U/L (0-41) 10/19/23 12:25 Alkaline Phosphatase 93 U/L (40-130) 10/19/23 12:25 Troponin T Baseline 9 ng/L (0-15) 10/19/23 12:25 Troponin T 120 Minute 7.34 ng/L (0-15) 10/19/23 14:21 Total Protein 7.5 g/dL (6.6-8.7) 10/19/23 12:25 Albumin 4.4 g/dL (3.5-5.2) 10/19/23 12:25 Globulin 3.1 g/dL (1.3-4.6) 10/19/23 12:25 Lipase 37 U/L (13-60) 10/19/23 12:25 All radiology interpretation(s) finalized by discharge EKG Data EKG 1: Interpretation: Twelve-lead EKG obtained at 1107 and reviewed at 1109 demonstrates sinus rhythm with a ventricular rate of 74 bpm, NJ interval is 167, QRS duration 96, QT 368, QTc 395. At present there is no ST elevation or depression to demonstrate acute ischemia or infarction. EKG 2: Interpretation: Twelve-lead EKG obtained at 1412 and reviewed at 1414 demonstrates sinus rhythm ventricular rate of 69 bpm, NJ interval 162, QRS duration 95 QT 390, QTc 409, at present there is no ST elevation or depression to demonstrate acute ischemia or infarction. Discharge Plan Discharge Patient Disposition: Home Clinical Impression: Atypical chest pain, Chest pain due to GERD Condition: Stable Prescriptions: New pantoprazole 20 mg tablet,delayed release (DR/EC) 20 mg PO DAILY 56 Days Qty: 30 2RF No Action pioglitazone 15 mg tablet 15 mg PO DAILY insulin aspart U-100 [Novolog FlexPen U-100 Insulin] 100 unit/mL (3 mL) insulin pen 18 unit SUBCUT TID Rx Instructions: INJECT 18 UNITS PLUS SLIDING SCALE BEFORE BREAKFAST, LUNCH, & DINNER, MAX DAILY DOSE 70 UNITS tamsulosin 0.4 mg capsule 0.4 mg PO .AT BEDTIME Qty: 30 12RF clonidine HCl 0.1 mg tablet 0.1 mg PO 2XD amlodipine 10 mg tablet 10 mg PO DAILY@0900 zolpidem 10 mg tablet 10 mg PO BEDTIME@2100 rosuvastatin 40 mg tablet 40 mg PO DAILY@0900 Levemir FlexTouch U100 Insulin 100 unit/mL (3 mL) insulin pen 110 unit SUBCUT BID@0830,2030 losartan 100 mg tablet 100 mg PO DAILY (DME) Dexcom G6 Sensor Device MISCELLANEOUS (DME) blood-glucose meter,continuous Misc MISCELLANEOUS Discharge Orders: Discharge ED (Routine); Ordered 10/19/23 Ordered By: Gaurang Gómez Referrals: Ford García MD [Primary Care Provider] - Discharge Diet: Usual diet Discharge Activity: Resume usual activity Patient Instructions: Opioid Safety, Pain Management Activity Restrictions/Additional Instructions: Activity Restrictions/Additional Instructions: Thank you for choosing [facility] for your healthcare needs today. Please realize that you were seen in the Emergency Department and that we are providing you with an emergency medical screening exam and this may not be a complete and all inclusive of all the testing and or medical work-up that you may need to determine your ailment or severity of your illness. It is very important that you follow-up as instructed with your Primary care provider or Specialist for additional evaluation and to discuss your medical treatment plan. You may return to the Emergency Department should you have concerns or if your condition changes or worsens in any way. Coding Level of Care Code ED Corporate Receptionist for Johnny Simmons
[2023-10-19 12:37] LABS: Basophils # 0.1 10^3/uL (0.0-0.1); Basophils % 0.7 %; Eosinophils % 0.2 %; Lymphocytes # 1.7 10^3/uL (0.8-4.8); Lymphocytes % 17.5 %; Mean Corpuscular HGB Conc 34.1 g/dL (30-55); Mean Corpuscular Volume 84.9 fl (82-101); Mean Platelet Volume 11.2 fL (7.4-10.4); Monocytes # 0.7 10^3/uL (0.2-0.9); Monocytes % 6.9 %; Neutrophils # 7.38 10^3/uL (1.8-7.7); Neutrophils % 74.3 %; Nucleated Red Blood Cells % 0 %; Platelet Count 231 10^3/cmm (157-399); Red Blood Count 4.83 10^6/uL (3.85-5.65); Red Cell Distribution Width 12.9 % (12.1-15.1); White Blood Count 9.94 10^3/uL (3.29-11.43)
[2023-10-19 12:51] LABS: Troponin(5th) Baseline 9 ng/L (0-15)
[2023-10-19 13:02] LABS: Alanine Aminotransferase 25 U/L (0-41); Albumin Level 4.4 g/dL (3.5-5.2); Alkaline Phosphatase 93 U/L (40-130); Anion Gap 15.7 (5-19); Aspartate Amino Transferase 21 U/L (0-40); Blood Urea Nitrogen 17 mg/dL (8-23); Calcium 9.7 mg/dL (8.5-10.5); Carbon Dioxide 25 mmol/L (22-29); Chloride 101 mmol/L (98-107); Globulin 3.1 g/dL (1.3-4.6); Glucose 80 mg/dL (65-115); Lipase 37 U/L (13-60); Osmolality Calculated 287 mOsm/kg (285-295); Potassium 3.7 mmol/L (3.5-5.1); Sodium 138 mmol/L (136-145); Total Bilirubin 0.6 mg/dL (0.15-1.2); Total Protein 7.5 g/dL (6.6-8.7)
--- NOTE | 2023-10-19 14:12 | ECG_ITS ---
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 Measurements Intervals [place] Rate: 69 P: 37 OR: 162 QRS: 4 QRSD: 95 T: 65 QT: 390 QTc: 420 Interpretive Statements SINUS RHYTHM MODERATE VOLTAGE CRITERIA FOR LVH, CONSIDER NORMAL VARIANT [MEETS CRITERIA IN ONE OF: R(aVL), S(V1), R(V5), R(V5/V6)+S(V1)] NONSPECIFIC T-WAVE ABNORMALITY Compared to ECG 10/19/2023 11:07:56 No significant changes Electronically Signed On 10-19-2023 19:36:57 VENEER GRADER by Aziza Vicente M.D. [id number]
[2023-10-19 14:17] VITALS: BP 144/78; PULSE 73; O2SAT 96
[2023-10-19 14:44] LABS: Troponin 5 2HR 7.34 ng/L (0-15)
[2023-10-19] MEDS: lidocaine 2% viscous 15 ML, aluminum-mag hydrox-simethicon 30 ML, sucralfate oral liq 1 GM PO (14:46)
[2023-10-19 14:50] VITALS: PULSE 75; O2SAT 95
[2023-10-19 14:51] LABS: Troponin 5 2HR Delta -1.66 ABS# (0-10)
== END 2023-10-19 14:51 | disposition home or self-care (01) ==
PROVIDERS: Emergency Medicine; Emergency Provider Internal Medicine; PCP Family Medicine
DX: R07.89 Other chest pain (principal); K21.9 Gastro-esophageal reflux disease without esophagitis; Z79.4 Long term (current) use of insulin; F17.220 Nicotine dependence, chewing tobacco, uncomplicated; I10 Essential (primary) hypertension; E78.5 Hyperlipidemia, unspecified; E11.9 Type 2 diabetes mellitus without complications
CPT/HCPCS: 36415; 71045; 80053; 83690; 84484; 85025; 93005; 99285

== ENCOUNTER 2024-12-08 10:50 | Emergency (ER) | payer MEDICAID, SELFPAY ==
[2024-12-08 11:07] VITALS: BP 153/86; PULSE 99; RESP 16; TEMP 37.4; O2SAT 97; BMI 34.2
--- NOTE | 2024-12-08 11:16 | XR_ITS ---
WS: [id number] Portable AP upright chest, inspiration and expiration views, 12/08/2024 Clinical Data: Cough, rib pain Comparison: Portable chest, 10/19/2023 Findings: No nodules, masses or effusions are seen. The heart is normal. The pulmonary vascularity is not increased. No pneumonia or pneumothorax is seen. On comparing inspiration and expiration images, no mediastinal shift or abnormal diaphragmatic elevation is seen. XR/XR chest 2V insp/exp [id number] Impression: Negative chest with additional expiration view.
[2024-12-08 11:21] VITALS: BP 152/74; PULSE 97; RESP 16; O2SAT 96
--- NOTE | 2024-12-08 11:23 | ED_ITS ---
HPI - General Adult General: Chief complaint: General Medical Stated complaint: Abd pain, coughing and pain in side Time Seen by Provider: 12/08/24 11:17 History of Present Illness: 64-year-old male presents with right ant erior chest wall pain. He reports he started coughing this morning after coughing he developed a lot of pain in his anterior chest wall and his right wrist. Hurts to breathe, had to move, he denies any shortness of breath just more discomfort. Patient has not take anything for the pain because he reports that both ibuprofen and Tylenol counteracts with his insulin medication Associated symptoms: Deny chest pain, nausea, palpitations or vomiting Related Data Home Medications ?Medication ?Instructions ?Recorded ?Confirmed rosuvastatin 40 mg tablet 40 mg PO DAILY@0900 12/09/20 12/08/24 zolpidem 10 mg tablet 10 mg PO BEDTIME@2100 12/08/24 amlodipine 10 mg tablet 10 mg PO DAILY@0900 01/28/21 12/08/24 clonidine HCl 0.1 mg tablet 0.1 mg PO 2XD 01/28/21 insulin aspart U-100 100 unit/mL 18 unit SUBCUT TID 12/08/24 (3 mL) subcutaneous pen (Novolog FlexPen U-100 Insulin aspart) pioglitazone 15 mg tablet 15 mg PO DAILY 02/10/2211/20 blood-glucose meter,continuous 08/09/23 12/08/24 blood-glucose sensor (Dexcom G6 08/09/23 12/08/24 Sensor device) losartan 100 mg tablet 100 mg PO DAILY 08/09/23 cholecalciferol (vitamin D3) 50 50 mcg PO DAILY 12/08/24 mcg (2,000 unit) capsule dulaglutide 0.75 mg/0.5 mL 0.75 mg SUBCUT Q7D 12/08/24 12/08/24 [facility] insulin glargine 100 unit/mL (3 110 unit SUBCUT BID 12/08/24 mL) subcutaneous pen (Lantus Solostar U-100 Insulin) Previous Rx's ?Medication ?Instructions ?Recorded tamsulosin 0.4 mg capsule 0.4 mg PO .AT BEDTIME #30 ca ps 03/03/23 pantoprazole 20 mg tablet,delayed 20 mg PO DAILY 8 wee ks #30 tabs 10/19/23 release benzonatate 100 mg capsule 100 mg PO Q6H PRN cough #14 caps 12/08/24 oseltamivir 75 mg capsule (Tamiflu) 75 mg PO BID 5 day s #10 caps 12/08/24 Allergies Allergy/AdvReac Type Severity Reaction Status Date / Time acetaminophen (From Tylenol) Allergy COUNTER Verified 10/19/23 11:10 ACTS WITH INSULIN ibuprofen Allergy COUNTER Verified 10/19/23 11:10 ACTS WITH INSULIN MEDICATION Review of Systems Const: Denies: fever(s), chills or body aches Card: Denies: chest pain, palpitations or irregular heart rhythm Resp: Reports: non-productive cough GI: Denies: nausea or vomiting Musc: Reports: other (Chest wall pain) [facility] ED PFSH: Medical History Lower urinary tract symptoms (LUTS) Urinary retention Mild cognitive impairment Grade school education Acute renal failure Hypertension Hyperlipidemia Diabetes mellitus, type II Surgical History S/P dialysis catheter insertion (12/10/20) Right IJ removed 01/15/21 History of cardiac catheterization (~2013) Procedure Summary 1-LM is normal 2-LAD is normal 3-LCx is normal 4-RCA is normal 5-Normal LVEDP Family History Mother , AT AGE 59 OVARIAN CANCER CAD (coronary artery disease) Cancer Diabetes Father Diabetes Other Hypertension Social History Smoking and tobacco/nicotine status: current every day tobacco/nicotine user (CHEWING TOBACCO) smokeless tobacco Smokeless tobacco user: chewing tobacco Alcohol intake: never Substance/Drug Use: never Marital status: Single Education level details: Grade school education, was in special education per old records Current occupational status: disabled Physical Exam Const: COMMON NORMALS: no acute distress and patient oriented x3 GENERAL APPEARANCE: cooperative NUTRITIONAL APPEARANCE: obese Chest: CHEST: Yes tenderness (Right anterior chest wall) Resp: COMMON NORMALS: normal respiratory effort, No use of accessory muscles and clear to auscultation bilaterally AUSCULTATION: clear to auscultation bilaterally Cardio: COMMON NORMALS: regular rate and regular rhythm RATE: regular rate RHYTHM: regular rhythm GI: INSPECTION: Yes central obesity Extremity: COMMON NORMALS: normal to inspection and full ROM Neuro: COMMON NORMALS: patient oriented x3, moves all extremities and no focal motor deficits Psych: COMMON NORMALS: mental status grossly normal, Normal thought process present and cooperative THOUGHT PROCESS: Normal thought process present Skin: COMMON NORMALS: no rashes or lesions noted GENERAL SKIN EXAM: no rashes or lesions noted Course Vital Signs: Vital signs: Vital Signs Temperature 99.4 F 12/08/24 11:07 Pulse Rate 97 12/08/24 11:21 Respiratory Rate 16 12/08/24 11:21 Blood Pressure 152/74 12/08/24 11:48 Pulse Oximetry 93 12/08/24 12:27 Oxygen Delivery Me thod Room Air 12/08/24 11:07 MDM - General Adult Medical Decision Making Patient's x-ray was ordered reviewed and is negative. Patient does have influenza A. I will treat him with Tamiflu and give him some Tessalon Perles for the cough. Discussed with him supportive care for his rib strain/chest wall strain. Patient was stable and discharged home Lab Data Radiology Impressions Chest X-Ray 12/08/24 11:16 Impression: Negative chest with additional expiration view. Laboratory Results Influenza A (PCR) Positive (Negative) 12/08/24 11:23 Influenza Type B (PCR) Negative (Negative) 12/08/24 11:23 RSV (PCR) Negative (Negative) 12/08/24 11:23 SARS-CoV-2 (PCR) Negative (Negative) 12/08/24 11:23 All radiology interpretation(s) finalized by discharge Discharge Plan Discharge Patient Disposition: Home Clinical Impression: Influenza A, Chest wall muscle strain Condition: Stable Prescriptions: New oseltamivir [Tamiflu] 75 mg capsule 75 mg PO BID 5 Days Qty: 10 0RF benzonatate 100 mg capsule 100 mg PO Q6H PRN (Reason: cough) Qty: 14 0RF No Action pioglitazone 15 mg tablet 15 mg PO DAILY insulin aspart U-100 [Novolog FlexPen U-100 Insulin] 100 unit/mL (3 mL) insulin pen 18 unit SUBCUT TID Rx Instructions: INJECT 18 UNITS PLUS SLIDING SCALE BEFORE BREAKFAST, LUNCH, & DINNER, MAX DAILY DOSE 70 UNITS tamsulosin 0.4 mg capsule 0.4 mg PO .AT BEDTIME Qty: 30 12RF clonidine HCl 0.1 mg tablet 0.1 mg PO 2XD amlodipine 10 mg tablet 10 mg PO DAILY@0900 zolpidem 10 mg tablet 10 mg PO BEDTIME@2100 rosuvastatin 40 mg tablet 40 mg PO DAILY@0900 pantoprazole 20 mg tablet,delayed release (DR/EC) 20 mg PO DAILY 56 Days Qty: 30 2RF insulin glargine [Lantus Solostar U-100 Insulin] 100 unit/mL (3 mL) insulin pen 110 unit SUBCUT BID Trulicity 0.75 mg/0.5 mL pen injector 0.75 mg SUBCUT Q7D cholecalciferol (vitamin D3) 50 mcg (2,000 unit) capsule 50 mcg PO DAILY losartan 100 mg tablet 100 mg PO DAILY (DME) Dexcom G6 Sensor Device MISCELLANEOUS (DME) blood-glucose meter,continuous Misc MISCELLANEOUS Discharge Orders: Discharge ED (Routine); Ordered 12/08/24 Ordered By: Tomas Holguin Referrals: Ford García MD [Primary Care Provider] - Discharge Diet: Usual diet Discharge Activity: Resume usual activity Patient Instructions: Influenza (ED), Chest Wall Pain (ED), Opioid Safety, Pain Management Activity Restrictions/Additional Instructions: Topical lidocaine patches with menthol or Voltaren/diclofenac cream or gel. Please use these as directed on package. Follow-up with your primary care provider in 7 to 10 days if symptoms or not improving. Print Language: Turkmen Coding Level of Care Code ED Legal Instruments Examiner for Johnny Simmons
[2024-12-08] MEDS: lidocaine 5% Patch 1 PATCH TOPICAL (11:39)
[2024-12-08 11:48] VITALS: BP 152/74; O2SAT 93
[2024-12-08 12:08] LABS: Influenza A POSITIVE (Negative); Influenza B NEGATIVE (Negative); Respiratory Syncytial Virus Ce NEGATIVE (Negative); SARS-CoV-2 PCR NEGATIVE (Negative)
[2024-12-08 12:27] VITALS: O2SAT 93
[2024-12-08 12:50] VITALS: BP 150/91; PULSE 86; RESP 16; O2SAT 93
== END 2024-12-08 12:51 | disposition home or self-care (01) ==
PROVIDERS: Emergency Provider Student in an Organized Health Care Education/Training Program; PCP Family Medicine
DX: J10.1 Influenza due to other identified influenza virus with other respiratory manifestations (principal); S29.011A Strain of muscle and tendon of front wall of thorax, initial encounter; Z11.52 Encounter for screening for COVID-19; Z79.4 Long term (current) use of insulin; F17.220 Nicotine dependence, chewing tobacco, uncomplicated; E78.5 Hyperlipidemia, unspecified; I10 Essential (primary) hypertension; E11.9 Type 2 diabetes mellitus without complications; X58.XXXA Exposure to other specified factors, initial encounter
CPT/HCPCS: 71046; 87637; 99284; J9999

== ENCOUNTER 2025-03-02 04:57 | Emergency (ER) | payer MEDICAID, SELFPAY ==
[2025-03-02] VITALS (7 sets, daily range): BP systolic 119–132; BP diastolic 65–77; PULSE 68–79; RESP 16–20; TEMP 36.7; O2SAT 93–98; BMI 34.8
--- NOTE | 2025-03-02 05:19 | CTR_ITS ---
PROCEDURE INFORMATION: Exam: CT Abdomen And Pelvis With Contrast Exam date and time: 03/02/2025 5:52 AM Age: 64 years old Clinical indication: Abdominal pain; Localized; Left lower quadrant (llq); Additional info: Abd pain, suprapubic, llq TECHNIQUE: Imaging protocol: Computed tomography of the abdomen and pelvis with contrast. Radiation optimization: All CT scans at this facility use at least one of these dose optimization techniques: automated exposure control; mA and/or kV adjustment per patient size (includes targeted exams where dose is matched to clinical indication); or iterative reconstruction. Contrast material: OMNI 350; Contrast volume: 100 ml; Contrast route: INTRAVENOUS (IV); COMPARISON: CT abdomen pelvis wo con [id number] 12/09/2020 8:58 PM RADIATION DOSE METRICS: Total DLP (mGy-cm): 1435.8 FINDINGS: Liver: Normal. No mass. Gallbladder and biliary ducts: Normal. No calcified stones. No ductal dilation. Pancreas: Normal. No ductal dilation. Spleen: 14 cm splenomegaly. Adrenal glands: Normal. No mass. Kidneys and ureters: 2-3 mm mildly obstructing distal right ureteral calculus (4:80). Slight proximal ureteropelvic caliectasis. No additional urinary calculi. No renal cyst or mass. Stomach and bowel: Unremarkable. No obstruction. No mucosal thickening. Appendix: No evidence of appendicitis. Intraperitoneal space: Unremarkable. No free air. No significant fluid collection. Vasculature: Unremarkable. No abdominal aortic aneurysm. Lymph nodes: Unremarkable. No enlarged lymph nodes. Urinary bladder: See Kidneys and ureters finding. Reproductive: Unremarkable as visualized. Bones/joints: Unremarkable. No acute fracture. Soft tissues: Unremarkable. CT/CT abdomen pelvis w con* [id number] IMPRESSION: Mildly obstructing right distal ureteral/UVJ calculus.
--- NOTE | 2025-03-02 05:21 | W.ED.ABDPA2 ---
Documented by User: Richard Sutton MD 03/02/25 05:33 HPI - Abdominal Pain General: Chief Complaint: Abdominal Pain Stated Complaint: Cant Poop Time Seen by Provider: 03/02/25 05:08 History of Present Illness: Patient is a 64 yr old male with with a history of acute kidney failure in 2020 requiring dialysis for a short while, HTN, DM, mild developmental delay who presents with abdominal pain and inability to have a bowel movement since last night. The pain worsens when lying down or raising up, and improves when standing. Patient reports sweating when lying down and feeling sick to the stomach. No fever reported. Pain is described as severe at times. Patient denies pain in the area of the appendix and gallbladder. Patient has been urinating normally overnight. Blood sugar was checked during pain episode and was 129. Patient reports decreased appetite and eating less than usual. No recent abdominal surgeries. Related Data Home Medications ?Medication ?Instructions ?Recorded ?Confirmed rosuvastatin 40 mg tablet 40 mg PO DAILY@0900 12/09/20 12/08/24 zolpidem 10 mg tablet 10 mg PO BEDTIME@2100 12/09/20 12/08/24 amlodipine 10 mg tablet 10 mg PO DAILY@0900 01/28/21 12/08/24 clonidine HCl 0.1 mg tablet 0.1 mg PO 2XD 01/28/21 12/08/24 insulin aspart U-100 100 unit/mL 18 unit SUBCUT TID 02/10/22 12/08/24 (3 mL) subcutaneous pen (Novolog FlexPen U-100 Insulin aspart) pioglitazone 15 mg tablet 15 mg PO DAILY 02/10/22 12/08/24 blood-glucose sensor (Dexcom G6 08/09/23 12/08/24 Sensor device) blood-glucose,fruit harvester,cont 08/09/23 12/08/24 losartan 100 mg tablet 100 mg PO DAILY 08/09/23 12/08/24 cholecalciferol (vitamin D3) 50 50 mcg PO DAILY 12/08/24 12/08/24 mcg (2,000 unit) capsule dulaglutide 0.75 mg/0.5 mL 0.75 mg SUBCUT Q7D 12/08/24 12/08/24 subcutaneous [facility] ([facility] insulin glargine 100 unit/mL (3 110 unit SUBCUT BID 12/08/24 12/08/24 mL) subcutaneous pen (Lantus Solostar U-100 Insulin) Previous Rx's ?Medication ?Instructions ?Recorded tamsulosin 0.4 mg capsule 0.4 mg PO .AT BEDTIME #30 caps 03/03/23 pantoprazole 20 mg tablet,delayed 20 mg PO DAILY 8 weeks #30 tabs 10/19/23 release benzonatate 100 mg capsule 100 mg PO Q6H PRN cough #14 caps 12/08/24 hydrocodone 5 mg-acetaminophen 325 1 tab PO Q6H PRN pain #15 tabs 03/02/25 mg tablet promethazine 25 mg tablet 25 mg PO Q6H PRN nausea and 03/02/25 vomiting #20 tabs tamsulosin 0.4 mg capsule 0.4 mg PO BID #30 caps 03/02/25 Allergies Allergy/AdvReac Type Severity Reaction Status Date / Time acetaminophen (From Tylenol) Allergy COUNTER Verified 03/02/25 05:06 ACTS WITH INSULIN ibuprofen Allergy COUNTER Verified 03/02/25 05:06 ACTS WITH INSULIN MEDICATION PFSH ED PFSH: Medical History Lower urinary tract symptoms (LUTS) Urinary retention Mild cognitive impairment Grade school education Acute renal failure Hypertension Hyperlipidemia Diabetes mellitus, type II Surgical History S/P dialysis catheter insertion (12/10/20) Right IJ removed 01/15/21 History of cardiac catheterization (~2013) Procedure Summary 1-LM is normal 2-LAD is normal 3-LCx is normal 4-RCA is normal 5-Normal LVEDP Family History Mother , AT AGE 59 OVARIAN CANCER CAD (coronary artery disease) Cancer Diabetes Father Diabetes Other Hypertension Social History Smoking and tobacco/nicotine status: current every day tobacco/nicotine user (CHEWING TOBACCO) smokeless tobacco Smokeless tobacco user: chewing tobacco Alcohol intake: never Substance/Drug Use: never Marital status: Single Education level details: Grade school education, was in special education per old records Current occupational status: disabled Physical Exam Const: COMMON NORMALS: no acute distress, patient oriented x3 and alert HENMT: COMMON NORMALS: normocephalic and atraumatic HEAD & SCALP: normocephalic and atraumatic Eye: COMMON NORMALS: Equal, round and reactive pupils present, EOMs intact bilaterally and no scleral icterus PUPIL: Yes Equal, round and reactive pupils present Resp: COMMON NORMALS: normal respiratory effort and No retractions Cardio: COMMON NORMALS: regular rate, regular rhythm and No murmurs present (Cardio) RATE: regular rate RHYTHM: regular rhythm GI: OTHER: Abdomen is protuberant, with normal bowel sounds and only mild tenderness to palpation in the suprapubic region and left lower quadrant. No pain with the palpation of McBurney's point. Negative Almonte sign. Neuro: COMMON NORMALS: patient oriented x3 SENSORIUM/ORIENTATION: Yes alert Skin: COMMON NORMALS: no rashes or lesions noted GENERAL SKIN EXAM: no rashes or lesions noted Course Vital Signs: Vital signs: Vital Signs Temperature 98.0 F 03/02/25 04:58 Pulse Rate 79 03/02/25 07:20 Respiratory Rate 16 03/02/25 05:33 Blood Pressure 130/65 03/02/25 07:20 Pulse Oximetry 95 03/02/25 07:20 Oxygen Delivery Me thod Room Air 03/02/25 06:30 MDM - Abdominal Pain Medical Decision Making In summary, patient is a pleasant 64-year-old male seen for lower abdominal pain. At the time of shift change, only CBC has resulted and white blood cell count is not elevated and there is no shift. CT abdomen pelvis will be performed. He was given Zofran and morphine for symptomatic control. Pertinent details of the case were shared with the oncoming emergency physician who will help facilitate ultimate disposition based on remainder of laboratory and radiographic findings. Lab Data 03/02/25 05:19 03/02/25 05:19 Labs/Radiology: Radiology Impressions Abdomen/Pelvis CT 03/02/25 05:19 IMPRESSION: Mildly obstructing right distal ureteral/UVJ calculus. Laboratory Results WBC 10.32 10^3/uL (3.29-11.43) 03/02/25 05:19 RBC 4.68 10^6/uL (3.85-5.65) 03/02/25 05:19 Hgb 13.60 g/dL (11.27-16.99) 03/02/25 05:19 Hct 39.7 % (37-53) 03/02/25 05:19 MCV 84.8 fl (82-101) 03/02/25 05:19 MCH 29.1 pg (27-33) 03/02/25 05:19 MCHC 34.3 g/dL (30-55) 03/02/25 05:19 RDW 13.3 % (12.1-15.1) 03/02/25 05:19 Plt Count 201 10^3/cmm (157-399) 03/02/25 05:19 MPV 11.0 fL (7.4-10.4) H 03/02/25 05:19 Neut % (Auto) 71.1 % 03/02/25 05:19 Lymph % (Auto) 19.7 % 03/02/25 05:19 [place] % (Auto) 7.0 % 03/02/25 05:19 Eos % (Auto) 1.3 % 03/02/25 05:19 Baso % (Auto) 0.6 % 03/02/25 05:19 Neut # (Auto) 7.35 10^3/uL (1.8-7.7) 03/02/25 05:19 Lymph # (Auto) 2.0 10^3/uL (0.8-4.8) 03/02/25 05:19 [place] # (Auto) 0.7 10^3/uL (0.2-0.9) 03/02/25 05:19 Eos # (Auto) 0.1 10^3/uL (0.0-0.8) 03/02/25 05:19 Baso # (Auto) 0.1 10^3/uL (0.0-0.1) 03/02/25 05:19 Nucleated RBC % (auto) 0 % 03/02/25 05:19 Nucleated RBCs # 0.0 /100WBC 03/02/25 05:19 Sodium 139 mmol/L (136-145) 03/02/25 05:19 Potassium 3.5 mmol/L (3.5-5.1) 03/02/25 05:19 Chloride 102 mmol/L (98-107) 03/02/25 05:19 Carbon Dioxide 24 mmol/L (22-29) 03/02/25 05:19 Anion Gap 16.5 (5-19) 03/02/25 05:19 BUN 18 mg/dL (8-23) 03/02/25 05:19 Creatinine 1.1 mg/dL (0.7-1.2) 03/02/25 05:19 GFR Calculation 67.8 mL/min (90-130) L 03/02/25 05:19 Glucose 142 mg/dL (65-115) H 03/02/25 05:19 Calculated Osmolality 292 mOsm/kg (285-295) 03/02/25 05:19 Calcium 8.9 mg/dL (8.5-10.5) 03/02/25 05:19 Total Bilirubin 0.5 mg/dL (0.15-1.2) 03/02/25 05:19 AST 20 U/L (0-40) 03/02/25 05:19 ALT 29 U/L (0-41) 03/02/25 05:19 Alkaline Phosphatase 82 U/L (40-130) 03/02/25 05:19 Total Protein 7.1 g/dL (6.6-8.7) 03/02/25 05:19 Albumin 4.1 g/dL (3.5-5.2) 03/02/25 05:19 Globulin 3.0 g/dL (1.3-4.6) 03/02/25 05:19 Lipase 39 U/L (13-60) 03/02/25 05:19 Urine Color Dark yellow (Yellow) A 03/02/25 06: Urine Appearance Turbid (CLEAR) A 03/02/25 06: Urine pH 5.0 (5-7) 03/02/25 06: Ur Specific [place] 1.032 (1.005-1.030) H 03/02/25 06: Urine Protein 1+ (Negative) A 03/02/25 06: Urine Glucose (UA) Trace (Normal) H 03/02/25 06: Urine Ketones Trace (Negative) 03/02/25 06: Urine Blood 3+ (Negative) A 03/02/25 06: Urine Nitrate Negative (Negative) 03/02/25 06: Urine Bilirubin Negative (Negative) 03/02/25 06: Urine Urobilinogen 1.0 mg/dL (Negative) 03/02/25 06:29 Ur Leukocyte Esterase Trace (Negative) A 03/02/25 06:29 Urine RBC >100 /hpf (0-2) H 03/02/25 06:29 Urine WBC 0-5 /hpf (0-5) 03/02/25 06:29 Ur Squamous Epith Cells 0-5 /hpf (0-5) 03/02/25 06:29 Amorphous Sediment Not Reportable 03/02/25 06:29 Urine Bacteria None seen /hpf (NONE) 03/02/25 06:29 Hyaline Casts 5.36 /lpf 03/02/25 06:29 Discharge Plan Discharge Patient Disposition: Home Clinical Impression: Calculus of kidney, Constipation Condition: Stable Prescriptions: New hydrocodone-acetaminophen 5-325 mg tablet 1 tab PO Q6H PRN (Reason: pain) Qty: 15 0RF tamsulosin 0.4 mg capsule 0.4 mg PO BID Qty: 30 0RF promethazine 25 mg tablet 25 mg PO Q6H PRN (Reason: nausea and vomiting) Qty: 20 0RF No Action pioglitazone 15 mg tablet 15 mg PO DAILY insulin aspart U-100 [Novolog FlexPen U-100 Insulin] 100 unit/mL (3 mL) insulin pen 18 unit SUBCUT TID Rx Instructions: INJECT 18 UNITS PLUS SLIDING SCALE BEFORE BREAKFAST, LUNCH, & DINNER, MAX DAILY DOSE 70 UNITS tamsulosin 0.4 mg capsule 0.4 mg PO .AT BEDTIME Qty: 30 12RF clonidine HCl 0.1 mg tablet 0.1 mg PO 2XD amlodipine 10 mg tablet 10 mg PO DAILY@0900 zolpidem 10 mg tablet 10 mg PO BEDTIME@2100 rosuvastatin 40 mg tablet 40 mg PO DAILY@0900 pantoprazole 20 mg tablet,delayed release (DR/EC) 20 mg PO DAILY 56 Days Qty: 30 2RF insulin glargine [Lantus Solostar U-100 Insulin] 100 unit/mL (3 mL) insulin pen 110 unit SUBCUT BID Trulicity 0.75 mg/0.5 mL pen injector 0.75 mg SUBCUT Q7D cholecalciferol (vitamin D3) 50 mcg (2,000 unit) capsule 50 mcg PO DAILY benzonatate 100 mg capsule 100 mg PO Q6H PRN (Reason: cough) Qty: 14 0RF losartan 100 mg tablet 100 mg PO DAILY (DME) [employer] G6 Sensor Device MISCELLANEOUS (DME) blood-glucose,fruit harvester,cont Misc MISCELLANEOUS Discharge Orders: Discharge ED (Routine); Ordered 03/02/25 Ordered By: Reid Hendricks Referrals: Ford García MD [Primary Care Provider, Family Practice] Discharge Diet: Usual diet Discharge Activity: Increase activity as tolerated Patient Instructions: Kidney Stones (ED), How to Strain Your Urine (ED), Opioid Safety, Pain Management Activity Restrictions/Additional Instructions: Thank you for choosing [facility] for your healthcare needs today. It is very important that you follow up as instructed or that you return to the Emergency Department should you have concerns or if your condition changes or worsens in any way. You are seen today with abdominal pain. You were noted to be moderately constipated on the CT you are also noted to have a kidney stone. You are given pain medications recommend you strain your urine. I will set you up to see urology as an outpatient. Print Language: Thai Coding Level of Care Code ED Personalization Specialist for Chg Fwd Documented by User: Ried Hendricks DO 03/02/25 07:31 HPI - Abdominal Pain General: Chief Complaint: Abdominal Pain Stated Complaint: Cant Poop Time Seen by Provider: 03/02/25 05:08 Related Data Home Medications ?Medication ?Instructions ?Recorded ?Confirmed rosuvastatin 40 mg tablet 40 mg PO DAILY@0900 12/09/20 12/08/24 zolpidem 10 mg tablet 10 mg PO BEDTIME@2100 12/09/20 12/08/24 amlodipine 10 mg tablet 10 mg PO DAILY@0900 01/28/21 12/08/24 clonidine HCl 0.1 mg tablet 0.1 mg PO 2XD 01/28/21 12/08/24 insulin aspart U-100 100 unit/mL 18 unit SUBCUT TID 02/10/22 12/08/24 (3 mL) subcutaneous pen (Novolog FlexPen U-100 Insulin aspart) pioglitazone 15 mg tablet 15 mg PO DAILY 02/10/22 12/08/24 blood-glucose sensor (Dexcom G6 08/09/23 12/08/24 Sensor device) blood-glucose,fruit harvester,cont 08/09/23 12/08/24 losartan 100 mg tablet 100 mg PO DAILY 08/09/23 12/08/24 cholecalciferol (vitamin D3) 50 50 mcg PO DAILY 12/08/24 12/08/24 mcg (2,000 unit) capsule dulaglutide 0.75 mg/0.5 mL 0.75 mg SUBCUT Q7D 12/08/24 12/08/24 subcutaneous pen injector (Trulicity) insulin glargine 100 unit/mL (3 110 unit SUBCUT BID 12/08/24 12/08/24 mL) subcutaneous pen (Lantus Solostar U-100 Insulin) Previous Rx's ?Medication ?Instructions ?Recorded tamsulosin 0.4 mg capsule 0.4 mg PO .AT BEDTIME #30 caps 03/03/23 pantoprazole 20 mg tablet,delayed 20 mg PO DAILY 8 weeks #30 tabs 10/19/23 release benzonatate 100 mg capsule 100 mg PO Q6H PRN cough #14 caps 12/08/24 hydrocodone 5 mg-acetaminophen 325 1 tab PO Q6H PRN pain #15 tabs 03/02/25 mg tablet promethazine 25 mg tablet 25 mg PO Q6H PRN nausea and 03/02/25 vomiting #20 tabs tamsulosin 0.4 mg capsule 0.4 mg PO BID #30 caps 03/02/25 Allergies Allergy/AdvReac Type Severity Reaction Status Date / Time acetaminophen (From Tylenol) Allergy COUNTER Verified 03/02/25 05:06 ACTS WITH INSULIN ibuprofen Allergy COUNTER Verified 03/02/25 05:06 ACTS WITH INSULIN MEDICATION PFSH ED PFSH: Medical History Lower urinary tract symptoms (LUTS) Urinary retention Mild cognitive impairment Grade school education Acute renal failure Hypertension Hyperlipidemia Diabetes mellitus, type II Surgical History S/P dialysis catheter insertion (12/10/20) Right IJ removed 01/15/21 History of cardiac catheterization (~2013) Procedure Summary 1-LM is normal 2-LAD is normal 3-LCx is normal 4-RCA is normal 5-Normal LVEDP Family History Mother , AT AGE 59 OVARIAN CANCER CAD (coronary artery disease) Cancer Diabetes Father Diabetes Other Hypertension Social History Smoking and tobacco/nicotine status: current every day tobacco/nicotine user (CHEWING TOBACCO) smokeless tobacco Smokeless tobacco user: chewing tobacco Alcohol intake: never Substance/Drug Use: never Marital status: Single Education level details: Grade school education, was in special education per old records Current occupational status: disabled Course Vital Signs: Vital signs: Vital Signs Temperature 98.0 F 03/02/25 04:58 Pulse Rate 79 03/02/25 07:20 Respiratory Rate 16 03/02/25 05:33 Blood Pressure 130/65 03/02/25 07:20 Pulse Oximetry 95 03/02/25 07:20 Oxygen Delivery Me thod Room Air 03/02/25 06:30 MDM - Abdominal Pain Medical Decision Making In summary, patient is a pleasant 64-year-old male seen for lower abdominal pain. At the time of shift change, only CBC has resulted and white blood cell count is not elevated and there is no shift. CT abdomen pelvis will be performed. He was given Zofran and morphine for symptomatic control. Pertinent details of the case were shared with the oncoming emergency physician who will help facilitate ultimate disposition based on remainder of laboratory and radiographic findings. Care assumed at change of shift. CT showed nephrolithiasis moderate constipation discharge home pain nausea medications increase tamsulosin to twice daily strain urine. No signs of infection no antibiotics indicated. Nausea medications as needed. Case management to set up follow-up with urology. Lab Data 03/02/25 05:19 03/02/25 05:19 Labs/Radiology: Radiology Impressions Abdomen/Pelvis CT 03/02/25 05:19 IMPRESSION: Mildly obstructing right distal ureteral/UVJ calculus. Laboratory Results WBC 10.32 10^3/uL (3.29-11.43) 03/02/25 05:19 RBC 4.68 10^6/uL (3.85-5.65) 03/02/25 05:19 Hgb 13.60 g/dL (11.27-16.99) 03/02/25 05:19 Hct 39.7 % (37-53) 03/02/25 05:19 MCV 84.8 fl (82-101) 03/02/25 05:19 MCH 29.1 pg (27-33) 03/02/25 05:19 MCHC 34.3 g/dL (30-55) 03/02/25 05:19 RDW 13.3 % (12.1-15.1) 03/02/25 05:19 Plt Count 201 10^3/cmm (157-399) 03/02/25 05:19 MPV 11.0 fL (7.4-10.4) H 03/02/25 05:19 Neut % (Auto) 71.1 % 03/02/25 05:19 Lymph % (Auto) 19.7 % 03/02/25 05:19 [place] % (Auto) 7.0 % 03/02/25 05:19 Eos % (Auto) 1.3 % 03/02/25 05:19 Baso % (Auto) 0.6 % 03/02/25 05:19 Neut # (Auto) 7.35 10^3/uL (1.8-7.7) 03/02/25 05:19 Lymph # (Auto) 2.0 10^3/uL (0.8-4.8) 03/02/25 05:19 [place] # (Auto) 0.7 10^3/uL (0.2-0.9) 03/02/25 05:19 Eos # (Auto) 0.1 10^3/uL (0.0-0.8) 03/02/25 05:19 Baso # (Auto) 0.1 10^3/uL (0.0-0.1) 03/02/25 05:19 Nucleated RBC % (auto) 0 % 03/02/25 05:19 Nucleated RBCs # 0.0 /100WBC 03/02/25 05:19 Sodium 139 mmol/L (136-145) 03/02/25 05:19 Potassium 3.5 mmol/L (3.5-5.1) 03/02/25 05:19 Chloride 102 mmol/L (98-107) 03/02/25 05:19 Carbon Dioxide 24 mmol/L (22-29) 03/02/25 05:19 Anion Gap 16.5 (5-19) 03/02/25 05:19 BUN 18 mg/dL (8-23) 03/02/25 05:19 Creatinine 1.1 mg/dL (0.7-1.2) 03/02/25 05:19 GFR Calculation 67.8 mL/min (90-130) L 03/02/25 05:19 Glucose 142 mg/dL (65-115) H 03/02/25 05:19 Calculated Osmolality 292 mOsm/kg (285-295) 03/02/25 05:19 Calcium 8.9 mg/dL (8.5-10.5) 03/02/25 05:19 Total Bilirubin 0.5 mg/dL (0.15-1.2) 03/02/25 05:19 AST 20 U/L (0-40) 03/02/25 05:19 ALT 29 U/L (0-41) 03/02/25 05:19 Alkaline Phosphatase 82 U/L (40-130) 03/02/25 05:19 Total Protein 7.1 g/dL (6.6-8.7) 03/02/25 05:19 Albumin 4.1 g/dL (3.5-5.2) 03/02/25 05:19 Globulin 3.0 g/dL (1.3-4.6) 03/02/25 05:19 Lipase 39 U/L (13-60) 03/02/25 05:19 Urine Color Dark yellow (Yellow) A 03/02/25 06: Urine Appearance Turbid (CLEAR) A 03/02/25 06: Urine pH 5.0 (5-7) 03/02/25 06:29 Ur Specific [place] 1.032 (1.005-1.030) H 03/02/25 06: Urine Protein 1+ (Negative) A 03/02/25 06: Urine Glucose (UA) Trace (Normal) H 03/02/25 06: Urine Ketones Trace (Negative) 03/02/25 06: Urine Blood 3+ (Negative) A 03/02/25 06: Urine Nitrate Negative (Negative) 03/02/25 06: Urine Bilirubin Negative (Negative) 03/02/25 06: Urine Urobilinogen 1.0 mg/dL (Negative) 03/02/25 06:29 Ur Leukocyte Esterase Trace (Negative) A 03/02/25 06:29 Urine RBC >100 /hpf (0-2) H 03/02/25 06:29 Urine WBC 0-5 /hpf (0-5) 03/02/25 06:29 Ur Squamous Epith Cells 0-5 /hpf (0-5) 03/02/25 06:29 Amorphous Sediment Not Reportable 03/02/25 06:29 Urine Bacteria None seen /hpf (NONE) 03/02/25 06:29 Hyaline Casts 5.36 /lpf 03/02/25 06:29 All radiology interpretation(s) finalized by discharge Discharge Plan Discharge Patient Disposition: Home Clinical Impression: Calculus of kidney, Constipation Condition: Stable Prescriptions: New hydrocodone-acetaminophen 5-325 mg tablet 1 tab PO Q6H PRN (Reason: pain) Qty: 15 0RF tamsulosin 0.4 mg capsule 0.4 mg PO BID Qty: 30 0RF promethazine 25 mg tablet 25 mg PO Q6H PRN (Reason: nausea and vomiting) Qty: 20 0RF No Action pioglitazone 15 mg tablet 15 mg PO DAILY insulin aspart U-100 [Novolog FlexPen U-100 Insulin] 100 unit/mL (3 mL) insulin pen 18 unit SUBCUT TID Rx Instructions: INJECT 18 UNITS PLUS SLIDING SCALE BEFORE BREAKFAST, LUNCH, & DINNER, MAX DAILY DOSE 70 UNITS tamsulosin 0.4 mg capsule 0.4 mg PO .AT BEDTIME Qty: 30 12RF clonidine HCl 0.1 mg tablet 0.1 mg PO 2XD amlodipine 10 mg tablet 10 mg PO DAILY@0900 zolpidem 10 mg tablet 10 mg PO BEDTIME@2100 rosuvastatin 40 mg tablet 40 mg PO DAILY@0900 pantoprazole 20 mg tablet,delayed release (DR/EC) 20 mg PO DAILY 56 Days Qty: 30 2RF insulin glargine [Lantus Solostar U-100 Insulin] 100 unit/mL (3 mL) insulin pen 110 unit SUBCUT BID Trulicity 0.75 mg/0.5 mL pen injector 0.75 mg SUBCUT Q7D cholecalciferol (vitamin D3) 50 mcg (2,000 unit) capsule 50 mcg PO DAILY benzonatate 100 mg capsule 100 mg PO Q6H PRN (Reason: cough) Qty: 14 0RF losartan 100 mg tablet 100 mg PO DAILY (DME) Dexcom G6 Sensor Device MISCELLANEOUS (DME) blood-glucose,fruit harvester,cont Misc MISCELLANEOUS Discharge Orders: Discharge ED (Routine); Ordered 03/02/25 Ordered By: Reid Hendricks Referrals: Ford García MD [Primary Care Provider, Family Practice] Discharge Diet: Usual diet Discharge Activity: Increase activity as tolerated Patient Instructions: Kidney Stones (ED), How to Strain Your Urine (ED), Opioid Safety, Pain Management Activity Restrictions/Additional Instructions: Thank you for choosing [facility] for your healthcare needs today. It is very important that you follow up as instructed or that you return to the Emergency Department should you have concerns or if your condition changes or worsens in any way. You are seen today with abdominal pain. You were noted to be moderately constipated on the CT you are also noted to have a kidney stone. You are given pain medications recommend you strain your urine. I will set you up to see urology as an outpatient. Print Language: Thai Coding Level of Care Code ED Personalization Specialist for Johnny Simmons
[2025-03-02 05:25] LABS: Basophils # 0.1 10^3/uL (0.0-0.1); Basophils % 0.6 %; Eosinophils # 0.1 10^3/uL (0.0-0.8); Eosinophils % 1.3 %; Hematocrit 39.7 % (37-53); Lymphocytes % 19.7 %; Mean Corpuscular HGB Conc 34.3 g/dL (30-55); Mean Corpuscular Hemoglobin 29.1 pg (27-33); Mean Corpuscular Volume 84.8 fl (82-101); Monocytes # 0.7 10^3/uL (0.2-0.9); Neutrophils # 7.35 10^3/uL (1.8-7.7); Neutrophils % 71.1 %; Nucleated Red Blood Cells % 0 %; Platelet Count 201 10^3/cmm (157-399); Red Blood Count 4.68 10^6/uL (3.85-5.65); Red Cell Distribution Width 13.3 % (12.1-15.1); White Blood Count 10.32 10^3/uL (3.29-11.43)
[2025-03-02] MEDS: morphine 4 mg/mL SDV 1 mL IVP (05:33)
[2025-03-02] MEDS: sodium chloride 0.9% 1,000 ML 999 ML IV (05:34)
[2025-03-02] MEDS: ondansetron 2 mg/ML SDV 2 mL 4 MG IVP (05:34)
[2025-03-02 05:43] LABS: Alanine Aminotransferase 29 U/L (0-41); Albumin Level 4.1 g/dL (3.5-5.2); Alkaline Phosphatase 82 U/L (40-130); Anion Gap 16.5 (5-19); Aspartate Amino Transferase 20 U/L (0-40); Blood Urea Nitrogen 18 mg/dL (8-23); Calcium 8.9 mg/dL (8.5-10.5); Carbon Dioxide 24 mmol/L (22-29); Chloride 102 mmol/L (98-107); Creatinine Clr Calc Pharmacy 89.1674; Glomerular Filtration Rate 67.8 mL/min (90-130); Glucose 142 mg/dL (65-115); Lipase 39 U/L (13-60); Osmolality Calculated 292 mOsm/kg (285-295); Potassium 3.5 mmol/L (3.5-5.1); Sodium 139 mmol/L (136-145); Total Bilirubin 0.5 mg/dL (0.15-1.2); Total Protein 7.1 g/dL (6.6-8.7)
[2025-03-02] MEDS: iohexol 350 mg/mL 500 mL Btl (per mL) IV (05:54)
[2025-03-02] MEDS: ketorolac 30 mg/mL INJ IVP (06:26)
[2025-03-02 06:35] LABS: Bilirubin Urine Negative (Negative); Blood Urine 3+ (Negative); Glucose Urine UA Trace (Normal); Ketones Urine Trace (Negative); Leukocyte Esterase Urine Trace (Negative); Nitrate Urine Negative (Negative); Protein Urine 1+ (Negative); Urine Appearance Turbid (CLEAR); Urine Color Dark Yellow (Yellow)
[2025-03-02 06:40] LABS: Bacteria Urine None Seen /hpf; Hyaline Casts Urine 5.36 /lpf; RBC Urine >100 /hpf (0-2); Squamous Epithelial Cell Urine 0-5 /hpf (0-5); WBC Urine 0-5 /hpf (0-5)
[2025-03-02 06:41] LABS: Specific Gravity, Urine 1.032 (1.005-1.030)
[2025-03-02 06:42] LABS: Add Urine Culture? Yes
--- NOTE | 2025-03-06 08:11 | DCPLANNER ---
faxed referral packet and pushed images to [facility] urology
== END 2025-03-02 07:22 | disposition home or self-care (01) ==
PROVIDERS: Student in an Organized Health Care Education/Training Program; Emergency Provider Family Medicine; PCP Family Medicine
DX: N20.0 Calculus of kidney (principal); K59.00 Constipation, unspecified; I10 Essential (primary) hypertension; R62.50 Unspecified lack of expected normal physiological development in childhood; E11.9 Type 2 diabetes mellitus without complications; Z79.899 Other long term (current) drug therapy; Z79.85 Long-term (current) use of injectable non-insulin antidiabetic drugs; Z79.4 Long term (current) use of insulin; E78.5 Hyperlipidemia, unspecified; F17.220 Nicotine dependence, chewing tobacco, uncomplicated
CPT/HCPCS: 74177; 80053; 81001; 83690; 85025; 87086; 96361; 96374; 96375; 99285; J1885; J2270; J2405; J7030